=== PATIENT | male | born 1985 | race American Indian/Alaskan Native ===

== ENCOUNTER 2020-04-30 09:54 | Emergency (ER) | payer MEDICARE, OTHER ==
[~2020-04-30] VITALS: Ht 182.9 cm; Wt 142.9 kg
--- OUTSIDE RECORDS SUMMARY | ~2020-04-30 | XMS | Encounter Summary ---
Demographics + + + | Address | [address] | | | [place] [address] | + + + | Home Phone | | + + + | Preferred Language | Unknown | + + + | Marital Status | Single | + + + | Roman Catholic Affiliation | NON | + + + | Race | or | + + + | Ethnic Group | Not or | + + + Author + + + | Author | [facility] | + + + | Organization | [facility] | + + + | Address | Unknown | + + + | Phone | Unavailable | + + + Support + + + + + | Name | Relationship | Address | Phone | + + + + + | Delonte Yung | ECON | [place] | | + + + + + Care Team Providers + +------+ + | Care Pan Tank Worker Name | Role | Phone | + +------+ + | Rita Rodriguez MD | PCP | | + +------+ + Encounter Details +--------+ + + + + | Date | Type | Department | Care Team | Description | +--------+ + + + + | 03/26/ | Abstract | Otolaryngology | Otology, Ent [address] | | | 2012 | | Otology Services at | [facility] | | | | | [facility] [address] [place], [place] | | | | | [address] | [address] | | | | | Physician's | | | | | | [place], [address] floor | | | | | | [place], [place] | | | | | | [address] | | | | | | [phone] | | | +--------+ + + + + Social History + +-------+ +--------+------+ | Tobacco Use | Types | Packs/Day | Years | Date | | | | | Used | | + +-------+ +--------+------+ | Never Smoker | | | | | + +-------+ +--------+------+ + +---+---+---+ | Smokeless Tobacco: | | | | | Never Used | | | | + +---+---+---+ + + +---------+ + | Alcohol Use | Drinks/Week | oz/Week | Comments | + + +---------+ + | Not Asked | | | | + + +---------+ + + + + | Sex Assigned at | Date Recorded | | | | + + + | Not on file | | + + + + + + + | Job Start Date | Occupation | Industry | + + + + | Not on file | Not on file | Not on file | + + + + + + + + | Travel History | Travel Start | Travel End | + + + + + + | No recent travel history available. | + + documented as of this encounter Plan of Treatment Not on filedocumented as of this encounter Visit Diagnoses Not on filedocumented in this encounter"
--- OUTSIDE RECORDS SUMMARY | ~2020-04-30 | XMS | Encounter Summary ---
Demographics + + + | Address | [address] | | | [place] [address] | + + + | Home Phone | | + + + | Preferred Language | Unknown | + + + | Marital Status | Single | + + + | Episcopal Affiliation | NON | + + + | Race | or | + + + | Ethnic Group | Not or | + + + Author + + + | Author | [facility] | + + + | Organization | [facility] | + + + | Address | Unknown | + + + | Phone | Unavailable | + + + Support + + + + + | Name | Relationship | Address | Phone | + + + + + | Delonte Yung | ECON | [place], [place] | | + + + + + Care Team Providers + +------+ + | Care Outreach Professional Name | Role | Phone | + +------+ + | Diane Little MD | PCP | | + +------+ + Encounter Details +--------+------+ + + + | Date | Type | Department | Care Team | Description | +--------+------+ + + + | 08/27/ | Lab | Laboratory at [facility] | | Long-term use of | | 2015 | | [address] | | high-risk medication | | | | [place] for [facility] | | | | | | and Healing, | | | | | | [address] | | | | | | [place], [place] | | | | | | [address] | | | | | | [phone] | | | +--------+------+ + + + Social History + +-------+ [...] Comments | + + +---------+ + | No | | | | + + +---------+ [...] Not on filedocumented as of this encounter Procedures + +--------+ + + + | Procedure Name | Priori | Date/Time | Associated Diagnosis | Comments | | | ty | | | | + +--------+ + + + | CBC AND AUTO DIFF | Routin | 08/27/2016 | Long-term use of | Results for this | | | e | 12:21 PM | high-risk medication | procedure are in the | | | | PST | | results section. | + +--------+ + + + | CBC, WITH | Routin | 08/27/2016 | Long-term use of | Results for this | | DIFFERENTIAL | e | 12:21 PM | high-risk medication | procedure are in the | | | | PST | | results section. | + +--------+ + + + | COMPLETE METABOLIC | Routin | 08/27/2016 | Long-term use of | Results for this | | SET | e | 12:21 PM | high-risk medication | procedure are in the | | (NA,K,CL,CO2,BUN,CRE | | PST | | results section. | | AT,GLUC,CA,AST,ALT,B | | | | | | VERONA TOTAL,ALK | | | | | | PHOS,ALB,PROT TOTAL) | | | | | + +--------+ + + + documented in this encounter Results CBC AND AUTO DIFF (08/27/2016 12:21 PM PST) + + + + + + | Component | Value | Ref Range | Performed | Pathologist | | | | | At | Signature | + + + + + + | WHITE CELL | 9.09 | 3.50 - 10.80 | [facility] | | | COUNT | | K/cu mm | LABORATORY | | | | | | SERVICES, | | | | | | CORE | | + + + + + + | RED CELL | 5.61 | 4.50 - 6.00 | [facility] | | | COUNT | | M/cu mm | LABORATORY | | | | | | SERVICES, | | | | | | CORE | | + + + + + + | HEMOGLOBIN | 15.8 | 13.5 - 17.5 | [facility] | | | | | g/dL | LABORATORY | | | | | | SERVICES, | | | | | | CORE | | + + + + + + | HEMATOCRIT | 46.4 | 41.0 - 53.0 % | [facility] | | | | | | LABORATORY | | | | | | SERVICES, | | | | | | CORE | | + + + + + + | MCV | 82.7 | 80.0 - 96.0 fL | [facility] | | | | | | LABORATORY | | | | | | SERVICES, | | | | | | CORE | | + + + + + + | MCHC | 34.1 | 33.0 - 35.5 | [facility] | | | | | g/dL | LABORATORY | | | | | | SERVICES, | | | | | | CORE | | + + + + + + | RDW SD | 41.0 | 35.1 - 46.3 fL | [facility] | | | | | | LABORATORY | | | | | | SERVICES, | | | | | | CORE | | + + + + + + | PLATELET | 241 | 150 - 400 K/cu | [facility] | | | COUNT | | mm | LABORATORY | | | | | | SERVICES, | | | | | | CORE | | + + + + + + | MPV | 10.5 | 9.7 - 12.3 fL | [facility] | | | | | | LABORATORY | | | | | | SERVICES, | | | | | | CORE | | + + + + + + | NRBC% | 0.0 | 0.0 - 0.3 % | [facility] | | | | | | LABORATORY | | | | | | SERVICES, | | | | | | CORE | | + + + + + + | NRBC# | 0.00 | 0.00 - 0.02 | [facility] | | | | | K/cu mm | LABORATORY | | | | | | SERVICES, | | | | | | CORE | | + + + + + + | NEUTROPHIL | 50.5 | 50.0 - 70.0 % | [facility] | | | % | | | LABORATORY | | | | | | SERVICES, | | | | | | CORE | | + + + + + + | LYMPHOCYTE | 35.8 | 18.0 - 42.0 % | [facility] | | | % | | | LABORATORY | | | | | | SERVICES, | | | | | | CORE | | + + + + + + | MONOCYTE % | 9.1 (H) | 3.5 - 9.0 % | [facility] | | | | | | LABORATORY | | | | | | SERVICES, | | | | | | CORE | | + + + + + + | EOS % | 3.0 | 1.0 - 3.0 % | [facility] | | | | | | LABORATORY | | | | | | SERVICES, | | | | | | CORE | | + + + + + + | BASO % | 1.0 | 0.0 - 2.0 % | [facility] | | | | | | LABORATORY | | | | | | SERVICES, | | | | | | CORE | | + + + + + + | IG% | 0.6Comment: Immature | 0.0 - 0.6 % | [facility] | | | | Granulocytes (IG) | | LABORATORY | | | | include metamyelocytes, | | SERVICES, | | | | myelocytes and | | CORE | | | | promyelocytes. Bands | | | | | | are not included in the | | | | | | IG count. Bands are | | | | | | included in the | | | | | | neutrophil count. | | | | + + + + + + | NEUTROPHIL | 4.60 | 1.80 - 7.70 | [facility] | | | # | | K/cu mm | LABORATORY | | | | | | SERVICES, | | | | | | CORE | | + + + + + + | LYMPHOCYTE | 3.25 | 1.00 - 4.80 | [facility] | | | # | | K/cu mm | LABORATORY | | | | | | SERVICES, | | | | | | CORE | | + + + + + + | MONOCYTE # | 0.83 | 0.10 - 0.90 | [facility] | | | | | K/cu mm | LABORATORY | | | | | | SERVICES, | | | | | | CORE | | + + + + + + | EOS # | 0.27 | 0.00 - 0.50 | [facility] | | | | | K/cu mm | LABORATORY | | | | | | SERVICES, | | | | | | CORE | | + + + + + + | BASO # | 0.09 | 0.00 - 0.10 | [facility] | | | | | K/cu mm | LABORATORY | | | | | | SERVICES, | | | | | | CORE | | + + + + + + | IG# | 0.05 (H) | 0.00 - 0.03 | [facility] | | | | | K/cu mm | LABORATORY | | | | | | SERVICES, | | | | | | CORE | | + + + + + + + + | Specimen | + + | Blood - Blood | | (substance) | + + + + + | Narrative | Performed At | + + + | New adult WBC reference ranges effective August 01, 2016. | [facility] | | Immature Granulocytes (IG) include metamyelocytes, myelocytes and | LABORATORY | | promyelocytes. Bands are not included in the IG count. Bands are | SERVICES, CORE | | included in the neutrophil count. | | + + + + + + + + | Performing | Address | City/State/Zipcode | Phone Number | | Organization | | | | + + + + + | [facility] | [address] | [place] [address] | | | SERVICES, CORE | [address] | | | + + + + + COMPLETE METABOLIC SET (NA,K,CL,CO2,BUN,CREAT,GLUC,CA,AST,ALT,BILI TOTAL,ALK PHOS,ALB,PROT TOTAL) (08/27/2016 12:21 PM PST) + +---------+ + + + | Component | Value | Ref Range | Performed | Pathologist | | | | | At | Signature | + +---------+ + + + | GLUCOSE, | 77 | 60 - 99 mg/dL | [facility] | | | PLASMA | | | LABORATORY | | | (LAB) | | | SERVICES, | | | | | | CORE | | + +---------+ + + + | BUN, PLASMA | 10 | 6 - 20 mg/dL | [facility] | | | (LAB) | | | LABORATORY | | | | | | SERVICES, | | | | | | CORE | | + +---------+ + + + | CREATININE | 0.87 | 0.70 - 1.30 | [facility] | | | PLASMA | | mg/dL | LABORATORY | | | (LAB) | | | SERVICES, | | | | | | CORE | | + +---------+ + + + | EGFR | >60 | >60 mL/min | [facility] | | | - | | | LABORATORY | | | FAROESE | | | SERVICES, | | | | | | CORE | | + +---------+ + + + | EGFR NON | >60 | >60 mL/min | [facility] | | | -CRYSTAL | | | LABORATORY | | | RICAN | | | SERVICES, | | | | | | CORE | | + +---------+ + + + | SODIUM, | 142 | 136 - 145 | [facility] | | | PLASMA | | mmol/L | LABORATORY | | | (LAB) | | | SERVICES, | | | | | | CORE | | + +---------+ + + + | POTASSIUM, | 3.3 (L) | 3.4 - 5.0 | [facility] | | | PLASMA | | mmol/L | LABORATORY | | | (LAB) | | | SERVICES, | | | | | | CORE | | + +---------+ + + + | CHLORIDE, | 106 | 97 - 108 mmol/L | [facility] | | | PLASMA | | | LABORATORY | | | (LAB) | | | SERVICES, | | | | | | CORE | | + +---------+ + + + | TOTAL CO2, | 27 | 21 - 32 mmol/L | [facility] | | | PLASMA | | | LABORATORY | | | (LAB) | | | SERVICES, | | | | | | CORE | | + +---------+ + + + | CALCIUM, | 9.1 | 8.6 - 10.2 | [facility] | | | PLASMA | | mg/dL | LABORATORY | | | (LAB) | | | SERVICES, | | | | | | CORE | | + +---------+ + + + | CALCIUM(ALB | 9.1 | 8.6 - 10.2 | [facility] | | | CORRECTED) | | mg/dL | LABORATORY | | | | | | SERVICES, | | | | | | CORE | | + +---------+ + + + | BILIRUBIN | 1.2 | 0.3 - 1.2 mg/dL | [facility] | | | TOTAL | | | LABORATORY | | | | | | SERVICES, | | | | | | CORE | | + +---------+ + + + | TOTAL | 7.6 | 6.4 - 8.2 g/dL | [facility] | | | PROTEIN, | | | LABORATORY | | | PLASMA | | | SERVICES, | | | (LAB) | | | CORE | | + +---------+ + + + | ALBUMIN, | 4.0 | 3.5 - 4.7 g/dL | [facility] | | | PLASMA | | | LABORATORY | | | (LAB) | | | SERVICES, | | | | | | CORE | | + +---------+ + + + | ALK PHOS | 81 | 53 - 128 U/L | [facility] | | | | | | LABORATORY | | | | | | SERVICES, | | | | | | CORE | | + +---------+ + + + | AST(SGOT) | 27 | <=41 U/L | [facility] | | | | | | LABORATORY | | | | | | SERVICES, | | | | | | CORE | | + +---------+ + + + | ALT (SGPT) | 52 | <=60 U/L | [facility] | | | | | | LABORATORY | | | | | | SERVICES, | | | | | | CORE | | + +---------+ + + + | ANION GAP | 9 | mmol/L | [facility] | | | | | | LABORATORY | | | | | | SERVICES, | | | | | | CORE | | + +---------+ + + + | ANION | 9 | 4 - 11 mmol/L | [facility] | | | GAP(ALB | | | LABORATORY | | | CORRECTED) | | | SERVICES, | | | | | | CORE | | + +---------+ + + + | POTASSIUM | No Hemo | | [facility] | | | CMNT | | | LABORATORY | | | | | | SERVICES, | | | | | | CORE | | + +---------+ + + + | BILI T CMNT | No Hemo | | [facility] | | | | | | LABORATORY | | | | | | SERVICES, | | | | | | CORE | | + +---------+ + + + | AST CMNT | No Hemo | | [facility] | | | | | | LABORATORY | | | | | | SERVICES, | | | | | | CORE | | + +---------+ + + + + + | Specimen | + + | Blood - Blood | | (substance) | + + + + + | Narrative | Performed At | + + + | GFR is estimated using the MDRD equation recommended by the | [facility] | | National Kidney Disease Education Program. Estimated GFR | LABORATORY | | Interpretive Information: <60 mL/min/1.73 sq m | SERVICES, CORE | | Chronic Kidney Disease <15 mL/min/1.73 sq m | | | Kidney Failure Estimated GFR greater that 60 mL/min/1.73 sq m is of | | | limited clinical value. The MDRD equation is not valid in the | | | following situations: - Patients under 18 years of age - Severe | | | malnutrition or obesity - Vegetarian diet - Rapidly changing kidney | | | function | | + + + + + + + + | Performing | Address | City/State/Zipcode | Phone Number | | Organization | | | | + + + + + | [facility] | [address] | [place] [address] | | | SERVICES, CORE | [address] | | | + + + + + documented in this encounter Visit Diagnoses + + | Diagnosis | + + | Long-term use of high-risk medication | + + documented in this encounter"
--- OUTSIDE RECORDS SUMMARY | ~2020-04-30 | XMS | Encounter Summary ---
Demographics + + + | Address | [address] | | | [place] [address] | + + + | Home Phone | | + + + | Preferred Language | Unknown | + + + | Marital Status | Single | + + + | Christianity Affiliation | NON | + + + | Race | or | + + + | Ethnic Group | Not or | + + + Author + + + | Author | [facility] | + + + | Organization | [facility] [facility] | + + + | Address | Unknown | + + + | Phone | Unavailable | + + + Support + + + + + | Name | Relationship | Address | Phone | + + + + + | Delonte Yung | ECON | [place] | | + + + + + Care Team Providers + +------+ + | Care Water Purifier Name | Role | Phone | + +------+ + | Diane Little MD | PCP | | + +------+ + Reason for Visit + + + | Reason | Comments | + + + | Refill Request | Humira | + + + Encounter Details +--------+--------+ + + + | Date | Type | Department | Care Team | Description | +--------+--------+ + + + | 05/04/ | Refill | Dermatology | Shukri Anne, | Refill Request | | 2014 | | Medical at [facility] [address] | ,PhD Aylin | (Ti[place]) | | | | [address] [facility] | Allergy Asthma | | | | | for Health and | Dermatology [address] | | | | | [facility], [address], | [facility] | | | | | [address]th Floor | [place] [address] | | | | | [place], [place] | [phone] | | | | | [address] | | | | | | [phone] | | | +--------+--------+ + + + Social History + +-------+ [...] filedocumented as of this encounter Visit Diagnoses + + | Diagnosis | + + | Other psoriasis - Primary | + + documented in this encounter"
--- OUTSIDE RECORDS SUMMARY | ~2020-04-30 | XMS | Encounter Summary ---
Demographics + + + | Address | [address] [place] [address] ROAD | | | [place] [address] | + + + | Home Phone | | + + + | Preferred Language | Unknown | + + + | Marital Status | Single | + + + | Anabaptist Affiliation | Unknown | + + + | Race | Unknown | + + + | Ethnic Group | Unknown | + + + Author + + + | Author | [facility] | | | and Mendezana | + + + | Organization | [facility] | | | and [place]endez[place] | + + + | Address | Unknown | + + + | Phone | Unavailable | + + + Support + + +---------+ + | Name | Relationship | Address | Phone | + + +---------+ + | Benjamin Yung | ECON | Unknown | | + + +---------+ + | Marcy Santana | ECON | Unknown | | + + +---------+ + | Vinay Yung | ECON | Unknown | | + + +---------+ + Care Team Providers + +------+ + | Care Diamond Cleaner Name | Role | Phone | + +------+ + | Scarlet Bello PA-C | PCP | | + +------+ + Reason for Visit Evaluate & Treat (Routine) +--------+--------+ + + + + | Status | Reason | Specialty | Diagnoses / | Referred By | Referred To | | | | | Procedures | Contact | Contact | +--------+--------+ + + + + | Closed | | Dermatology | Diagnoses | [facility] | [facility] | | | | | Psoriasis | [facility] | Dermatology | | | | | | HEALTH | [address] | | | | | | [place] | [address] | | | | | | [address] | [place], [place] | | | | | | [place] | [address] | | | | | | WAY | Phone: | | | | | | [place], | [phone] | | | | | | [place] | Fax: | | | | | | [address] | [phone] | | | | | | Phone: | | | | | | | [phone] | | | | | | | Fax: | | | | | | | [phone] | | +--------+--------+ + + + + Encounter Details +--------+---------+ + + + | Date | Type | Department | Care Team | Description | +--------+---------+ + + + | 12/01/ | Office | [facility] | Julieth Jade | Psoriasis (Primary | | 2019 | Visit | PLASTIC SURGERY AND | [address] | Dx); High risk | | | | DERMATOLOGY [address] | [address] | medication use | | | | [address] | [place] [address] | | | | | [place], [place] | [phone] | | | | | [address] | | | | | | [phone] | | | +--------+---------+ + + + Social History + +-------+ [...] Comments | + + +---------+ + | Never | 0 Standard drinks | 0.0 | | | | or equivalent | | | + + +---------+ + + + + + | Alcohol Habits | Answer | Date Recorded | + + + + | How often do you have a drink containing | Never | 07/14/2019 | | alcohol? | | | + + + + | How many drinks containing alcohol do you | Not asked | | | have on a typical day when you are | | | | drinking? | | | + + + + | How often do you have six or more drinks on | Not asked | | | one occasion? | | | + + + + + + + | Sex Assigned at | Date Recorded | | | | + + + | Not on file | | + + + documented as of this encounter Last Filed Vital Signs + + + + + | Vital Sign | Reading | Time Taken | Comments | + + + + + | Blood Pressure | - | - | | + + + + + | Pulse | - | - | | + + + + + | Temperature | - | - | | + + + + + | Respiratory Rate | - | - | | + + + + + | Oxygen Saturation | - | - | | + + + + + | Inhaled Oxygen | - | - | | | Concentration | | | | + + + + + | Weight | 149.7 kg (330 lb) | 12/02/2019 1:12 PM | | | | | PDT | | + + + + + | Height | 182.9 cm (6') | 12/02/2019 1:12 PM | | | | | PDT | | + + + + + | Body Mass Index | 44.76 | 12/02/2019 1:12 PM | | | | | PDT | | + + + + + documented in this encounter Patient Instructions Patient Instructions Lonny Bates, Shovel Loader Operator - 12/02/2019 1:00 PM PDTFormadan nichols of this note might be different from the original. -Discussed continuing with Humira injections every 14 days and topically with Triamcinolone cream for his body, hydrocortisone cream for the more sensitive areas of face, armpits and groin. -Discussed getting labs done in February at [facility]. Adalimumab Injection Brand Names: CYLTEZO, Humira What is this medicine? ADALIMUMAB (a brien VILLAR mu mab) is used to treat rheumatoid and psoriatic arthritis. It is al so used to treat ankylosing spondylitis, Crohn's disease, ulcerative colitis, plaque psorias is, hidradenitis suppurativa, and uveitis. How should I use this medicine? This medicine is for injection under the skin. You will be taught how to prepare and give t his medicine. Use exactly as directed. Take your medicine at regular intervals. Do not take your medicine more often than directed. A special MedGuide will be given to you by the pharmacist with each prescription and refill . Be sure to read this information carefully each time. It is important that you put your used needles and syringes in a special sharps container. Do not put them in a trash can. If you do not have a sharps container, call your pharmacist or healthcare provider to get one. Talk to your cigarette making examiner regarding the use of this medicine in children. While this drug m ay be prescribed for children as young as 2 years for selected conditions, precautions do ap ply. The card filer of the medicine offers free information to patients and their health care partners. Call for more information. What side effects may I notice from receiving this medicine? Side effects that you should report to your doctor or health care center manager as soon as p ossible: allergic reactions like skin rash, itching or hives, swelling of the face, lips, or tong ue breathing problems changes in vision chest pain fever, chills, or any other sign of infection numbness or tingling red, scaly patches or raised bumps on the skin swelling of the ankles swollen lymph nodes in the neck, underarm, or groin areas unexplained weight loss unusual bleeding or bruising unusually weak or tired Side effects that usually do not require medical attention (report to your doctor or health care center manager if they continue or are bothersome): headache nausea redness, itching, swelling, or bruising at site where injected What may interact with this medicine? Do not take this medicine with any of the following medications: abatacept anakinra etanercept infliximab live virus vaccines rilonacept This medicine may also interact with the following medications: vaccines What if I miss a dose? If you miss a dose, take it as soon as you can. If it is almost time for your next dose, ta ke only that dose. Do not take double or extra doses. Give the next dose when your next sche duled dose is due. Call your doctor or health care center manager if you are not sure how to h andle a missed dose. Where should I keep my medicine? Keep out of the reach of children. Store in the original container and in the refrigerator between 2 and 8 degrees C (36 and 4 6 degrees F). Do not freeze. The product may be stored in a cool carrier with an ice pack, i f needed. Protect from light. Throw away any unused medicine after the expiration date. What should I tell my health care provider before I take this medicine? They need to know if you have any of these conditions: diabetes heart disease hepatitis B or history of hepatitis B infection immune system problems infection or history of infections multiple sclerosis recently received or scheduled to receive a vaccine scheduled to have surgery tuberculosis, a positive skin test for tuberculosis or have recently been in close conta ct with someone who has tuberculosis an unusual reaction to adalimumab, other medicines, mannitol, latex, rubber, foods, dyes , or preservatives or trying to get breast-feeding What should I watch for while using this medicine? Visit your doctor or health care center manager for regular checks on your progress. Tell you r doctor or healthcare professional if your symptoms do not start to get better or if they g et worse. You will be tested for tuberculosis (TB) before you start this medicine. If your doctor pre scribes any medicine for TB, you should start taking the TB medicine before starting this me dicine. Make sure to finish the full course of TB medicine. Call your doctor or health care center manager if you get a cold or other infection while rec eiving this medicine. Do not treat yourself. This medicine may decrease your body's ability to fight infection. Talk to your doctor about your risk of cancer. You may be more at risk for certain types of cancers if you take this medicine. NOTE:This sheet is a summary. It may not cover all possible information. If you have questi ons about this medicine, talk to your doctor, pharmacist, or health care provider. Copyright 2019 Elsevier Managing Psoriasis Take baths in warm water to help soften scales. The success of your medical treatment depends on you. When your healthcare provider gives y ou a treatment plan, ask when you should expect to see results. Then, follow your plan. If y our treatment does not work in the expected time, let your healthcare provider know. Psorias is carola common disease, and it canrespond to many differenttreatments. It depends on th e location, size, and symptomseach person experiences.Some treatments are simple (tar-ba sed therapies or topical steroids). Other treatments are complex (new biologic medicines or light therapy). Your healthcare provider will need to personalize your treatment. Psoriasis will often get better with treatment. But it can get worse later if you stop treatment or if a new illness occurs. In most cases, you can get control of your psoriasis again. You will likely need to see yourhealthcare provider regularly about treatment options. Psoriasis self-care Follow these steps to help manage your symptoms: Take baths to help soften scales. Use warm water, not hot water. To avoid drying out you r skin, limit each bath to about 15 minutes. Add bath oil or Sea salts. After you bathe, apply lotion right away, while your skin is damp. Dry skin can make sym ptoms worse. Use ascalp treatment as prescribed by your healthcare provider. There are different so lutions and dosages based on your symptoms. Seek treatment right away for any illnesses or skin injuries because they can cause flar e-ups. Manage your stress, and use relaxation techniques. Expose your psoriatic skin to sunlight for 5 minutes a day. But don t do this if you f eel that sun exposure makes your psoriasis worse.Use sunscreen on the normal, unaffected s kin, but avoid sunburns. Use wump-[id number]-[id number] hydrocortisone cream for itching to reduce scaling for active outbr eaks.Ask your healthcare provider about long-term use. Stick with treatment that your healthcare provider has recommended for you, especially i f it's controlling your psoriasis. Avoid abrasive cleansers, harsh detergents, and household chemicals. Getting good results Now that you know more about psoriasis, the next step is up to you. Follow your healthcare provider's treatment plan and self-care routine. Doing so can help you control your symptoms . If your symptoms don t improve or they get worse, call your healthcare provider. Psorias is can t be cured. But its symptoms can be managed. Date Last Reviewed: 10/17/201619995316-7433 [employer] [address] [place] [address], [place] [address]. All righ ts reserved. This information is not intended as a substitute for professional medical care. Always follow your healthcare professional's instructions. Adalimumab Injection Brand Names: CYLTEZO, Humira What is this medicine? ADALIMUMAB (a brien pardo mab) is used to treat rheumatoid and psoriatic arthritis. It is al so used to treat ankylosing spondylitis, Crohn's disease, ulcerative colitis, plaque psorias is, hidradenitis suppurativa, and uveitis. How should I use this medicine? This medicine is for injection under the skin. You will be taught how to prepare and give t his medicine. Use exactly as directed. Take your medicine at regular intervals. Do not take your medicine more often than directed. A special MedGuide will be given to you by the pharmacist with each prescription and refill . Be sure to read this information carefully each time. It is important that you put your used needles and syringes in a special sharps container. Do not put them in a trash can. If you do not have a sharps container, call your pharmacist or healthcare provider to get one. Talk to your cigarette making examiner regarding the use of this medicine in children. While this drug m ay be prescribed for children as young as 2 years for selected conditions, precautions do ap ply. The card filer of the medicine offers free information to patients and their health care partners. Call for more information. What side effects may I notice from receiving this medicine? Side effects that you should report to your doctor or health care center manager as soon as p ossible: allergic reactions like skin rash, itching or hives, swelling of the face, lips, or tong ue breathing problems changes in vision chest pain fever, chills, or any other sign of infection numbness or tingling red, scaly patches or raised bumps on the skin swelling of the ankles swollen lymph nodes in the neck, underarm, or groin areas unexplained weight loss unusual bleeding or bruising unusually weak or tired Side effects that usually do not require medical attention (report to your doctor or health care center manager if they continue or are bothersome): headache nausea redness, itching, swelling, or bruising at site where injected What may interact with this medicine? Do not take this medicine with any of the following medications: abatacept anakinra etanercept infliximab live virus vaccines rilonacept This medicine may also interact with the following medications: vaccines What if I miss a dose? If you miss a dose, take it as soon as you can. If it is almost time for your next dose, ta ke only that dose. Do not take double or extra doses. Give the next dose when your next sche duled dose is due. Call your doctor or health care center manager if you are not sure how to h andle a missed dose. Where should I keep my medicine? Keep out of the reach of children. Store in the original container and in the refrigerator between 2 and 8 degrees C (36 and 4 6 degrees F). Do not freeze. The product may be stored in a cool carrier with an ice pack, i f needed. Protect from light. Throw away any unused medicine after the expiration date. What should I tell my health care provider before I take this medicine? They need to know if you have any of these conditions: diabetes heart disease hepatitis B or history of hepatitis B infection immune system problems infection or history of infections multiple sclerosis recently received or scheduled to receive a vaccine scheduled to have surgery tuberculosis, a positive skin test for tuberculosis or have recently been in close conta ct with someone who has tuberculosis an unusual reaction to adalimumab, other medicines, mannitol, latex, rubber, foods, dyes , or preservatives or trying to get breast-feeding What should I watch for while using this medicine? Visit your doctor or health care center manager for regular checks on your progress. Tell you r doctor or healthcare professional if your symptoms do not start to get better or if they g et worse. You will be tested for tuberculosis (TB) before you start this medicine. If your doctor pre scribes any medicine for TB, you should start taking the TB medicine before starting this me dicine. Make sure to finish the full course of TB medicine. Call your doctor or health care center manager if you get a cold or other infection while rec eiving this medicine. Do not treat yourself. This medicine may decrease your body's ability to fight infection. Talk to your doctor about your risk of cancer. You may be more at risk for certain types of cancers if you take this medicine. NOTE:This sheet is a summary. It may not cover all possible information. If you have questi ons about this medicine, talk to your doctor, pharmacist, or health care provider. Copyright 2019 Elsevier documented in this encounter Progress Notes Julieth Jade ARNP - 12/02/2019 1:00 PM PDT Subjective Patient ID: Kimberley Yung is a 34 y.o. male. Established patient here today with uzbek sign language video bark peeler services for a follow up on his psoriasis that has been present about 7 years located primarily on his pos terior scalp, neck, cheek, abdomen and elbows and back and behind his ears. Patient has bee n treated with Humira for about 4-5 years along with topical hydrocortisone 2.5% for the fac e, groin and underarms and triamcinolone 0.1% cream for the body. Patient states he recentl y had an infection in his left ear and it continues to be sore- he is currently on treatment for this. Patient states he is currently using the injections he was previously prescribed by his old doctor but he forgets sometimes. Patient states he has been off by a few days wit h his Humira dosing, but is almost on schedule. The following elements of the patient's history were reviewed and updated as appropriate. Coby connelly are available elsewhere in the patient record. allergies, current medications, past fam sally history, past medical history, past social history, past surgical history and problem li st Review of Systems Constitutional: Negative. Skin: Positive for rash. Objective Ht 1.829 m (6') | Wt (!) 149.7 kg (330 lb) | BMI 44.76 kg/m Physical Exam Eyes: Pupils: Pupils are equal, round, and reactive to light. Skin: General: Skin is warm and dry. Comments: Sharply marginated dull red plaques with loosely adherent lamellar silvery whi te scales located on posterior scalp, neck, cheek, abdomen and elbows and back. Neurological: Mental Status: He is alert. Assessment /Plan ASSESSMENT: Psoriasis vulgaris. We discussed this chronic condition and the different treat ment options available including light therapy, topical corticosteroids, and injectable biol ogics. -Discussed continuing with Humira injections every 14 days and topically with Triamcinolone cream for his body, hydrocortisone cream for the more sensitive areas of face, armpits and groin. -Discussed getting labs done in February at [facility]. 1. Psoriasis (Primary) - adalimumab (HUMIRA PEN) 40 mg/0.8 mL injection (pen); Inject 0.8 mLs under the skin e very 14 days. Dispense: 2 each; Refill: 11 - triamcinolone (KENALOG) 0.1% cream; Apply 1-2 times daily to affected areas of rash o n body. Best applied to damp skin. Avoid the face and underarms. Dispense: 453.6 g; Refill: 5 - hydrocortisone 2.5% cream; Apply 1-2 times daily to affected areas of rash of face an d underarms. Best applied to damp skin. Dispense: 28 g; Refill: 11 2. High risk medication use - Quantiferon Gold; Future - CBC with Differential; Future - Hepatic Function Panel; Future - Hepatitis B Surface Ag; Future ILonny CMA, am scribing for, and in the presence of PALMIRA Landin. Julieth Browning DCNP, personally performed the services described in this documentatio n, as scribed by Lonny Bates CMA in my presence, and it is both accurate and complete. documented monica ricks this encounter Plan of Treatment +--------+---------+ + + + | Date | Type | Specialty | Care Team | Description | +--------+---------+ + + + | 05/02/ | Office | Neurology | Rom Marcos, | | 2019 | Visit | | MD [address] | | | | | | [place] | | | | | | [place] [address] | | | | | | [phone] | | | | | | | | +--------+---------+ + + + | 06/06/ | Office | Dermatology | Edwige Adams | | | 2019 | Visit | | [address] | | | | | | [facility] | | | | | | [place] [address] | | | | | | [phone] | | | | | | | | +--------+---------+ + + + + +------+--------+ + + | Name | Type | Priori | Associated Diagnoses | Order Schedule | | | | ty | | | + +------+--------+ + + | Quantiferon Gold | Lab | Routin | High risk | 1 Occurrences | | | | e | medication use | starting 12/02/2019 | | | | | | until 12/01/2020 | + +------+--------+ + + | Hepatic Function | Lab | Routin | High risk | 1 Occurrences | | Panel | | e | medication use | starting 12/02/2019 | | | | | | until 12/01/2020 | + +------+--------+ + + | Hepatitis B Surface | Lab | Routin | High risk | 1 Occurrences | | Ag | | e | medication use | starting 12/02/2019 | | | | | | until 12/01/2020 | + +------+--------+ + + documented as of this encounter Visit Diagnoses + + | Diagnosis | + + | Psoriasis - Primary Other psoriasis | + + | High risk medication use Encounter for long-term (current) use of other medications | + + documented in this encounter"
--- OUTSIDE RECORDS SUMMARY | ~2020-04-30 | XMS | Encounter Summary ---
Demographics + + + | Address | [address] [place] [address] ROAD | | | [place] [address] | + + + | Home Phone | | + + + | Preferred Language | Unknown | + + + | Marital Status | Single | + + + | Yazidism Affiliation | Unknown | + + + | Race | Unknown | + + + | Ethnic Group | Unknown | + + + Author + + + | Author | [facility] | | | and [place]endez[place] | + + + | Organization | [facility] | | | and [place] | [...] Team Providers + +------+ + | Care Teacher Of The Handicapped Name | Role | Phone | + +------+ + | Scarlet Bello PA-C | PCP | | + +------+ + Reason for Visit + +--------+ + | Reason | Onset | Comments | | | Date | | + +--------+ + | Medication Refill | 02/21/ | order status | | | 2019 | | + +--------+ + Encounter Details +--------+--------+ + + + | Date | Type | Department | Care Team | Description | +--------+--------+ + + + | 02/21/ | Refill | [facility] | Rom Marcos, | Medication Refill | | 2019 | | NEUROLOGY [address] | MD [address] | (order status) | | | | [address] | [address] | | | | | [place], [place] | [facility] [address] | | | | | [address] | [phone] | | | | | [phone] | | | +--------+--------+ + + + [...] + + documented as of this encounter Miscellaneous Notes Telephone Encounter - Rom Marcos MD - 02/23/2020 10:50 AM PDTPlease follow on labs fr om 01/25/2020. elephon e Encounter - Yesi Barker CMA - 02/23/2020 10:04 AM PDTLast filled on: 09/22/2019 Last office visit: 01/25/2020 Next office visit: 05/02/2020 elephone Encounter - Selam Munguia - 02/23/2020 9:17 AM PDTVivian, is calling again for Medication R efill (order status) and would like a call back. Additional Call Details: Caller stated patient is having seizures and is out of medication OXcarbazepine (TRILEPTAL) 600 MG tablet She stated the authorization needs sent to [facility] in [place] as soon as possible. elephone Sarika Aaliyah Duque Nam - 02/22/2020 1:37 PM PDTVivian-aunt, is calling regarding Medication Refill (order status) and would like a call back. Additional Call Details: States [facility] has requested Rx refill on both medication s. Has not heard back. Please call Marcy back with order status at: [phone] If this is a symptom based call, was patient offered triage? Not Applicable If this is a symptom based call and you were unable to immediately transfer the call to a p samantha life skills instructor was caller made aware that if at any time he feels it is an emergency they nga uld call 911 or go to the nearest emergency room? not applicable documented in this encounter Plan of Treatment +--------+---------+ + + + | Date | Type | Specialty | Care Team | Description | +--------+---------+ + + + | 05/02/ | Office | Neurology | Rom Marcos, | | 2019 | Visit | | MD Ingrid [address] | | | | | | [address] | | | | | | [place] [address] | | | | | | [phone] | | | | | | | | +--------+---------+ + + + | 06/06/ | Office | Dermatology | Edwige Adams | | 2019 | Visit | | [address] | | | | | | [address] | | | | | | [place] [address] | | | | | | [phone] | | | | | | | | +--------+---------+ + + + documented as of this encounter Visit Diagnoses Not on filedocumented in this encounter"
--- OUTSIDE RECORDS SUMMARY | ~2020-04-30 | XMS | Encounter Summary ---
Demographics + + + | Address | [address] [place] [address] ROAD | | | [place] [address] | + + + | Home Phone | | + + + | Preferred Language | Unknown | + + + | Marital Status | Single | + + + | Mormon Affiliation | Unknown | + + + | Race | Unknown | + + + | Ethnic Group | Unknown | + + + Author + + + | Author | [facility] | | | and [place] | + + + | Organization | [facility] | | | and [place] | [...] Team Providers + +------+ + | Care Mobility Architect Name | Role | Phone | + +------+ + | Nitin Field PA-C | PCP | | + +------+ + Reason for Visit + + + | Reason | Comments | + + + | Follow-up | | + + + Evaluate & Treat (Routine) +--------+--------+ + + + + | Status | Reason | Specialty | Diagnoses / | Referred By | Referred To | | | | | Procedures | Contact | Contact | +--------+--------+ + + + + | Closed | | Dermatology | Diagnoses | [facility] | Beka | | | | | F/U | NATIVE | Dermatology | | | | | PSORIASIS | HEALTH | [address] [place] [address] | | | | | | [place] | [facility] | | | | | | [address] | [place], [place] | | | | | | [place] | [address] | | | | | | WAY | Phone: | | | | | | [place], | [phone] | | | | | | [place] | Fax: | | | | | | [address] | [phone] | | | | | | Phone: | | | | | | | [phone] | | | | | | | Fax: | | | | | | | [phone] | | +--------+--------+ + + + + Encounter Details +--------+---------+ + + + | Date | Type | Department | Care Team | Description | +--------+---------+ + + + | 05/28/ | Office | [facility] | Julieth Jade | Psoriasis (Primary | | 2019 | Visit | PLASTIC SURGERY AND | [address] | Dx); Acanthosis | | | | DERMATOLOGY [address] | [address] | nigricans | | | | [address] | [place] [address] | | | | | [place], [place] | [phone] | | | | | [address] | | | | | | [phone] | | | +--------+---------+ + + + Social History + +-------+ +--------+------+ | Tobacco Use | Types | Packs/Day | Years | Date | | | | | Used | | + +-------+ +--------+------+ | Never Smoker | | | | | + +-------+ +--------+------+ + + +---------+ + | Alcohol Use | Drinks/Week | oz/Week | Comments | + + +---------+ + | Not Asked | 0 Standard drinks | 0.0 | [...] + + + + | Weight | 147.4 kg (325 lb) | 05/28/2019 1:49 PM | | | | | PDT | | + + + + + | Height | 182.9 cm (6') | 05/28/2019 1:49 PM | | | | | PDT | | + + + + + | Body Mass Index | 44.08 | 05/28/2019 1:49 PM | | | | | PDT | | + + + + + documented in this encounter Patient Instructions Patient Instructions Radha Mcmanus, Director Of Restaurant Operations - 05/28/2019 1:15 PM PDTForm atting of this note might be different from the original. Managing Psoriasis Take baths in warm water [...] unaffected s kin, but avoid sunburns. Use ehkh-vec-umhoxhv hydrocortisone cream for itching to reduce scaling [...] symptoms can be managed. Date Last Reviewed: 10/17/[id number] [employer]. [address] [place] [address], [place] [address]. All righ ts reserved. This information is not intended as a substitute for professional medical care. Always follow your healthcare professional's instructions. documented in this encounter Progress Notes Radha Mcmanus, Director Of Restaurant Operations - 05/28/2019 1:15 PM PDT Subjective Patient ID: Kimberley Yung is a 34 y.o. male. Established patient is here for follow up on psoriasis. Patient states since last visit he was to continue Humira, triamcinolone 0.1% cream and hydrocortisone 2.5% cream. Patient stat es since last visit has been using the cream as prescribed and Humira every two weeks. Patie nt states he has not seem much improvement in his psoriasis but points to his axilla and pos terior neck. Patient states he has missed some injections due to having no way to communicat ed how to get medication. Pertinent Lab work (03/11/2019): TB- (negative), Hepatitis Panel- (negative for HAV, HBC, HC V), CBC and CMP (appropriate for continued biologic therapy). Pertinent history: Patient has a seizure disorder and is deaf. He lives with his grandmothe r in [place]. Polymerization Kettle Operator used. Used a professional overnight caregiver in person in Sign Language during visit. The following elements of the patient's history were reviewed and updated as appropriate. T hey are available elsewhere in the patient record. allergies, current medications, past fam sally history, past medical history, past social history, past surgical history and problem li st Review of Systems Constitutional: Negative. Skin: Negative. SKIN All other systems reviewed and are negative. Objective Ht 1.829 m (6') | Wt (!) 147.4 kg (325 lb) | BMI 44.08 kg/m Physical Exam Constitutional: He is oriented to person, place, and time. He appears well-developed and we ll-nourished. Eyes: Pupils are equal, round, and reactive to light. Neurological: He is alert and oriented to person, place, and time. Skin: Skin is warm. Thin areas of well circumscribed dull red plaques with no scale located on the face, neck, elbow, ear and groin area. -BSA: 1%. Marked improvement from previous clinical examination. No signs of nail disease, enthesitis, and dactylitis. Darkened velvety hyperpigmentation on the bilateral axillae and posterior neck. Psychiatric: He has a normal mood and affect. His behavior is normal. Thought content julian eaton Assessment /Plan ASSESSMENT: Psoriasis vulgaris. We discussed this chronic condition and the different treat ment options available including light therapy, topical corticosteroids, and injectable biol ogics. The patient would like to proceed with topical steroids. The pt will treat with Triam cinolone (kenalog) cream0.1% and hydrocortisone 2.5% cream. The pt will apply the topical steroid twice daily to wet skin on the affected areas. We discussed using the steroid only w hile the skin is red and itchy, and discontinuing the product once the skin has healed. The pt was cautioned to avoid using on any one body area for longer than 2 weeks at a time. - Patient will continue Humira and topical medications. Assessment acanthosis nigricans. I explained in detail this nonspecific reaction that may a ccompany obesity, diabetes, and other endocrine disorders. Written handout given. I encourag ed patient to use Amlactin lotion daily on damp skin daily after shower and gently exfoliati on with a soft cloth or soft bristle brush in shower daily. Discussed weight loss, diet and exercise. Patient repeatedly complains that he would like to relocate back to [facility] explaining better lifestyle choices. We discussed implementing these healthy lifestyle habit s in his current living situation. Kimberley was seen today for follow-up. Diagnoses and all orders for this visit: Psoriasis Acanthosis nigricans Greater that 50% of a 45 minutes appointment was spent in face to face counseling and coord ination of care. Radha Browning CMA, am scribing for, and in the presence of DALILA Landin , PROPELLER ENGINEER-LI, Julieth ESCOBAR FNP, DCNP, personally performed the services described in this documen tation, as scribed by Radha Ocampo CMA, in my presence, and it is both accurate and complete. documented in this encounter Plan of Treatment +--------+---------+ + + + | Date | Type | Specialty | Care Team | Description | +--------+---------+ + + + | 05/02/ | Office | Neurology | Hemant Giomanuelamaya, | | | 2019 | Visit | | MD Ingrid WATT | | | | | | [address] | | | | | | [place] [address] | | | | | | [phone] | | | | | | | | +--------+---------+ + + + | 06/06/ | Office | Dermatology | Edwige Adams | | | 2019 | Visit | | [address] | | | | | | [address] | | | | | | [place] [address] | | | | | | [phone] | | | | | | | | +--------+---------+ + + + documented as of this encounter Visit Diagnoses + + | Diagnosis | + + | Psoriasis - Primary Other psoriasis | + + | Acanthosis nigricans Acquired acanthosis nigricans | + + documented in this encounter"
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
--- OUTSIDE RECORDS SUMMARY | ~2020-04-30 | XMS | Encounter Summary ---
Demographics + + + | Address | [address] | | | [place] [address] | + + + | Home Phone | | + + + | Preferred Language | Unknown | + + + | Marital Status | Single | + + + | Nondenominational Affiliation | NON | + + + | Race | or | + + + | Ethnic Group | Not or | + + + Author + + + | Author | [facility] [employer] [facility] | + + + | Organization | [facility] [employer] | + + [...] Team Providers + +------+ + | Care Electronics Installer Name | Role | Phone | + +------+ + | Diane Little MD | PCP | | + +------+ + Reason for Visit AUTH/CERT +--------+--------+ + + + + | Status | Reason | Specialty | Diagnoses / | Referred By | Referred To | | | | | Procedures | Contact | Contact | +--------+--------+ + + + + | Closed | | | | | | +--------+--------+ + + + + Encounter Details +--------+ + + + + | Date | Type | Department | Care Team | Description | +--------+ + + + + | 08/18/ | Hospital | [facility] [address] | Brea Muñozh | | | 2012 | Encounter | [address] | MD Coby [address] [facility] | | | | | [facility] | [address] | | | | | [address] | [place], [place] | | | | | ([facility]) | [address] | | | | | [place], [place] | [phone] | | | | | [address] | | | | | | [phone] | | | +--------+ + + + [...] + + + | Blood Pressure | 151/74 | 08/18/2013 1:06 PM | | | | | PST | | + + + + + | Pulse | 98 | 08/18/2013 2:02 PM | | | | | PST | | + + + + + | Temperature | 36.9 C (98.4 F) | 08/18/2013 12:20 PM | | | | | PST | | + + + + + | Respiratory Rate | 20 | 08/18/2013 1:06 PM | | | | | PST | | + + + + + | Oxygen Saturation | 94% | 08/18/2013 2:02 PM | | | | | PST | | + + + + + | Inhaled Oxygen | - | - | | | Concentration | | | | + + + + + | Weight | 152.9 kg (337 lb) | 08/18/2013 7:13 AM | | | | | PST | | + + + + + | Height | 182.9 cm (6') | 08/18/2013 7:05 AM | | | | | PST | | + + + + + | Body Mass Index | 45.71 | 08/18/2013 7:05 AM | | | | | PST | | + + + + + documented in this encounter Medications at Time of Discharge + + + +---------+ + + | Medication | Sig | Dispensed | Refills | Start | End Date | | | | | | Date | | + + + +---------+ + + | DIVALPROEX SODIUM | Take 250 mg by | | 0 | | | | (DEPAKOTE ORAL) | mouth. | | | | | + + + +---------+ + + | econazole 1 % | Apply to affected | 30 g | 2 | 11/27/19 | | | Topical Cream | area once daily. | | | 13 | | | | Groin | | | | | + + + +---------+ + + | | Take 1 to 2 tablets | 30 | 0 | 08/18/20 | | | HYDROcodone-acetamin | by mouth every six | tablet | | 13 | | | ophen 5-325 mg oral | hours as needed (for | | | | | | tablet | post-operative | | | | | | | pain). Not to exceed | | | | | | | 10 tablets per any | | | | | | | 24 hour period. (Not | | | | | | | to exceed 3250 mg | | | | | | | of acetaminophen | | | | | | | from all products | | | | | | | per 24 hour period.) | | | | | + + + +---------+ + + | levothyroxine 100 | Take 100 mcg by | | 0 | | | | mcg oral tablet | mouth before | | | | | | | breakfast. | | | | | + + + +---------+ + + | miconazole | Apply to affected | 85 g | 6 | 06/10/20 | | | (ZEASORB AF) 2 % | area two times | | | 13 | | | Topical Powder | daily. | | | | | + + + +---------+ + + | miconazole 2 % | Apply to affected | 45 g | 1 | 11/29/19 | | | Topical Cream | area two times | | | 13 | | | | daily. For rash in | | | | | | | skin folds, | | | | | | | including groin. | | | | | + + + +---------+ + + | | Instill 3 drops into | 10 mL | 0 | 08/18/20 | | | lpvslroz-hfdiyavew-q | the right ear three | | | 13 | | | ydrocortisone | times daily. | | | | | | (CORTISPORIN) | | | | | | | 3.5-10,000-1 | | | | | | | mg-unit/mL-% otic | | | | | | | drops,suspension | | | | | | + + + +---------+ + + | [place]-3 Fatty | Take 3 capsules by | | 0 | | | | Acids (FISH OIL) | mouth once daily. | | | | | | oral capsule | | | | | | + + + +---------+ + + | promethazine 12.5 | Take 1 tablet by | 15 | 0 | 08/18/20 | | | mg oral tablet | mouth four times | tablet | | 13 | | | | daily as needed for | | | | | | | nausea/vomiting. | | | | | + + + +---------+ + + | Talc (ZEASORB) | Apply to groin daily | 70.9 g | 3 | 11/27/19 | | | Topical Powder | | | | 13 | | + + + +---------+ + + documented as of this encounter Progress Notes Candice Gaston MD - 08/18/2013 11:29 AM PSTINPATIENT BRIEF OPERATIVE NOTE Procedure Date: 08/18/2013 Author: Candice Gaston MD Attending Physician: Elba Weems MD Assistants: Candice Gaston MD; Prior to the beginning of the procedure the team paused to verify the patient's identity, a s well as the procedure to be performed and the correct side/site. All equipment required w as ready and available. The patient was positioned appropriately. The following steam plant operator s were present during the team pause: Otolaryngology, Nursing, Anesthesia Preoperative Diagnosis: tympanic membrane perforation, hearing loss Postoperative Diagnosis: cholesteatoma, tympanic membrane perforation, hearing loss Procedure Performed: right cartilage tympanoplasty via retroauricular approach, tragal cart ilage graft Estimated Blood Loss: scant Fluids: crystalloid Specimens: right middle ear cholesteatoma Complications: None Drains: None Disposition: PACU Findings: Large inferior & anterior perforation, approximately 33% of tympanic membrane. C horda intact. Incus and stapes superstructure absent. Malleus head and partial manubrium int act but umbo and distal manubrium absent. documented in this encou nter Plan of Treatment Not on filedocumented as of this encounter Procedures + +--------+ + + + | Procedure Name | Priori | Date/Time | Associated Diagnosis | Comments | | | ty | | | | + +--------+ + + + | PROCEDURE NOTE | Routin | 10/20/2015 | | Results for this | | | e | 8:41 PM | | procedure are in the | | | | PST | | results section. | + +--------+ + + + | PROCEDURE NOTE | Routin | 10/20/2015 | | Results for this | | | e | 8:40 PM | | procedure are in the | | | | PST | | results section. | + +--------+ + + + | TYMPANOPLASTY WITH | Electi | 08/18/2013 | Acute suppurative | | | EAR CARTILAGE GRAFT | ve | 7:39 AM | otitis media without | | | | Surgic | PST | spontaneous rupture | | | | al | | of eardrum | | | | | | Unspecified chronic | | | | | | suppurative otitis | | | | | | media Marginal | | | | | | perforation of | | | | | | tympanic membrane | | | | | | Sensorineural | | | | | | hearing loss, | | | | | | bilateral Otorrhea, | | | | | | unspecified | | | | | | Otalgia, unspecified | | + +--------+ + + + +---+--------+ | | | | | Specia | | | l | | | Needs | | | SIGN | | | LANGUA | | | GE | | | INTERP | | | RETER | | | NEEDED | +---+--------+ + +--------+ +---+ + | SURGICAL PATHOLOGY | Routin | 08/18/2013 | | Results for this | | | e | | | procedure are in the | | | | | | results section. | + +--------+ +---+ + documented in this encounter Results PROCEDURE NOTE (10/20/2015 8:41 PM PST)PROCEDURE NOTE (10/20/2015 8:40 PM PST) + + | Transcriptions | + + | Other, Faculty - 08/19/2013 6:32 PM PST | + + SURGICAL PATHOLOGY (08/18/2013) + + + + + + | Component | Value | Ref Range | Performed | Pathologist | | | | | At | Signature | + + + + + + | SURGICAL | SOURCE OF SPECIMEN:A | | [facility] | | | PATHOLOGY | Right middle ear | | DEPARTMENT | | | | cholesteatoma | | OF | | | | Final Pathologic | | PATHOLOGY | | | | Diagnosis:Right middle | | | | | | ear, biopsy: - | | | | | | Keratinizing squamous | | | | | | epithelium and | | | | | | underlying fibrous | | | | | | tissue withfocal | | | | | | calcifications | | | | | | Case seen by:Francesca Phillips | | | | | | Warren Felton/Surgical | | | | | | Pathology FellowNalini Brink | | | | | | Germain | | | | | Luke Kelley/PathologistT: | | | | | | 013/rdl Clinical | | | | | | History:The patient is a | | | | | | 28-year-old male with | | | | | | otitis media. Per | | | | | | EPIC: history | | | | | | oftympanic membrane | | | | | | perforation. Gross | | | | | | Description:Received is | | | | | | 1 specimen fresh in a | | | | | | container labeled with | | | | | | the patient | | | | | | name(initials DS) and | | | | | | "right middle ear | | | | | | cholesteatoma." | | | | | | Received is a 0.5 x0.5 | | | | | | x 0.3-cm, soft, red | | | | | | piece of tissue. The | | | | | | entire specimen is | | | | | | submitted. | | | | | | Cassette Index:[id number] | | | | | | My electronic | | | | | | signature indicates that | | | | | | I have personally | | | | | | reviewed alldiagnostic | | | | | | slides, the gross and/or | | | | | | microscopic portion of | | | | | | thisreport and | | | | | | formulated the final | | | | | | diagnosis. | | | | | | Rendering Diagnostician: | | | | | | Nalini Groves | | | | | | WarrenPathologistEvelynei | | | | | | daja Signed 08/21/2013 | | | | | | 6:54PM | | | | + + + + + + + + | Specimen | + + | | + + + + + + + | Performing | Address | City/State/Zipcode | Phone Number | | Organization | | | | + + + + + | [facility] | [address] | [place] [address] | | | PATHOLOGY | [address] | | | + + + + + documented in this encounter Visit Diagnoses Not on filedocumented in this encounter Administered Medications + +---------+ +--------+------+------+ | Medication Order | MAR | Action | Dose | Rate | Site | | | Action | Date | | | | + +---------+ +--------+------+------+ | fentaNYL citrate (PF) | New Bag | 08/18/20 | 25 mcg | | | | (SUBLIMAZE) injection 25 mcg 25 | | 13 11:56 | | | | | mcg, intravenous, POSTPROCEDURE | | AM PST | | | | | PRN, Starting 08/18/13 at | | | | | | | 0818, Until 08/18/13 at 2023, | | | | | | | moderate pain | | | | | | + +---------+ +--------+------+------+ +---------+ +--------+---+---+ | New Bag | 08/18/20 | 25 mcg | | | | | 13 11:53 | | | | | | AM PST | | | | +---------+ +--------+---+---+ + +---+ | | | + +---+ | fentaNYL citrate (PF) | | | (SUBLIMAZE) injection 1 dose, | | | Starting 08/18/13 at 1151, | | | Until 08/18/13 at 1156 | | + +---+ | | | + +---+ + +---------+ +--------+---+---+ | HYDROmorphone (DILAUDID) | New Bag | 08/18/20 | 0.5 mg | | | | injection 0.2-0.5 mg 0.2-0.5 mg, | | 13 12:24 | | | | | intravenous, POSTPROCEDURE PRN, | | PM PST | | | | | Starting Sat08/18/13 at 0818, | | | | | | | Until Sat08/18/13 at 2023, | | | | | | | moderate pain | | | | | | + +---------+ +--------+---+---+ +---------+ +--------+---+---+ | New Bag | 08/18/20 | 0.5 mg | | | | | 13 12:03 | | | | | | PM PST | | | | +---------+ +--------+---+---+ + +---+ | | | + +---+ | HYDROmorphone (DILAUDID) | | | injection 1 dose, Starting Tue | | | 08/18/13 at 1202, Until Tue | | | 08/18/13 at 1224 | | + +---+ | | | + +---+ documented in this encounter
--- OUTSIDE RECORDS SUMMARY | ~2020-04-30 | XMS | Encounter Summary ---
Demographics + + + | Address | [address] [place] [address] ROAD | | | [place] [address] | + + + | Home Phone | | + + + | Preferred Language | Unknown | + + + | Marital Status | Single | + + + | Yarsani Affiliation | Unknown | + + + | Race | Unknown | + + + | Ethnic Group | Unknown | + + + Author + + + | Author | [facility] | | | and [facility] | + + + | Organization | [facility] | | | and [facility] | + + + | Address | Unknown | + + + | Phone | Unavailable | + + + Support + + +---------+ + | Name | Relationship | Address | Phone | + + +---------+ + | Benjamin Yung | ECON | Unknown | | + + +---------+ + | Marcymoses Santana | ECON | Unknown | | + + +---------+ + | Vinay Yung | ECON | Unknown | | + + +---------+ + Care Team Providers + +------+ + | Care Application Helper Name | Role | Phone | + +------+ + | Nitin Field PA-C | PCP | | + +------+ + Reason for Visit + +--------+ + | Reason | Onset | Comments | | | Date | | + +--------+ + | Care Coordination | 08/21/ | | | | 2019 | | + +--------+ + Encounter Details +--------+ + + + + | Date | Type | Department | Care Team | Description | +--------+ + + + + | 08/21/ | Telephone | [facility] | [address] | Care Coordination | | 2018 | | NEUROSCIENCE | MD Samantha [address] | | | | | [facility] | [place] [address] [facility] | | | | | [facility] | [place] [address] | | | | | [address] [facility] | [phone] | | | | | [place], [place] | | | | | | [address] | | | | | | [phone] | | | +--------+ + + + [...] this encounter Miscellaneous Notes Telephone Encounter - Jose Weller - 08/21/2019 10:12 AM PSTLVM for pt's pcc who want ed an update on patients referral and schedulingElectronically signed by Jose frazier 08/21/2019 10:13 AM PSTdocumented in this encounter Plan of Treatment +--------+---------+ + + + | Date | Type | Specialty | Care Team | Description | +--------+---------+ + + + | 05/02/ | Office | Neurology | Rom Marcos, | | | 2019 | Visit | | MD Ingrid WATT | | | | | | [address] | | | | | | [place] [address] | | | | | | [phone] | | | | | | | | +--------+---------+ + + + | 06/06/ | Office | Dermatology | Edwige Adams | | 2019 | Visit | | [address] | | | | | | [address] | | | | | | [place] [address] | | | | | | [phone] | | | | | | | | +--------+---------+ + + + documented as of this encounter Visit Diagnoses Not on filedocumented in this encounter"
--- OUTSIDE RECORDS SUMMARY | ~2020-04-30 | XMS | Encounter Summary ---
Demographics + + + | Address | [address] | | | [place] [address] | + + + | Home Phone | | + + + | Preferred Language | Unknown | + + + | Marital Status | Single | + + + | Latter Day Affiliation | NON | + + + | Race | or | + + + | Ethnic Group | Not or | + + + Author + + + | Author | [facility] | + + + | Organization | [facility] | + + + | Address [...] Team Providers + +------+ + | Care Freelance Writer Name | Role | Phone | + +------+ + | Rita Rodriguez MD | PCP | | + +------+ + Reason for Visit + + + | Reason | Comments | + + + | Pre-op evaluation | | + + + Encounter Details +--------+---------+ + + + | Date | Type | Department | Care Team | Description | +--------+---------+ + + + | 08/04/ | Office | Preoperative | Shadia Oro | Preop examination | | 2012 | Visit | Medicine Clinic at | A, [facility] [address] | (Primary Dx); | | | | [facility] [address] | [address] | Unspecified chronic | | | | Stay [address] | [place], [place] | suppurative otitis | | | | [address] | [address] | media | | | | Mailcode: [id number] | | | | | | [facility] | | | | | | [address] [place], [place] | | | | | | [address] | | | | | | [phone] | | | +--------+---------+ + + + Anesthesia Record + + + + + | Procedure Name | Responsible | Anesthesia Start | Anesthesia Stop Time | | | Anesthesiologist | Time | | + + + + + | RIGHT TYMPANOPLASTY | Bayron Atwood MD | 08/18/13 0735 | 08/18/13 1150 | | WITHOUT MASTOID; EAR | | | | | CARTILAGE GRAFT | | | | | (Right Ear) | | | | + + + + + +----+---+ + + | Da | T | Event | Comment | | te | i | | | | | m | | | | | e | | | +----+---+ + + | 12 | 0 | | | | /0 | 7 | | | | 3/ | 3 | | | | 20 | 5 | | | | 13 | | | | +----+---+ + + | | 0 | Pt. Check | Prior to anesthesia start, pt. Identified, examined, chart | | | 7 | | reviewed, PARQ held, anesthetic plan made or approved by | | | 3 | | attending anesthesiologist. NPO status confirmed as appropriate | | | 5 | | for procedure Preoperative evaluation: unchanged | +----+---+ + + | | 0 | Eq Check | Anesthesia machine checked Equipment verified | | | 7 | | | | | 3 | | | | | 5 | | | +----+---+ + + | | 0 | An Start | | | | 7 | | | | | 3 | | | | | 5 | | | +----+---+ + + | | 0 | An Start | | | | 7 | Data | | | | 4 | | | | | 0 | | | +----+---+ + + | | 0 | Vitals | Monitors applied Vital signs checked Patient ready for anesthesia | | | 7 | Checked | | | | 4 | | | | | 6 | | | +----+---+ + + | | 0 | Std. Airway | | | | 7 | Mgt. | | | | 4 | | | | | 9 | | | +----+---+ + + | | 0 | Ready | | | | 7 | | | | | 5 | | | | | 7 | | | +----+---+ + + | | 0 | Abx | | | | 8 | Administere | | | | 1 | d | | | | 4 | | | +----+---+ + + | | 0 | Incision | | | | 8 | | | | | 2 | | | | | 5 | | | +----+---+ + + | | 1 | Surgery end | | | | 1 | | | | | 2 | | | | | 9 | | | +----+---+ + + | | 1 | An Extubate | Neuromuscular function Intact. Pharynx suctioned. Patient obeys | | | 1 | | commands. Adequate pulmonary mechanics. | | | 3 | | | | | 4 | | | +----+---+ + + | | 1 | an stop | | | | 1 | data | | | | 3 | | | | | 9 | | | +----+---+ + + | | 1 | Anesthesia | | | | 1 | End | | | | 5 | | | | | 0 | | | +----+---+ + + +------+ | Meds | +------+ + + + No medications | on file. | + + + + + | No agents on file. | + + + + | No blood administrations on file. | + + +--------+ + + + | Type | Details | Placement | Removal | +--------+ + + + | RETIRE | 08/18/13; 0715; 08/18/13; 1400; | 08/18/13 0715 by | 08/18/13 1400 by | | D - | No; 20; Left; Forearm; None; No; | Nathan Franco | Nona Landaverde | | Periph | Positive | | | | eral | | | | | Line | | | | +--------+ + + + | RETIRE | 08/18/13; 0856; right ear | 08/18/13 0856 by | 08/18/13 1402 by | | D - | surgical site; No; Right:; ear; | Linda Braga RN | Nona Landaverde | | Incisi | 08/18/13; 1402 | | | | on | | | | +--------+ + + + documented in this encounter Social History + +-------+ +--------+------+ | Tobacco [...] + + + | Blood Pressure | 136/76 | 08/04/2013 1:06 PM | | | | | PST | | + + + + + | Pulse | 95 | 08/04/2013 1:06 PM | | | | | PST | | + + + + + | Temperature | 36.3 C (97.4 F) | 08/04/2013 1:06 PM | | | | | PST | | + + + + + | Respiratory Rate | 18 | 08/04/2013 1:06 PM | | | | | PST | | + + + + + | Oxygen Saturation | 95% | 08/04/2013 1:06 PM | | | | | PST | | + + + + + | Inhaled Oxygen | - | - | | | Concentration | | | | + + + + + | Weight | 152.9 kg (337 lb) | 08/04/2013 1:06 PM | | | | | PST | | + + + + + | Height | 182.9 cm (6') | 08/04/2013 1:06 PM | [id number] | | | | PST | | + + + + + | Body Mass Index | 45.71 | 08/04/2013 1:06 PM | | | | | PST | | + + + + + documented in this encounter Patient Instructions Patient Instructions Shadia Oro NP - 08/04/2013 1:18 PM PST PREOPERATIVE INSTRUCTIONS Empty stomach before surgery On the day BEFORE your surgery, drink plenty of fluids and stay well hydrated NOTHING to eat or drink after midnight the night before surgery, or 8 hours prior to owusu rgery. This includes water, coffee, candy, mints, gum. Stop Eve for 2 weeks before surgery as instructed. Medications Instructions TAKE the following medications with a sip of water on the morning of surgery: Depakote, levothyroxine Unless otherwise directed by your surgeon, do not take any Aspirin, vitamin E or non-asad roidal anti-inflammatory (NSAIDs i.e. Advil, Aleve, Ibuprofen, (meloxicam)) or herbal supple ments 7-14 days prior to your surgery. These drugs may interfere with normal blood clotting and may cause excessive bleeding and bruising during or after the surgery. If you are taking Coumadin (warfarin), Plavix or any other blood thinners please let you r surgical team know as medication changes may be necessary. If you need a pain medication for general purposes, use Tylenol as directed. OK to take it even on the morning of surgery, if needed. If you are in doubt about any medications that you are taking, please contact our office . Other Important Guidelines Do not shave the surgical area Do not smoke, drink alcohol or use recreational drugs for 24 hours before your surgery Watch for any change in your health condition. Let your surgeon know right away if you do not feel well. Do not wear makeup, perfume, lotions, deodorant, powder or hairspray. Do not wear any jewelry to the hospital. Wear loose, comfortable clothing. Leave all your valuables at home. Allow enough travel time so you re not late for your check in for surgery. Take a bath or shower and remember to shampoo your hair using your usual hair product bef ore your arrival at the hospital. Please remember to brush your teeth the night before and the morning of your procedure. Surgery Check in Locations Admitting [facility], ninth floor [facility] Day Stay Unit - [facility], 4th floor Room [address] [facility] Day [facility], fourth floor Surgery Check in Time: The Preoperative Medicine Clinic is not in the position to give you accurate information regarding surgical check in time. We refer you back to your surgical office regarding this important information. Going Home Your surgical team will decide when you are medically ready to go home. If you are released to go home on the same day as your procedure/surgery please note the following: You will not be able to drive. You will be required to have a competent person drive you or accompany you by taxi or pu blic transportation on the day of discharge. It is also required that you have a competent person assist you and look after you on th e first night after you have undergone regional blocks (72 hours for patients going home wit h regional block pump), deep sedation, and/or general anesthesia. If you stayed in the hospital after surgery, please arrange for your ride to come for yo u around 9AM on the day your doctor says you can go home. Check out time is 11AM. If you have questions or concerns after you go home, call your doctor s office. If it is after office hours, call the [facility] hasher operator at [phone] and ask them to page him or h er. Preparing For Your Surgery Video -- 7 minutes of instructions! Access the [facility] website [email or web address] --> POPULAR RESOURCES --> Patient Guide --> Preparing for your Visit or Surgery --> "Preparing for Your Surgery" video link documented in this encounter Progress Notes Shadia Oro NP - 08/04/2013 1:07 PM PST PREOPERATIVE CONSULT NOTE Consulting Provider: SHADIA ORO NP Referring Physician: Libby Primary Care Provider: Rita Rodriguez MD Reason for Consult: Preoperative evaluation and risk assessment Proposed Procedure/Date: TYMPANOPLASTY WITH EAR CARTILAGE GRAFT on 08/18/2013 at 1:00 PM by Elba Weems MD at [facility] HISTORY OF PRESENT ILLNESS: Kimberley Yung is a 28 y.o. male here, with his grandmothe r and a sign language interpretor, for preoperative evaluation for above procedure. Pt has dx of chronic supporative otitis media characterized by persitent infection in the r ight ear with failed previous surgery that was not effective. 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 He uses sign language and reads lips. History seizures controlled with depakote, some developmental delay, hypothyroid, morbid obe sity and acanthosis nigricrans treated with Eve. He is able to walk several blocks. He has no hx nor symptoms of CAD, CHF, CVA, CKD or DM (treated with insulin). Functional c apacity is Intermediate. Current Medication List Name Sig ADALIMUMAB 40 MG/0.8 ML SUB-Q KIT Inject 0.8 mL under the skin (SUBC) every seven days. BENZOYL PEROXIDE 5 % TOPICAL CLEANSER Apply to affected area once daily. Apply a thin film ; gently massage into skin. BETAMETHASONE DIPROPIONATE 0.05 % LOTION Apply to affected area two times daily. Apply a f ew drops. BETAMETHASONE DIPROPIONATE 0.05 % TOPICAL OINTMENT Apply to affected area two times daily. Ears, legs, and stomach with shots DEPAKOTE ORAL Take 250 mg by mouth. ECONAZOLE 1 % TOPICAL CREAM Apply to affected area once daily. Groin VITAMIN D ORAL Take by mouth. HYDROCORTISONE 2.5 % TOPICAL OINTMENT Apply to affected area two times daily. Apply a thin film to clean, dry skin and rub in gently. LEVOTHYROXINE 100 MCG TABLET Take 100 mcg by mouth before breakfast. MICONAZOLE NITRATE 2 % TOPICAL POWDER Apply to affected area two times daily. MICONAZOLE NITRATE 2 % TOPICAL CREAM Apply to affected area two times daily. For rash in s kin folds, including groin. VWIQTPMU-UAWMNAZWA-NH 3.5 MG-10,000 UNIT/ML-1 % EAR DROPS, SUSP Instill 4 Drops into the ri ght ear four times daily. OMEGA-3 FATTY ACIDS CAPSULE Take 3 capsules by mouth once daily. TALC POWDER Apply to groin daily Allergies Allergen Reactions Amoxicillin Pts mother states "It's not proven but it made him feel funny and he complained of dizzin ess." Past Medical History Diagnosis Date Otitis media Past Surgical History Procedure Date Tympanoplasty as a child History Substance Use Topics Smoking status: Never Smoker Smokeless tobacco: Never Used Alcohol Use: Not on file PHYSICAL EXAM: Last Vitals: BP 136/76 | Pulse 95 | Temp (Src) 36.3 C (97.4 F) (Oral) | RR 18 | Ht 1.82 9 m (6') | Wt 152.862 kg (337 lb) | SpO2 95% | BMI 45.7 kg/(m^2) Body mass index is 45.7 kg/ (m^2). PMC ROS Last edited 08/04/13 1344 by Shadia Oro NP ROS Pertinent HPI: Pulmonary: Within Defined Limits except as noted below no cough no shortness of breath no wheezing Pt. Has no asthma No dx of sleep apnea Risks factors for sleep apnea: Pt SNORE's loudly (louder than talking) Male gender and Neck circumference> 40 cm pt. at high risk of RIKKI Cardiovascular: Able to walk several blocks Within Defined Limits except as noted below Functional Capacity: Moderate - dyspnea on exertion, palpitations, chest pressure and syncope no CAD no CHF no hypertension no pacemaker GI/Hepatic: Within Defined Limits except as noted below no GI Bleed no GERD No liver disease no hepatitis : Within Defined Limits except as noted below Endo: Within Defined Limits except as noted below Other endo: MEN:Parathyroid: Pituitary: Thyroid:+ hypothyroid Neurological: r knee and ankle pain , injured due to playing basketball. Within Defined limits except as noted below seizures Type: tonic-clonic seizures Last episode: < 6 months ago Frequency: no HX CORTICOSTEROID no psychiatric problem no dementia Current Pain Level: Current pain level: 5 MS: Left knee injury Within Defined Limits except as noted below no arthritis Heme/Onc: Within Defined Limits except as noted below Pt. has: no active bleeding no Bleeding diathesis / thrombotic bleeding Previous Transfusions: no transfusion hx Hx: Malignancy: no cancer, Location: Metastasis: Skin: Within Defined Limits except as noted below No open wounds or sores No hx MRSA/VRE/Active skin infection Physical Exam General: Patients general appearance: Healthy, Alert, No distress, Cooperative and Age appropriate Head & Neck/Airway: NC/AT; nl appearing ears and nose. Neck ROM: full Neck Circumference: 55 cm. TM Distance:Normal Dentition: chipped teeth Schneider: Yes Mallampati: III Mouth Opening: > = 3 cm C-Spine: normal Neck Anatomy: Thick, obese Jaw Protrusion: Normal, lower incisors can protrude past upper incisors Lung Exam: No respiratory distress. Normal breathing pattern. breath sounds normal Cardiac: No murmurs, gallops or rubs. Rhythm: regular Rate: normal Abdominal: General Findings: Deferred Musculoskeletal: Findings: tone normal Neuro/Psych: Alert and appropriate; nl affect. alert Findings: No tremor, Alert, oriented to person, place, time and Normal affect Integument: No open rashes or lesions noted. - lesion, rash and open wounds Color: pink Turgor: turgor normal Implants: None, LAB DATA REVIEWED/ORDERED Lab Results Component Value Date WBC 9.08 06/10/2013 HB 15.1 06/10/2013 HCT 44.9 06/10/2013 PLT 251 06/10/2013 MCV 84.1 06/10/2013 Lab Results Component Value Date NA 139 06/10/2013 K 3.1 06/10/2013 CL 105 06/10/2013 BICARB 25 06/10/2013 BUN 7 06/10/2013 CR 0.85 06/10/2013 GLU 67 06/10/2013 CA 8.3 06/10/2013 AST 68 06/10/2013 ALT 85 06/10/2013 AP 107 06/10/2013 TBILI 0.7 06/10/2013 TP 7.9 06/10/2013 ALB 3.7 06/10/2013 MEDICAL DECISION MAKIN ACC/ AHA Perioperative Guidelines Patient does not meet guidelines for further cardiac testing Risk Factor Recommendations: 0 risk factors- proceed with planned surgery Surgery Risk: Low Patient-related risk: Estimated ASA class -- 3 ASSESSMENT and RECOMMENDATIONS: Surgical/anesthesia risk assessment: Kimberley Yung is a 28 y.o. male with diagnosi s of above, scheduled for above. According to ACC/AHA, this patient has 0 clinical risk fac tors and the recommendation is to proceed with planned surgery without additional cardiac te sting. Medication management recommendations: The patient was advised to continue all usual med ications except as noted in Patient Instructions (After Visit Summary given to pt) Perioperative antibiotic prophylaxis: Standard (Consider IV Vanco one hr before procedu re in pts with Cephalosporin/PCN allergy and/or with hx of MRSA) Seizures-controlled. Hypothyroid-on levothyroxine, her reports he does not always take it but reports he will resume it and continue until surgery. High risk for sleep apnea-recommend post-op oximetry. This patient is medically stable for surgery. Further testing/optimization is not needed. Thank you for the opportunity to contribute to this patient's care. ADDISON Camara NP [facility] [address] [facility] [id number] The patient was also advised regarding NPO requirement, hydration before surgery, showeri ng, general body hygiene. All pre-procedure instructions given to the patient. All of no ent's questions answered and clarified. Patient verbalized understanding of the instruction s given. documented in this encounter Plan of Treatment Not on filedocumented as of this encounter Visit Diagnoses + + | Diagnosis | + + | Preop examination - Primary Preoperative examination, unspecified | + + | Unspecified chronic suppurative otitis media | + + documented in this encounter
--- OUTSIDE RECORDS SUMMARY | ~2020-04-30 | XMS | Encounter Summary ---
Demographics + + + | Address | [address] | | | [place] [address] | + + + | Home Phone | | + + + | Preferred Language | Unknown | + + + | Marital Status | Single | + + + | Adventist Affiliation | NON | + + + | Race | or | + + + | Ethnic Group | Not or | + + + Author + + + | Author | [facility] | + + + | Organization | [facility] | + + + | Address | Unknown | + + + | Phone | Unavailable | + + + Support + + + + + | Name | Relationship | Address | Phone | + + + + + | Delonte Yung | ECON | [place] | | + + + + + Care Team Providers + +------+ + | Care Blowing Engineer Name | Role | Phone | + +------+ + | Diane Little MD | PCP | | + +------+ + Reason for Visit + + + | Reason | Comments | + + + | Psoriasis | same | + + + Office Visit - E/M Services (Routine) +--------+ + + + + + | Status | Reason | Specialty | Diagnoses / | Referred By | Referred To | | | | | Procedures | Contact | Contact | +--------+ + + + + + | Closed | Specialty | Dermatology | Diagnoses | Drm Med | Drm Med | | | Services | | Other | [address] | [address] | | | Required | | psoriasis | [address] | [address] | | | | | Procedures | Center for | Center for | | | | | f/u appt | Health and | Health and | | | | | | Healing, | Healing, | | | | | | Building 1, | Building 1, | | | | | | 16th Floor | 16th Floor | | | | | | [place], [place] | [place], [place] | | | | | | [address] | [address] | | | | | | Phone: | Phone: | | | | | | [phone] | [phone] | | | | | | Fax: | Fax: | | | | | | [phone] | [phone] | +--------+ + + + + + Encounter Details +--------+---------+ + + + | Date | Type | Department | Care Team | Description | +--------+---------+ + + + | 10/13/ | Office | Dermatology | Shukri Anne, | Other psoriasis | | 2015 | Visit | Medical at [facility] [address] | ,PhD Aylin | (Primary Dx); | | | | [facility] | Allergy Asthma | Encounter for | | | | for Health and | Dermatology [address] | long-term (current) | | | | Healing, [address], | [address] | use of other | | | | 16th Floor | [place] [address] | medications; | | | | [facility] [place] | [phone] | Acquired acanthosis | | | | [address] | | nigricans; | | | | [phone] | | Intertrigo; Tinea | | | | | | cruris | +--------+---------+ + + + Social History [...] + + + | Blood Pressure | 110/60 | 10/13/2014 1:28 PM | | | | | PST | | + + + + + | Pulse | - | - | | + + + + + | Temperature | - | - | | + + + + + | Respiratory Rate | 14 | 10/13/2014 1:28 PM | | | | | PST | | + + + + + | Oxygen Saturation | - | - | | + + + + + | Inhaled Oxygen | - | - | | | Concentration | | | | + + + + + | Weight | 147.5 kg (325 lb 1.6 | 10/13/2014 1:28 PM | | | | oz) | PST | | + + + + + | Height | - | - | | + + + + + | Body Mass Index | 44.09 | 08/18/2013 7:05 AM | | | | | PST | | + + + + + documented in this encounter Patient Instructions Patient Instructions Lynda Xie MA - 10/13/2014 1:30 PM PST1) Use hydrocortisone 2.5 % on all body areas as needed for psoriasis 2) Use Lamisil cream twice a day in the groin 3) OK to use an antifungal powder in groin after bathing to help keep you dryer 4) Continue Humira shots weekly 5) Stop using any other prescription topical creams/lotions/ointments for now documented in this encounter Progress Notes Shukri Anne MD,PhD - 10/13/2014 1:47 PM PSTFormatting of this note might be differen t from the original. DERMATOLOGY FOLLOW-UP VISIT Dx: Inverse PsO Rx: Humira 40mg qow since 01/2012 inc to qw 02/2013 Betamethasone body Spectazole groin BPO wash SUBJECTIVE: Kimberley J Dilshad is a 29 y.o. 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 He is currently on Humira 40 qw and is essentially clear although c/o some PsO beh ind the ears, on the upper neck, and on the scrotum and buttocks. OK with weekly dosing. He has been suing beta dip it sounds to these areas and not sure about antifungal to groin. Icthing scrotum but not always. Tolerating self-injections well. AN around neck and in axillae is stable and he dosen't pay attention to it. Denies infections, SOB, chest pain, swelling, neuro changes, ISRs. Patient Active Problem List Diagnosis Other psoriasis Other specified disease of hair and hair follicles Intertrigo Acquired acanthosis nigricans Unspecified chronic suppurative otitis media Tympanic membrane perforation, marginal OBJECTIVE: Filed Vitals 10/13/2014 1:29 PM Weight: 147.464 kg (325 lb 1.6 oz) BP: 110/60 Resp: 14 PainSc: 0 - Zero BMI: 44.08 kg/(m^2) WDWN, NAD; awake, alert and oriented; pleasant with appropriate mood and affect; obese A skin examination was performed including the scalp/hair, head/face, eyelids/conjunctivae, lips, neck, chest, back, abdomen, buttocks, genitals, bilateral arms and legs, bilateral mars nds and feet, and nails. Findings were within normal limits except for the following: -- scalp and face clear except mild erythema of b/l postauricular creases with some sl lich enification (coincides with areas of AN as well) -- bilateral axillae and neck with brown plaques -- follicular papules and PIH, comedones on chest and upper back, fewer than in past -- scrotum is lichenified and midly pink; both buttocks have mainly PIH in large plaqeus bu t there is some active scale ot the edge of the r buttock plaque -- no obvious swollen or tender finger joints, ankles, knees or elbows No results found for this basename: WBC, RBC, HCT, HB, MCV, MCH, MCHC, PLT, NEUTROPERC, LYM PHPERC, MONOPERC, EOSPERC, BASOPERC, NEUTROPHILCO, in the last 4320 hours No results found for this basename: GLU, BUN, CR, TP, ALB, CA, TBILI, AP, AST, ALT, NA, K, CL, BICARB, MG, in the last 4320 hours No results found for this basename: CHOL, LDL, HDL, TRI, in the last 4320 hours ASSESSMENT/PLAN: 1. H/o severe scalp and inverse psoriasis doing very well on weekly Humira; in setting of obesity; most of his activity is really AN and tinea today although his scrotum may have zeny e coincident PsO -- continue Humira 40 mg q week; RBA discussed -- CBC and CMP today -- d/c betamethasone and all other topicals except: -- use 2.5% hydrocortisone to post-auricular, face, groin PRN -- wt loss would help 2. Acanthosis nigricans w/ retention hypkeratosis -- recommend weight loss and consider seeing sterilisation technician (again discussed relationship with i nsulin resistance and AN) -- trial of amlactin/venu acid 3. Acne, truncal -- continue BPO 5% wash; use daily PRN 4. Tinea on buttocks; unusual to have on scrotum as well but there may be component of yeas t -- d/c all topicals except some PRN cortisone as above, but really use Lamisil OTC BID for 2-4 weeks to buttocks and groin then miconazole powder RETURN VISIT: 6 months Shukri Anne MD, PhD Bar And Filler Assembler, Department of Dermatology [facility] 10/13/2014 docume nted in this encounter Plan of Treatment Not on filedocumented as of this encounter Results COMPLETE METABOLIC SET (NA,K,CL,CO2,BUN,CREAT,GLUC,CA,AST,ALT,BILI TOTAL,ALK PHOS,ALB,PROT TOTAL) (10/13/2014 2:09 PM PST) + +---------+ + + + | Component | Value | Ref Range | Performed | Pathologist | | | | | At | Signature | + +---------+ + + + | GLUCOSE, | 72 | 60 - 99 mg/dL | [facility] | | | PLASMA | | | LABORATORY | | | (LAB) | | | SERVICES, | | | | | | CORE | | + +---------+ + + + | BUN, PLASMA | 4 (L) | 6 - 20 mg/dL | [facility] | | | (LAB) | | | LABORATORY | | | | | | SERVICES, | | | | | | CORE | | + +---------+ + + + | CREATININE | 0.78 | 0.70 - 1.30 | [facility] | | | PLASMA | | mg/dL | LABORATORY | | | (LAB) | | | SERVICES, | | | | | | CORE | | + +---------+ + + + | EGFR | >60 | >60 mL/min | [facility] | | | - | | | LABORATORY | | | MALAWIAN | | | SERVICES, | | | | | | CORE | | + +---------+ + + + | EGFR NON | >60 | >60 mL/min | [facility] | | | -CRYSTAL | | | LABORATORY | | | RICAN | | | SERVICES, | | | | | | CORE | | + +---------+ + + + | SODIUM, | 139 | 136 - 145 | [facility] | [...] + + + | TOTAL CO2, | 26 | 21 - 32 mmol/L | [facility] | | | PLASMA | | | LABORATORY | | | (LAB) | | | SERVICES, | | | | | | CORE | | + +---------+ + + + | CALCIUM, | 8.9 | 8.6 - 10.2 | [facility] | | | PLASMA | | mg/dL | LABORATORY | | | (LAB) | | | SERVICES, | | | | | | CORE | | + +---------+ + + + | BILIRUBIN | 0.7 | 0.3 - 1.2 mg/dL | [facility] | | | TOTAL | | | LABORATORY | | | | | | SERVICES, | | | | | | CORE | | + +---------+ + + + | TOTAL | 7.9 | 6.4 - 8.2 g/dL | [facility] | | | PROTEIN, | | | LABORATORY | | | PLASMA | | | SERVICES, | | | (LAB) | | | CORE | | + +---------+ + + + | ALBUMIN, | 3.9 | 3.5 - 4.7 g/dL | [facility] | | | PLASMA | | | LABORATORY | | | (LAB) | | | SERVICES, | | | | | | CORE | | + +---------+ + + + | ALK PHOS | 90 | 53 - 128 U/L | [facility] | | | | | | LABORATORY | | | | | | SERVICES, | | | | | | CORE | | + +---------+ + + + | AST(SGOT) | 40 | 15 - 41 U/L | [facility] | | | | | | LABORATORY | | | | | | SERVICES, | | | | | | CORE | | + +---------+ + + + | ALT (SGPT) | 103 (H) | 12 - 60 U/L | [facility] | | | | | | LABORATORY | | | | | | SERVICES, | | | | | | CORE | | + +---------+ + + + | ANION | 7 | 4 - 11 mmol/L | [facility] [...] + + + | ANION GAP | 7 | mmol/L | [facility] | | | | | | LABORATORY | | | | | | SERVICES, | | | | | | CORE | | + +---------+ + + + + + | Specimen | + + | Blood - Blood | + + + + + | [...] | + + + + + | [facility] | [address] | [place] [address] | | | SERVICES, CORE | [address] | | | + + + + + documented in this encounter Visit Diagnoses + + | Diagnosis | + + | Other psoriasis - Primary | + + | Encounter for long-term (current) use of other medications | + + | Acquired acanthosis nigricans | + + | Intertrigo Other specified erythematous condition | + + | Tinea cruris Dermatophytosis of groin and perianal area | + + documented in this encounter"
--- OUTSIDE RECORDS SUMMARY | ~2020-04-30 | XMS | Encounter Summary ---
Demographics + + + | Address | [address] [place] [address] ROAD | | | [place] [address] | + + + | Home Phone | | + + + | Preferred Language | Unknown | + + + | Marital Status | Single | + + + | Druze Affiliation | Unknown | + + + | Race | Unknown | + + + | Ethnic Group | Unknown | + + + Author + + + | Author | [facility] | | | and [place] | + + + | Organization | [facility] | | | and [place] [...] Team Providers + +------+ + | Care Betting Agency Counter Clerk Name | Role | Phone | + +------+ + | Scarlet Bello PA-C | PCP | | + +------+ + Reason for Visit + +--------+ + | Reason | Onset | Comments | | | Date | | + +--------+ + | Medication Refill | 01/19/ | | | | 2020 | | + +--------+ + Encounter Details +--------+--------+ + + + | Date | Type | Department | Care Team | Description | +--------+--------+ + + + | 01/19/ | Refill | [facility] | Hemant Ajithamaya, | Medication Refill | | 2019 | | NEUROLOGY [address] | | | | [address] | [facility] [address] | | | | | [place], [place] | [place] [address] | | | | | [address] | [phone] | | | | | [phone] | | | +--------+--------+ + + + [...] this encounter Miscellaneous Notes Telephone Encounter - Julio Carl, Truck Driver Supervisor - 01/20/2020 9:41 AM PDTLast OV: Next OV: 01/25/2020 Last Rx: 09/22/2019 Rx Amount was: 186 capsules, 3 refills Last Chart Note: Continue Trileptal 1200 mg bid and continue zonisamide 300 mg bid. Check Trileptal level and zonismaide before am dose to r/o toxicity and to ensure therapeutic leve l and good adherence. docume nted in this encounter Plan of Treatment +--------+---------+ + + + | Date | Type | Specialty | Care Team | Description | +--------+---------+ + + + | 05/02/ | Office | Neurology | Rom Marcos, | | 2019 | Visit | | MD Ingrid [address] | | | | | | [address] | | | | | | [place] [address] | | | | | | [phone] | | | | | | | | +--------+---------+ + + + | 06/06/ | Office | Dermatology | Edwige Adams | | | 2020 | Visit | | [address] | | | | | | [address] | | | | | | [place] [address] | | | | | | [phone] | | | | | | | | +--------+---------+ + + + documented as of this encounter Visit Diagnoses Not on filedocumented in this encounter"
--- OUTSIDE RECORDS SUMMARY | ~2020-04-30 | XMS | Encounter Summary ---
Demographics + + + | Address | [address] | | | [place] [address] | + + + | Home Phone | | + + + | Preferred Language | Unknown | + + + | Marital Status | Single | + + + | Catholic Affiliation | NON | + + + | Race | or | + + + | Ethnic Group | Not or | + + + Author + + + | Author | [facility] | + + + | Organization | [facility] | + + + | Address [...] Team Providers + +------+ + | Care Echocardiography Radiology Technologist Name | Role | Phone | + +------+ + | Nitin Field | PCP | | + +------+ + Reason for Visit + + + | Reason | Comments | + + + | Prior Authorization | | | Request | | + + + Encounter Details +--------+ + + + + | Date | Type | Department | Care Team | Description | +--------+ + + + + | 02/19/ | Documentati | Dermatology | Matt Powell MD | Prior Authorization | | 2017 | on | Medical at [facility] [address] | [address] | Request | | | | [address] [place] | [place], [place] | | | | | [facility] and | [address] | | | | | [place] [address], | [phone] | | | | | [address] Floor | | | | | | [place], [place] | | | | | | [address] | | | | | | [phone] | | | +--------+ + + + [...]
--- OUTSIDE RECORDS SUMMARY | ~2020-04-30 | XMS | Encounter Summary ---
Demographics + + + | Address | [address] | | | [place] [address] | + + + | Home Phone | | + + + | Preferred Language | Unknown | + + + | Marital Status | Single | + + + | Sikhism Affiliation | NON | + + + | Race | or | + + + | Ethnic Group | Not or | + + + Author + + + | Author | [facility] [employer] [facility] | + + + | Organization | [facility] | + + + | Address [...] Team Providers + +------+ + | Care Experimental Machinist Name | Role | Phone | + +------+ + | Diane Little MD | PCP | | + +------+ + Reason for Visit + + + | Reason | Comments | + + + | Refill Request | Humira | + + + Encounter Details +--------+ + + + + | Date | Type | Department | Care Team | Description | +--------+ + + + + | 06/25/ | Telephone | Dermatology | Matt Powell MD | Refill Request | | 2015 | | Medical at [facility] [address] | [address] | ([facility]) | | | | [address] [place] | [place], [place] | | | | | for Health and | [address] | | | | | [facility] [address], | [phone] | | | | | [address]th Floor | | | | | | [place], [place] | | | | | | [address] | | | | | | [phone] | | | +--------+ + + + [...]
--- OUTSIDE RECORDS SUMMARY | ~2020-04-30 | XMS | Encounter Summary ---
Demographics + + + | Address | [address] [place] [address] ROAD | | | [place] [address] | + + + | Home Phone | | + + + | Preferred Language | Unknown | + + + | Marital Status | Single | + + + | Pentecostalism Affiliation | Unknown | + + + | Race | Unknown | + + + | Ethnic Group | Unknown | + + + Author + + + | Author | [facility] | | | and [place] | + + + | Organization | [facility] | | | and [...] Team Providers + +------+ + | Care Housekeeping Worker Name | Role | Phone | + +------+ + | Nitin Field PA-C | PCP | | + +------+ + Reason for Visit +--------+--------+ + | Reason | Onset | Comments | | | Date | | +--------+--------+ + | Other | 07/15/ | request MRI [facility] | | | 2018 | | +--------+--------+ + Encounter Details +--------+ + + + + | Date | Type | Department | Care Team | Description | +--------+ + + + + | 07/15/ | Telephone | [facility] | HemantRom, | Other (request MRI | | 2018 | | NEUROLOGY [address] ) | | | | [address] | [facility] | | | | | [place], [place] | [place] [address] | | | | | [address] | [phone] | | | | | [phone] | | | +--------+ + + + [...] this encounter Miscellaneous Notes Telephone Encounter - Chandler Rees Truckman - 07/15/2019 9:12 AM PDTRecords requested from [facility] specifically Brain MRI 2010 Ph: Fx: [phone] Also [facility] stated labs are scheduled for Aug 24 docu mented in this encounter Plan of Treatment +--------+---------+ + + + | Date | Type | Specialty | Care Team | Description | +--------+---------+ + + + | 05/02/ | Office | Neurology | Rom Marcos, | | | 2019 | Visit | | MD Ingrid WATT | | | | | | [address] | | | | | | [place] [address] | | | | | | [phone] | | | | | | | | +--------+---------+ + + + | 06/06/ | Office | Dermatology | Edwige Adams | | 2019 | Visit | | [address] | | | | | | [address] | | | | | | [place] [address] | | | | | | [phone] | | | | | | | | +--------+---------+ + + + documented as of this encounter Visit Diagnoses Not on filedocumented in this encounter"
--- OUTSIDE RECORDS SUMMARY | ~2020-04-30 | XMS | Encounter Summary ---
Demographics + + + | Address | [address] | | | [place] [address] | + + + | Home Phone | | + + + | Preferred Language | Unknown | + + + | Marital Status | Single | + + + | Samaritan Affiliation | NON | + + + | Race | or | + + + | Ethnic Group | Not or | + + + Author + + + | Author | [facility] [employer] [facility] | + + + | Organization | [facility] [employer] [facility] | + + + | Address [...] Team Providers + +------+ + | Care Turret Lathe Operator Name | Role | Phone | + +------+ + | Diane Little MD | PCP | | + +------+ + Reason for Visit + + + | Reason | Comments | + + + | Refill Request | | + + + Encounter Details +--------+--------+ + + + | Date | Type | Department | Care Team | Description | +--------+--------+ + + + | 10/12/ | Refill | Dermatology | Shukri Anne, | Refill Request | | 2014 | | Medical at [facility] [address] | ,PhD [address]ylin | | | | | [facility] | Allergy Asthma | | | | | for Health and | Dermatology [address] | | | | | Healing, [address], | [facility] [address] | | | | | 16th Floor | [place] [address] | | | | | [place], [place] | [phone] | | | | | [address] | | | | | | [phone] | | | +--------+--------+ + + + [...]
--- OUTSIDE RECORDS SUMMARY | ~2020-04-30 | XMS | Encounter Summary ---
Demographics + + + | Address | [address] | | | [place] [address] | + + + | Home Phone | | + + + | Preferred Language | Unknown | + + + | Marital Status | Single | + + + | Moravian Affiliation | NON | + + + | Race | or | + + + | Ethnic Group | Not or | + + + Author + + + | Author | [facility] | + + + | Organization | [facility] | + + + | Address [...] Team Providers + +------+ + | Care Ep Tech Name | Role | Phone | + +------+ + | Rita Rodriguez MD | PCP | | + +------+ + Reason for Visit +--------+ + | Reason | Comments | +--------+ + | Rash | Pt is here for c/o rash on back of head spreading into posterior | | | neck. | +--------+ + Encounter Details +--------+---------+ + + + | Date | Type | Department | Care Team | Description | +--------+---------+ + + + | 08/08/ | Office | Dermatology | Shukri Anne, | Other psoriasis | | 2010 | Visit | Medical at [facility] [address] | ,PhD Aylin | (Primary Dx) | | | | [facility] | Allergy Asthma | | | | | for Health and | Dermatology [address] | | | | | [facility], [address], | [facility] | | | | | 16th Floor | [place] [address] | | | | | [place], [place] | [phone] | | | | | [address] | | | | | | [phone] | | | +--------+---------+ + + + [...] this encounter Last Filed Vital Signs + +---------+ + + | Vital Sign | Reading | Time Taken | Comments | + +---------+ + + | Blood Pressure | 124/78 | 08/08/2011 2:16 PM | | | | | PST | | + +---------+ + + | Pulse | - | - | | + +---------+ + + | Temperature | - | - | | + +---------+ + + | Respiratory Rate | - | - | | + +---------+ + + | Oxygen Saturation | - | - | | + +---------+ + + | Inhaled Oxygen | - | - | | | Concentration | | | | + +---------+ + + | Weight | - | - | | + +---------+ + + | Height | - | - | | + +---------+ + + | Body Mass Index | - | - | | + +---------+ + + documented in this encounter Progress Notes Shukri Anne MD,PhD - 08/08/2011 2:25 PM PSTAttending Physician Attestation I personally interviewed, examined the patient, and discussed management with the resident. I reviewed and edited the resident's note and agree with the documented findings and plan of care. Shukri Anne MD, PhD Telephone Directory Deliverer, Department of Dermatology [facility] 08/08/2011 artm Irena sue MD - 08/08/2011 2:23 PM PSTFormatting of this note might be different from t joe crowe. DERMATOLOGY NEW PATIENT CONSULTATION, HISTORY AND PHYSICAL CHIEF COMPLAINT: new rash PRIMARY CARE PROVIDER: Rita Rodriguez MD REFERRING PROVIDER: Rita Rodriguez HISTORY OF PRESENT ILLNESS: Kimberley Yung is a 26 y.o. male sent by Dr. Rodriguez for consultation regarding a rash that started about 1 month ago. Started on the scalp and now is spreading to neck; also aff ecting the groin; rash is very itchy, has never had this before. With questionable recent sc abies infection that he contracted from younger cousins, otherwise has been healthy recently without infections. Has treated the new rash with acne medication, nizoral (which seemed to slow it down), HCT with no effect. Grandmother has psoriasis. No other family h/o skin dise ase. Has had knee problems for more than 1 year, though workup by home MD was negative for a rthritis; pt denies morning joint pain, no heel or foot pain. 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 The patient has no personal history of skin cancer. Devi skin type IV. The patient's dermatology intake form was reviewed, signed, and dated. His relevant PMH, F H, and SH includes: PAST MEDICAL HISTORY: H/o spinal meningitis in infancy Seizure d/o Hearing loss Mild MR FAMILY HISTORY: No history of melanoma, no other family history of other dermatologic conditions. SOCIAL HISTORY: No tobacco. Minimal alcohol. Not working 2/2 mild retardation, not currently in school MEDICATIONS: depakote Vitamin D ALLERGIES: Allergies Allergen Reactions Amoxicillin Pts mother states "It's not proven but it made him feel funny and he complained of dizzin ess." REVIEW OF SYSTEMS: Please see HPI and PMH. No f/c/ns/weight loss; no other skin complaints PHYSICAL EXAMINATION: BP 124/78. The patient is a well appearing male who is alert with normal mood and affect. Awake, alphonse rt and oriented. Pleasant and cooperative mood. A skin examination was performed including the scalp, face, eyelids, ears, lips, neck, ches t, back, abdomen, buttocks, R+L arms and hands, R+L legs and feet, and nails. Findings were within normal limits except for the following: --superior forehead, anterior frontal scalp, mahamed-auricular scalp, superior post-auricular surfaces, circumferential neck with sharply demarcated violaceous plaques, some with adheren t scale, some with adherent greasy scale --b/l cheeks and nasolabial folds with several scattered violaceous papules --anterior genital region with sharply demarcated erythematous to violaceous plaques with s ilvery scale; with several crusted ulcers in gluteal cleft ASSESSMENT AND PLAN: 1. Scalp and inverse psoriasis, no e/o arthritis at this time, BSA 4%; does not meet criter ia for systemic treatment at this time given limited BSA and minimal apparent interference w ith daily living; will start with topicals only and would consider light as next line --betamethasone solution to scalp daily x2 weeks --betamethasone ointment to body BID x2 weeks then BIW for maintenance --betamethasone ointment to groin/face for 5 days, then change to HCT 2.5% ointment --consider protopic to face/groin in future --consider narrow-band UVB if not clearing on topicals --will forward note to home MD in [place] RTC: PRN if lesions or symptoms worsen or fail to resolve IRENA NUNEZ MD Resident, Department of Dermatology [facility] documented in th is encounter Plan of Treatment Not on filedocumented as of this encounter Visit Diagnoses + + | Diagnosis | + + | Other psoriasis - Primary | + + documented in this encounter
--- OUTSIDE RECORDS SUMMARY | ~2020-04-30 | XMS | Encounter Summary ---
Demographics + + + | Address | [address] | | | [place] [address] | + + + | Home Phone | | + + + | Preferred Language | Unknown | + + + | Marital Status | Single | + + + | Yazidi Affiliation | NON | + + + | Race | or | + + + | Ethnic Group | Not or | + + + Author + + + | Author | [facility] | + + + | Organization | [facility] [employer] [facility] | + + + | [...] Team Providers + +------+ + | Care Sales Representative Girls' Apparel Name | Role | Phone | + +------+ + | Diane Little MD | PCP | | + +------+ + Reason for Visit +---------+ + | Reason | Comments | +---------+ + | Post Op | | +---------+ + Encounter Details +--------+---------+ + + + | Date | Type | Department | Care Team | Description | +--------+---------+ + + + | 09/10/ | Office | Otolaryngology | Elba Muñoz | Tympanic membrane | | 2012 | Visit | Otology Services at | MD [facility] [address] | perforation, | | | | [facility] [address] | marginal (Primary | | | | [address] | [place], [place] | Dx); Unspecified | | | | Physician's | [phone] | chronic suppurative | | | | Pavilion, 2nd floor | [phone] | otitis media | | | | [place], [place] | | | | | | [address] | | | | | | [phone] | | | +--------+---------+ + + + [...] documented as of this encounter Progress Notes Elba Muñoz MD - 09/13/2013 2:59 PM PSTI personally interviewed the patient, dupl icated the pertinent parts of the physical examination and personally formulated the plan wi th the resident. I have reviewed, entered my findings, and agree with the above documentati on. Elba Garcia MD PhD Textile Technical Officer Otology, Neurotology & Skull Base Surgery Candice Cervantes MD - 09/10/2013 12:55 PM PSTOTOLARYNGOLOGY OTOLOGY CLIN IC NOTE 09/10/2013 CC: 2 wk postop ID: Kimberley Yung is a 28 y.o. 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 Intraop findings significant for marginal anteroinferior perforation with second posteroinf erior quadrant. Manubrium eroded, incus absent. Stapes superstructure if any is encased in d ense scar over the oval window niche. The chorda tympani was absent. S: No pain. Did use Qtip a little because the ear was draining a bit. O: General: Alert, NAD HB1 bilaterally EARS: The high power operating microscope was used to examine both ears. Right ear: - Pinna: Normal shape. No erythema, swelling, or lesions. - EAC: No erythema, swelling, or lesions. No otorrhea. - TM: crusting - gently removed. Healing well. There is not perforation. There is not pars tensa retraction. There is not effusion. Left ear: - Pinna: Normal shape. No erythema, swelling, or lesions. - EAC: No erythema, swelling, or lesions. No otorrhea. - TM: There is not perforation. There is not pars tensa retraction. There is not effusion. Normal umbo and handle of malleus. Normal landmarks. A/P: Kimberley Yung is a 28 y.o. male with history of recurrent right TM perforation s /p revision cartilage tympanoplasty, doing well. Debrided today. Patient is encouraged to us e hearing aids. He would benefit from bilateral hearing aids for binaural hearing. He is duke ared from water precautions. RTC PRN This patient was seen and examined with Elba Garcia MD who agrees with the assessment and plan. Candice Gaston MD/MPH Otolaryngology R5 pager [phone] documented in this enco unter Plan of Treatment Not on filedocumented as of this encounter Visit Diagnoses + + | Diagnosis | + + | Tympanic membrane perforation, marginal - Primary Other marginal perforation of | | tympanic membrane | + + | Unspecified chronic suppurative otitis media | + + documented in this encounter"
--- OUTSIDE RECORDS SUMMARY | ~2020-04-30 | XMS | Encounter Summary ---
Demographics + + + | Address | [address] | | | [place] [address] | + + + | Home Phone | | + + + | Preferred Language | Unknown | + + + | Marital Status | Single | + + + | Voodoo Affiliation | NON | + + + | Race | or | + + + | Ethnic Group | Not or | + + + Author + + + | Author | [facility] [employer] [facility] | + + + | Organization | [facility] | + + + | Address [...] Team Providers + +------+ + | Care Msw Name | Role | Phone | + +------+ + | Diane Little MD | PCP | | + +------+ + Encounter Details +--------+------+ + + + | Date | Type | Department | Care Team | Description | +--------+------+ + + + | 08/27/ | Lab | Laboratory at [facility] | | Long-term use of | | 2015 | | [address] | | high-risk medication | | | | [place] [facility] | | | | | | and Healing, | | | | | | [address] | | | | | | [place], [place] | | | | | | [address] | | | | | | [phone] | | | +--------+------+ + + + [...] | + + + + + | [facility] | [address] [facility] [facility] | [place] [address] | | | SERVICES, CORE | [address] [...] | | | LABORATORY | | | [place] | | | SERVICES, | | | [...] | + + + + + | [facility] | [address] | [place] [address] | | | SERVICES, CORE | [address] | | | + + + + + documented in this encounter Visit Diagnoses + + | Diagnosis | + + | Long-term use of high-risk medication | + + documented in this encounter"
--- OUTSIDE RECORDS SUMMARY | ~2020-04-30 | XMS | Encounter Summary ---
Demographics + + + | Address | [address] | | | [place] [address] | + + + | Home Phone | | + + + | Preferred Language | Unknown | + + + | Marital Status | Single | + + + | Yarsanism Affiliation | NON | + + + | Race | or | + + + | Ethnic Group | Not or | + + + Author + + + | Author | [facility] | + + + | Organization | [facility] [employer] [facility] | + + + | Address [...] Team Providers + +------+ + | Care Corporate Development Associate Name | Role | Phone | + +------+ + | Diane Little MD | PCP | | + +------+ + Reason for Visit + + + | Reason | Comments | + + + | Prescription | betamethasone dipropionate 0.05 % Topical Lotion | + + + Encounter Details +--------+ + + + + | Date | Type | Department | Care Team | Description | +--------+ + + + + | 09/23/ | Telephone | Dermatology | Matt Powell MD | Prescription | | 2015 | | Medical at [facility] [address] | [address] [facility] | (betamethasone | | | | [address] | [place], [place] | dipropionate 0.05 % | | | | for Health and | [phone] | Topical Lotion) | | | | [facility], [facility] [address], | [phone] | | | | | 16 Floor | | | | | | [place], [place] | | | | | | [address] | | | | | | [phone] | | | +--------+ + + + [...] - Primary Other psoriasis | + + documented in this encounter"
--- OUTSIDE RECORDS SUMMARY | ~2020-04-30 | XMS | Encounter Summary ---
Demographics + + + | Address | [address] [place] [address] ROAD | | | [place] [address] | + + + | Home Phone | | + + + | Preferred Language | Unknown | + + + | Marital Status | Single | + + + | Muslim Affiliation | Unknown | + + + | Race | Unknown | + + + | Ethnic Group | Unknown | + + + Author + + + | Author | [facility] | | | and [place] | + + + | Organization | [facility] | | | and [...] Team Providers + +------+ + | Care Loan Funder Name | Role | Phone | + +------+ + | Nitin Field PA-C | PCP | | + +------+ + Reason for Referral Evaluate & Treat (Routine) +--------+ + + + + + | Status | Reason | Specialty | Diagnoses / | Referred By | Referred To | | | | | Procedures | Contact | Contact | +--------+ + + + + + | Closed | Specialty | Otolaryngolog | Diagnoses | Arellano, | Arellano, Manuelito | | | Services | y | Neoplasm of | Manuelito E, MD | E, MD [address] | | | Required | | uncertain | [address] | | | | | behavior of | [address] | | | | | skin | [place], | | | | | Procedures | [place], [place] | [place] [address] | | | | | MA EXC SKIN | [address] | Phone: | | | | | BENIG | Phone: | [phone] | | | | | 2.1-3CM | [phone] | Fax: | | | | | FACE,FACIAL | Fax: | [phone] | | | | | 09/19>PEND | [phone] | | | | | | YH | | | +--------+ + + + + + Encounter Details +--------+ + + + + | Date | Type | Department | Care Team | Description | +--------+ + + + + | 09/13/ | Orders Only | [facility] [place] | Manuelito Arellano MD | Neoplasm of | | 2015 | | OTOLARYNGOLOGY [address] | [address] | uncertain behavior | | | | [address] | [address] [place] | of skin (Primary Dx) | | | | [place] | [place] [address] | | | | | [address] | [phone] | | | | | [phone] | | | +--------+ + + + [...] as of this encounter Plan of Treatment +--------+---------+ + + + | Date | Type | Specialty | Care Team | Description | +--------+---------+ + + + | 05/02/ | Office | Neurology | Rom Marcos, | | | 2019 | Visit | | MD Ingrid WATT | | | | | | [address] | | | | | | [place] [address] | | | | | | [phone] | | | | | | | | +--------+---------+ + + + | 06/06/ | Office | Dermatology | Edwige Adams | | | 2019 | Visit | | [address] | | | | | | [address] | | | | | | [place] [address] | | | | | | [phone] | | | | | | | | +--------+---------+ + + + + + +--------+ + + | Name | Type | Priori | Associated Diagnoses | Order Schedule | | | | ty | | | + + +--------+ + + | Ambulatory referral | Outpatient | Routin | Neoplasm of | Expected: | | to ENT | Referral | e | uncertain behavior | 10/03/2015, Expires: | | | | | of skin | 09/12/2016 | + + +--------+ + + documented as of this encounter Visit Diagnoses + + | Diagnosis | + + | 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
--- OUTSIDE RECORDS SUMMARY | ~2020-04-30 | XMS | Encounter Summary ---
Demographics + + + | Address | [address] | | | [place] [address] | + + + | Home Phone | | + + + | Preferred Language | Unknown | + + + | Marital Status | Single | + + + | Rastafarian Affiliation | NON | + + + | Race | or | + + + | Ethnic Group | Not or | + + + Author + + + | Organization | Unknown | + + + | Address | Unknown | + + + | Phone | Unavailable | + + + Support + + + + + | Name | Relationship | Address | Phone | + + + + + | Delonte Yung | ECON | [place] | | + + + + + Care Team Providers + +------+ + | Care Ham Smoker Name | Role | Phone | + +------+ + PCP | Unavailable | + +------+ + Encounter Details +--------+ + + + + | Date | Type | Department | Care Team | Description | +--------+ + + + + | 05/31/ | Transcribed | | Dictation, Other | Transcribed | | 1997 | | | | | +--------+ + + [...] as of this encounter Progress Notes Interface, Mill Turner In - 09/27/2006 1:11 AM [facility] [place] [address] [place], [place] [address] or Division of Pediatric Neurology [address] [place] [address], [address] [address] , May 31, 1998 SHRUTHI STACY PHD PSYCHOLOGY RESIDENT RE: Kimberley Yung MR#: [id number] Stacy: Kimberley Yung was seen for a neurologic consultation on 05/26/98. As you know, Kimberley is a nearly 13-year-old boy referred for evaluation of his seizure disorder. 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 In addition, he has a seizure disorder which began at approximately [age] years of age, and also has had problems with ADHD, learning disabilities and more recently aggressive behavior. He has, until recently, resided at an [facility] near [place], [place]. For his seizures and behavior, he is treated with a variety of medications including Depakote 250 mg po bid, Dilantin 200 mg po bid, Ritalin 80 mg per day and clonidine 0.3 mg per day. According to his grandmother, he has not had a recent evaluation in terms of his seizures. His last EEG was said to be approximately three to four years ago. While he has not had a generalized motor convulsion in a number of years, his grandmother states that on a weekly basis over the past year, he will have episodes of blank staring where he appears unresponsive. More problematic, however, has been a tendency for him to have periods of aggression over the last one to two years and he tends to yell and carry on in order to gain attention. Grandmother is concerned that some of his medications may actually be exacerbating his condition and as such requested that he be re-evaluated. He has recently become a resident of the [facility] in [place], [place] where in the past the staff had noticed some periods of staring. He presents today for assessment of these issues. 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 As sequelae to this, he has had his attentional problems, developmental disability, seizure disorder and deafness. In the past, Kimberley attended the [employer] from the Fall of 1993 to the spring. His communication skills are characterized by some sign language ability, although he is not fluent. His teachers reportedly currently combine sign language with pictures to teach and communicate with him. In an attempt to improve his signing skills, he is now enrolled again in the [employer]. Other than his disabilities as noted above, he has been a relatively healthy young man. On physical examination, Kimberley is a large 13-year-old boy who has obvious deafness and communication difficulties. He was marginally attentive and cooperative for today's examination. We did have an casting operator helper from the [employer] [facility]. His growth parameters disclose a height of 156.9 centimeters and a weight of 77.5 kilograms. His head circumference measures 59 centimeters. His vital signs are normal with an appropriate pulse, blood pressure and respirations for age. A systemic examination is notable for his deafness and his large size, but is otherwise benign. His skin is clear, and his extremities have a full range of motion without bony deformities or contractures. On neurologic testing, there is the obvious communication difficulty. Cooperation was limited. Cranial nerve testing reveals full visual cochran and pupils that are equal, round and reactive to light. Extraocular movements are intact. Facial sensation and strength are normal. Neck and tongue musculature was normal. Motor examination revealed normal bulk, tone and strength throughout. No abnormal movements were noted. Sensory and cerebellar testing were normal. Reflexes were bilaterally symmetric. Gait was within normal limits for age. IMPRESSION: Kimberley Yung is an 13-year-old boy with a significant disability which includes deafness, a seizure disorder, developmental delay and attentional and behavioral difficulties. The latter is particularly problematic with a slowly escalating aggressive behaviors and easy frustration. In terms of his seizures, it is difficult to characterize the frequency an the nature, although at this time, he appears to be having approximately one brief staring spell per week. Whether these episodes truly represent seizures or whether they are behavioral arrests or related to his attentional deficit disorder, is unclear. It is noteworthy that his Depakote is at a rather low dose given this young man's large size, and he also happens to be on a rather large dose of Dilantin. In an attempt to better address his medication needs in terms of his seizure disorder or potential, today I would like to obtain both Dilantin as well as valproic acid blood levels and include a liver function study. In addition, he needs to undergo an EEG so that we can better assess his epileptic risk. My hope would be to discontinue one of his antiepileptic medications, and I would like to discontinue the Dilantin and maintain him on valproic acid. As you know, this medication not only can treat a broad variety of seizures, but it also may help with some behavioral problems. Once the seizures have been managed in an effective manner, then it would be worthwhile to re-evaluate his behavioral and attentional problems and make further recommendations and referral pending his situation at that time. These studies will be obtained and adjustments will be made in conjunction with the school nurse at the [employer] in [place]. Further referrals will be made pending his response. Thank you for allowing me to participate in the care of his young man, and if I may be of any further assistance, please do not hesitate to contact me. Sincerely, Silviano Henson M.D. Field Radio Operator, Pediatrics Chief, Division of Pediatric Neurology MANAN/brian CC: [facility] [address] [place] [id number] signed by Interface, Mill Turner In at 09/27/2006 1:11 AM PSTdocumented in this encounter Plan of Treatment Not on filedocumented as of this encounter Visit Diagnoses Not on filedocumented in this encounter"
--- OUTSIDE RECORDS SUMMARY | ~2020-04-30 | XMS | Encounter Summary ---
Demographics + + + | Address | [address] | | | [place] [address] | + + + | Home Phone | | + + + | Preferred Language | Unknown | + + + | Marital Status | Single | + + + | Hindu Affiliation | NON | + + + | Race | or | + + + | Ethnic Group | Not or | + + + Author + + + | Author | [facility] | + + + | Organization | [facility] | + + + [...] Team Providers + +------+ + | Care Energy Control Officer Name | Role | Phone | + +------+ + | Nitin Field | PCP | | + +------+ + Encounter Details +--------+ + + + + | Date | Type | Department | Care Team | Description | +--------+ + + + + | 09/30/ | Document-Sc | [facility] | Diane Little MD | | | 2014 | della | Department | [address] | | | | | | [place] | | | | | | [address] | | | | | | | | +--------+ + [...]
--- OUTSIDE RECORDS SUMMARY | ~2020-04-30 | XMS | Encounter Summary ---
Demographics + + + | Address | [address] | | | [place] [address] | + + + | Home Phone [...] Author + + + | Author | [facility] | + + + | Organization | [facility] | + + + | [...] Team Providers + +------+ + | Care Solid Tire Finisher Name | Role | Phone | + +------+ + | Rita Rodriguez MD | PCP | | + +------+ + Reason for Visit + + + | Reason | Comments | + + + | Refill Request | Humira 40mg/0.8 ml | + + + Encounter Details +--------+ + + + + | Date | Type | Department | Care Team | Description | +--------+ + + + + | 06/03/ | Telephone | Dermatology | Shukri Anne, | Refill Request | | 2012 | | Medical at [facility] [address] | ,PhD [place] | (Humira 40mg/0.8 ml) | | | | [facility] | Allergy Asthma | | | | | for [facility] and | Dermatology [address] | | | | | [facility], [address], | [facility] | | | | | 16th Floor | [place] [address] | | | | | [place], [place] | [phone] | | | | | [address] | | | | | | [phone] | | | +--------+ + + + [...]
--- OUTSIDE RECORDS SUMMARY | ~2020-04-30 | XMS | Encounter Summary ---
Demographics + + + | Address | [address] | | | [place] [address] | + + + | Home Phone | | + + + | Preferred Language | Unknown | + + + | Marital Status | Single | + + + | Hinduism Affiliation | NON | + + + | Race | or | + + + | Ethnic Group | Not or | + + + Author + + + | Author | [facility] | + + + | Organization | [facility] [employer] [facility] | + + + | Address [...] Team Providers + +------+ + | Care Child Support Agent Name | Role | Phone | + [...] | +--------+ + + + + | 02/14/ | Documentati | Dermatology | Matt Powell MD | Prior Authorization | | 2016 | on | Medical at [facility] [address] | [address] | Request | | | | [address] | [place], [place] | | | | | [facility] and | [address] | | | | | [place] [address], | [phone] | | | | | [address] Floor | | | | | | [place], [place] | | | | | | [address] | | | | | | [phone] | | | +--------+ + + + [...]
--- OUTSIDE RECORDS SUMMARY | ~2020-04-30 | XMS | Encounter Summary ---
Demographics + + + | Address | [address] | | | [place] [address] | + + + | Home Phone | | + + + | Preferred Language | Unknown | + + + | Marital Status | Single | + + + | Caodaism Affiliation | NON | + + + | Race | or | + + + | Ethnic Group | Not or | + + + Author + + + | Author | [facility] | + + + | Organization | [facility] [employer] [facility] | + + + | [...] Team Providers + +------+ + | Care Medical Biller/Coder Name | Role | Phone | + +------+ + PCP | Unavailable | + +------+ + Encounter Details +--------+ + + + + | Date | Type | Department | Care Team | Description | +--------+ + + + + | 01/23/ | Office | [facility] | Report, Outpatient | Progress Note | | 2000 | Visit-Trans | | Consultation | | [...] documented as of this encounter Progress Notes [place], Family Mediator In - 07/12/2006 3:06 AM PDTCLINIC DATE: 01/23/2001 CLINIC: CHILD DEVELOPMENT CLINIC DISCIPLINE: PSYCHIATRY ADDENDUM: Please add the following diagnosis: "Attention deficit hyperactivity disorder and intermittent explosive disorder." Brendan Caro M.D. Child Psychiatrist [id number] signed by [place], Family Mediator In at 07/12/2006 3:06 AM PDTInterf azra Family Mediator In - 07/12/2006 3:06 AM PDTCLINIC DATE: 01/23/2001 CLINIC NAME: CHILD DEVELOPMENT CLINIC DISCIPLINE: PSYCHIATRY I noted that Kimberley is still growing. He said the food at school is not very good. He likes it much better at home. He is doing fine as far as grandmother knows, but he has been having problems "respecting people at school;" he called this one kid "stupid." He got in trouble, always harassing this other boy. He is a new student who just started, and has less skills than López, and so Dom has a hard time with him. When he does not like what is going on, he will hit him. They are trying to make him responsible for his actions. He is always hitting things and people, because he was always so big. He calls girls "stupid." Some of the girls like him and want to go with him, and he is not interested in them at this point. He also swears. He has had an EEG apparently, that was negative. I wondered if he was a candidate for surgery for his ears. Grandmother said that they apparently felt that it was too much destruction. He does not like to get teased; he gets teased by his uncle. He does better with male counselors. He only has female counselors now. He is enjoying trying to learn how to speak. They put him with the highschool boys, and then they moved him back to elementary. He has a friend who he enjoys. I refilled his medication. Return to clinic in two months. [place] Caro M.D. ES:[id number] C: 01/28/2001 [facility] [id number] signed by Interface, Family Mediator In at 07/12/2006 3:06 AM PDTdocume nted in this encounter Plan of Treatment Not on filedocumented as of this encounter Visit Diagnoses Not on filedocumented in this encounter
--- OUTSIDE RECORDS SUMMARY | ~2020-04-30 | XMS | Encounter Summary ---
Demographics + + + | Address | [address] | | | [place] [address] | + + + | Home Phone | | + + + | Preferred Language | Unknown | + + + | Marital Status | Single | + + + | Confucianist Affiliation | NON | + + + | Race | or | + + + | Ethnic Group | Not or | + + + Author + + + | Author | [facility] | + + + | Organization | [facility] | + + + | [...] Team Providers + +------+ + | Care Gauge Operator Name | Role | Phone | + +------+ + | Rita Rodriguez MD | PCP | | + +------+ + Encounter Details +--------+ + + + + | Date | Type | Department | Care Team | Description | +--------+ + + + + | 09/11/ | Documentati | Dermatology | Shukri Anne, | | | 2010 | on | Medical at [facility] [address] | PhD Aylin RICE | | | | | [place] | Allergy Asthma | | | | | for Health and | Dermatology [address] | | | | | [facility], [address], | [facility] | | | | | 16th Floor | [place] [address] | | | | | [place], [place] | [phone] | | | | | [address] | | | | | | [phone] | | | +--------+ + + + [...]
--- OUTSIDE RECORDS SUMMARY | ~2020-04-30 | XMS | Encounter Summary ---
Demographics + + + | Address | [address] | | | [place] [address] | + + + | Home Phone | | + + + | Preferred Language | Unknown | + + + | Marital Status | Single | + + + | Holiness Affiliation | NON | + + + | Race | or | + + + | Ethnic Group | Not or | + + + Author + + + | Author | [facility] | + + + | Organization | Count Includes [facility] | + + + | [...] Team Providers + +------+ + | Care Well Servicing Rig Operator Name | Role | Phone | + +------+ + | Rita Rodriguez MD | PCP | | + +------+ + Reason for Visit + + + | Reason | Comments | + + + | Psoriasis | pt here for f/u on psoriasis, ashish hudson also | + + + | Acne | | + + + Office Visit - E/M Services (Routine) +--------+ + + + + + | Status | Reason | Specialty | Diagnoses / | Referred By | Referred To | | | | | Procedures | Contact | Contact | +--------+ + + + + + | Closed | Specialty | Dermatology | Diagnoses | Non-[facility] | Ehst, | | | Services | | Other | Epic Dept | Shukri Baez, | | | Required | | psoriasis | | ,PhD [place] | | | | | Encounter | | Allergy | | | | | for | | Asthma | | | | | long-term | | Dermatology | | | | | (current) | | [address] | | | | | use of other | | [address] | | | | | medications | | [address] | | | | | Other | | [place], [place] | | | | | specified | | [address] Phone: | | | | | disease of | | [phone] | | | | | hair and | | Fax: | | | | | hair | | [phone] | | | | | follicles | | | | | | | rash/psorias | | | | | | | is (per las | | | | | | | note, 3%bsa) | | | | | | | | | | | | | | Procedures | | | | | | | 1 f/up | | | +--------+ + + + + + Encounter Details +--------+---------+ + + + | Date | Type | Department | Care Team | Description | +--------+---------+ + + + | 08/25/ | Office | Dermatology | Shukri Anne, | Other psoriasis | | 2011 | Visit | Medical at [facility] [address] | ,PhD Aylin | (Primary Dx); | | | | [facility] | Allergy Asthma | Encounter for | | | | for Health and | Dermatology [address] | long-term (current) | | | | Healing, [address], | [address] | use of other | | | | 16th Floor | [place] [address] | medications | | | | [place], [place] | [phone] | | | | | [address] | | | | | | [phone] | | | +--------+---------+ + + + [...] + + + | Blood Pressure | 142/80 | 08/25/2012 11:12 AM | | | | | PST [...] + + + + | Weight | 153.8 kg (339 lb) | 08/25/2012 11:12 AM | | | | | PST | | + + + + + | Height | - | - | | + + + + + | Body Mass Index | - | - | | + + + + + documented in this encounter Patient Instructions Patient Instructions Yen Muse - 08/25/2012 11:11 AM PSTPrevent Winter Itch The winter time usually means forced dry heat in the home and hot showers- two major causes of dry skin. Here are some tips that can prevent you from developing dry and itchy skin ov er the winter time. Do not use hot water. Hot water removes your natural skin oils more quickly. Warm water is best for bathing. Use a gentle cleanser. Soaps can strip oils from the skin. Stop using deodorant bars, antib acterial soaps, perfumed soaps, and skin care products containing alcohol, like hand sanitiz ers. Look for either a mild, fragrance-free soap or a soap substitute that moisturizes. Limit time in the bathtub or shower. A 5- to 10-minute bath or shower adds moisture to the skin. Spending more time in the water often leaves your skin less hydrated than before you s tarted unless you use a thick moisturizer on your skin after bathing. Do not bathe more ofte n than once a day. Moisturize right after baths and showers. To lock in moisture from a bath or shower, apply a moisturizer while the skin is still damp. The thicker the moisturizer, the better. Before you shave, soften skin. It is best to shave right after bathing, when hairs are soft . To lessen the irritating effects of shaving your face or legs, use a shaving cream or gel. Leave the product on your skin about 3 minutes before starting to shave. Shave in the direc tion that the hair grows. Change razor blades after 5 to 7 shaves. A dull blade bothers dry skin. Use a humidifier. Keep the air in your home moist with a humidifier. Soothe chapped lips. At bedtime, apply a lip balm that contains petrolatum. Other names for this ingredient are petroleum jelly and mineral oil. Cover up outdoors in the winter. In the cold, wear a scarf to help prevent chapped lips and gloves to protect hands and help prevent chapped hands. Be good to your face. If you have very dry skin, cleanse your face just once a day, at nigh t. In the morning, rinse your face with cool water. THE "ABCDE" RULE AND MELANOMA DETECTION Asymmetry - compare one half of the growth to the other half to determine if the halves are equal in size. Border - If the mole's border is irregular, notched, scalloped, or indistinct, it should be checked by a doctor. Color - Variation of color (e.g., more than one color or shade) within a mole is a suspicio us finding. Diameter - Any mole that has a diameter larger than a pencil's eraser should be checked by a doctor. Evolving - If a mole is changing in size, shape, color, elevation, surface texture or becom es itchy or painful, it should be checked by a doctor. Additional sunscreen and melanoma information is available at the following websites: http://www.[facility]/xd/health/services/dermatology/for-patients/health_info.cfm - [facility] Derm atology http://www.aad.org/public/sun/smart.html - [facility] Website documented in this encounter Progress Notes Shukri Anne MD,PhD - 08/25/2012 11:23 AM PSTAttending Physician Attestation I personally interviewed, examined the patient, and discussed management with the resident. I reviewed and edited the resident's note and agree with the documented findings and plan of care. Shukri Anne MD, PhD Flap Lining Binder, Department of Dermatology Count Includes [facility] 08/25/2012 avi Carbajal MD - 08/25/2012 11:10 AM PSTDERMATOLOGY CEPPA F/U VISIT (Last Office Visit in [facility] was on 05/26/12 at 3:00 pm with Shukri Anne MD,PhD. ) Dx: In[facility] PsO Rx: Humira 40mg qow Betamethasone S: Kimberley Yung is a 27 y.o. male here for f/u scalp and inverse psoriasis. Last se en 05/28. Feels that things are slowly improving now that he has started Humira, but still h aving severe involvement in his groin, genitals, and buttock area. Is using Humira qow as w ell as betamethasone. Is most bothered by groin and buttock involvement. Feels that his ot her psoriatic lesions are improved or resolved. He would like to try or modify medications. Is still noticing bumps on his chest; has not started the benzoyl peroxide wash. He has a h/o b/l knee and ankle pain. Reports that his PCP feels it due to his weight. He has been encouraged to decrease weight, which the patient is trying to. He still weighs about 340 lb . Otherwise doing well without complaints. Previous notes: With questionable recent scabies infection that he contracted from younger cousins, otherwi se has been healthy recently without infections. Has treated the new rash with acne medicati on, nizoral (which seemed to slow it down), HCT with no effect. Grandmother has psoriasis. N o other family h/o skin disease. Has had knee problems for more than 1 year, though workup b y home MD was negative for arthritis; pt denies morning joint pain, no heel or foot pain. 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 ROS: No f/c/v/weight loss, infections, weakness; no other skin complaints PHYSICAL EXAMINATION: There were no vitals taken for this visit. The patient is a well appearing obese male who is alert with normal mood and affect. Pleas ant and cooperative mood. A skin examination was performed including the scalp, face, eyelids, ears, lips, neck, ches t, back, abdomen, buttocks, R+L arms and hands, R+L legs and feet, and nails. Findings were within normal limits except for the following: --superior forehead, anterior frontal scalp violaceous plaques with minimal scale, with int erval improvement --b/l cheeks and nasolabial folds with minimal greasy scaly erythem plaques, with interval improvement --bilateral inguinal folds and entire scrotum; sharply demarcated erythematous to violaceou s plaques with minimal silvery scale; similar plaques in gluteal cleft ASSESSMENT AND PLAN: 1. Severe scalp and inverse psoriasis, with some improvement of scalp, but persistent disea se of genitals, groin, and buttocks. Possible arthritis at this time although sounds more me chanical in nature, BSA 3% (last visit 8%); failing topicals and interfering with quality of life, stable on qow Humira - increase Humira 40mg sq qweekly, from qow as improved but still has persistent disease in genital, groin, buttock areas - consider Remicade if qweekly Humira does not help, would prefer not to add MTX as h/o DM and morbid obesity --continue with following: --betamethasone solution to scalp daily x2 weeks, then BIW --betamethasone ointment to body BID x2 weeks then BIW for maintenance --HCT 2.5% ointment 2. Folliculitis - continue BP wash RTC: 3 months; Sign Recordist needed Staff: Omid Pascal M.D. [facility] Dermatology Resident documented in this en counter Plan of Treatment Not on filedocumented as of this encounter Visit Diagnoses + + | Diagnosis | + + | Other psoriasis - Primary | + + | Encounter for long-term (current) use of other medications | + + documented in this encounter
--- OUTSIDE RECORDS SUMMARY | ~2020-04-30 | XMS | Encounter Summary ---
Demographics + + + | Address | [address] | | | [place] [address] | + + + | Home Phone | | + + + | Preferred Language | Unknown | + + + | Marital Status | Single | + + + | Orthodox Affiliation | NON | + + + | Race | or | + + + | Ethnic Group | Not or | + + + Author + + + | Author | [facility] | + + + | Organization | [facility] | + + [...] Team Providers + +------+ + | Care Lithopone Charger Name | Role | Phone | + +------+ + | Rita Rodriguez MD | PCP | | + +------+ + Reason for Referral Consultation (Routine) +--------+--------+ + + + + | Status | Reason | Specialty | Diagnoses / | Referred By | Referred To | | | | | Procedures | Contact | Contact | +--------+--------+ + + + + | Closed | | Ophthalmology | Diagnoses | Ray, | Skylari Comp | | | | | Blurry | Elliot E, | Oph Res Chh1 | | | | | vision Type | MD The | [address] | | | | | II or | [place] | e [place] | | | | | unspecified | Clinic | for Health | | | | | type | [place] | and Healing, | | | | | diabetes | Derm [address] | [address], | | | | | mellitus | [address] | [address] Floor | | | | | without | [place], | [place], [place] | | | | | mention of | [place] [address] | [address] | | | | | complication | Phone: | Phone: | | | | | , not stated | [phone] | [phone] | | | | | as | Fax: | Fax: | | | | | uncontrolled | [phone] | [phone] | | | | | Procedures | | | | | | | CONSULT TO | | | | | | | | | | | | | | OPHTHALMOLOG | | | | | | | Y | | | +--------+--------+ + + + + Reason for Visit + + + | Reason | Comments | + + + | Psoriasis | pt here for f/u on TX | + + + Office Visit - E/M Services (Routine) +--------+ + + + + + | Status | Reason | Specialty | Diagnoses / | Referred By | Referred To | | | | | Procedures | Contact | Contact | +--------+ + + + + + | Closed | Specialty | Dermatology | Diagnoses | Ehst, | Ehst, | | | Services | | Other | Shukri Baez, | Shukri Baez, | | | Required | | psoriasis | ,PhD | ,PhD Aylin | | | | | inverse | [place] | Allergy | | | | | scalp | Allergy | Asthma | | | | | psoriasis | Asthma | Dermatology | | | | | (3% bsa) | Dermatology | [address] | | | | | Procedures | [address] | [address] | | | | | [place] | [address] | [address] | | | | | OFFICE/OUTPT | [address] | [place], [place] | | | | | | [place], [place] | [address] Phone: | | | | | VISIT,EST,LE | [address] | [phone] | | | | | MAKENNA III 3mo | Phone: | Fax: | | | | | f/u | [phone] | [phone] | | | | | | Fax: | | | | | | | [phone] | | +--------+ + + + + + Encounter Details +--------+---------+ + + + | Date | Type | Department | Care Team | Description | +--------+---------+ + + + | 06/10/ | Office | Dermatology | Shukri Anne, | Other psoriasis | | 2012 | Visit | Medical at [facility] [address] | MD,PhD Aylin | (Primary Dx); | | | | [facility] | Allergy Asthma | Encounter for | | | | for Health and | Dermatology [address] | long-term (current) | | | | Healing, [address], | [facility] [address] | use of other | | | | 16th Floor | [place] [address] | medications; Blurry | | | | [place], [place] | [phone] | vision; Acquired | | | | [address] | | acanthosis | | | | [phone] | | nigricans; | | | | | | Intertrigo; Viral | | | | | | warts, unspecified; | | | | | | Other acne | +--------+---------+ + + + Social History [...] + + + | Blood Pressure | 138/76 | 06/10/2013 1:40 PM | | | | | PDT | | + + + + + | Pulse | 74 | 06/10/2013 1:40 PM | | | | | PDT | | + + + + + | Temperature | - | - | | + + + + + | Respiratory Rate | 16 | 06/10/2013 1:40 PM | | | | | PDT | | + + + + + | Oxygen Saturation | - | - | | + + + + + | Inhaled Oxygen | - | - | | | Concentration | | | | + + + + + | Weight | 150.1 kg (331 lb) | 06/10/2013 1:40 PM | | | | | PDT | | + + + + + | Height | - | - | | + + + + + | Body Mass Index | 42.5 | 04/23/2013 4:05 PM | | | | | PDT | | + + + + + documented in this encounter Progress Notes Elliot Bell MD - 06/10/2013 2:02 PM PDT DERMATOLOGY FOLLOW-UP VISIT Dx: Inverse PsO Rx: Humira 40mg qw (started weekly 3 months ago) Betamethasone SUBJECTIVE: Kimberley Yung is a 28 y.o. male here for follow-up of scalp and inverse psoriasis. La seen 3 months ago, at that time increased Humira from rvxpn-ounth-gies to weekly. Missed one dose in the last 3 months. Feels scalp is much improved and groin and other areas are mo derately improved as well. Happy with how he is doing. No fevers/chills/infections/swollen g lands. Tolerating self-injections well. Also complains of blurry vision, says he has had for 2.5 years, notices more during the smith when he is watching more movies/playing more [employer] games; slowly progressing. Does not recall having an eye exam even though he is a diabeti c. Has some small bumps on the r arm and hand, spreading. Also some acne on trunk. Not using his BPO wash any more. Patient Active Problem List Diagnosis Other psoriasis Other specified disease of hair and hair follicles Intertrigo Acquired acanthosis nigricans Unspecified chronic suppurative otitis media Tympanic membrane perforation, marginal ROS: Other than those stated above, the patient denies any ISRs, infections, fevers, chill s, night sweats, weight loss, loss of appetite or other skin complaints. OBJECTIVE: WDWN, NAD; awake, alert and oriented; pleasant with appropriate mood and affect A skin examination was performed including the scalp/hair, head/face, eyelids/conjunctivae, lips, neck, chest, back, abdomen, buttocks, genitals, bilateral arms and legs, bilateral mars nds and feet, and nails. Findings were within normal limits except for the following: --scalp and face clear --bilateral inguinal folds and entire scrotum, bilateral axilla, neck - velvety brown plaqu es --groin: no residual erythema or irritation seen on last visit --follicular papules and PIH, comedones, chest, somewhat back --scattered pale papules, 1-2 mm, R hand and arm ASSESSMENT/PLAN: 1. Severe scalp and inverse psoriasis, doing very well on weekly Humira -- continue Humira 40 mg Q weekly; RBA discussed -- if begins to struggle with worsening disease, would go to Remicade or Stelara over MTX g iven DM and morbid obesity comorbidities -- continue Zeasorb powder -- CBC, CMP today 2. Acanthosis nigricans -- recommend weight loss and blood sugar control 3. Blurry vision -- refer to Optho for eye exam; needs one for DM anyway and can assess need for corrective lenses 4. Verruca -- OTC venu acid discussed 5. Acne, truncal -- BPO 5% wash RETURN VISIT: October 2013 Department of Dermatology [facility] 06/10/2013 hstShukri MD,PhD - 06/10/2013 1:51 PM PDTAttending Physician Attestation I personally interviewed, examined the patient, and discussed management with the resident. I reviewed and edited the resident's note and agree with the documented findings and plan of care. Shukri Anne MD, PhD Chemical Dependency Counselor, Department of Dermatology [facility] 06/10/2013 docume nted in this encounter Plan of Treatment Not on filedocumented as of this encounter Results COMPLETE METABOLIC SET (NA,K,CL,CO2,BUN,CREAT,GLUC,CA,AST,ALT,BILI TOTAL,ALK PHOS,ALB,PROT TOTAL) (06/10/2013 2:22 PM PDT) + +---------+ + + + | Component | Value | Ref Range | Performed | Pathologist | | | | | At | Signature | + +---------+ + + + | GLUCOSE, | 67 | 60 - 99 mg/dL | [facility] | | | PLASMA | | | LABORATORY | | | (LAB) | | | SERVICES, | | | | | | CORE | | + +---------+ + + + | BUN, PLASMA | 7 | 6 - 20 mg/dL | [facility] | | | (LAB) | | | LABORATORY | | | | | | SERVICES, | | | | | | CORE | | + +---------+ + + + | CREATININE | 0.85 | 0.70 - 1.30 | [facility] | | | PLASMA | | mg/dL | LABORATORY | | | (LAB) | | | SERVICES, | | | | | | CORE | | + +---------+ + + + | EGFR | >60 | >60 mL/min | [facility] | | | - | | | LABORATORY | | | HAITIAN | | | SERVICES, | | | [...] +---------+ + + + | POTASSIUM, | 3.1 (L) | 3.4 - 5.0 | [facility] | | | PLASMA | | mmol/L | LABORATORY | | | (LAB) | | | SERVICES, | | | | | | CORE | | + +---------+ + + + | CHLORIDE, | 105 | 97 - 108 mmol/L | [facility] | | | PLASMA | | | LABORATORY | | | (LAB) | | | SERVICES, | | | | | | CORE | | + +---------+ + + + | TOTAL CO2, | 25 | 21 - 32 mmol/L | [facility] | | | PLASMA | | | LABORATORY | | | (LAB) | | | SERVICES, | | | | | | CORE | | + +---------+ + + + | CALCIUM, | 8.3 (L) | 8.6 - 10.2 | [facility] | [...] +---------+ + + + | ALBUMIN, | 3.7 | 3.5 - 4.7 g/dL | [facility] | | | PLASMA | | | LABORATORY | | | (LAB) | | | SERVICES, | | | | | | CORE | | + +---------+ + + + | ALK PHOS | 107 | 53 - 128 U/L | [facility] | | | | | | LABORATORY | | | | | | SERVICES, | | | | | | CORE | | + +---------+ + + + | AST(SGOT) | 68 (H) | 15 - 41 U/L | [facility] | | | | | | LABORATORY | | | | | | SERVICES, | | | | | | CORE | | + +---------+ + + + | ALT (SGPT) | 85 (H) | 12 - 60 U/L | [...] the MDRD equation recommended by the | VASU | | National Kidney Disease Education Program. [...] Rapidly changing kidney | | | function New reference range effective 2012 for Total proteins | | | performed in Core Lab only. | | + + + + + + + + | Performing | Address | City/State/Zipcode | Phone Number | | Organization | | | | + + + + + | [facility] | [address] | [place] [address] | | | SERVICES, [place] | [address] | | | + + + + + documented in this encounter Visit Diagnoses + + | Diagnosis | + + | Other psoriasis - Primary | + + | Encounter for long-term (current) use of other medications | + + | Blurry vision Other specified visual disturbances | + + | Acquired acanthosis nigricans | + + | Intertrigo Other specified erythematous condition | + + | Viral warts, unspecified | + + | Other acne | + + documented in this encounter"
--- OUTSIDE RECORDS SUMMARY | ~2020-04-30 | XMS | Encounter Summary ---
Demographics + + + | Address | [address] | | | [place] [address] | + + + | Home Phone [...] + + | Author | [facility] | + + + | Organization | [facility] | + + + | Address [...] Team Providers + +------+ + | Care Import Coordination And Production Head Name | Role | Phone | + [...] | | | | [address] | [place], [place] | Dx); Unspecified | | | | Physician's | [id number] | chronic suppurative | | | | Pavilion, 2nd floor | [phone] | otitis media | | | | [place], [place] | | | | | | [address] | | | | | | [phone] | | | +--------+---------+ + + + [...] above documentati on. Elba Garcia MD PhD Direct Entry Midwife Otology, Neurotology & Skull Base Surgery Candice Cervantes MD - 09/10/2013 12:55 PM PSTOTOLARYNGOLOGY OTOLOGY CLIN IC NOTE 09/10/2013 CC: 2 wk postop ID: Kimberley Yung is a 28 y.o. 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 Candice Gaston MD/MPH Otolaryngology R5 pager [phone] documented in this enco unter Plan of Treatment Not on filedocumented as of this encounter Visit Diagnoses + + | Diagnosis | + + | Tympanic membrane perforation, marginal - Primary Other marginal perforation of | | tympanic membrane | + + | Unspecified chronic suppurative otitis media | + + documented in this encounter"
--- OUTSIDE RECORDS SUMMARY | ~2020-04-30 | XMS | Encounter Summary ---
Demographics + + + | Address | [address] | | | [place] [address] | + + + | Home Phone [...] Author + + + | Author | [facility] | + + + | Organization | [facility] [facility] | + + + [...] Team Providers + +------+ + | Care Cellophane Worker Name | Role | Phone | [...] + + + + | 08/18/ | Anesthesia | 4N INTRA OP 3161 | Bayron Atwood MD | | | 2012 | Event | [address] | [address] | | | | | [facility] | [place], | | | | | Ambulatory Surgery | [place] [address] | | | | | Admitting Desk | [phone] | | | | | Located on the [facility] | | | | | | floor, Room 4519 | Evert Potter CRNA | | | | | [place], [place] | [address] | | | | | [address] | [place], | | | | | | [place] [address] | | | | | | [phone] | | | | | | | | +--------+ + + + + Anesthesia Record + + [...] | Meds | +------+ + + + | Name | Total | + + + | midazolam | 2 mg | + + + | fentaNYL | 250 mcg | + + + | lidocaine 2% | 100 mg | + + + | propofol | 460 mg | + + + | succinylcholine | 160 mg | + + + | dexamethasone | 10 mg | + + + | clindamycin 900mg | 900 mg | + + + | ketorolac | 30 mg | + + + | ondansetron | 4 mg | + + + | metoprolol | 3 mg | + + + | LR | 1,200 mL | + + + + + | Name | + + | Insp Sanjeev | + + | Et Sanjeev | + + | O2 Flow Rate (Total Liters) | + + | Air Flow rate (L/min) | + + + + | No [...] filedocumented in this encounter Administered Medications + +--------+ +--------+------+------+ | Medication Order | MAR | Action | Dose | Rate | Site | | | Action | Date | | | | + +--------+ +--------+------+------+ | clindamycin (CLEOCIN) IV | Given | 08/18/20 | 900 mg | | | | intravenous, INTRAPROCEDURE PRN, | | 13 8:14 | | | | | Starting Sat08/18/13 at 0814, | | AM PST | | | | | Until Sat08/18/13 at 1139 | | | | | | + +--------+ +--------+------+------+ +---+---+ | | | +---+---+ + +-------+ +-------+---+---+ | dexamethasone (DECADRON) | Given | 08/18/20 | 10 mg | | | | injection intravenous, | | 13 8:15 | | | | | INTRAPROCEDURE PRN, Starting Tue | | AM PST | | | | | 08/18/13 at 0815, Until Tue | | | | | | | 13 at 1139 | | | | | | + +-------+ +-------+---+---+ +---+---+ | | | +---+---+ + +-------+ +--------+---+---+ | fentaNYL citrate (PF) | Given | 08/18/20 | 50 mcg | | | | (SUBLIMAZE) injection | | 13 11:31 | | | | | INTRAPROCEDURE PRN, Starting Tue | | AM PST | | | | | 08/18/13 at 0747, Until Tue | | | | | | | 08/18/13 at 1139, sedation | | | | | | + +-------+ +--------+---+---+ +-------+ +---------+---+---+ | Given | 08/18/20 | 100 mcg | | | | | 13 8:19 | | | | | | AM PST | | | | +-------+ +---------+---+---+ | Given | 08/18/20 | 100 mcg | | | | | 13 7:47 | | | | | | AM PST | | | | +-------+ +---------+---+---+ +---+---+ | | | +---+---+ + +-------+ +-------+---+---+ | ketorolac (TORADOL) injection | Given | 08/18/20 | 30 mg | | | | INTRAPROCEDURE PRN, Starting Tue | | 13 11:19 | | | | | 08/18/13 at 1119, Until Tue | | AM PST | | | | | 08/18/13 at 1139, moderate pain | | | | | | + +-------+ +-------+---+---+ +---+---+ | | | +---+---+ + + + +---+---+---+ | lactated ringers IV | given by | 08/18/20 | | | | | INTRAPROCEDURE CONTINUOUS PRN, | | 13 11:47 | | | | | Starting 08/18/13 at 0736, | anesthes | AM PST | | | | | Until 08/18/13 at 1139 | iology | | | | | + + + +---+---+---+ +---------+ +---+---+---+ | New Bag | 08/18/20 | | | | | | 13 11:20 | | | | | | AM PST | | | | +---------+ +---+---+---+ | New Bag | 08/18/20 | | | | | | 13 7:36 | | | | | | AM PST | | | | +---------+ +---+---+---+ +---+---+ | | | +---+---+ + +-------+ +--------+---+---+ | lidocaine PF (XYLOCAINE MPF) 20 | Given | 08/18/20 | 100 mg | | | | mg/mL (2 %) injection | | 13 7:48 | | | | | INTRAPROCEDURE PRN, Starting Tue | | AM PST | | | | | 08/18/13 at 0748, Until Tue | | | | | | | 08/18/13 at 1139 | | | | | | + +-------+ +--------+---+---+ +---+---+ | | | +---+---+ + +-------+ +------+---+---+ | metoprolol (LOPRESSOR) | Given | 08/18/20 | 3 mg | | | | injection intravenous, | | 13 10:00 | | | | | INTRAPROCEDURE PRN, Starting Tue | | AM PST | | | | | 08/18/13 at 1000, Until Tue | | | | | | | 08/18/13 at 1139 | | | | | | + +-------+ +------+---+---+ +---+---+ | | | +---+---+ + +-------+ +------+---+---+ | midazolam (VERSED) injection | Given | 08/18/20 | 2 mg | | | | INTRAPROCEDURE PRN, Starting Tue | | 13 7:36 | | | | | 08/18/13 at 0736, Until Tue | | AM PST | | | | | 08/18/13 at 1139, sedation | | | | | | + +-------+ +------+---+---+ +---+---+ | | | +---+---+ + +-------+ +------+---+---+ | ondansetron (ZOFRAN) injection | Given | 08/18/20 | 4 mg | | | | INTRAPROCEDURE PRN, Starting Tue | | 13 11:19 | | | | | 08/18/13 at 1119, Until Tue | | AM PST | | | | | 08/18/13 at 1139 | | | | | | + +-------+ +------+---+---+ +---+---+ | | | +---+---+ + +-------+ +-------+---+---+ | propofol INTRAPROCEDURE PRN, | Given | 08/18/20 | 30 mg | | | | Starting 08/18/13 at 0748, | | 13 11:42 | | | | | Until 08/18/13 at 1139 | | AM PST | | | | + +-------+ +-------+---+---+ +-------+ +--------+---+---+ | Given | 08/18/20 | 30 mg | | | | | 13 11:37 | | | | | | AM PST | | | | +-------+ +--------+---+---+ | Given | 08/18/20 | 400 mg | | | | | 13 7:48 | | | | | | AM PST | | | | +-------+ +--------+---+---+ +---+---+ | | | +---+---+ + +-------+ +--------+---+---+ | SUCCINYLCHOLINE CHLORIDE 20 | Given | 08/18/20 | 160 mg | | | | MG/ML INJ (PROSED/RSI) | | 13 7:48 | | | | | INTRAPROCEDURE PRN, Starting Tue | | AM PST | | | | | 08/18/13 at 0748, Until Tue | | | | | | | 08/18/13 at 1139, Neuromuscular | | | | | | | block | | | | | | + +-------+ +--------+---+---+ +---+---+ | | | +---+---+ documented in this encounter"
--- OUTSIDE RECORDS SUMMARY | ~2020-04-30 | XMS | Encounter Summary ---
Demographics + + + | Address | [address] | | | [place] [address] | + + + | Home Phone | | + + + | Preferred Language | Unknown | + + + | Marital Status | Single | + + + | Yarsani Affiliation | NON | + + + | Race | or | + + + | Ethnic Group | Not or | + + + Author + + + | Author | [facility] | + + + | Organization | [facility] | + + + | Address | Unknown | + + + | Phone | Unavailable | + + + Support + + + + + | Name | Relationship | Address | Phone | + + + + + | Delonte Yung | ECON | [place] | | + + + + + Care Team Providers + +------+ + | Care Blow Torch Burner Name | Role | Phone | + +------+ + | Diane Little MD | PCP | | + +------+ + Reason for Visit + + + | Reason | Comments | + + + | Psoriasis | pt here for f/u on Tx current Toshaira | + + + Office Visit - E/M Services (Routine) +--------+ + + + + + | Status | Reason | Specialty | Diagnoses / | Referred By | Referred To | | | | | Procedures | Contact | Contact | +--------+ + + + + + | Closed | Specialty | Dermatology | Diagnoses | [facility] Drm Med | | | Services | | Other | Epic Dept | [facility] [address] | | | Required | | psoriasis | | [address] | | | | | Procedures | | [facility] | | | | | f/u appt | | Health and | | | | | | | Healing, | | | | | | | [address], | | | | | | | [address]th Floor | | | | | | | [place], [place] | | | | | | | [address] | | | | | | | Phone: | | | | | | | [phone] | | | | | | | Fax: | | | | | | | [phone] | +--------+ + + + + + Encounter Details +--------+---------+ + + + | Date | Type | Department | Care Team | Description | +--------+---------+ + + + | 11/12/ | Office | Dermatology | Shukri Anne, | Acquired acanthosis | | 2013 | Visit | Medical at [facility] [address] | MD,PhD [place] | nigricans (Primary | | | | [facility] | Allergy Asthma | Dx); Other | | | | for Health and | Dermatology [address] | psoriasis; Other | | | | Healing, [address], | [facility] | specified disease of | | | | [address]th Floor | [place] [address] | hair and hair | | | | [facility] [place] | [phone] | follicles | | | | [address] | | | | | | [phone] | | | +--------+---------+ + + + [...] + + + | Blood Pressure | 118/76 | 11/12/2013 11:46 AM | | | | | PST [...] + + + + | Weight | 155.1 kg (342 lb) | 11/12/2013 11:46 AM | | | | | PST | | + + + + + | Height | - | - | | + + + + + | Body Mass Index | 46.38 | 08/18/2013 7:05 AM | | | | | PST | | + + + + + documented in this encounter Patient Instructions Patient Instructions Yen Muse - 11/12/2013 11:45 AM PSTPrevent Winter Itch The winter time [...] information is available at the following websites: http://[email or web address]/xd/health/services/dermatology/for-patients/health_info.cfm - [facility] Derm atology http://www.aad.org/public/sun/smart.html - [facility] Website documented in this encounter Progress Notes Shukri Anne MD,PhD - 11/13/2013 3:22 PM PSTAttending Physician Attestation I personally interviewed, examined the patient, and discussed management with the resident. I reviewed and edited the resident's note and agree with the documented findings and plan of care. Shukri Anne MD, PhD Sole Stapler Welt, Department of Dermatology [facility] 11/12/2013 elcam Ena ceron MD - 11/13/2013 10:12 AM PSTFormatting of this note might be different from th louis original. DERMATOLOGY FOLLOW-UP VISIT Dx: Inverse PsO Rx: Humira 40mg qow since 01/2012 inc to qw 02/2013 Betamethasone SUBJECTIVE: Kimberley Yung is a 28 y.o. 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 He is currently on Humira 40 qw and is essentially clear. He reports missing one e ose in the last 3 months. Happy with how he is doing. He is not using topicals much anymore. Denies any infections or ISR.Tolerating self-injections well. He does still complain of bum ps on the chest and back. He is out of the BPO wash but had used it previously. He also comp lains of knee and low back pain worse in the morning and after playing basketball. Has tried to lose weight but has difficulty reading recipes and making healthy food choices. Patient Active Problem List Diagnosis Other psoriasis [...] for the following: --scalp and face clear except mild erythema of L postauricular crease --bilateral axillae and neck with brown plaques --follicular papules and PIH, comedones on chest and upper back --4mm verrucous papules on R hand and forearm ASSESSMENT/PLAN: 1. Severe scalp and inverse psoriasis doing very well on weekly Humira -- continue Humira 40 mg q week; RBA discussed 2. Acanthosis nigricans -- recommend weight loss and consider seeing operations planner 3. Acne, truncal -- refilled BPO 5% wash RETURN VISIT: 3 months Ena Cho MD PGY-2, Department of Dermatology [facility] documented in this encounter Plan of Treatment Not on filedocumented as of this encounter Visit Diagnoses + + | Diagnosis | + + | Acquired acanthosis nigricans - Primary | + + | Other psoriasis | + + | Other specified disease of hair and hair follicles | + + documented in this encounter
--- OUTSIDE RECORDS SUMMARY | ~2020-04-30 | XMS | Encounter Summary ---
Demographics + + + | Address | [address] | | | [place] [address] | + + + | Home Phone [...] + | Author | [facility] | + + + | Organization | [facility] | + + + | Address [...] Team Providers + +------+ + | Care Financial Services Sales Representative Name | Role | Phone | + [...] | 2016 | on | Medical at [facility] [address] | [address] | Request | | | | [address] [employer] | [place], [place] | | | | | [facility] and | [address] | | | | | [place] [address], | [phone] | | | | | [address] | | | | | | [place], [place] | | | | | | [address] | | | | | | [phone] | | | +--------+ + + + [...]
--- OUTSIDE RECORDS SUMMARY | ~2020-04-30 | XMS | Encounter Summary ---
Demographics + + + | Address | [address] | | | [place] [address] | + + + | Home Phone | | + + + | Preferred Language | Unknown | + + + | Marital Status | Single | + + + | Religion Affiliation | NON | + + + | Race | or | + + + | Ethnic Group | Not or | + + + Author + + + | Author | [facility] | + + + | Organization | [facility] | + + + | Address [...] Team Providers + +------+ + | Care Cashier Ticket Selling Name | Role | Phone | + +------+ + PCP | Unavailable | + +------+ + Encounter Details +--------+ + + + + | Date | Type | Department | Care Team | Description | +--------+ + + + + | 10/13/ | Office | [facility] | Report, Outpatient | Progress Note | | 1998 | Visit-Trans | | Consultation | | [...] as of this encounter Progress Notes Interface, Applications Packager In - 09/16/2006 2:29 AM PSTCLINIC DATE: 10/13/1998 CLINIC NAME:CHILD DEVELOPMENT PROGRAM DISCIPLINE: PSYCHIATRY He has profound bilateral hearing loss, a seizure disorder, in the custody of his grandparents, att[employer], takes Ritalin 20 mg qid, Clonidine .1 mg tid, and Risperdal one-half mg at hs (or one-half mg twice a day). He has been taken off of Dilantin, probability that he will go off Depakote soon. When asked how he was doing, he said he didn't know how he was doing. Says he likes school. Asked about the Dorm. He says he goes to work, he actually gets to golf as a carrot for being good behavior and it is very effective. In terms of his home, he goes there two weekends a month and the school nurse hasn't heard of a lot of nature conflicts. As far as school nurse, she is pretty pleased with his behavior and apparently a number of notes from the teachers indicates that he is making tremendous progress. He is described as more cooperative, has the desire to learn, very few conflicts. He has a point behavior card that he is proud of and initiates. He does well in physical education, and is doing well in his academics and he doesn't seem to be sedated from the medication. I would like to see Kimberley in two months. Currently his medications are sufficient. Cuba Caro M.D. EGS:kenya documented in this encounter Plan of Treatment Not on filedocumented as of this encounter Visit Diagnoses Not on filedocumented in this encounter"
--- OUTSIDE RECORDS SUMMARY | ~2020-04-30 | XMS | Encounter Summary ---
Demographics + + + | Address | [address] | | | [place] [address] | + + + | Home Phone | | + + + | Preferred Language | Unknown | + + + | Marital Status | Single | + + + | Evangelical Affiliation | NON | + + + | Race | or | + + + | Ethnic Group | Not or | + + + Author + + + | Author | [facility] | + + + | Organization | [facility] | + + + | Address [...] Team Providers + +------+ + | Care Textiles Sales Representative Name | Role | Phone [...] | +--------+ + + + + | 09/08/ | Telephone | Dermatology | Shukri Anne, | Refill Request | | 2012 | | Medical at [facility] [address] | ,PhD Aylin | | | | | Ailyn [address] | Allergy Asthma | | | | | for Health and | Dermatology [address] | | | | | Healing, [address], | [facility] | | | | | 16th Floor | [place] [address] | | | | | [place], [place] | [phone] | | | | | [address] | | | | | | [phone] | | | +--------+ + + + [...]
--- OUTSIDE RECORDS SUMMARY | ~2020-04-30 | XMS | Encounter Summary ---
Demographics + + + | Address | [address] | | | [place] [address] | + + + | Home Phone [...] + + | Author | [facility] | + + + | Organization | [facility] | + + + [...] Team Providers + +------+ + | Care Sewing Line Baler Name | Role | Phone | + +------+ + PCP | Unavailable | + +------+ + Encounter Details +--------+ + + + + | Date | Type | Department | Care Team | Description | +--------+ + + + + | 05/21/ | Office | [facility] | Report, [...] as of this encounter Progress Notes Interface, Production Supervisor Trainee In - 07/28/2006 5:25 AM PSTCLINIC DATE: 05/21/2000 CLINIC: CHILD DEVELOPMENT CLINIC DISCIPLINE: PSYCHIATRY I have been following Kimberley, who has the diagnosis of attention deficit hyperactivity disorder and intermittent explosive disorder. He currently takes Ritalin 20 mg one four times a day, clonidine 0.1 mg one three times a day, and Risperdal 0.5 mg one two times a day. I saw Kimberley along with his grandmother and also the personal investment adviser. He indicated by sign that his arm was sore from throwing a softball at some picnic or constitution party. His grandmother says that he has been doing well. When he was first home he took his medications pretty well. More lately, he has not been quite as careful about taking his medications and his grandmother can see the difference. He yells, slams things around. Some may be that he is bored. Apparently his mother called and so the grandmother let him visit his mother for one week. It was before he had a tournament in golf. The mother apparently has moved from [place] to [place]. The grandmother does not know whether they are living in a house or if the house that they have has broken windows and they are actually living in a small trailer. She wonders if there is space for Kimberley there. He apparently did enjoy his visit with his mother. The mother apparently joined the [employer] that apparently made the news and apparently her heritage is from [place]. However, she did not involve Kimberley in that process. This past year the grandmother said that she believes that the biological mother has been trying to get to know Kimberley but she has realized that he really is the grandparents' child and so she has not pushed as hard to see him. His sister has started school. Kimberley indicated that Brian, who is a friend of the mother's, said the car was not working, it would not start. The school apparently wants the visitation papers. His grandmother said she has not received them either. So the last time the mother was supposed to be able to see Kimberley during the summer and during the school year she was supposed to see him during the weekends that he would be at the dorm which is every two weeks because the other rest of the time he flies to spend time with his grandmother. However, the field operations supervisor told her that she was supposed to make the arrangements so it is up to her. The grandmother knows that it is expensive to do and they are hard-pressed for money. The biological mother took Kimberley somewhere and had to explain to him that they do not have the money. When they are with the grandmother he gets money for pop and so on, so he does not always understand that his mother does not have the money. When we were sitting in the room, he took a number of the gloves out of the package. Eventually the sign person told him to stop. His grandmother said that he will take them all if you allow him. He made four or five of them into a ball. The grandmother said that she needs to talk to the school people, that he is on the brink of reading. He wants to read so badly. She thinks that finger spelling has helped him but he has problems with memory apparently secondary to seizures. The grandmother wonders if it will remain that way forever so he has problems with memory and cannot remember a word like that. He did some spelling of his name and so on. He had trouble with the last three letters of his first name. I refilled his medications and would like to see him back in two months. Cuba Caro M.D. Child Psychiatrist [id number]/[id number] signed by Interface, Production Supervisor Trainee In at 07/28/2006 5:25 AM PSTdocume nted in this encounter Plan of Treatment Not on filedocumented as of this encounter Visit Diagnoses Not on filedocumented in this encounter"
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
--- OUTSIDE RECORDS SUMMARY | ~2020-04-30 | XMS | Encounter Summary ---
Demographics + + + | Address | [address] | | | [place] [address] | + + + | Home Phone | | + + + | Preferred Language | Unknown | + + + | Marital Status | Single | + + + | Adventism Affiliation | NON | + + + | Race | or | + + + | Ethnic Group | Not or | + + + Author + + + | Author | [facility] | + + + | Organization | [facility] | + [...] Team Providers + +------+ + | Care Drawing In Machine Tender Helper Name | Role | Phone | + +------+ + | Nitin Field | PCP | | + +------+ + Encounter Details +--------+ + + + + | Date | Type | Department | Care Team | Description | +--------+ + + + + | 08/18/ | Pharmacy | Outpatient Retail | | | | 2012 | Visit | [facility] | | | | | | [address] | | | | | | [place], [place] | | | | | | [address] | | | | | | [phone] | | | +--------+ + + + [...]
--- OUTSIDE RECORDS SUMMARY | ~2020-04-30 | XMS | Encounter Summary ---
Demographics + + + | Address | [address] [place] [address] ROAD | | | [place] [address] | + + + | Home Phone | | + + + | Preferred Language | Unknown | + + + | Marital Status | Single | + + + | Latter-Day Affiliation | Unknown | + + + | Race | Unknown | + + + | Ethnic Group | Unknown | + + + Author + + + | Author | [facility] | | | and [facility] | + + + | Organization | [facility] | | | and [facility] [...] Team Providers + +------+ + | Care Mitigation Supervisor Name | Role | Phone | + +------+ + | Scarlet Bello PA-C | PCP | | + +------+ + Reason for Visit +---------+--------+ + | Reason | Onset | Comments | | | Date | | +---------+--------+ + | Imaging | 09/29/ | | | | 2020 | | +---------+--------+ + Encounter Details +--------+ + + + + | Date | Type | Department | Care Team | Description | +--------+ + + + + | 09/29/ | Telephone | [facility] | Rom Marcos, | Imaging | | 2019 | | NEUROLOGY [address] | MD [address] | | | | | [address] | [employer] [employer] [address] | | | | | [place], [place] | [place] [address] | | | | | [address] | [phone] | | | | | [phone] | | | +--------+ + + + [...] this encounter Miscellaneous Notes Telephone Encounter - Tracy [place], Events And Promotions Assistant - 09/30/2019 11:11 AM PSTSpoke to Marcy and she stated MRI getting done today, Wanted to know why only one person at appt. E xplained we (doctor) just needs a person that can answer questions like medication and seizu res. Maybe starting a log/dairy or calendar so who ever brings him will know whats going on. We spend most of the appt going over meds and most of the time they are incorrect on dosage ect. She stated she will speak with brothers and dad and try to figure out a better system- AH ele phone Encounter - aAliyah Bashir I - 09/30/2019 8:14 AM PSTVician- aunt, is calling again f or Imaging and would like a call back. Additional Call Details: Questions regarding MRI and upcoming appointment in [place]. Call back at: [phone] elephone Encounter - Tracy Parn[place], Events And Promotions Assistant - 09/29/2019 8:24 AM PSTCalled Fernando and faxed over MRI order to [phone] signed by Tracy [place] Events And Promotions Assistant at 09/29/19 8:25 AM PSTTelephone Encounter - Lisa Ragland - 09/29/2019 8:14 AM PSTMickey - [place], is calling regarding Imaging and would like a call back. Additional Call Details: Requesting MRI copy to be faxed so they can authorize transportat ion. Please fax to [phone]. Call Fernando back at [phone] once it has been sent If this is a symptom based call, was patient offered triage? Not Applicable If this is a symptom based call and you were unable to immediately transfer the call to a lisandra singh premium note interest calculator clerk was caller made aware that if at [...] D | | | | | | [place] [address] | | | | | | [phone] | | | | | | | | +--------+---------+ + + + | 06/06/ | Office | Dermatology | Edwige Adams | | 2019 | Visit | | [address] | | | | | | [address] | | | | | | [place] [address] | | | | | | [phone] | | | | | | | | +--------+---------+ + + + documented as of this encounter Visit Diagnoses Not on filedocumented in this encounter"
--- OUTSIDE RECORDS SUMMARY | ~2020-04-30 | XMS | Encounter Summary ---
Demographics + + + | Address | [address] | | | [place] [address] | + + + | Home Phone [...] + | Author | [facility] | + + + | Organization | [facility] | + + + | Address [...] Team Providers + +------+ + | Care Hydraulic Technician Name | Role | Phone | + [...] | 2010 | Visit | Medical at [facility] [address] | ,PhD Aylin | (Primary Dx) | | | | [facility] | Allergy Asthma | | | | | for Health and | Dermatology [address] | | | | | [facility], [address], | [facility] | | | | | 16th Floor | [place] [address] | | | | | [place], [place] | [phone] | | | | | [address] | | | | | | [phone] | | | +--------+---------+ + + + [...] of care. Shukri Anne MD, PhD Chemical Sprayer, Department of Dermatology [facility] 08/08/2011 artm Irena sue MD - 08/08/2011 2:23 PM PSTFormatting of this note might be different from t joe crowe. DERMATOLOGY NEW PATIENT CONSULTATION, HISTORY AND PHYSICAL CHIEF COMPLAINT: new rash PRIMARY CARE PROVIDER: Rita Rodriguez MD REFERRING PROVIDER: Riat Rodriguez HISTORY OF PRESENT ILLNESS: Kimberley Yung [...] --will forward note to home MD in [place] RTC: PRN if lesions or symptoms worsen or fail to resolve IRENA NUNEZ MD Resident, Department of Dermatology [facility] documented in th is encounter Plan of Treatment Not on filedocumented as of this encounter Visit Diagnoses + + | Diagnosis | + + | Other psoriasis - Primary | + + documented in this encounter
--- OUTSIDE RECORDS SUMMARY | ~2020-04-30 | XMS | Encounter Summary ---
Demographics + + + | Address | [address] | | | [place] [address] | + + + | Home Phone | | + + + | Preferred Language | Unknown | + + + | Marital Status | Single | + + + | Advent Affiliation | NON | + + + | Race | or | + + + | Ethnic Group | Not or | + + + Author + + + | Author | [facility] | + + + | Organization | [facility] | + + + | Address [...] Team Providers + +------+ + | Care Yard Worker Name | Role | Phone | + +------+ + | Diane Little MD | PCP | | + +------+ + Reason for Visit + + + | Reason | Comments | + + + | Prior Authorization | Benzoyl Peroxide Wash | | Request | | + + + Encounter Details +--------+ + + + + | Date | Type | Department | Care Team | Description | +--------+ + + + + | 11/13/ | Documentati | Dermatology | Shukri Anne, | Prior Authorization | | 2013 | on | Medical at [facility] [address] | ,PhD Viera | Request (Benzoyl | | | | [facility] | Allergy Asthma | Peroxide Wash) | | | | for Health and | Dermatology [address] | | | | | [facility], [address], | [facility] | | | | | 16th Floor | [place] [address] | | | | | [place], [place] | [phone] | | | | | [address] | | | | | | [phone] | | | +--------+ + + + [...]
--- OUTSIDE RECORDS SUMMARY | ~2020-04-30 | XMS | Encounter Summary ---
Demographics + + + | Address | [address] | | | [place] [address] | + + + | Home Phone [...] + + | Author | [facility] | + + + | Organization | [facility] | + + + | [...] Team Providers + +------+ + | Care Heat Treatment Technician Name | Role | Phone | [...] as of this encounter Progress Notes Interface, Talent Analyst In - 09/16/2006 2:29 AM PSTCLINIC DATE: [...]
--- OUTSIDE RECORDS SUMMARY | ~2020-04-30 | XMS | Encounter Summary ---
Demographics + + + | Address | [address] [place] [address] ROAD | | | [place] [address] | + + + | Home Phone | | + + + | Preferred Language | Unknown | + + + | Marital Status | Single | + + + | Zoroastrian Affiliation | Unknown | + + + | Race | Unknown | + + + | Ethnic Group | Unknown | + + + Author + + + | Author | [facility] | | | and [place]endez[place] | + + + | Organization | [facility] | | | and Mendezana [...] Team Providers + +------+ + | Care Load Planner Name | Role | Phone | + +------+ + | Scarlet Bello PA-C | PCP | | + +------+ + Reason for Referral Diagnostic/Screening (Routine) +--------+--------+ + + + + | Status | Reason | Specialty | Diagnoses / | Referred By | Referred To | | | | | Procedures | Contact | Contact | +--------+--------+ + + + + | Closed | | Radiology | Diagnoses | Mavisa, | [facility] | | | | | Abnormal | MD Rom | [address] | | | | | brain MRI | [address] | | | | | Procedures | [address] | | | | | MRI Brain w | [address] | [place], [place] | | | | | wo Contrast | D | [address] | | | | | | [place], | Phone: | | | | | | [place] [address] | [phone] | | | | | | Phone: | Fax: | | | | | | [phone] | [phone] | | | | | | Fax: | | | | | | | [phone] | | +--------+--------+ + + + + Reason for Visit Diagnostic/Screening (Routine) +--------+--------+ + + + + | Status | Reason | Specialty | Diagnoses / | Referred By | Referred To | | | | | Procedures | Contact | Contact | +--------+--------+ + + + + | Closed | | Radiology | Diagnoses | Tammaa, | [facility] | | | | | Abnormal | MD Rom | [address] | | | | | brain MRI | [address] | | | | | Procedures | [address] | | | | | MRI Brain w | [address] | [place], [place] | | | | | wo Contrast | D | [address] | | | | | | [place], | Phone: | | | | | | [place] [address] | [phone] | | | | | | Phone: | Fax: | | | | | | [phone] | [phone] | | | | | | Fax: | | | | | | | [phone] | | +--------+--------+ + + + + Encounter Details +--------+ + + + + | Date | Type | Department | Care Team | Description | +--------+ + + + + | 03/15/ | Hospital | [facility] | Rom Marcos, | Abnormal brain MRI | | 2020 | Encounter | [facility] MRI [address] | MD Ingrid WATT | | | | | [address] | [address] | | | | | [place], [place] | [place] [address] | | | | | [address] | [phone] | | | | | [phone] | | | +--------+ + + + [...] + + documented as of this encounter Medications at Time of Discharge + + + +---------+ + + | Medication | Sig | Dispensed | Refills | Start | End Date | | | | | | Date | | + + + +---------+ + + | adalimumab (HUMIRA | Inject 0.8 mLs under | 2 each | 11 | 12/02/19 | | | PEN) 40 mg/0.8 mL | the skin every 14 | | | 20 | | | injection | days. | | | | | | (pen)Indications: | | | | | | | Psoriasis | | | | | | + + + +---------+ + + | hydrocortisone | Apply 1-2 times | 28 g | 11 | 12/02/19 | | | 2.5% | daily to affected | | | 20 | 1 | | creamIndications: | areas of rash of | | | | | | Psoriasis | face and underarms. | | | | | | | Best applied to damp | | | | | | | skin. | | | | | + + + +---------+ + + | hydrocortisone | Apply topically 2 | | 0 | | | | 2.5% lotion | times daily. | | | | | + + + +---------+ + + | LORazepam (ATIVAN) | Take 1 tablet by | 10 | 1 | 09/03/20 | | | 1 mg tablet | mouth as needed for | tablet | | 19 | | | | Seizures (take 1-2 | | | | | | | mg as needed for | | | | | | | repeated seizures | | | | | | | with max dose 4 mg | | | | | | | in 24 hours, use | | | | | | | sparingly, will make | | | | | | | tired). | | | | | + + + +---------+ + + | mupirocin | Apply topically 3 | | 0 | | | | (BACTROBAN) 2% | times daily. | | | | | | ointment | | | | | | + + + +---------+ + + | [place] 3 1000 MG | Take by mouth. | | 0 | | | | CAPS | | | | | | + + + +---------+ + + | OXcarbazepine | Take 2 tablets by | 124 | 3 | 02/23/20 | | | (TRILEPTAL) 600 MG | mouth 2 times daily. | tablet | | 20 | | | tablet | Take 2 tablets by | | | | | | | mouth 2 (two) times | | | | | | | daily | | | | | + + + +---------+ + + | terbinafine | Apply topically 2 | | 0 | | | | (LAMISIL) 1% cream | times daily. | | | | | + + + +---------+ + + | triamcinolone | Apply 1-2 times | 453.6 g | 5 | 12/02/19 | | | (KENALOG) 0.1% | daily to affected | | | 20 | 1 | | creamIndications: | areas of rash on | | | | | | Psoriasis | body. Best applied | | | | | | | to damp skin. Avoid | | | | | | | the face and | | | | | | | underarms. | | | | | + + + +---------+ + + | zonisamide | Take 3 capsules by | 186 | 3 | 01/20/20 | | | (ZONEGRAN) 100 mg | mouth 2 times daily. | capsule | | 20 | 0 | | capsule | | | | | | [...] [address] | | | | | | [place] [address] | | | | | | [phone] | | | | | | | | +--------+---------+ + + + | 06/06/ | Office | Dermatology | Edwige Adams | | | 2019 | Visit | | [address] | | | | | | [address] | | | | | | [place] [address] | | | | | | [phone] | | | | | | | | +--------+---------+ + + + documented as of this encounter Procedures + +--------+ + + + | Procedure Name | Priori | Date/Time | Associated Diagnosis | Comments | | | ty | | | | + +--------+ + + + | MRI BRAIN W WO | Routin | 03/15/2020 | Abnormal brain MRI | Results for this | | CONTRAST | e | 12:00 PM | | procedure are in the | | | | PDT | | results section. | + +--------+ + + + documented in this encounter Results MRI Brain w wo Contrast (03/15/2020 12:00 PM PDT) + + | Specimen | + + | | + + + + + | Impressions | Performed At | + + + | 1. Stable burden of multiple sclerosis plaques in the bihemispheric | [facility] | | white matter compared with 09/30/2019. No new or enhancing lesions | | | are seen to suggest active areas of demyelination. 2. No definite | | | evidence of optic neuritis. Signed by: Maria De Jesus Garay, | | | Jose Ramon Sign Date/Time: 03/16/2020 11:25 AM | | + + + + + + | Narrative | Performed At | + + + | MRI BRAIN WITHOUT AND WITH CONTRAST CLINICAL INFORMATION: | [facility] | | Multiple sclerosis, baseline. COMPARISON: Insert PROCEDURE: | | | Axial DWI and ADC map, axial T2*GRE, axial T2 FLAIR, axial T2, axial | | | T1, sagittal T2 FLAIR, sagittal T1, axial T1 post, axial T1 3D SPGR | | | post with coronal and sagittal reconstructions Contrast: 14ml | | | Gadavist IV. FINDINGS: Brain: Multiple foci of FLAIR and T2 | | | hyperintensity are seen throughout the bihemispheric periventricular, | | | deep and juxtacortical white matter of both cerebral hemispheres. | | | These are oriented perpendicular to the ventricles typical of | | | multiple sclerosis plaques. The number and position of lesions | | | meets the 2010 revised Garrison criteria for diagnosis of multiple | | | sclerosis, dissemination in space. The total lesion burden appears | | | stable in comparison to the previous exam. No new or enhancing | | | lesions are identified to suggest active areas of demyelination. | | | The DWI sequence shows no evidence of acute ischemia or infarct. | | | The susceptibility weighted sequence does not show low signal | | | material to suggest calcification or microhemorrhage within the brain | | | parenchyma. The midline structures including the corpus callosum, | | | louie, cerebellar vermis, pituitary and pineal gland are normal. | | | Following contrast administration, no abnormal enhancement is seen | | | within the brain parenchyma, leptomeninges or dura. CSF spaces: | | | The ventricles, cisterns and sulci are normal in size and | | | configuration. No extra-axial fluid collections are noted. | | | Orbits: The optic globe, optic lens, vitreous humor and sclera are | | | normal bilaterally. The optic nerves are normal in size and signal | | | intensity. There is no evidence of optic neuritis. The extraocular | | | muscles and orbital vessels are normal bilaterally. The intraconal | | | and extraconal fat is normal in signal intensity bilaterally. The | | | preseptal soft tissues are normal bilaterally. No compression of the | | | cisternal segments of the optic nerves, optic chiasm or optic tracts | | | noted. CP Angles and IACs: No masses are seen in the region of | | | the cerebellopontine angles or internal auditory canals. The | | | visualized structures of the temporal bones are normal. Vessels: | | | The intracranial arteries and dural venous sinuses demonstrate normal | | | flow voids on the T2 sequences. No large aneurysm or dural venous | | | sinus thrombosis is noted. Calvarium and extracranial soft | | | tissues: Normal. Paranasal sinuses and mastoid air cells: The | | | paranasal sinuses show no mucosal thickening or air-fluid levels. | | | Fluid is seen in the right mastoid air cells. This is a nonspecific | | | finding and can indicate a serous mastoid effusion due to eustachian | | | tube dysfunction from a recent upper respiratory infection or | | | seasonal allergies. There is no evidence of an obstructing mass in | | | the fossa of Rosenmuller. Mastoiditis is considered very unlikely. | | | | | + + + + + | Procedure Note | + + | Jovan, [id number] - 03/16/2020 11:28 AM PDT | | MRI BRAIN WITHOUT AND WITH CONTRAST | | | | CLINICAL INFORMATION: | | Multiple sclerosis, baseline. | | | | COMPARISON: | | Insert | | | | PROCEDURE: | | Axial DWI and ADC map, axial T2*GRE, axial T2 FLAIR, axial T2, axial | | T1, sagittal T2 FLAIR, sagittal T1, axial T1 post, axial T1 3D SPGR | | post with coronal and sagittal reconstructions | | | | Contrast: 14ml Gadavist IV. | | | | FINDINGS: | | Brain: Multiple foci of FLAIR and T2 hyperintensity are seen throughout | | the bihemispheric periventricular, deep and juxtacortical white matter | | of both cerebral hemispheres. These are oriented perpendicular to the | | ventricles typical of multiple sclerosis plaques. The number and | | position of lesions meets the 2010 revised Garrison criteria for | | diagnosis of multiple sclerosis, dissemination in space. The total | | lesion burden appears stable in comparison to the previous exam. No | | new or enhancing lesions are identified to suggest active areas of | | demyelination. The DWI sequence shows no evidence of acute ischemia or | | infarct. The susceptibility weighted sequence does not show low signal | | material to suggest calcification or microhemorrhage within the brain | | parenchyma. The midline structures including the corpus callosum, louie, | | cerebellar vermis, pituitary and pineal gland are normal. Following | | contrast administration, no abnormal enhancement is seen within the | | brain parenchyma, leptomeninges or dura. | | | | CSF spaces: The ventricles, cisterns and sulci are normal in size and | | configuration. No extra-axial fluid collections are noted. | | | | Orbits: The optic globe, optic lens, vitreous humor and sclera are | | normal bilaterally. The optic nerves are normal in size and signal | | intensity. There is no evidence of optic neuritis. The extraocular | | muscles and orbital vessels are normal bilaterally. The intraconal and | | extraconal fat is normal in signal intensity bilaterally. The | | preseptal soft tissues are normal bilaterally. No compression of the | | cisternal segments of the optic nerves, optic chiasm or optic tracts | | noted. | | | | CP Angles and IACs: No masses are seen in the region of the | | cerebellopontine angles or internal auditory canals. The visualized | | structures of the temporal bones are normal. | | | | Vessels: The intracranial arteries and dural venous sinuses demonstrate | | normal flow voids on the T2 sequences. No large aneurysm or dural | | venous sinus thrombosis is noted. | | | | Calvarium and extracranial soft tissues: Normal. | | | | Paranasal sinuses and mastoid air cells: The paranasal sinuses show no | | mucosal thickening or air-fluid levels. Fluid is seen in the right | | mastoid air cells. This is a nonspecific finding and can indicate a | | serous mastoid effusion due to eustachian tube dysfunction from a | | recent upper respiratory infection or seasonal allergies. There is no | | evidence of an obstructing mass in the fossa of Rosenmuller. | | Mastoiditis is considered very unlikely. | | | | | | IMPRESSION: | | 1. Stable burden of multiple sclerosis plaques in the bihemispheric | | white matter compared with 09/30/2019. No new or enhancing lesions are | | seen to suggest active areas of demyelination. | | 2. No definite evidence of optic neuritis. | | | | | | | | | | Signed by: Maria De Jesus Garay Edward | | Sign Date/Time: 03/16/2020 11:25 AM | + + + +---------+ + + | Performing | Address | City/State/Zipcode | Phone Number | | Organization | | | | + +---------+ + + | [facility] | | | | + +---------+ + + documented in this encounter Visit Diagnoses + + | Diagnosis | + + | Abnormal brain MRI Nonspecific (abnormal) findings on radiological and other | | examination of skull and head | + + documented in this encounter Administered Medications + +--------+ +--------+------+------+ | Medication Order | MAR | Action | Dose | Rate | Site | | | Action | Date | | | | + +--------+ +--------+------+------+ | gadobutrol (GADAVIST) injection | Given | 03/15/20 | 14 mLs | | | | 14 mL 14 mL, Intravenous, ONCE | | 20 12:00 | | | | | PRN, Other, Starting Sat03/15/20 | | PM PDT | | | | | at 1007, For 1 dose, MRI | | | | | | + +--------+ +--------+------+------+ +---+---+ | | | +---+---+ + +-------+ +--------+---+---+ | sodium chloride (PF) 0.9% | Given | 03/15/20 | 20 mLs | | | | injection flush 20 mL 20 mL, | | 20 12:00 | | | | | Intracatheter, ONCE PRN, Line | | PM PDT | | | | | Care, Starting Sat03/15/20 at | | | | | | | 1007, For 1 dose, MRI | | | | | | + +-------+ +--------+---+---+ +---+---+ | | | +---+---+ documented in this encounter"
--- OUTSIDE RECORDS SUMMARY | ~2020-04-30 | XMS | Encounter Summary ---
Demographics + + + | Address | [address] [place] [address] ROAD | | | [place] [address] | + + + | Home Phone | | + + + | Preferred Language | Unknown | + + + | Marital Status | Single | + + + | Denominational Affiliation | Unknown | + + + | Race | Unknown | + + + | Ethnic Group | Unknown | + + + Author + + + | Author | [facility] | | | and [place] | + + + | Organization | [facility] | | | and [place] | [...] Team Providers + +------+ + | Care Loom Checker Name | Role | Phone | + +------+ + PCP | Unavailable | + +------+ + Encounter Details +--------+ + + + + | Date | Type | Department | Care Team | Description | +--------+ + + + + | 07/19/ | Hospital | [facility] | | | | 1991 | Encounter | [facility] | | | | | | CONV DEPT [address] | | | | | | [place], | | | | | | [place] [address] | | | | | | [phone] | | | +--------+ + + + [...] | | | | | | [place] [address] | | | | | | [phone] | | | | | | | | +--------+---------+ + + + | 06/06/ | Office | Dermatology | Edwige Adams | | | 2019 | Visit | | [address] [address] | | | | | | [address] | | | | | | [place] [address] | | | | | | [phone] | | | | | | | | +--------+---------+ + + + documented as of this encounter Visit Diagnoses Not on filedocumented in this encounter"
--- OUTSIDE RECORDS SUMMARY | ~2020-04-30 | XMS | Encounter Summary ---
Demographics + + + | Address | [address] | | | [place] [address] | + + + | Home Phone | | + + + | Preferred Language | Unknown | + + + | Marital Status | Single | + + + | Bahai Affiliation | NON | + + + | Race | or | + + + | Ethnic Group | Not or | + + + Author + + + | Author | [facility] [employer] [facility] | + + + | Organization | [facility] [employer] [facility] | + + + | Address | Unknown | + + + | Phone | Unavailable | + + + Support + + + + + | Name | Relationship | Address | Phone | + + + + + | Delonte Yung | ECON | [place] | | + + + + + Care Team Providers + +------+ + | Care Contract Manager Name | Role | Phone | + +------+ + | Diane Little MD | PCP | | + +------+ + Reason for Visit + + + | Reason | Comments | + + + | Psoriasis | | + + + Office Visit - E/M Services (Routine) +--------+ + + + + + | Status | Reason | Specialty | Diagnoses / | Referred By | Referred To | | | | | Procedures | Contact | Contact | +--------+ + + + + + | Closed | Specialty | Dermatology | Diagnoses | Drm Med | Ehst, | | | Services | | Other | [facility] [address] | Shukri Baez, | | | Required | | psoriasis | [address] | ,PhD Aylin | | | | | Procedures | [place] for | Allergy | | | | | f/u ov | Health and | Asthma | | | | | | Healing, | Dermatology | | | | | | Building [address], | [address] | | | | | | [address] Floor | [address] | | | | | | [place], [place] | [address] | | | | | | [address] | [place], [place] | | | | | | Phone: | [phone] Phone: | | | | | | [phone] | [phone] | | | | | | Fax: | Fax: | | | | | | [phone] | [phone] | +--------+ + + + + + Encounter Details +--------+---------+ + + + | Date | Type | Department | Care Team | Description | +--------+---------+ + + + | 10/18/ | Office | Dermatology | Matt Powell MD | Psoriasis (Primary | | 2016 | Visit | Medical at [facility] [address] | [address] | Dx); Encounter for | | | | [facility] | [facility] [place] | long-term (current) | | | | for Health and | [address] | use of other | | | | [facility], [facility] 1, | [phone] | high-risk | | | | 16th Floor | | medications | | | | [place], [place] | | | | | | [address] | | | | | | [phone] | | | +--------+---------+ + + + [...] + | Respiratory Rate | 14 | 10/18/2015 11:09 AM | | | | | PST | | + + + + + | Oxygen Saturation | - | - | | + + + + + | Inhaled Oxygen | - | - | | | Concentration | | | | + + + + + | Weight | 149.5 kg (329 lb 9.4 | 10/18/2015 11:09 AM | | | | oz) | PST | | + + + + + | Height | - | - | | + + + + + | Body Mass Index | 44.7 | 08/18/2013 7:05 AM | | | | | PST | | + + + + + documented in this encounter Patient Instructions Patient Instructions Lynda Xie MA - 10/18/2015 11:10 AM PSTPrevent Winter Itch The winter time [...] information is available at the following websites: http://www.[facility].edu/xd/health/services/dermatology/for-patients/health_info.cfm - [facility] Derm atology http://www.aad.org/public/sun/smart.html - AAD Website For your psoriasis: -- continue Humira 40 mg every week -- for the scalp: use betamethasone lotion daily for 2 weeks, then decrease to weekends onl y -- for the body: use betamethasone ointment daily to active lesions until resolved -- for the groin and buttocks: use 2.5% hydrocortisone ointment daily to active lesions unt il resolved -- use the 2.5% hydrocortisone ointment to face and behind the ears -- get regular sun exposure documented in this encounter Progress Notes Matt Powell MD - 10/31/2015 3:39 PM PSTI have seen and examined the pt w/ the resident. We have discussed the assessment and plan and I agree with the resident's note and have sanchez wei it when appropriate. Jose Delgado MD - 0 10/18/2015 11:27 AM PST DERMATOLOGY FOLLOW-UP VISIT Last Appointment in [facility] was on 04/13/15 at 1:30 pm with Shukri Anne MD,PhD. Dx: Inverse PsO Rx: Humira 40mg qow since 01/2012 inc to qw 08/2012 Betamethasone body Spectazole groin BPO wash SUBJECTIVE: Kimberley Yung is a 30 y.o. 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 He is accompanied by his grandmother and a sign-language inter pretor. He is currently on Humira 40 qw and is essentially clear although c/o some PsO reami ns behind the ears, in the groin and buttocks, and on the right arm. Both he and grandmother report improvement of PsO but he reports significant scalp itching and irritation. He also reports facial itching for which he has been using hydrocortisone ointment. He uses only Hea d&Shoulder shampoo. Doing well with weekly dosing, although he reports missing one or two do ses in the interim. Tolerating self-injections well. No new joint pain or swelling, no dacty litis/enthesitis. AN around neck and in axillae is improved per pt. Denies infections, SOB, chest pain, swelling, neuro changes, ISRs. Patient Active Problem List Diagnosis Other psoriasis Other specified disease of hair and hair follicles Intertrigo Acquired acanthosis nigricans Unspecified chronic suppurative otitis media Tympanic membrane perforation, marginal OBJECTIVE: Filed Vitals 10/18/2015 11:10 AM Weight: 149.5 kg (329 lb 9.4 oz) Resp: 14 PainSc: 0 - Zero BMI: 44.69 kg/(m^2) WDWN, NAD; awake, alert and oriented; pleasant with appropriate mood and affect; obese A skin examination was performed including the scalp/hair, head/face, eyelids/conjunctivae, lips, neck, chest, back, abdomen, buttocks, bilateral arms and legs, bilateral hands and fe et, and nails. Findings were within normal limits except for the following: -- scalp and face clear except mild erythematous scaly papules on bilateral postauricular c reases -- bilateral axillae and neck with brownish plaques -- no obvious swollen or tender finger joints, ankles, knees or elbows -- on the right dorsal hand/forearm: numerous scaly erythematous papules -- left calf with one well-demarcated oval scaly red papule --scrotum, inguinal area, and gluteal cleft with lichenified erythematous plaques No results for input(s): WBC, RBC, HCT, HB, MCV, MCH, MCHC, PLT, NEUTROPERC, LYMPHPERC, MON OPERC, EOSPERC, BASOPERC, NEUTROPHILCO in the last 4320 hours. No results for input(s): GLU, BUN, CR, TP, ALB, CA, TBILI, AP, AST, ALT, NA, K, CL, BICARB, MG in the last 4320 hours. No results for input(s): CHOL, LDL, HDL, TRI in the last 4320 hours. ASSESSMENT/PLAN: 1. H/o severe scalp and inverse psoriasis doing very well on weekly Humira; in setting of obesity; he has very few lesions present today but has significant scalp pruritus -- continue Humira 40 mg q week; RBA discussed -- for the scalp: start betamethasone lotion daily for 2 weeks, then decrease to weekends o nly -- for the body: use betamethasone ointment daily to active lesions until resolved -- for the groin and buttocks: use 2.5% hydrocortisone ointment daily to active lesions unt il resolved -- use 2.5% hydrocortisone ointment to post-auricular scalp face BIW prn and advised him t o get regular sun exposure -- check CBC, CMP, and Quant Gold today -- wt loss would help 2. Acanthosis nigricans w/ retention hyperkeratosis -- continue to encourage weight loss and consider seeing produce laborer 3. 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 dorsal forearm -- advised pt that tx would likely make more psoriasis lesions appear so advised him to isaias ve them alone RETURN VISIT: 6 months Jose Bean MD Resident, Department of Dermatology [facility] documented in this en counter Plan of Treatment Not on filedocumented as of this encounter Results QUANTIFERON TB GOLD, BLOOD (10/18/2015 12:20 PM PST) + + + + + + | Component | Value | Ref Range | Performed | Pathologist | | | | | At | Signature | + + + + + + | QUANTIFERON | Negative | Negative | [facility] | | | TB GOLD | | | [facility] | | | | | | [place] | | + + + + + + | NIL | 0.027 | IU/mL | [facility] | | | | | | [facility] | | | | | | [place] | | + + + + + + | TB AG | 0.033 | IU/mL | [facility] | | | | | | [facility] | | | | | | [place] | | + + + + + + | MITOGEN | >=10 | IU/mL | [facility] | | | | | | [facility] | | | | | | [place] | | + + + + + + | TB AG-NIL | 0.006 | IU/mL | [facility] | | | | | | [facility] | | | | | | [place] | | + + + + + + | MITOGEN-NIL | 39.047 | IU/mL | [facility] | | | | | | [facility] | | | | | | [place] | | + + + + + + + + | Specimen | + + | Blood - Blood | + + + + + + + | Performing | Address | City/State/Zipcode | Phone Number | | Organization | | | | + + + + + | [facility] | [address] | [place] [address] | | | [facility] | | | | + + + + + COMPLETE METABOLIC SET (NA,K,CL,CO2,BUN,CREAT,GLUC,CA,AST,ALT,BILI TOTAL,ALK PHOS,ALB,PROT TOTAL) (10/18/2015 12:20 PM PST) + +---------+ + + + | Component | Value | Ref Range | Performed | Pathologist | | | | | At | Signature | + +---------+ + + + | GLUCOSE, | 74 | 60 - 99 mg/dL | [facility] | | | PLASMA | | | LABORATORY | | | (LAB) | | | SERVICES, | | | | | | CORE | | + +---------+ + + + | BUN, PLASMA | 12 | 6 - 20 mg/dL | [facility] | | | (LAB) | | | LABORATORY | | | | | | SERVICES, | | | | | | CORE | | + +---------+ + + + | CREATININE | 0.79 | 0.70 - 1.30 | [facility] | | | PLASMA | | mg/dL | LABORATORY | | | (LAB) | | | SERVICES, | | | | | | CORE | | + +---------+ + + + | EGFR | >60 | >60 mL/min | [facility] | | | - | | | LABORATORY | | | [facility] | | | SERVICES, | | | [...] +---------+ + + + | POTASSIUM, | 3.7 | 3.4 - 5.0 | [facility] | [...] +---------+ + + + | CALCIUM, | 8.6 | 8.6 - 10.2 | [facility] | [...] + + + | ALK PHOS | 80 | 53 - 128 U/L | [facility] | | | | | | LABORATORY | | | | | | SERVICES, | | | | | | CORE | | + +---------+ + + + | AST(SGOT) | 34 | <=41 U/L | [facility] | | | | | | LABORATORY | | | | | | SERVICES, | | | | | | CORE | | + +---------+ + + + | ALT (SGPT) | 80 (H) | <=60 U/L | [facility] | | | | | | LABORATORY | | | | | | SERVICES, | | | | | | CORE | | + +---------+ + + + | ANION | 6 | 4 - 11 mmol/L | [facility] [...] + + + | ANION GAP | 6 | mmol/L | [facility] | | | [...] TAIWO LORA | [address] | [place] [address] | | | SERVICES, CORE | [address] | | | + + + + + documented in this encounter Visit Diagnoses + + | Diagnosis | + + | Psoriasis - Primary Other psoriasis | + + | Encounter for long-term (current) use of other high-risk medications Encounter for | | long-term (current) use of other medications | + + documented in this encounter
--- OUTSIDE RECORDS SUMMARY | ~2020-04-30 | XMS | Encounter Summary ---
Demographics + + + | Address | [address] | | | [place] [address] | + + + | Home Phone [...] Author + + + | Author | [facility] [employer] [facility] | + + + | Organization | [facility] [employer] [facility] | + + + | [...] Team Providers + +------+ + | Care Pe Electrical Engineer Name | Role | Phone | [...] as of this encounter Progress Notes Interface, Shot Lighter In - 08/11/2006 2:32 AM [facility] DATE: 11/23/1999 CLINIC NAME: CHILD DEVELOPMENT DISCIPLINE: [...] custody of Sebastien. According to the sign fabric coating supervisor who was with us, Sebastien signs something to the effect that his mom presumably meaning Christin, is lousy and that she is always [...] staff named Emigdio. He reports, through his fabric coating supervisor, that Christin and Giovanny or Brian are always broke and apparently ask for money. I would like to see Sebastien in two months. Cuba Caro M.D. MALCOLM/X42 Tdocumented in this encounter Plan of Treatment Not on filedocumented as of this encounter Visit Diagnoses Not on filedocumented in this encounter"
--- OUTSIDE RECORDS SUMMARY | ~2020-04-30 | XMS | Encounter Summary ---
Demographics + + + | Address | [address] [place] [address] ROAD | | | [place] [address] | + + + | Home Phone | | + + + | Preferred Language | Unknown | + + + | Marital Status | Single | + + + | Anglican Affiliation | Unknown | + + + | Race | Unknown | + + + | Ethnic Group | Unknown | + + + Author + + + | Author | [facility] | | | and [place] | + + + | Organization | [facility] | | | and [place] [...] Team Providers + +------+ + | Care Candy Packer Name | Role | Phone | + +------+ + | Nitin Field PA-C | PCP | | + +------+ + Encounter Details +--------+ + + + + | Date | Type | Department | Care Team | Description | +--------+ + + + + | 03/17/ | Hospital | [facility] | Conversion | Seizure disorder | | 2019 | Encounter | CENTER | Transaction, | ([facility]) | | | | NEURODIAGNOSTICS | Provider Unknown | | | | | [address] [facility] | [phone] | | | | | [place], [place] | | | | | | [address] | | | | | | [phone] | | | +--------+ + + + [...] + + + +---------+ + + | [place] 3 1000 MG | Take by mouth. | | 0 | | | | CAPS | | | | | | + + + +---------+ + + | terbinafine | Apply topically 2 | | 0 | | | | (LAMISIL) 1% cream | times daily. | | | | | + + + +---------+ + + | adalimumab (HUMIRA | Inject 40 mg under | | 0 | 04/18/20 | | | PEN) 40 mg/0.8 mL | the skin every 14 | | | 17 | 0 | | injection (pen) | days. | | | | | + + + +---------+ + + | betamethasone | Apply topically. | | 0 | 08/27/20 | | | dipropionate 0.05% | | | | 16 | 0 | | lotion | | | | | | + + + +---------+ + + | hydrocortisone | Apply 1-2 times | | 0 | 03/10/20 | | | 2.5% cream | daily to affected | | | 19 | 0 | | | areas of rash of | | | | | | | face and underarms. | | | | | | | Best applied to damp | | | | | | | skin. | | | | | + + + +---------+ + + | levETIRAcetam | Take 250 mg by mouth | | 0 | | | | (KEPPRA) 250 MG | 2 times daily. | | | | 9 | | tablet | | | | | | + + + +---------+ + + | triamcinolone | Apply 1-2 times | | 0 | 03/10/20 | | | (KENALOG) 0.1% cream | daily to affected | | | 19 | 0 | | | areas of rash on | | | | | | | body. Best applied | | | | | | | to damp skin. Avoid | | | | | | | the face and | | | | | | | underarms. | | | | | + + + +---------+ + + documented as of this encounter Procedure Notes Conversion Transaction, Provider Unknown - 03/17/2019 11:59 PM PDTFormatting of this note m ight be different from the original. Procedures by Christy Junior RRT at 03/17/192358 Author: Christy Junior RRT Service: Neurology Author Type: director check Filed: 03/25/19 4875 Date of Service: 03/17/192358 Status: Signed Cashier Assistant: Christy Junior RRT (director check) Procedure Orders: 1. EEG awake or drowsy routine [[id number]] ordered by Rom Marcos MD at 02/05/19 6992 [facility] Neurodiagnostic Dept [address] [place] [id number] Patient: Kimberley Yung ID: [id number] : 1985 Age: 33 Gender: male Room #: 4-H Physician: Rom Marcos Nurse Healthcare Manager: Richard Saldana Ref. Physician: Rom Marcos MD Recording Date: 03/17/2019 Duration: 00:25:23 Report Date: 03/25/2019 5:32 PM Medications: trileptal, zonegran History: possible seizures, h/o normal EEG, developmental delay, hearing loss EEG Description: Background: Occipital rhythm: Present Frequency: 10 Hz Voltage: Medium Organization: Good Reactivity to eye opening/closure: Good Other background activity: Intermittent theta and delta activity was seen in the right temp oral region (T4, F8). Drowsiness: Present. Sleep: Light sleep. Activation: Hyperventilation: Not done. Photic Stimulation: Done, subtle physiologic driving. EEG Diagnosis: Borderline EEG suggestive of focal nonspecific cerebral dysfunction in the r ight temporal region. No ictal or intericatal discharges were seen. Clinical correlation is recommended. Kali hutchins in this encounter Plan of Treatment +--------+---------+ + + + | Date | Type | Specialty | Care Team | Description | +--------+---------+ + + + | 05/02/ | Office | Neurology | Rom Marcos, | | | 2019 | Visit | | [address] | | | | | | [place] [address] | | | | | | [phone] | | | | | | | | +--------+---------+ + + + | 06/06/ | Office | Dermatology | Edwige Adams | | | 2019 | Visit | | [address] | | | | | | [place] [address] | | | | | | [place] [address] | | | | | | [phone] | | | | | | | | +--------+---------+ + + + documented as of this encounter Visit Diagnoses + + | Diagnosis | + + | Seizure disorder (HCC) Unspecified epilepsy without mention of intractable epilepsy | + + documented in this encounter"
--- OUTSIDE RECORDS SUMMARY | ~2020-04-30 | XMS | Encounter Summary ---
Demographics + + + | Address | [address] | | | [place] [address] | + + + | Home Phone | | + + + | Preferred Language | Unknown | + + + | Marital Status | Single | + + + | Amish Affiliation | NON | + + + | Race | or | + + + | Ethnic Group | Not or | + + + Author + + + | Author | [facility] | + + + | Organization | [facility] | + + + | [...] Team Providers + +------+ + | Care Sprayer Operator Name | Role | Phone | + +------+ + PCP | Unavailable | + +------+ + Encounter Details +--------+ + + + + | Date | Type | Department | Care Team | Description | +--------+ + + + + | 07/20/ | Office | [facility] | Report, [...] as of this encounter Progress Notes Interface, Private Wealth Advisor In - 08/21/2006 5:12 AM PSTCLINIC DATE: 07/20/1999 CLINIC: CHILD DEVELOPMENT PROGRAM DISCIPLINE: PSYCHIATRY Clari has bilateral hearing loss, seizures, Attention Deficit Hyperactivity Disorder, intermittent explosive disorder, and he takes Ritalin 20 mg four times a day, clonidine 0.1 mg one three times a day, Risperdal 0.5 mg one at HS. The patient was to return to clinic in two months. I saw Clari who apparently has had no medicine for two days because he ran out. The school he has been at for two weeks and prior to that he was home because of toenail surgery. For three weeks he had been at home. When he first went back, they had a lot of difficulty managing behavior and he threatened his freelance court stenographer. He was on Keflex and possibly erythromycin. Otherwise, before that he had been fine according to the grandmother. The patient did not like not being able to go to football because of his toe. His teacher, Ms. Duggan, said he was fine in class but outside when he had free time he was pushing, shoving, and not complying. They tried moving him around so that he is with high school students and he tends to be better than when he is with the smaller children. He has had some contact this weekend with his biological mother. She lives in [place], [place]. The school wondered whether he should be on different medications or have an increase in medications. The patient weighs approximately 200 pounds or 100 kilograms and is on 80 mg of Ritalin. The school nurse says that he has had somewhat hypersexualized behavior, talking about dial and "do you want to see my jona?" and blatant kinds of references. He has also had increased aggressiveness, physical aggression as well as bullying and he does it to adults as well as children. She mentioned that they ran out two days ago. The patient has been pretty difficult to contain since then and even when he is on medication he is in constant motion and yelling. I observed the patient to be pretty active playing with different objects and toys in the room and sometimes reading a book and pointing it out to his grandmother. When he is on Ritalin his attention span is better, as along as 15 minutes compared to four or five minutes before. The patient is in a self-contained functional classroom at second and third grade level and is really chronologically sixth grade. He was too disruptive to be in a regular class. His grandmother wants a letter helping her deal with the issue of permanent custody. RECOMMENDATIONS: We are going to increase his Risperdal to 0.5 mg two times a day. I would like to see the patient in about six weeks to two months. Cuba Caro M.D. Child Psychiatrist MALCOLM/X64 Tdocumented in this encounter Plan of Treatment Not on filedocumented as of this encounter Visit Diagnoses Not on filedocumented in this encounter
--- OUTSIDE RECORDS SUMMARY | ~2020-04-30 | XMS | Encounter Summary ---
Demographics + + + | Address | [address] [place] [address] ROAD | | | [place] [address] | + + + | Home Phone | | + + + | Preferred Language | Unknown | + + + | Marital Status | Single | + + + | Tenriism Affiliation | Unknown | + + + | Race | Unknown | + + + | Ethnic Group | Unknown | + + + Author + + + | Author | [facility] | | | and [place] | + + + | Organization | [facility] | | | and [place] [...] Team Providers + +------+ + | Care Manager House Name | Role | Phone | + +------+ + | Scarlet Bello PA-C | PCP | | + +------+ + Reason for Visit + +--------+ + | Reason | Onset | Comments | | | Date | | + +--------+ + | Medication Refill | 06/22/ | | | | 2019 | | + +--------+ + | Medication Refill | 06/23/ | | | | 2018 | | + +--------+ + Encounter Details +--------+ + + + + | Date | Type | Department | Care Team | Description | +--------+ + + + + | 06/22/ | Telephone | [facility] | PhillipRom amaya, | Medication Refill; | | 2018 | | NEUROLOGY [address] | Medication Refill | | | | [address] | [address] | | | | | [place], [place] | [facility] [address] | | | | | [address] | [phone] | | | | | [phone] | | | +--------+ + + + [...] Miscellaneous Notes Telephone Encounter - Tracy Nichols, Washing Tub Operator - 06/23/2019 2:42 PM PDTCalled a unt Marcy to let her know rx has been sent-AHElectronically signed by Tracy Nichols [facility] [address] Painter Helper at 06/23/2019 2:42 PM PDTTelephone Encounter - Shelley Machuca - 06/23/2019 1 2:20 PM PDTVivian, is calling again because he has not received a call for Medication Refill and Medication Refill and would like a call back. Additional Call Details: Checking on refill request that needs to go to [facility]. Per lupe nts aunt patient is out of medication. elephone Encounter - Jacobo Moore - 06/22/2019 4:33 PM PDTVivian, is calling again for Medication Refill and would like a call back. Additional Call Details: Calling to get prescription sent to [facility]. Contact at number in Contacts in Encounter. elephone Encounter - Rebecca Griffith - 06/22/2019 3:20 PM PDTVivian, is calling regarding Medication Refill and would like a call back. Additional Call Details: Marcy, patients Aunt, called in regards to patients medication r efills and that Dr Marcos/Clinical Staff need to contact [facility] in [facility]. Marcy stated that [employer] has tried to contact Dr Marcos for refills but has received no response. If you need to contact Marcy she can be reached at [phone] Marcy also wan wei to let know that patient is totally out of medications. If this is a symptom based call, was patient offered triage? Not Applicable If this is a symptom based call and you were unable to immediately transfer the call to a lisandra singh conveyor technician was caller made aware that if at [...] [address] | | | | | | [place] [address] | | | | | | [phone] | | | | | | | | +--------+---------+ + + + | 06/06/ | Office | Dermatology | Edwige Adams | | 2019 | Visit | | [address] | | | | | | [address] | | | | | | [place] [address] | | | | | | [phone] | | | | | | | | +--------+---------+ + + + documented as of this encounter Visit Diagnoses Not on filedocumented in this encounter"
--- OUTSIDE RECORDS SUMMARY | ~2020-04-30 | XMS | Encounter Summary ---
Demographics + + + | Address | [address] | | | [place] [address] | + + + | Home Phone | | + + + | Preferred Language | Unknown | + + + | Marital Status | Single | + + + | Baptism Affiliation | NON | + + + | Race | or | + + + | Ethnic Group | Not or | + + + Author + + + | Author | [facility] | + + + | Organization | [facility] | + + + | [...] Team Providers + +------+ + | Care Dispatcher Chief Oil Name | Role | Phone | + +------+ + | Diane Little MD | PCP | | + +------+ + Reason for Visit + + + | Reason | Comments | + + + | Refill Request | Betamethasone | + + + Encounter Details +--------+--------+ + + + | Date | Type | Department | Care Team | Description | +--------+--------+ + + + | 08/31/ | Refill | Dermatology | Shukri Anne, | Refill Request | | 2012 | | Medical at [facility] [address] | ,PhD Aylin | (Betamethasone) | | | | [facility] | Allergy Asthma | | | | | for Health and | Dermatology 9495 | | | | | [facility], [address], | [facility] | | | | | 16th Floor | [place] [address] | | | | | [place], [place] | [phone] | | | | | [address] | | | | | | [phone] | | | +--------+--------+ + + + [...]
--- OUTSIDE RECORDS SUMMARY | ~2020-04-30 | XMS | Encounter Summary ---
Demographics + + + | Address | [address] [place] [address] ROAD | | | [place] [address] | + + + | Home Phone | | + + + | Preferred Language | Unknown | + + + | Marital Status | Single | + + + | Congregational Affiliation | Unknown | + + + | Race | Unknown | + + + | Ethnic Group | Unknown | + + + Author + + + | Author | [facility] | | | and [place] | + + + | Organization | [facility] | | | and [place] | [...] Team Providers + +------+ + | Care As400 Developer Name | Role | Phone | + +------+ + | Scarlet Bello PA-C | PCP | | + +------+ + Reason for Visit + +--------+ + | Reason | Onset | Comments | | | Date | | + +--------+ + | Referral | 08/05/ | Outgoing | | | 2019 | | + +--------+ + Encounter Details +--------+ + + + + | Date | Type | Department | Care Team | Description | +--------+ + + + + | 08/05/ | Telephone | [facility] | Rom Marcos, | Referral (Outgoing ) | | 2018 | | NEUROLOGY [address] | | | | [address] | [facility] | | | | | [place], [place] | [place] [address] | | | | | [address] | [phone] | | | | | [phone] | | | +--------+ + + + [...] this encounter Miscellaneous Notes Telephone Encounter - Suyapa Munoz - 08/18/2019 11:46 AM PSTSpoke with Fernando and faxed over referral. elephone Alejandra Barrientos - 08/11/2019 1:35 PM PSTMicterell- Adrienne lozano [facility], is c alling again for Referral (Outgoing ) and would like a call back. Additional Call Details: Caller is still needing a copy of the referral to Naima Ochoa fax ed to her at [phone]. Also has a few other questions she is needing answered. Please ca fredy King back at [phone]. elephone Encounter - Lisa Sims - 08/05/2019 4:10 PM PSTMickey, is calling again for Referral (Outgoin g ) and would like a call back. Additional Call Details: Calling again, needing more information regarding authorization a nd a copy of the referral. elephone Encounlicha balderas - Lisa Ragland - 08/05/2019 11:54 AM PSTFernando- Adrienne loznao, is calling regardin g Referral (Outgoing ) and would like a call back. Additional Call Details: Calling in regards to outgoing referral to Naima Ochoa in order t o get authorization. Please call her back at [phone] If this is a symptom based call, was patient offered triage? Not Applicable If this is a symptom based call and you were unable to immediately transfer the call to a lisandra singh creative engagement director was caller made aware that if at [...] [address] | | | | | | [place] [address] | | | | | | [phone] | | | | | | | | +--------+---------+ + + + | 06/06/ | Office | Dermatology | Edwige Adams | | | 2019 | Visit | | [address] | | | | | | [address] | | | | | | [place] [address] | | | | | | [phone] | | | | | | | | +--------+---------+ + + + documented as of this encounter Visit Diagnoses Not on filedocumented in this encounter"
--- OUTSIDE RECORDS SUMMARY | ~2020-04-30 | XMS | Encounter Summary ---
Demographics + + + | Address | [address] | | | [place] [address] | + + + | Home Phone [...] + + | Author | [facility] | + + + | Organization | [facility] | + + + | Address | Unknown | + + + | Phone | Unavailable | + + + Support + + + + + | Name | Relationship | Address | Phone | + + + + + | Delonte Yung | ECON | [place] | | + + + + + Care Team Providers + +------+ + | Care Supervisor Line Department Name | Role | Phone | + [...] [place] | | | | | | [address] | | | | | | | [...]
--- OUTSIDE RECORDS SUMMARY | ~2020-04-30 | XMS | Encounter Summary ---
Demographics + + + | Address | [address] | | | [place] [address] | + + + | Home Phone | | + + + | Preferred Language | Unknown | + + + | Marital Status | Single | + + + | Congregation Affiliation | NON | + + + | Race | or | + + + | Ethnic Group | Not or | + + + Author + + + | Author | [facility] | + + + | Organization | [facility] | + [...] Team Providers + +------+ + | Care Senior Gis Analyst Name | Role | Phone | + +------+ + | Rita Rodriguez MD | PCP | | + +------+ + Reason for Visit + + + | Reason | Comments | + + + | Examination Of Skin | pt here for psoriasis and skin exam. | + + + Office Visit - E/M Services (Routine) +--------+ + + + + + | Status | Reason | Specialty | Diagnoses / | Referred By | Referred To | | | | | Procedures | Contact | Contact | +--------+ + + + + + | Closed | Specialty | Dermatology | Diagnoses | Emir | [facility] | | | Services | | Other | Nitin Landaverde | [facility] [address] | | | Required | | psoriasis | [place] | [address] | | | | | inverse & | [place] | Center for | | | | | scalp | HEALTH | Health and | | | | | psoriais - | CENTER | Healing, | | | | | initially 4% | [address] | Building [address], | | | | | BSA, but up | [facility] | 16th Floor | | | | | to 8% per | [address] | [place], [place] | | | | | last note | [address] | [address] | | | | | Procedures | [place], | Phone: | | | | | [address] | [place] [address] | [phone] | | | | | | Phone: | Fax: | | | | | | [phone] | [phone] | | | | | | Fax: | | | | | | | [phone] | | +--------+ + + + + + Encounter Details +--------+---------+ + + + | Date | Type | Department | Care Team | Description | +--------+---------+ + + + | 05/26/ | Office | Dermatology | Shukri Anne, | Other psoriasis; | | 2011 | Visit | Medical at [facility] [address] | MD,PhD Viera | Encounter for | | | | [facility] | Allergy Asthma | long-term (current) | | | | for Health and | Dermatology [address]95 | use of other | | | | Healing, Building 1, | [facility] | medications; Other | | | | 16th Floor | [place] [address] | specified disease of | | | | [place], [place] | [phone] | hair and hair | | | | [address] | | follicles | | | | [phone] | | | +--------+---------+ + + + [...] + + + | Blood Pressure | 126/80 | 05/26/2012 3:22 PM | | | | | PDT | | + + + + + | Pulse | 72 | 05/26/2012 3:22 PM | | | | | PDT | | + + + + + | Temperature | - | - | | + + + + + | Respiratory Rate | 24 | 05/26/2012 3:22 PM | | | | | PDT | | + + + + + | Oxygen Saturation | - | - | | + + + + + | Inhaled Oxygen | - | - | | | Concentration | | | | + + + + + | Weight | 153.6 kg (338 lb 10 | 05/26/2012 3:22 PM | | | | oz) | PDT | | + + + + + | Height | - | - | | + + + + + | Body Mass Index | - | - | | + + + + + documented in this encounter Patient Instructions Patient Instructions Anais Dixon - 05/26/2012 3:24 PM PDTSUNSCREEN APPLICATION AND UV PRO TECTION Exposure to ultraviolet radiation is the leading cause of premature aging, and skin cance rs including melanoma. The [place] [employer] (AAD) recommends you wear a wide-brimmed hat, sun gla sses and sun protective clothing. If you must be in the sun, it is recommended to use a Bro ad spectrum sunscreen (blocking both UVA and UVB) with a sun protection factor (SPF) of 30+ (even on cloudy days) and reapply every two hours, or after swimming or heavy perspiration. Sunscreens should be applied generously and evenly. One fluid ounce (or the equivalent o f a full shot glass) is the approximate amount of sunscreen required for each person each ti me sunscreen is applied. Sunscreens have an expiration date and once that date is reached, they may lose effective ness and should be discarded. Sunscreen is also important for blocking reflected UVR (Ultraviolet Radiation). Sand, con crete, snow, water, and other surfaces reflect UVR which has the same effect to your skin as direct sunlight. THE "ABCDE" RULE AND MELANOMA DETECTION Asymmetry [...] information is available at the following websites: http://www.[facility]/xd/health/services/dermatology/for-patients/health_info.cfm - [facility] Derm atology http://www.aad.org/public/sun/smart.html - AAD Website documented in this encounter Progress Loyda Santana - 05/27/2012 4:46 PM PDTPt scheduled 08/25/12 with medical investigator. Electronical ly signed by Loyda Cary at 05/27/2012 4:46 PM PDTEhShukri dior MD,PhD - 05/27/2012 8 :11 AM PDTAttending Physician Attestation I personally interviewed, examined the patient, and discussed management with the resident. I reviewed and edited the resident's note and agree with the documented findings and plan of care. Shukri Anne MD, PhD Opener Verifier [employer], Department of Dermatology [facility] 05/26/2012 Yoseph Núñez MD - 05/26/2012 3:30 PM PDTDERMATOLOGY CEPPA F/U VISIT Dx: Inverse PsO Rx: Humira 40mg qow Betamethasone S: Kimberley Yung is a 27 y.o. male here for f/u scalp and inverse psoriasis. Last seen . Feels that things are slowly improving not that he has started Humira, but still havin g some itchy spots on buttocks; thinks axilla are much improved. Is using Humira qow as wel l as betamethasone. Is still noticing bumps on his chest; has not started the benzoyl perox hui wash. Otherwise doing well without complaints. Previous notes: [...] weakness; no other skin complaints PHYSICAL EXAMINATION: Wt 153.6 kg (338 lbs 10.0 oz)( < 3 %ile), BP 126/80, Pulse 72, RR 24. The patient is a well appearing obese [...] scale --b/l cheeks and nasolabial folds with minimal greasy scaly erythem plaques --bilateral inguinal folds and entire scrotum: improved; sharply demarcated erythematous to violaceous plaques with minimal silvery scale; similar smaller plaque in gluteal cleft --follicularly based papules and pustules on back, chest, arms, background of hyperpigmente d papules / macules ASSESSMENT AND PLAN: 1. Scalp and inverse psoriasis, with some improvement of scalp, but persistent disease of g enitals. Possible arthritis at this time although sounds more mechanical in nature, BSA 3% ( last visit 8%); failing topicals and interfering with quality of life, early in response to Humira - Con't Humira 40mg sq QOW --continue with following: --betamethasone solution to scalp daily x2 weeks --betamethasone ointment to body BID x2 weeks then BIW for maintenance --HCT 2.5% ointment 2. Folliculitis - recommend BP wash RTC: 3 months; Sign Gravel Weigher needed Staff: Omid SHOEMAKER MD Resident, Department of Dermatology [facility] documented in th is encounter Plan of Treatment Not on filedocumented as of this encounter Visit Diagnoses + + | Diagnosis | + + | Other psoriasis | + + | Encounter for long-term (current) use of other medications | + + | Other specified disease of hair and hair follicles | + + documented in this encounter
--- OUTSIDE RECORDS SUMMARY | ~2020-04-30 | XMS | Encounter Summary ---
Demographics + + + | Address | [address] | | | [place] [address] | + + + | Home Phone | | + + + | Preferred Language | Unknown | + + + | Marital Status | Single | + + + | Quaker Affiliation | NON | + + + | Race | or | + + + | Ethnic Group | Not or | + + + Author + + + | Author | [facility] | + + + | Organization | [facility] | + [...] Providers + +------+ + | Care Teacher Aide Clerical Name | Role | Phone | + +------+ + | Rita Rodriguez MD | PCP | | + +------+ + Encounter Details +--------+ + + + + | Date | Type | Department | Care Team | Description | +--------+ + + + + | 03/18/ | Abstract | Otolaryngology | Marilyn Darling, | | | 2012 | | Otology Services at | [facility] [address] | | | | | [facility] [address] | | | | | [address] | [place], [place] | | | | | Physician's | [address] | | | | | [facility], 2nd floor | [phone] | | | | | [facility] [place] | | | | | | [address] | | | | | | [phone] | | | +--------+ + + + [...]
--- OUTSIDE RECORDS SUMMARY | ~2020-04-30 | XMS | Encounter Summary ---
Demographics + + + | Address | [address] [place] [address] ROAD | | | [place] [address] | + + + | Home Phone | | + + + | Preferred Language | Unknown | + + + | Marital Status | Single | + + + | Nondenominational Affiliation | Unknown | + + + | Race | Unknown | + + + | Ethnic Group | Unknown | + + + Author + + + | Author | [facility] | | | and [place] | + + + | Organization | [facility] | | | and [place] [...] Team Providers + +------+ + | Care Patient Sitter Name | Role | Phone | + +------+ + | Nitin Field PA-C | PCP | | + +------+ + Reason for Visit + +--------+ + | Reason | Onset | Comments | | | Date | | + +--------+ + | Care Coordination | 08/24/ | | | | 2019 | | + +--------+ + Encounter Details +--------+ + + + + | Date | Type | Department | Care Team | Description | +--------+ + + + + | 08/24/ | Telephone | [facility] | [address] | Care Coordination | | 2018 | | NEUROSCIENCE | MD Samantha [address] | | | | | [facility] | [address] [facility] | | | | | [facility] | [place] [address] | | | | | [address] [place] [facility] | [phone] | | | | | [place], [place] | | | | | | [address] | | | | | | [phone] | | | +--------+ + + + [...] Notes Telephone Encounter - Jose Weller - 08/24/2019 9:41 AM PSTSpoke with Fernando from [facility] vEEG documented in this encounter Plan of Treatment +--------+---------+ + + + | Date | Type | Specialty | Care Team | Description | +--------+---------+ + + + | 05/02/ | Office | Neurology | Rom Marcos, | | | 2019 | Visit | | MD Ingrid WATT | | | | | | [address] | | | | | | [place] [address] | | | | | | [phone] | | | | | | | | +--------+---------+ + + + | 06/06/ | Office | Dermatology | Edwige Adams | | 2019 | Visit | | [address] | | | | | | [address] | | | | | | [place] [address] | | | | | | [phone] | | | | | | | | +--------+---------+ + + + documented as of this encounter Visit Diagnoses Not on filedocumented in this encounter"
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
--- OUTSIDE RECORDS SUMMARY | ~2020-04-30 | XMS | Encounter Summary ---
Demographics + + + | Address | [address] | | | [place] [address] | + + + | Home Phone | | + + + | Preferred Language | Unknown | + + + | Marital Status | Single | + + + | Tenriism Affiliation | NON | + + + | Race | or | + + + | Ethnic Group | Not or | + + + Author + + + | Author | [facility] | + + + | Organization | [facility] | [...] Team Providers + +------+ + | Care Editor In Chief Newspaper Name | Role | Phone | + +------+ + | Rita Rodriguez MD | PCP | | + +------+ + Encounter Details +--------+------+ + + + | Date | Type | Department | Care Team | Description | +--------+------+ + + + | 06/10/ | Lab | Laboratory at [facility] | | Encounter for | | 2012 | | [address] | | long-term (current) | | | [facility] | | use of other | | | | and Healing, | | medications | | | | [address] | | | | | | [place], [place] | | | | | | [address] | | | | | | [phone] | | | +--------+------+ + + + [...] + +--------+ + + + | CBC (HEMOGRAM) ONLY | Routin | 06/10/2013 | Encounter for | Results for this | | | e | 2:22 PM | long-term (current) | procedure are in the | | | | PDT | use of other | results section. | | | | | medications | | + +--------+ + + + | COMPLETE METABOLIC | Routin | 06/10/2013 | Encounter for | Results for this | | SET | e | 2:22 PM | long-term (current) | procedure are in the | | (NA,K,CL,CO2,BUN,CRE | | PDT | use of other | results section. | | AT,GLUC,CA,AST,ALT,B | | | medications | | | VERONA TOTAL,ALK | | | | | | PHOS,ALB,PROT TOTAL) | | | | | + +--------+ + + + | CBC ONLY | Routin | 06/10/2013 | Encounter for | Results for this | | | e | 2:22 PM | long-term (current) | procedure are in the | | | | PDT | use of other | results section. | | | | | medications | | + +--------+ + + + documented in this encounter Results CBC (HEMOGRAM) ONLY (06/10/2013 2:22 PM PDT) + +-------+ + + + | Component | Value | Ref Range | Performed | Pathologist | | | | | At | Signature | + +-------+ + + + | WHITE CELL | 9.08 | 4.40 - 11.00 | [facility] | | | COUNT | | K/cu mm | LABORATORY | | | | | | SERVICES, | | | | | | CORE | | + +-------+ + + + | RED CELL | 5.34 | 4.50 - 6.00 | [facility] | | | COUNT | | M/cu mm | LABORATORY | | | | | | SERVICES, | | | | | | CORE | | + +-------+ + + + | HEMOGLOBIN | 15.1 | 13.5 - 17.5 | [facility] | | | | | g/dL | LABORATORY | | | | | | SERVICES, | | | | | | CORE | | + +-------+ + + + | HEMATOCRIT | 44.9 | 41.0 - 53.0 % | [facility] | | | | | | LABORATORY | | | | | | SERVICES, | | | | | | CORE | | + +-------+ + + + | MCV | 84.1 | 80.0 - 96.0 fL | [facility] | | | | | | LABORATORY | | | | | | SERVICES, | | | | | | CORE | | + +-------+ + + + | MCHC | 33.6 | 33.0 - 35.5 | [facility] | | | | | g/dL | LABORATORY | | | | | | SERVICES, | | | | | | CORE | | + +-------+ + + + | RDW SD | 41.7 | 35.1 - 46.3 fL | [facility] | | | | | | LABORATORY | | | | | | SERVICES, | | | | | | CORE | | + +-------+ + + + | PLATELET | 251 | 150 - 400 K/cu | [facility] | | | COUNT | | mm | LABORATORY | | | | | | SERVICES, | | | | | | CORE | | + +-------+ + + + | MPV | 11.2 | 9.7 - 12.3 fL | [facility] | | | | | | LABORATORY | | | | | | SERVICES, | | | | | | CORE | | + +-------+ + + + | NRBC% | 0.0 | 0.0 - 0.3 % | [facility] | | | | | | LABORATORY | | | | | | SERVICES, | | | | | | CORE | | + +-------+ + + + | NRBC# | 0.00 | 0.00 - 0.02 | [facility] | | | | | K/cu mm | LABORATORY | | | | | | SERVICES, | | | | | | CORE | | + +-------+ + + + + + | Specimen | + + | Blood - Blood | + + + + + | Narrative | Performed At | + + + | New methodology and reference ranges for some CBC/Differential | [facility] | | analytes in effect on 04/03/13. | LABORATORY | | | SERVICES, CORE | + + + + + + + + | Performing | Address | City/State/Zipcode | Phone Number | | Organization | | | | + + + + + | [facility] | [address] | [place] [address] | | | SERVICES, [place] | [address] | | | + + + + [...] | | | LABORATORY | | | [facility] | | | SERVICES, | | | [...] [facility] | [address] | [place] [address] | | | SERVICES, CORE | [address] | | | + + + + + documented in this encounter Visit Diagnoses + + | Diagnosis | + + | Encounter for long-term (current) use of other medications | + + documented in this encounter"
--- OUTSIDE RECORDS SUMMARY | ~2020-04-30 | XMS | Encounter Summary ---
Demographics + + + | Address | [address] | | | [place] [address] | + + + | Home Phone [...] + + + | Author | [facility] | + + + | Organization | [facility] [employer] [facility] | + + + | [...] Team Providers + +------+ + | Care Auditor Name | Role | Phone | + [...] | II or | [facility] | e [place] | | | | | unspecified | Clinic | for Health | | | | | type | [place] | and Healing, | | | | | diabetes | Derm [address] | [address], | | | | | mellitus | [address] | [address] Floor | | | | | without | [place], | [place], [place] | | | | | mention of | [place] [address] | [address] | | | | | complication | Phone: | Phone: | | | | | , not stated | [phone] | [phone] | | | | | as | Fax: | Fax: | | | | | uncontrolled | [phone] | [phone] | | | | | Procedures | [...] | | Procedures | [address] | | | | | DC | [address] | [address] | | | | | OFFICE/OUTPT | [address] | [place], [place] | | | | | | [place], [place] | [address] Phone: | | | | | VISIT,EST,LE | [address] | [phone] | | | | | MAKENNA III 3mo | Phone: | Fax: | | | | | f/u | [phone] | [phone] | | | | | | Fax: | | | | | | | [phone] | | +--------+ + + + + + Encounter Details +--------+---------+ + + + | Date | Type | Department | Care Team | Description | +--------+---------+ + + + | 06/10/ | Office | Dermatology | Shukri Anne, | Other psoriasis | | 2012 | Visit | Medical at [facility] [address] | MD,PhD Aylin | (Primary Dx); | | | | [facility] | Allergy Asthma | Encounter for | | | | for Health and | Dermatology [address] | long-term (current) | | | | Healing, [address], | [facility] [address] | use of other | | | | [address] Floor | [place] [address] | medications; Blurry | | | | [place], [place] | [phone] | vision; 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 Missed one dose in the last 3 months. Feels scalp is much improved and groin and other areas are mo derately improved as well. Happy with how he is doing. No fevers/chills/infections/swollen g lands. Tolerating self-injections well. Also complains of blurry vision, says he has had for 2.5 years, notices more during the smith when he is watching more movies/playing more [employer] games; slowly progressing. Does not recall having [...] RETURN VISIT: October 2013 Department of Dermatology [facility] 06/10/2013 [email or web address] MD,PhD - 06/10/2013 1:51 PM PDTAttending Physician Attestation I personally interviewed, examined the patient, and discussed management with the resident. I reviewed and edited the resident's note and agree with the documented findings and plan of care. Shukri Anne MD, PhD Asset Management Analyst, Department of Dermatology [facility] 06/10/2013 docume nted in this encounter [...] | | | LABORATORY | | | [facility] | | | SERVICES, | | | [...] the MDRD equation recommended by the | CASU | | National Kidney Disease Education Program. [...] [facility] | [address] | [place] [address] | | | SERVICES, MORALES | NINA [...]
--- OUTSIDE RECORDS SUMMARY | ~2020-04-30 | XMS | Encounter Summary ---
Demographics + + + | Address | [address] | | | [place] [address] | + + + | Home Phone | | + + + | Preferred Language | Unknown | + + + | Marital Status | Single | + + + | Mosque Affiliation | NON | + + + | Race | or | + + + | Ethnic Group | Not or | + + + Author + + + | Author | [facility] | + + + | Organization | [facility] | + + + | Address | [...] Providers + +------+ + | Care Energy Sales Broker Name | Role | Phone | + +------+ + PCP | Unavailable | + +------+ + Encounter Details +--------+ + + + + | Date | Type | Department | Care Team | Description | +--------+ + + + + | 02/22/ | Office | [facility] | Report, Outpatient | Progress Note | | 1997 | Visit-Trans | & Rehabilitation | Consultation | | | | cribed | [address] | | | | | | Loop Mailcode: | | | | | | [id number] Physician's | | | | | | [place], | | | | | | [place] [address] | | | | | | [phone] | | | +--------+ + + + [...] as of this encounter Progress Notes Interface, House Carpenter Helper In - 10/05/2006 7:58 AM PST CLINIC DATE: 02/22/98 CLINIC NAME: CHILD DEVELOPMENT PROGRAM DISCIPLINE: PSYCHOLOGY IDENTIFYING DATA AND REASON FOR REFERRAL: Kimberley Yung, a 12-year, 98-vlqsh-wod [place]alese-Lao male, was seen today through the Child Development Program for a psychological evaluation. Kimberley's history is significant for profound bilateral hearing loss, seizure disorder, Attention Deficit Hyperactivity Disorder, and long-standing behavioral problems. He has been followed through the [facility] in [place], though his grandmother, Mrs. Yung, reported his medications, both anticonvulsants and psychotropic, have not been evaluated for several years. She stated she wanted to determine Kimberley's needs at this time, including the need for a psychiatric and/or medical evaluation. Kimberley was accompanied to the clinic by his grandparents, and Mrs. Yung, and his teacher. An automotive technician instructor was present to facilitate the evaluation. RELEVANT HISTORY: Kimberley currently resides with his grandparents and their 16-year-old son in [place], [place]. Kimberley currently attends [employer] and is in the fourth grade. He is in the resource room for the deaf and hard of hearing, with mainstreaming for PE and social activities. His teacher reported behavior consistent with seizure activity approximately once per month, including a blank stare, disorientation, and sleepiness. She also noted Kimberley reports frequent waves of nausea. Kimberley reportedly forgets information he has previously learned requiring constant repetition of information. His teacher feels this is due to ongoing seizure activity. There is currently a behavior plan in place at school to address Kimberley's noncompliance and bouts of anger/aggression. This is a token economy with points earned for positive behavior and lost for negative behavior. Kimberley's teacher reported Kimberley has friends at school; there are those peers who love him, and those who are afraid of him. Kimberley has lived with his grandparents on and off from a young age. His grandparents became his guardians permanently prior to his third birthday. Kimberley's biological mother is currently seeking full custody of Kimberley and has mandated visits every two weeks, though Kimberley does not see his mother this often. Mrs. Yung reported Kimberley has more behavioral problems when visiting his mother, and stated that he often does not want to go visit her. Mrs. Yung reported the last time he visited his mother was in January of 1998. 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 It was noted that he stopped breathing for about two minutes prior to being hospitalized and he was resuscitated by his grandmother en route to the Emergency Room. 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 His family became aware of problems when he was approximately [age] years old when he entered [employer]. Kimberley was also diagnosed with Attention Deficit Hyperactivity Disorder at an early age, though Mrs. Yung was unsure when. He has been on a variety of medications including Dilantin, Depakote, Ritalin, Clonidine and Mellaril to manage his seizures and behavior. He currently takes Dilantin, Depakote, Ritalin and Clonidine; however, Mrs. Yung reported there has been no change in his medication in years. The last blood levels were taken at the [facility] approximately one year ago. Kimberley attended the [facility] from fall to spring. The plan is for him to attend this program next year. Kimberley underwent a psychological evaluation in November of 1993 when attending the [facility]. At that time he was 8 years, 7 months and knew minimal sign language. He was administered the WISC-R and achieved a Performance I.Q. score of 95 and a Perceptual Organization Index score of 82. On the JOE-II he achieved a standard score of 80, and on the VMI he achieved an age equivalent of 7 years, 4 months. Kimberley's communication system is characterized by some sign language, though he is not fluent. His teachers currently combine sign language with pictures to teach and communicate with him. Kimberley reported he wanted to be able to talk and read. Previous Mental Health Treatment: When first diagnosed with ADHD and placed on medication, Kimberley worked with a Mental Health Specialist. He has not received services since this time, though experienced a very structured environment at the [facility], and in his current school program, which is reportedly very effective in managing his behavior. Kimberley was described as having poor social relationships, frequently tantruming and displaying outbursts characterized by aggressive, combative and threatening behavior, negative mood, fearlessness, oppositional and defiant behavior, hyperactivity, difficulty sitting still, concentrating and sustaining his attention to tasks, poor impulse control, distractibility, disorganized and forgetful. Mrs. Yung reported using verbal reprimands, withdrawal of privileges, rewards, and time outs to manage Kimberley's behavior. This is reportedly moderately effective. BEHAVIORAL OBSERVATIONS: Kimberley presented as a 12-year-old male who was dressed appropriately and appeared his stated age. He came fairly willingly to the exam room with his grandmother, teacher, the net developer consultant and this examiner. At one point he stopped to observe a counter attendant and did not respond to attempts to direct him down the hallway. Kimberley was not redirected until his teacher approached him and answered questions he had about the counter attendant. During the parent interview, Kimberley immediately began exploring the toys in the room and entertained himself most of the time. During the latter part of the interview he became somewhat fidgety and chose to leave the room to watch t.v. in the waiting room. During the time he spent in the exam room he primarily interacted with his teacher and net developer consultant with whom he could communicate through sign. During formal testing, Kimberley caught onto tasks quickly and commented frequently that they were easy. However, as soon as tasks increased in their difficulty and challenged Kimberley, he began to throw the cards and was manipulative in his response style. Generally, a very direct approach and encouragement was effective with Kimberley. Based on Kimberley's ability to attend to the test materials, the results herein are believed to reflect an accurate estimate of his current abilities. TEST RESULTS AND INTERPRETATION: Cognitive Functioning: Kimberley was administered the Sowmya International Performance Scale-Revised. This is a test developed for the hearing impaired and requires no verbal instruction or response to administer. On the Visualization/Reasoning Battery, Kimberley achieved a Brief I.Q. score of 98 (88-108, 95% confidence interval), which falls in the average range of functioning. For the Brief I.Q. battery, only four subtests are administered. These subtests and their scaled scores are as follows (mean = 10, standard deviation = 3): Figure Ground = 9, Form Completion = 9, Sequential Order = 9, and Repeated Patterns = 12. Based on Kimberley's subtest scaled scores, his performance was solidly in the average range for non-verbal problem-solving. Adaptive Behavior: Mrs. Yung served as the informant for the [place] Adaptive Behavior Scales (VABS), from which the following scores were derived (mean = 100, standard deviation = 15): SUBDOMAIN SS ADAPTIVE LEVEL AGE- EQUIVALENT Communication 38 Low 3-4 Daily Living Skills 43 Low 5-3 Socialization 51 Low 3-6 Adaptive Behavior 41 Low 4-0 Composite Based on the above profile, Magdalenas adaptive skills are globally and markedly delayed with an Adaptive Behavior Composite of 41 +9, and an age-equivalent of 6 years. Magdalenas communication skills are characterized by his ability to state his own first and last name when asked, to speak at least 100 recognizable words, and to ask questions beginning with "what," "where," "who," "why," and "when." He reportedly reads at least three common signs and can print his own first and last name. With regard to his daily living skills, Kimberley dresses and bathes himself independently. Although Kimberley will help with extra chores when asked, he does not always put his possessions away when asked, nor does he make his own bed. Mrs. Yung reported she does not expect this of Kimberley, so it has not occurred to him to take on these responsibilities. Essentially, Kimberley does not have any regular chores at home. With regard to his socialization skills, Kimberley shows a preference for some friends over others, shares his possessions without being told, and follows rules and simple games without being reminded. Kimberley is working on routinely following school rules and community rules. Emotional/Behavioral Functioning: Mrs. Yung completed the Achenbach Child Behavior Checklist (CBCL). The resulting profile revealed elevations on the Social Problems (T=80), Delinquent Behavior (T=72), Attention Problems (T=70), Aggressive Behavior (T=68), Thought Problems (T=67), and Somatic Complaints (T=67) scales. This indicates that Mrs. Yung perceives Kimberley to prefer interacting with younger children and to occasionally not get along with his peers. In addition, she feels he does not display guilt after displaying poor behavior and occasionally lies and swears. In addition, Kimberley reportedly frequently argues and is disobedient at home and at school. Further problems Mrs. Yung identified were Kimberley's difficulty concentrating, sitting still and frequently appearing confused. She also reports occasional dizziness, nausea and vomiting. Kimberley's teacher completed the Achenbach Teacher's Report Form (TRF). The resulting profile revealed significant elevations on the Aggressive Behavior (T=79), Delinquent Behavior (T=73), Somatic Complaints (T=74), and Social Problems (T=68) scales. This indicates that Kimberley's teacher perceives him to frequently argue, demand attention, to show off and to be explosive. She perceives him to be frequently demanding, threatening, and loud as well. Consistent with Mrs. Yung's report, Kimberley's teacher reported that he occasionally feels dizzy, tired, nauseous and complains of headaches. SUMMARY AND RECOMMENDATIONS: Kimberley Yung, a 12-year, 18-mvjtr-xti male, was seen today through the Child Development Program for a psychological evaluation. Kimberley's history is significant for profound bilateral hearing loss, seizure disorder, Attention Deficit Hyperactivity Disorder, and long-standing behavioral problems. He has been followed through the [facility] in [place], though Mrs. Yung reported his medications have not been evaluated for several years. She stated she wanted to determine Kimberley's needs at this time, including the need for psychiatric or medical evaluations. Standardized cognitive testing consisted of a screening battery today from the Sowmya-R. This test does not require language usage or understanding; therefore, the results provide an estimate of Kimberley's abilities without being confounded by his communicative impairments. He obtained a Brief I.Q. score of 98, which falls in the average range of functioning. Specifically, his reasoning and visualization skills were comparable and in the average range. Kimberley's adaptive skills were globally and markedly delayed, however, in relation to his cognitive abilities. This is attributed to behavioral, communicative, and possibly neurological factors, which have also affected other areas of his life. Specifically, it was reported that Kimberley appears to be having seizures which interfere with his learning and memory. Given that Kimberley may not have had his medications reviewed for a significant period, it is important that his medication regimen be evaluated. This may alleviate some difficulties in his ability to function and learn. Kimberley's medication regimen is not the only factor contributing to his behavior however. He is also not currently fluent in any one communicative system, and his ability to communicate is significantly impaired in relation to his cognitive ability. Therefore, he continues to experience difficulty expressing himself adequately and understanding what occurs in his environment. This creates increased frustration and need for control, which Kimberley expresses through demanding, oppositional, or aggressive behavior. Coupled with difficulties associated with ADHD, Kimberley has difficulty coping and interacting with others appropriately. Kimberley will benefit from an environment in which he is exposed to sign language on a consistent basis, such as at the [facility]. As Kimberley increases his communication skills, he can begin to address more abstract and complex issues, such as his feelings, so these are not expressed in maladaptive ways. Based on the above assessment, it is recommended that Kimberley undergo a pediatric psychiatry evaluation to review his medications. If a pediatric psychiatrist is not available in his area, it is recommended that Kimberley return to [facility] for this evaluation. It is also recommended that Kimberley undergo a pediatric neurology evaluation for review of his seizure disorder and medication regimen. In addition, Mrs. Yung said she requested an MRI for this visit which was not scheduled. She was encouraged to speak with her primary care physician, Dr. Orozco, to further discuss her concerns so that he can make a determination whether this procedure is needed. Finally, it is recommended that Mrs. Yung, her and Kimberley undergo counseling to assist with behavior management and to receive support. Next year Kimberley will attend [facility] timekeeping supervisor, visiting every other weekend. This will provide Kimberley with increased structure, discipline, and an environment which will foster his communication skills. Nonetheless, if behavioral difficulties continue despite improvement in communication skills and medication management, a functional assessment of Kimberley's behavior may be indicated. I will be happy to follow up with Kimberley following further evaluation in the above areas. Thank you for referring Kimberley for evaluation. If you need further information, or have any questions regarding the content of this report, please do not hesitate to contact me at . Heather Stacy, Ph.D. Resident, Psychology Jair Lugo, Ph.D. Clinical Psychologist MICKIE:jovani C: 03/10/98/kimber documented in this encounter Plan of Treatment Not on filedocumented as of this encounter Visit Diagnoses Not on filedocumented in this encounter
--- OUTSIDE RECORDS SUMMARY | ~2020-04-30 | XMS | Encounter Summary ---
Demographics + + + | Address | [address] | | | [place] [address] | + + + | Home Phone | | + + + | Preferred Language | Unknown | + + + | Marital Status | Single | + + + | Mormonism Affiliation | NON | + + + | Race | or | + + + | Ethnic Group | Not or | + + + Author + + + | Author | [facility] | + + + | Organization | [facility] | + + + [...] Team Providers + +------+ + | Care Brake Operator Heavy Duty Name | Role | Phone | + [...] Description | +--------+--------+ + + + | 01/12/ | Refill | Dermatology | Shukri Anne, | Refill Request | | 2012 | | Medical at [facility] [address] | ,PhD Aylin | | | | | Ailyn Burton [facility] | Allergy Asthma | | | | | for Health and | Dermatology [address] | | | | | Healing, Building 1, | [facility] | | | | | 16th Floor | [place] [address] | | | | | [place], [place] | [phone] | | | | | [address] | | | | | | [phone] | | | +--------+--------+ + + + [...]
--- OUTSIDE RECORDS SUMMARY | ~2020-04-30 | XMS | Encounter Summary ---
Demographics + + + | Address | [address] | | | [place] [address] | + + + | Home Phone | | + + + | Preferred Language | Unknown | + + + | Marital Status | Single | + + + | Orthodoxy Affiliation | NON | + + + | Race | or | + + + | Ethnic Group | Not or | + + + Author + + + | Author | [facility] | + + + | Organization | [facility] | + + + | [...] Team Providers + +------+ + | Care Classroom Instructional Aide Name | Role | Phone | + [...] | Event | [address] | [address] | | | | | [facility] | Marilin Mora [place], | | | | | Ambulatory Surgery | [place] [address] | | | | | Admitting Desk | [phone] | | | | | Located on the [facility] | | | | | | floor, Room 4519 | Evert Potter CRNA | | | | | [place], [place] | [address] | | | | | [address] | Marilin Mora [place], | | | | | | [place] [address] | | | | | | [phone] | | | | | | | [...]
--- OUTSIDE RECORDS SUMMARY | ~2020-04-30 | XMS | Encounter Summary ---
Demographics + + + | Address | [address] | | | [place] [address] | + + + | Home Phone | | + + + | Preferred Language | Unknown | + + + | Marital Status | Single | + + + | Mormon Affiliation | NON | + + + | Race | or | + + + | Ethnic Group | Not or | + + + Author + + + | Author | [facility] | + + + | Organization | [facility] | + + + | [...] Team Providers + +------+ + | Care Cement Mason Apprentice Name | Role | Phone | + [...] + + + | Closed | | Otolaryngolog | Diagnoses | Micha | Ent Otology | | | | y | | Rogelio Houston MD | [address] | | | | | Sensorineura | Radha | Pavilion | | | | | l hearing | Health ENT | Loop | | | | | loss, | [address] | Physician's | | | | | bilateral | [address] | Pavilion, 2nd | | | | | Procedures | [address], | floor | | | | | CONSULT TO | [place] [address] | [place], [place] | | | | | ENT OTOLOGY | Phone: | [phone] | | | | | | [phone] | Phone: | | | | | | Fax: | [phone] | | | | | | [phone] | Fax: | | | | | | | [phone] | +--------+--------+ + + + + Reason for Visit + + + | Reason | Comments | + + + | Hearing loss | | + + + Encounter Details +--------+---------+ + + + | Date | Type | Department | Care Team | Description | +--------+---------+ + + + | 03/13/ | Office | Otolaryngology | Kelley Méndez, | Sensorineural | | 2012 | Visit | Audiology Services | [facility] | hearing loss, | | | | at [address] | | bilateral (Primary | | | | [address] | | Dx) | | | | Physician's | | | | | | Pavilion, 2nd floor | | | | | | [place], [place] | | | | | | [address] | | | | | | [phone] | | | +--------+---------+ + + + [...] documented as of this encounter Progress Notes Kelley Méndez CCC-Olinda - 03/16/2013 3:04 PM [facility] ENT Audiology Clinic NAME: Kimberley Yung MR#: [id number] Date of : 1985 Date of Evaluation: 03/13/2013 Clinician: AuD. Chastity, JOSTIN-A Medical History/Reason for Evaluation: Kimberley Yung, 27 y.o., was seen for an audiologic evaluation through the [facility] Audiol ogy Clinic. His primary care provider is Rita Rodriguez MD. 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 Kimberley communicates using sign language. Kimberley was accompanied to today's appointment by his grandmother; a solidworks designer was present throughout t he duration of today's visit. Both Kimberley and his grandmother provided the following hi story; it should be noted that Kimberley seemed to be a poor historian. Kimberley currentl y utilizes a hearing aid in his left ear (Oticon Sumo BTE) which he was fit with approximate ly 1 year ago. He shared that he previously used a right hearing aid but misplaced it appro ximately 5 years ago. Kimberley is currently being seen through another ENT clinic for a ri ght TM perforation where he is reportedly scheduled for surgery in the near future. Marcos ramírez's grandmother reported that her grandson is scheduled to have surgery on his right ear, mino zuniga, due to his current insurance, the surgery may not happen through his current clinic. She indicated that it was recommended that they be seen at [facility] as [facility] will accept her tami keith's insurance. Today's appointment is needed in order to evaluate and determine Sarah velazco's current hearing sensitivity. Audiologic Results: OTOSCOPY (used to evaluate the outer ear): Right ear: Clear external auditory canal; canal stained with gentian german. Left ear: Clear external auditory canal with visible tympanic membrane TYMPANOMETRY (used to evaluate middle ear function): Right ear: Large ear canal volume consistent with probable TM perforation Left ear: Ear canal volume, middle ear pressure and compliance all within normal limits AUDIOMETRY (used to assess condition of hearing): Hearing sensitivity was evaluated using standard audiometric procedures with insert earphon es. Kimberley responded consistently throughout testing and his responses were considered r eliable. Pure-tone air and bone conduction results revealed: Right Ear: Profound sensorineural hearing loss from 250-8000 Hz. A speech detection thres hold was attempted, however, no response was observed. Left Ear: A moderate sloping to severe sensorineural hearing loss from 250-500 Hz continu ing to a profound sensorineural hearing loss from 750-8000 Hz. A speech detection threshold was obtained at 70 dB HL and is in good agreement with responses to pure-tone stimuli. Please see [facility] audiogram for details. Impressions/Recommendations: Today's results suggest a profound sensorineural hearing loss for the right ear and a moder ate to severe sensorineural hearing loss from 250-500 Hz sloping to a profound sensorineural hearing loss from 750-8000 Hz for the left ear. Given Kimberley's history of a right tympanic membrane perforation and his interest in havi ng it surgically corrected, it was recommended that he establish care with an cigar packer at [facility]. Kimberley and his grandmother were both in agreement with this plan. A referral to ot ology will be placed following today's visit. It was a pleasure working with Kimberley today. If any questions or concerns should arise regarding today's evaluation, please do not hesitate to contact me at . Rolan Haywood, JOSTIN-Olinda Clinical Doctor of Audiology [facility] Department of Otolaryngology Audiology Services [facility] [address] [place] [address] [email or web address] documented in thi s encounter Plan of Treatment Not on filedocumented as of this encounter Procedures + +--------+ + + + | Procedure Name | Priori | Date/Time | Associated Diagnosis | Comments | | | ty | | | | + +--------+ + + + | SD TYMPANOMETRY | Routin | 03/16/2013 | Sensorineural | | | | e | 4:32 PM | hearing loss, | | | | | PDT | bilateral | | + +--------+ + + + | SD SPEECH THRESHOLD | Routin | 03/16/2013 | Sensorineural | | | AUDIOMETRY | e | 4:32 PM | hearing loss, | | | | | PDT | bilateral | | + +--------+ + + + | SD AUDIOMETRY, AIR & | Routin | 03/16/2013 | Sensorineural | | | BONE | e | 4:32 PM | hearing loss, | | | | | PDT | bilateral | | + +--------+ + + + documented in this encounter Visit Diagnoses + + | Diagnosis | + + | Sensorineural hearing loss, bilateral - Primary | + + documented in this encounter"
--- OUTSIDE RECORDS SUMMARY | ~2020-04-30 | XMS | Encounter Summary ---
Demographics + + + | Address | [address] | | | [place] [address] | + + + | Home Phone | | + + + | Preferred Language | Unknown | + + + | Marital Status | Single | + + + | Church Affiliation | NON | + + + | Race | or | + + + | Ethnic Group | Not or | + + + Author + + + | Author | [facility] | + + + | Organization | [facility] | + + + | [...] Team Providers + +------+ + | Care Textile Machine Maintenance Mechanic Name | Role | Phone | + [...] | | | | Procedures | [address], | floor | | | | | CONSULT TO | [place] [address] | [place], [place] | | | | | ENT OTOLOGY | Phone: | [phone] | | | | | | [phone] | Phone: | | | | | | Fax: | [phone] | | | | | | [phone] | Fax: | | | | | | | [phone] | +--------+--------+ + + + + Reason [...] 2012 | Visit | Audiology Services | [facility] | hearing loss, | | | | at [address] | | bilateral (Primary | | | | [address] | | Dx) | | | | Physician's | | | | | | Pavilion, 2nd floor | | | | | | [place], [place] | | | | | | [address] | | | | | | [phone] | | | +--------+---------+ + + + [...] Kelley Méndez CCC-Olinda - 03/16/2013 3:04 PM [facility] ENT Audiology Clinic NAME: Kimberley Yung MR#: [id number] Date of : 1985 Date of Evaluation: 03/13/2013 Clinician: AuD. Chastity, JOSTIN-A Medical History/Reason for Evaluation: Kimberley Yung, 27 y.o., was seen for an audiologic evaluation through the [facility] Audiol ogy Clinic. His primary care provider is Rita Rodriguez MD. 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 Kimberley communicates using sign language. Kimberley was accompanied to today's appointment by his grandmother; a designer writer was present throughout t he duration of [...] was recommended that they be seen at [facility] as [facility] will accept her tami keith's insurance. [...] with responses to pure-tone stimuli. Please see [facility] audiogram for details. Impressions/Recommendations: Today's results [...] recommended that he establish care with an account executive at [facility]. Kimberley and his grandmother were both in agreement with this plan. A referral to ot ology will be placed following today's visit. It was a pleasure working with Kimberley today. If any questions or concerns should arise regarding today's evaluation, please do not hesitate to contact me at . Rolan Haywood, JOSTIN-Olinda Clinical Doctor of Audiology [facility] Department of Otolaryngology Audiology Services [facility] [address] [place] [address] [email or web address] documented in thi s encounter Plan of Treatment Not on filedocumented as of this encounter Procedures + +--------+ + + + | Procedure Name | Priori | Date/Time | Associated Diagnosis | Comments | | | ty | | | | + +--------+ + + + | MI TYMPANOMETRY | Routin | 03/16/2013 | Sensorineural | | | | e | 4:32 PM | hearing loss, | | | | | PDT | bilateral | | + +--------+ + + + | MI SPEECH THRESHOLD | Routin | 03/16/2013 | Sensorineural | | | AUDIOMETRY | e | 4:32 PM | hearing loss, | | | | | PDT | bilateral | | + +--------+ + + + | MI AUDIOMETRY, AIR & | Routin | 03/16/2013 [...]
--- OUTSIDE RECORDS SUMMARY | ~2020-04-30 | XMS | Encounter Summary ---
Demographics + + + | Address | [address] | | | [place] [address] | + + + | Home Phone | | + + + | Preferred Language | Unknown | + + + | Marital Status | Single | + + + | Jainism Affiliation | NON | + + + [...] Providers + +------+ + | Care Medical Record Librarians Teacher Name | Role | Phone | + [...] as of this encounter Progress Notes Interface, Residential Real Estate Sales Manager In - 09/27/2006 1:11 AM [facility] [place] [address] [place] [address] or Division of Pediatric Neurology [address] [place] [address], [address] [address] , May 31, 1998 SHRUTHI [...] He has, until recently, resided at an [facility] near [place], [place]. For his seizures and behavior, he [...] [facility] [place], [place] where in the past the staff [...] for today's examination. We did have an interpreter for the deaf from the [facility]. His growth parameters [...] at [facility] [place]. Further referrals will be made pending his response. Thank you for allowing me to participate in the care of his young man, and if I may be of any further assistance, please do not hesitate to contact me. Sincerely, Silviano Henson M.D. Telecommunications Manager, Pediatrics Chief, Division of Pediatric Neurology MANAN/brian CC: [facility] [address] [place] [id number] signed by Interface, Residential Real Estate Sales Manager In at 09/27/2006 1:11 AM PSTdocumented in this encounter Plan of Treatment Not on filedocumented as of this encounter Visit Diagnoses Not on filedocumented in this encounter"
--- OUTSIDE RECORDS SUMMARY | ~2020-04-30 | XMS | Encounter Summary ---
Demographics + + + | Address | [address] | | | [place] [address] | + + + | Home Phone | | + + + | Preferred Language | Unknown | + + + | Marital Status | Single | + + + | Pentecostal Affiliation | NON | + + + | Race | or | + + + | Ethnic Group | Not or | + + + Author + + + | Author | [facility] | + + + | Organization | [facility] | + + + [...] Team Providers + +------+ + | Care Fabric Coating Supervisor Name | Role | Phone | + +------+ + | Rita Rodriguez MD | PCP | | + +------+ + Encounter Details +--------+ + + + + | Date | Type | Department | Care Team | Description | +--------+ + + + + | 11/28/ | Documentati | Dermatology | Shukri Anne, | | | 2012 | on | Medical at [facility] [address] | PhD Aylin RICE | | | | | Ailyn Burton [place] | Allergy Asthma | | | | | for Health and | Dermatology [address] | | | | | [facility], Building 1, | [facility] | | | | | 16th Floor | [place] [address] | | | | | [place], [place] | [phone] | | | | | [address] | | | | | | [phone] | | | +--------+ + + + [...]
--- OUTSIDE RECORDS SUMMARY | ~2020-04-30 | XMS | Encounter Summary ---
Demographics + + + | Address | [address] | | | [place] [address] | + + + | Home Phone | | + + + | Preferred Language | Unknown | + + + | Marital Status | Single | + + + | Muslim Affiliation | NON | + + + | Race | or | + + + | Ethnic Group | Not or | + + + Author + + + | Author | [facility] | + + + | Organization | [facility] [place] [facility] | + + + | Address | Unknown | + + + | Phone | Unavailable | + + + Support + + + + + | Name | Relationship | Address | Phone | + + + + + | Delonte Ynug | ECON | [place] | | + + + + + Care Team Providers + +------+ + | Care Regulatory Consultant Name | Role | Phone | + [...] | 2013 | on | Medical at [facility] [address] | ,PhD [place] | Request (Benzoyl | | | | [facility] | Allergy Asthma | Peroxide Wash) | | | | for Health and | Dermatology [address] | | | | | [facility], [address], | [facility] | | | | | 16th Floor | [place] [address] | | | | | [place], [place] | [phone] | | | | | [address] | | | | | | [phone] | | | +--------+ + + + [...]
--- OUTSIDE RECORDS SUMMARY | ~2020-04-30 | XMS | Encounter Summary ---
Demographics + + + | Address | [address] | | | [place] [address] | + + + | Home Phone | | + + + | Preferred Language | Unknown | + + + | Marital Status | Single | + + + | Latter-Day Affiliation | NON | + + + | Race | or | + + + | Ethnic Group | Not or | + + + Author + + + | Author | [facility] | + + + | Organization | [facility] [place] [facility] | + + [...] Team Providers + +------+ + | Care Service Trainer Name | Role | Phone | + +------+ + PCP | Unavailable | + +------+ + Encounter Details +--------+ + + + + | Date | Type | Department | Care Team | Description | +--------+ + + + + | 10/24/ | Office | [facility] | Report, [...] as of this encounter Progress Notes Interface, Radio Communication Coordinator In - 07/18/2006 5:03 AM PSTCLINIC DATE: 10/24/2000 CLINIC: CHILD DEVELOPMENT CLINIC DISCIPLINE: PSYCHIATRY I have been following Kimberley with the diagnosis of attention deficit hyperactivity disorder. He has intermittent explosive disorder and we are treating him with Ritalin 20 mg one four times a day, clonidine 0.1 mg one three times a day, and Risperdal 0.5 mg one two times a day. Kimberley communicated with me by signing with his hand. I was unable to read what he was signing. He was unwilling to sign for the structural design engineer when we got in the room. He said someone wants to date, someone tattles on him and gets him in trouble. Apparently the dorm is no problem. The teachers say he is cooperative and fine. Problem areas are social times. He likes to push and make physical contact but he is much better than before. He is sleepy in school and has an ear infection. He had surgery on a mole on his face which was negative for malignant melanoma. He says he wants to have braces on his teeth but his grandmother says he does not brush his teeth well enough. I asked if he was in sports. He said he was in five - basketball, football, baseball, soccer, running, and golf. He is just finishing basketball now and does not know what will follow that. 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 His grandmother mentioned that he is having some trouble wetting at night and in the past it was associated with seizures. I wonder if it may be a side effect from the Risperdal. He is no longer on anti-seizure medications. We discussed the possibility that the grandmother might have him seen again by a neurologist and do another electroencephalogram. I would like to see him back in two months. Brendan Caro M.D. Child Psychiatrist [id number]/[id number] signed by Interface, Radio Communication Coordinator In at 07/18/2006 5:03 AM PSTdocu nted in this encounter Plan of Treatment Not on filedocumented as of this encounter Visit Diagnoses Not on filedocumented in this encounter"
--- OUTSIDE RECORDS SUMMARY | ~2020-04-30 | XMS | Encounter Summary ---
Demographics + + + | Address | [address] | | | [place] [address] | + + + | Home Phone [...] + + | Author | [facility] | + + + | Organization | [facility] | + + + [...] Team Providers + +------+ + | Care Light Bulb Replacer Name | Role | Phone | + [...] as of this encounter Progress Notes [place], Demand Inspector In - 07/12/2006 3:06 AM PDTCLINIC DATE: 01/23/2001 CLINIC: CHILD DEVELOPMENT CLINIC DISCIPLINE: PSYCHIATRY ADDENDUM: Please add the following diagnosis: "Attention deficit hyperactivity disorder and intermittent explosive disorder." Brendan Caro M.D. Child Psychiatrist [id number]/[id number] signed by [place], Demand Inspector In at 07/12/2006 3:06 AM PDTInterf azra Demand Inspector In - 07/12/2006 3:06 AM PDTCLINIC DATE: [...] months. [place] Caro M.D. ES:[id number] C: 01/28/2001 [facility] [id number] signed by Interface, Demand Inspector In at 07/12/2006 3:06 AM PDTdocume nted in this encounter Plan of Treatment Not on filedocumented as of this encounter Visit Diagnoses Not on filedocumented in this encounter
--- OUTSIDE RECORDS SUMMARY | ~2020-04-30 | XMS | Encounter Summary ---
Demographics + + + | Address | [address] | | | [place] [address] | + + + | Home Phone | | + + + | Preferred Language | Unknown | + + + | Marital Status | Single | + + + | Yazidism Affiliation | NON | + + + | Race | or | + + + | Ethnic Group | Not or | + + + Author + + + | Author | [facility] | + + + | Organization | [facility] | + + + [...] Team Providers + +------+ + | Care Mixing Technician Name | Role | Phone | + +------+ + PCP | Unavailable | + +------+ + Encounter Details +--------+ + + + + | Date | Type | Department | Care Team | Description | +--------+ + + + + | 01/15/ | Procedure - | UNKNOWN DEPARTMENT | Other, Faculty | EEG | | 2000 | | [address] [facility] | [phone] | | | | Transcribed | [address] | | | | | | [place], [place] | | | | | | [address] | | | +--------+ + + + [...] documented as of this encounter Progress Notes Other, Faculty - 01/15/2001 12:00 AM PDTAssociated Order(s): EEG ROUTINE CLINIC DATE: 01/15 Care Unit: Peds Neurology Req by: Dr. Henson Test Type: Routine EEG [facility] EEG Number: [id number] Pertinent Medications: Respirdol, Clonidine INTERPRETATION: Detail:. The patient is in stage 2 sleep for most of the record. There were symmetric sleep spindles K-complexes and vertex waves. Also, there was 18-20 Hz symmetric frontocentral beta. Photic stimulation produced no significant change in the EEG. There was no focal abnormality or abnormal paroxysmal activity. The patient briefly arouses at the very end of the record but there is insufficient recording to assess the waking background. Impression: Normal EEG with the patient asleep. Dante Hodgson M.D. documented [facility] Plan of Treatment Not on filedocumented as of this encounter Procedures + +--------+ + + + | Procedure Name | Priori | Date/Time | Associated Diagnosis | Comments | | | ty | | | | + +--------+ + + + | EEG ROUTINE | | 01/15/2001 | | Results for this | | | | 12:00 AM | | procedure are in the | | | | PDT | | results section. | + +--------+ + + + documented in this encounter Results EEG ROUTINE (01/15/2001 12:00 AM PDT) + + | Procedure Note | + + | Eli, Faculty - 01/15/2001 12:00 AM PDT CLINIC DATE: 01/15/2001 | | | | | | Care Unit: [facility] Neurology Req by: Dr. Henson | | Test Type: Routine EEG [facility] EEG Number: [id number] | | Pertinent Medications: Respirdol, Clonidine | | | | | | INTERPRETATION: | | | | Detail:. The patient is in stage 2 sleep for most of the record. There were | | symmetric sleep spindles K-complexes and vertex waves. Also, there was | | 18-20 Hz symmetric frontocentral beta. Photic stimulation produced no | | significant change in the EEG. There was no focal abnormality or abnormal | | paroxysmal activity. The patient briefly arouses at the very end of the | | record but there is insufficient recording to assess the waking background. | | | | Impression: Normal EEG with the patient asleep. | | | | | | | | | | | | Dante Hodgson M.D. | | | | | | | | | + + documented in this encounter Visit Diagnoses Not on filedocumented in this encounter"
--- OUTSIDE RECORDS SUMMARY | ~2020-04-30 | XMS | Encounter Summary ---
Demographics + + + | Address | [address] | | | [place] [address] | + + + | Home Phone | | + + + | Preferred Language | Unknown | + + + | Marital Status | Single | + + + | Mandaeism Affiliation | NON | + + + | Race | or | + + + | Ethnic Group | Not or | + + + Author + + + | Author | [facility] [employer] [facility] | + + + | Organization | [facility] [employer] [facility] | + + + | [...] Team Providers + +------+ + | Care Personal Investment Adviser Name | Role | Phone | + +------+ + | Rita Rodriguez MD | PCP | | + +------+ + Encounter Details +--------+ + + + + | Date | Type | Department | Care Team | Description | +--------+ + + + + | 02/11/ | Documentati | Dermatology | Shukri Anne, | | | 2011 | on | Medical at [facility] [address] | PhD Aylin RICE | | | | | [address] [place] | Allergy Asthma | | | | | for Health and | Dermatology [address] | | | | | [facility], [address], | [facility] | | | | | 16th Floor | [place] [address] | | | | | [place], [place] | [phone] | | | | | [address] | | | | | | [phone] | | | +--------+ + + + [...]
--- OUTSIDE RECORDS SUMMARY | ~2020-04-30 | XMS | Encounter Summary ---
Demographics + + + | Address | [address] | | | [place] [address] | + + + | Home Phone [...] | Author | [facility] | + + + | Organization | [facility] | + + + | [...] Team Providers + +------+ + | Care Bacteriology Professor Name | Role | Phone | + +------+ + | Rita Rodriguez MD | PCP | | + +------+ + Encounter Details +--------+ + + + + | Date | Type | Department | Care Team | Description | +--------+ + + + + | 02/11/ | Documentati | Dermatology | Shukri Anne, | | | 2011 | on | Medical at [facility] [address] | PhD Aylin RICE | | | | | [address] [place] | Allergy Asthma | | | | | for Health and | Dermatology [address] | | | | | [facility], [address], | [facility] | | | | | 16th Floor | [place] [address] | | | | | [place], [place] | [phone] | | | | | [address] | | | | | | [phone] | | | +--------+ + + + [...]
--- OUTSIDE RECORDS SUMMARY | ~2020-04-30 | XMS | Encounter Summary ---
Demographics + + + | Address | [address] | | | [place] [address] | + + + | Home Phone [...] Author + + + | Author | [facility] | + + + | Organization | [facility] | + + + | Address [...] Team Providers + +------+ + | Care General Labor Forklift Operator Name | Role | Phone | + +------+ + | Rita Rodriguez MD | PCP | | + +------+ + Encounter Details +--------+ + + + + | Date | Type | Department | Care Team | Description | +--------+ + + + + | 08/30/ | Abstract | Neurology at | Yoseph Hein MD | | | 2010 | | [facility] & | [address] | | | | | Healing [address] | [place], [place] | | | | | [facility] | [address] | | | | | Health and Healing, | [phone] | | | | | [facility] | | | | | | Floor [facility] [place] | | | | | | [address] | | | | | | [phone] | | | +--------+ + + + [...]
--- OUTSIDE RECORDS SUMMARY | ~2020-04-30 | XMS | Encounter Summary ---
Demographics + + + | Address | [address] [place] [address] ROAD | | | [place] [address] | + + + | Home Phone | | + + + | Preferred Language | Unknown | + + + | Marital Status | Single | + + + | Mosque Affiliation | Unknown | + + + | Race | Unknown | + + + | Ethnic Group | Unknown | + + + Author + + + | Author | [facility] | | | and [place] | + + + | Organization | [facility] | | | and [facility] [...] Team Providers + +------+ + | Care Ethylene Oxide Panelboard Operator Name | Role | Phone | + +------+ + PCP | Unavailable | + +------+ + Encounter Details +--------+ + + + + | Date | Type | Department | Care Team | Description | +--------+ + + + + | 08/22/ | Hospital | [facility] | Unknown, | | | 1992 | Encounter | MED CTR GENERIC OP | MD Harvey Tao | | | | | CONV DEPT [address] | | | | | | [place], | | | | | | [place] [address] | | | | | | [phone] | | | +--------+ + + + [...] Baez | | | | | | [place] [address] | | | | | | [phone] | | | | | | | | +--------+---------+ + + + | 06/06/ | Office | Dermatology | Edwige Adams | | | 2019 | Visit | | [address] | | | | | | [address] | | | | | | [place] [address] | | | | | | [phone] | | | | | | | | +--------+---------+ + + + documented as of this encounter Visit Diagnoses Not on filedocumented in this encounter"
--- OUTSIDE RECORDS SUMMARY | ~2020-04-30 | XMS | Encounter Summary ---
Demographics + + + | Address | [address] | | | [place] [address] | + + + | Home Phone [...] Author | [facility] [employer] [facility] | + + + | Organization | [facility] [email or web address] [facility] | + + + | Address | Unknown | + + + | Phone | Unavailable | + + + Support + + + + + | Name | Relationship | Address | Phone | + + + + + | Delonte Yung | ECON | [place] | | + + + + + Care Team Providers + +------+ + | Care Residential Building Inspector Name | Role | Phone | + [...] | | | | | Procedures | [place] for | Allergy | | | | | f/u ov | Health and | Asthma | | | | | | Healing, | Dermatology | | | | | | Building [address], | [address] | | | | | | [address]th Floor | [address] | | | | | | [place], [place] | [address] | | | | | | [address] | [place], [place] | | | | | | Phone: | [address] Phone: | | | | | | [phone] | [phone] | | | | | | Fax: | Fax: | | | | | | [phone] | [phone] | +--------+ + + + + + Encounter Details +--------+---------+ + + + | Date | Type | Department | Care Team | Description | +--------+---------+ + + + | 10/18/ | Office | Dermatology | Matt Powell MD | Psoriasis (Primary | | 2016 | Visit | Medical at [facility] [address] | [address] | Dx); Encounter for | | | | [facility] | [facility] [place] | long-term (current) | | | | for Health and | [address] | use of other | | | | [facility] 1, | [phone] | high-risk | | | | 16th Floor | | medications | | | | [place], [place] | | | | | | [address] | | | | | | [phone] | | | +--------+---------+ + + + [...] information is available at the following websites: http://[email or web address]/xd/health/services/dermatology/for-patients/health_info.cfm - [facility] Derm atology http://www.aad.org/public/sun/smart.html - [facility] [...] PST DERMATOLOGY FOLLOW-UP VISIT Last Appointment in [facility] was on 04/13/15 at 1:30 pm with [...] to encourage weight loss and consider seeing medical sales associate 3. 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 dorsal forearm -- advised pt that tx would likely make more psoriasis lesions appear so advised him to isaias ve them alone RETURN VISIT: 6 months Jose Bean MD Resident, Department of Dermatology [facility] documented in this en counter Plan of [...] + | [facility] AIR[facility] - | [address] | [place] [address] | | | [facility] | | | | + [...] | | | LABORATORY | | | EQUATORIAL [facility] | | | SERVICES, | | | [...] TAIWO LORA | [address] | [place] [address] | | | SERVICES, CORE | PARK [...]
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
--- OUTSIDE RECORDS SUMMARY | ~2020-04-30 | XMS | Encounter Summary ---
Demographics + + + | Address | [address] | | | [place] [address] | + + + | Home Phone [...] + + + | Author | [facility] [employer] [facility] | + + + | Organization | [facility] [employer] [facility] | + + + | Address [...] Team Providers + +------+ + | Care Dealer Analyst Name | Role | Phone | + +------+ + | Diane Little MD | PCP | | + +------+ + Encounter Details +--------+------+ + + + | Date | Type | Department | Care Team | Description | +--------+------+ + + + | 10/18/ | Lab | Laboratory at [facility] | | Psoriasis; Encounter | | 2015 | | [address] | | for long-term | | | | Center for Health | | (current) use of | | | | and Healing, | | other high-risk | | | | Building [address] | | medications | | | | [place], [place] | | | | | | [address] | | | | | | [phone] | | | +--------+------+ + + + [...] documented as of this encounter Progress Notes Yen Suazo MA - 11/07/2015 9:33 AM PST Quick Note: Patient informed documented in this encounter Plan of Treatment Not on filedocumented as of this encounter Procedures + +--------+ + + + | Procedure Name | Priori | Date/Time | Associated Diagnosis | Comments | | | ty | | | | + +--------+ + + + | CBC AND AUTO DIFF | Routin | 10/18/2015 | Psoriasis | Results for this | | | e | 12:20 PM | Encounter for | procedure are in the | | | | PST | long-term (current) | results section. | | | | | use of other | | | | | | high-risk | | | | | | medications | | + +--------+ + + + | QUANTIFERON TB GOLD, | Routin | 10/18/2015 | Psoriasis | Results for this | | BLOOD | e | 12:20 PM | Encounter for | procedure are in the | | | | PST | long-term (current) | results section. | | | | | use of other | | | | | | high-risk | | | | | | medications | | + +--------+ + + + | CBC, WITH | Routin | 10/18/2015 | Psoriasis | Results for this | | DIFFERENTIAL | e | 12:20 PM | Encounter for | procedure are in the | | | | PST | long-term (current) | results section. | | | | | use of other | | | | | | high-risk | | | | | | medications | | + +--------+ + + + | COMPLETE METABOLIC | Routin | 10/18/2015 | Psoriasis | Results for this | | SET | e | 12:20 PM | Encounter for | procedure are in the | | (NA,K,CL,CO2,BUN,CRE | | PST | long-term (current) | results section. | | AT,GLUC,CA,AST,ALT,B | | | use of other | | | VERONA TOTAL,ALK | | | high-risk | | | PHOS,ALB,PROT TOTAL) | | | medications | | + +--------+ + + + documented in this encounter Results CBC AND AUTO DIFF (10/18/2015 12:20 PM PST) + + + + + + | Component | Value | Ref Range | Performed | Pathologist | | | | | At | Signature | + + + + + + | WHITE CELL | 10.95 | 4.40 - 11.00 | [facility] | | | COUNT | | K/cu mm | LABORATORY | | | | | | SERVICES, | | | | | | [facility] | [facility] + | | | | | | HEALING | | + + + + + + | RED CELL | 5.75 | 4.50 - 6.00 | [facility] | | | COUNT | | M/cu mm | LABORATORY | | | | | | SERVICES, | | | | | | [facility] | | | | [facility] + | | | | | | HEALING | | + + + + + + | HEMOGLOBIN | 16.1 | 13.5 - 17.5 | [facility] | | | | | g/dL | LABORATORY | | | | | | SERVICES, | | | | | | [facility] | | | | | | [facility] + | | | | | | HEALING | | + + + + + + | HEMATOCRIT | 45.9 | 41.0 - 53.0 % | [facility] | | | | | | LABORATORY | | | | | | SERVICES, | | | | | | [facility] | [facility] | | | | [facility] + | | | | | | HEALING | | + + + + + + | MCV | 79.8 (L) | 80.0 - 96.0 fL | [facility] | | | | | | LABORATORY | | | | | | SERVICES, | | | | | | [facility] | | | | | | [facility] + | | | | | | HEALING | | + + + + + + | MCHC | 35.1 | 33.0 - 35.5 | [facility] | | | | | g/dL | LABORATORY | | | | | | SERVICES, | | | | | | [facility] | | | | [facility] + | | | | | | HEALING | | + + + + + + | RDW SD | 41.8 | 35.1 - 46.3 fL | [facility] | | | | | | LABORATORY | | | | | | SERVICES, | | | | | | [facility] | | | | | | [facility] + | | | | | | HEALING | | + + + + + + | PLATELET | 240 | 150 - 400 K/cu | [facility] | | | COUNT | | mm | LABORATORY | | | | | | SERVICES, | | | | | | [facility] | [facility] | | | | [facility] + | | | | | | HEALING | | + + + + + + | MPV | 10.5 | 9.7 - 12.3 fL | [facility] | | | | | | LABORATORY | | | | | | SERVICES, | | | | | | [facility] | | | | | | [facility] + | | | | | | HEALING | | + + + + + + | NEUTROPHIL | 58.3 | 50.0 - 70.0 % | [facility] | | | % | | | LABORATORY | | | | | | SERVICES, | | | | | | [facility] | | | | | | [facility] + | | | | | | HEALING | | + + + + + + | LYMPHOCYTE | 31.6 | 18.0 - 42.0 % | [facility] | | | % | | | LABORATORY | | | | | | SERVICES, | | | | | | [facility] | | | | | | [facility] + | | | | | | HEALING | | + + + + + + | MONOCYTE % | 6.9 | 3.5 - 9.0 % | [facility] | | | | | | LABORATORY | | | | | | SERVICES, | | | | | | [facility] | | | | | | [facility] + | | | | | | HEALING | | + + + + + + | EOS % | 2.6 | 1.0 - 3.0 % | [facility] | | | | | | LABORATORY | | | | | | SERVICES, | | | | | | [facility] | | | | | | [facility] + | | | | | | HEALING | | + + + + + + | BASO % | 0.6 | 0.0 - 2.0 % | [facility] | | | | | | LABORATORY | | | | | | SERVICES, | | | | | | [facility] | | | | | | [facility] + | | | | | | HEALING | | + + + + + + | NEUTROPHIL | 6.38 | 1.80 - 7.70 | [facility] | | | # | | K/cu mm | LABORATORY | | | | | | SERVICES, | | | | | | C[facility] FOR | | | | | | HEALTH + | | | | | | HEALING | | + + + + + + | LYMPHOCYTE | 3.46 | 1.00 - 4.80 | [facility] | | | # | | K/cu mm | LABORATORY | | | | | | SERVICES, | | | | | | [facility] | | | | | | [facility] + | | | | | | HEALING | | + + + + + + | MONOCYTE # | 0.76 | 0.10 - 0.90 | [facility] | | | | | K/cu mm | LABORATORY | | | | | | SERVICES, | | | | | | [facility] | | | | | | [facility] + | | | | | | HEALING | | + + + + + + | EOS # | 0.28 | 0.00 - 0.50 | [facility] | | | | | K/cu mm | LABORATORY | | | | | | SERVICES, | | | | | | [facility] | | | | | | [facility] + | | | | | | HEALING | | + + + + + + | BASO # | 0.07 | 0.00 - 0.10 | [facility] | | | | | K/cu mm | LABORATORY | | | | | | SERVICES, | | | | | | [facility] | | | | | | [facility] + | | | | | | HEALING | | + + + + + + + + | Specimen | + + | Blood - Blood | | (substance) | + + + + + + + | Performing | Address | City/State/Zipcode | Phone Number | | Organization | | | | + + + + + | [facility] | [address] | [place] [address] | | | [facility] | | | | | HEALTH + HEALING | | | | + + + + + QUANTIFERON TB GOLD, BLOOD (10/18/2015 12:20 PM [...] | + + + + + | [employer] [facility] - AIRPORT - | [address] | [place] [address] | | | [facility] | | | | + + + [...] | | | LABORATORY | | | [place] | | | SERVICES, | | | [...] | + + + + + | [facility] | [address] | [place] [address] | | | SERVICES, [place] | [place] [address]ONE | | | + + + + + documented in this encounter Visit Diagnoses + + | Diagnosis | + + | Psoriasis Other psoriasis | + + | Encounter for long-term (current) use of other high-risk medications Encounter for | | long-term (current) use of other medications | + + documented in this encounter"
--- OUTSIDE RECORDS SUMMARY | ~2020-04-30 | XMS | Encounter Summary ---
Demographics + + + | Address | [address] | | | [place] [address] | + + + | Home Phone [...] Author + + + | Author | [facility] | + + + | Organization | [facility] [employer] [facility] | + + [...] Team Providers + +------+ + | Care Enrollment Manager Name | Role | Phone | [...] Description | +--------+--------+ + + + | 02/06/ | Refill | Dermatology | Matt Powell MD | Refill Request | | 2016 | | Medical at [facility] [address] | [address] [facility] | | | | [address] [place] | [place], [place] | | | | | for Health and | [address] | | | | | Healing, Building [address], | [phone] | | | | | 16th Floor | | | | | | [place], [place] | | | | | | [address] | | | | | | [phone] | | | +--------+--------+ + + + [...]
--- OUTSIDE RECORDS SUMMARY | ~2020-04-30 | XMS | Encounter Summary ---
Demographics + + + | Address | [address] | | | [place] [address] | + + + | Home Phone | | + + + | Preferred Language | Unknown | + + + | Marital Status | Single | + + + | Taoism Affiliation | NON | + + + | Race | or | + + + | Ethnic Group | Not or | + + + Author + + + | Author | [facility] [employer] [facility] | + + + | Organization | [facility] [employer] [facility] | + + [...] Team Providers + +------+ + | Care Shrimper Name | Role | Phone | + +------+ + PCP | Unavailable | + +------+ + Encounter Details +--------+ + + + + | Date | Type | Department | Care Team | Description | +--------+ + + + + | 11/27/ | Office | [facility] | Report, Outpatient | Progress Note | | 2001 | Visit-Trans | | Consultation | | [...] as of this encounter Progress Notes Interface, Mushroom Spawn Maker In - 05/27/2006 3:11 AM PDTCLINIC DATE: 11/27/2001 CLINIC: CHILD DEVELOPMENT CLINIC DISCIPLINE: PSYCHIATRY I have been following Kimberley with the diagnosis of attention deficit hyperactivity disorder and intermittent explosive disorder. He takes Ritalin 20 mg four times a day, clonidine 0.1 mg one three times a day, and Risperdal 0.5 mg one two times a day. I saw Kimberley along with the nurse from the school and also his conference interpreter. His grandmother did not attend. The nurse reports that there are fewer reports of aggression. The biggest issue is that he goes to class and falls asleep within five minutes. He tells the person in the dorm that he is bored with class and he tells the teacher that he is not sleeping well. Currently the only medication that he is on is clonidine. Sometimes the school does not receive the medications other than clonidine so he has not been on Ritalin or Risperdal recently. I asked about the evidence for his not sleeping well. In the dorm people say that they check on him and they do not see him up a lot but he reports that he is up two or three times in the middle of the night. They are going to do some more systemic checking. I asked if there was something that would be more interesting to him in school and he said, It seems real easy. I asked also when he takes his last clonidine and it is at 8:00 p.m. He reported also spontaneously that it is boring in the dorms. I asked about who he is going to be seeing after I stop seeing him for my detention. The nurse said that she is not sure of that but that he has seen Dr. Brody at [facility] [address] in the past before coming here. I can see Kimberley one more time. We will wait until the next time for further documentation whether to do anything for his sleep. He apparently is functioning at the second grade level. He is in an eighth grade class. He gets community-based instruction. He apparently struggles with reading. I would like to see him back in two months. Brendan Caro M.D. Child Psychiatrist [id number]/[id number] signed by Interface, Mushroom Spawn Maker In at 05/27/2006 3:11 AM Carlosc umented in this encounter Plan of Treatment Not on filedocumented as of this encounter Visit Diagnoses Not on filedocumented in this encounter"
--- OUTSIDE RECORDS SUMMARY | ~2020-04-30 | XMS | Encounter Summary ---
Demographics + + + | Address | [address] | | | [place] [address] | + + + | Home Phone [...] Author + + + | Author | [facility] | + + + | Organization | [facility] | + + + | [...] Team Providers + +------+ + | Care Formation Fracturing Operator Name | Role | Phone | [...] Description | +--------+--------+ + + + | 04/17/ | Refill | Dermatology | Irene Holloway, | Refill Request | | 2017 | | Medical at [facility] [address] | MD [address] | ([facility] ) | | | | [address] [place] | [address] [place], | | | | | [facility] and | [place] [address] | | | | | [facility], [place] [address], | [phone] | | | | | 16th Floor | | | | | | [place], [place] | | | | | | [address] | | | | | | [phone] | | | +--------+--------+ + + + [...]
--- OUTSIDE RECORDS SUMMARY | ~2020-04-30 | XMS | Encounter Summary ---
Demographics + + + | Address | [address] | | | [place] [address] | + + + | Home Phone | | + + + | Preferred Language | Unknown | + + + | Marital Status | Single | + + + | Scientologist Affiliation | NON | + + + | Race | or | + + + | Ethnic Group | Not or | + + + Author + + + | Author | [facility] [employer] [facility] | + + + | Organization | [facility] | + + + [...] Team Providers + +------+ + | Care Home Restoration Service Supervisor Name | Role | Phone | + +------+ + | Nitin Field | PCP | | + +------+ + Reason for Visit + + + | Reason | Comments | + + + | Nursing Facility | Physician Orders for Medication | | Orders | | + + + Encounter Details +--------+ + + + + | Date | Type | Department | Care Team | Description | +--------+ + + + + | 12/26/ | Telephone | Dermatology | Matt Powell MD | Nursing Facility | | 2016 | | Medical at [facility] [address] | [address] [facility] | Orders (Physician | | | | [address] [facility] | [place], [place] | Orders for | | | | for Health and | [address] | Medication) | | | | [place] [address], | [phone] | | | | | [address] [place] [address] | | | | | | [place], [place] | | | | | | [address] | | | | | | [phone] | | | +--------+ + + + [...]
--- OUTSIDE RECORDS SUMMARY | ~2020-04-30 | XMS | Encounter Summary ---
Demographics + + + | Address | [address] | | | [place] [address] | + + + | Home Phone [...] Author | [facility] [employer] [facility] | + + + | Organization | [facility] | + + + [...] Team Providers + +------+ + | Care Bottle Gauger Name | Role | Phone | + [...] | Closed | Specialty | Dermatology | | Ehst, | Drm Med | | | Services | | | Shukri Baez, | [address] | | | Required | | | ,PhD | Micheal [address] | | | | | | Aylin | [facility] | | | | | | Allergy | Health and | | | | | | Asthma | Healing, | | | | | | Dermatology | [address], | | | | | | [address] 16[address] | | | | | | [address] | [place], [place] | | | | | | [address] | [address] | | | | | | [place], [place] | Phone: | | | | | | [address] | [phone] | | | | | | Phone: | Fax: | | | | | | [phone] | [phone] | | | | | | Fax: | | | | | | | [phone] | | +--------+ + + + + + Encounter Details +--------+---------+ + + + | Date | Type | Department | Care Team | Description | +--------+---------+ + + + | 04/13/ | Office | Dermatology | EhShukri dior, | Other psoriasis | | 2015 | Visit | Medical at [facility] [address] | MD,PhD Aylin | (Primary Dx); | | | | [facility] | Allergy Asthma | Verruca vulgaris; | | | | for Health and | Dermatology [address] | Encounter for | | | | Healing, [address], | [facility] [address] | long-term (current) | | | | 16th Floor | [place] [address] | use of other | | | | [place], [place] | [phone] | medications; Other | | | | [address] | | acne; Acquired | | | | [phone] | | acanthosis nigricans | +--------+---------+ + + + Social History [...] + + + | Blood Pressure | 132/82 | 04/13/2015 1:30 PM | | | | | PDT | | + + + + + | Pulse | 76 | 04/13/2015 1:30 PM | | | | | PDT | | + + + + + | Temperature | - | - | | + + + + + | Respiratory Rate | 16 | 04/13/2015 1:30 PM | | | | | PDT | | + + + + + | Oxygen Saturation | - | - | | + + + + + | Inhaled Oxygen | - | - | | | Concentration | | | | + + + + + | Weight | 143.8 kg (317 lb) | 04/13/2015 1:30 PM | | | | | PDT | | + + + + + | Height | - | - | | + + + + + | Body Mass Index | 42.99 | 08/18/2013 7:05 AM | | | | | PST | | + + + + + documented in this encounter Patient Instructions Patient Instructions Gabriele YenRAINA - 04/13/2015 1:30 PM PDTSUNSCREEN APPLICATION AN D UV PROTECTION ? Exposure to ultraviolet radiation is the leading cause of premature aging, and skin cance rs including melanoma. ? The [place] [employer] (AAD) recommends you wear a wide-brimmed hat, sun gla sses and sun protective clothing. If you must be in the sun, it is recommended to use a Bro ad spectrum sunscreen (blocking both UVA and UVB) with a sun protection factor (SPF) of 30+ (even on cloudy days) and reapply every two hours, or after swimming or heavy perspiration. ? Sunscreens should be applied generously and evenly. One fluid ounce (or the equivalent o f a full shot glass) is the approximate amount of sunscreen required for each person each ti me sunscreen is applied. ? Sunscreens have an expiration date and once that date is reached, they may lose effective ness and should be discarded. ? Sunscreen is also important for blocking reflected [...] information is available at the following websites: http://www.[facility]/xd/health/services/dermatology/for-patients/health_info.cfm - [facility] Derm atology http://www.aad.org/public/sun/smart.html - AAD Website documented in this encounter Progress Notes Shukri Anne MD,PhD - 04/14/2015 9:36 AM PDTAttending Physician Attestation I personally interviewed, examined the patient, and discussed management with the resident. I was present for the entirety of the minor procedure(s). I reviewed and edited the resid ent's note and agree with the documented findings and plan of care. Shukri Anne MD, PhD [employer], Department of Dermatology [facility] 04/13/2015 Jose Johnston MD - 04/13/2015 1:33 PM PDTFormatting of this note might be different from the o riginal. DERMATOLOGY FOLLOW-UP VISIT Dx: Inverse PsO Rx: Humira 40mg qow since 01/2012 inc to qw 02/2013 Betamethasone body Spectazole groin BPO wash SUBJECTIVE: Kimberley Yung is a 29 y.o. 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 He is currently on Humira 40 qw and is essentially clear although c/o some PsO beh ind the right ear. Both he and grandmother report improvement of PsO. OK with weekly dosing, although he did miss one dose in the interim. Tolerating self-injections well. Says his fun gal rash on his buttocks has greatly improved with OTC lamisil, and he thinks it is gone. Hi s is using BP wash for body acne and says it helps. He hasn't lost any weight since last vis it. Reports right knee pain which he attributes to prior trauma. AN around neck and in axillae is stable and he dosen't pay attention to it. Denies infections, SOB, chest pain, swelling, neuro changes, ISRs. Patient Active Problem List Diagnosis Other psoriasis Other specified disease of hair and hair follicles Intertrigo Acquired acanthosis nigricans Unspecified chronic suppurative otitis media Tympanic membrane perforation, marginal OBJECTIVE: Filed Vitals 04/13/2015 1:32 PM Weight: 143.79 kg (317 lb) BP: 132/82 Pulse: 76 Resp: 16 PainSc: 0 - Zero BMI: 42.98 kg/(m^2) WDWN, NAD; awake, alert and oriented; pleasant with appropriate mood and affect; obese A skin examination was performed including the scalp/hair, head/face, eyelids/conjunctivae, lips, neck, chest, back, abdomen, buttocks, bilateral arms and legs, bilateral hands and fe et, and nails. Findings were within normal limits except for the following: -- scalp and face clear except mild erythema of right postauricular crease with some sl lic henification -- bilateral axillae and neck with brownish plaques -- chest is clear -- both buttocks have PIH in large plaques -- no obvious swollen or tender finger joints, ankles, knees or elbows -right medial canthus: 1mm white papule -on the right dorsal hand/forearm: numerous linear flat-topped whitish verrucous papules No results for input(s): WBC, RBC, HCT, [...] week; RBA discussed -- CBC and CMP at next visit -- use 2.5% hydrocortisone to post-auricular, face, groin PRN -- wt loss would help 2. Acanthosis nigricans w/ retention hypkeratosis -- recommend weight loss and consider seeing truck service manager 3. Acne, truncal -- continue BPO 5% wash; use daily PRN 4. Tinea on buttocks -resolved 5. Flat warts, right dorsal hand/forearm -Procedure: Liquid Nitrogen application Prior to beginning the procedure, PARQ were discussed. Liquid nitrogen was applied x 10 se conds x 2 rounds to a total of 10 lesions. The expected blistering or scabbing reaction, as well as the possibility of hyperpigmented or hypopigmented scars was explained to the patie nt. The patient was counseled to return for further evaluation in the case of failure to fu lly resolve. 6. Milium, right medial canthus -removed using comedone extractor RETURN VISIT: 6 months MD JOSE Patel MD DERMATOLOGY MEDICAL AT [facility] 16TH FLOOR [address] Mail Code: [facility] [place] [address] documented in this en counter Plan of Treatment Not on filedocumented as of this encounter Procedures + +--------+ + + + | Procedure Name | Priori | Date/Time | Associated Diagnosis | Comments | | | ty | | | | + +--------+ + + + | GA DESTRUC BENIGN | Routin | 04/13/2015 | Verruca vulgaris | | | LESION, UP TO 14 | e | 2:12 PM | | | | LESIONS | | PDT | | | + +--------+ + + + documented in this encounter Visit Diagnoses + + | Diagnosis | + + | Other psoriasis - Primary | + + | Verruca vulgaris Viral warts, unspecified | + + | Encounter for long-term (current) use of other medications | + + | Other acne | + + | Acquired acanthosis nigricans | + + documented in this encounter
--- OUTSIDE RECORDS SUMMARY | ~2020-04-30 | XMS | Encounter Summary ---
Demographics + + + | Address | [address] [place] [address] ROAD | | | [place] [address] | + + + | Home Phone | | + + + | Preferred Language | Unknown | + + + | Marital Status | Single | + + + | Pentecostalism Affiliation | Unknown | + + + | Race | Unknown | + + + | Ethnic Group | Unknown | + + + Author + + + | Author | [facility] | | | and [facility] | + + + | Organization | [facility] | | | and [facility] | [...] Team Providers + +------+ + | Care Web Marketing Coordinator Name | Role | Phone | + +------+ + | Nitin Field PA-C | PCP | | + +------+ + Reason for Visit + +--------+ + | Reason | Onset | Comments | | | Date | | + +--------+ + | Care Coordination | 09/04/ | | | | 2019 | | + +--------+ + Encounter Details +--------+ + + + + | Date | Type | Department | Care Team | Description | +--------+ + + + + | 09/04/ | Telephone | [facility] | [address] | Care Coordination | | 2018 | | NEUROSCIENCE | MD Samantha [address] | | | | | [facility] | [address] [address] [facility] | | | | | [facility] | [place] [address] | | | | | [address] [place] [facility] | [phone] | | | | | [place], [place] | | | | | | [address] | | | | | | [phone] | | | +--------+ + + + [...] this encounter Miscellaneous Notes Telephone Encounter - Luis Enrique Vannessa Baez - 09/04/2019 2:[address] request, I had sent patient's medication that he left via [employer] overnight service. Tracking number f or package is [id number]. It is sent to arrive tomorrow, 09/05/19. I called patient to alert him of this, but he did not answer. VM left.Vannessa Dudley documented in this encou nter Plan of Treatment +--------+---------+ + + + | Date | Type | Specialty | Care Team | Description | +--------+---------+ + + + | 05/02/ | Office | Neurology | Rom Marcos, | | 2019 | Visit | | MD Ingrid [address] | | | | | | [place] | | | | | | [place] [address] | | | | | | [phone] | | | | | | | | +--------+---------+ + + + | 06/06/ | Office | Dermatology | Edwige Adams | | 2019 | Visit | | [address] | | | | | | [address] | | | | | | [place] [address] | | | | | | [phone] | | | | | | | | +--------+---------+ + + + documented as of this encounter Visit Diagnoses Not on filedocumented in this encounter"
--- OUTSIDE RECORDS SUMMARY | ~2020-04-30 | XMS | Encounter Summary ---
Demographics + + + | Address | [address] | | | [place] [address] | + + + | Home Phone | | + + + | Preferred Language | Unknown | + + + | Marital Status | Single | + + + | Methodist Affiliation | NON | + + + [...] Team Providers + +------+ + | Care Filterer Name | Role | Phone | + +------+ + PCP | Unavailable | + +------+ + Encounter Details +--------+ + + + + | Date | Type | Department | Care Team | Description | +--------+ + + + + | 09/20/ | Results | | Other, Faculty | | | 2000 | Only | | [phone] | | +--------+ + + + + [...] | + +--------+ + + + | DERMATOPATHOLOGY([facility] Routin | 09/20/2000 | | Results for this | | [facility]) | e | | | procedure are in the | | | | | | results section. | + +--------+ + + + documented in this encounter Results DERMATOPATHOLOGY([facility]) (09/20/2000) + + + + + + | Component | Value | Ref Range | Performed | Pathologist | | | | | At | Signature | + + + + + + | DERMATOPATH | SOURCE OF SPECIMEN: | | | | | OLOGY(WET | FIRST TISSUE LEVEL IV | | | | | MNT) | [address] CLINICAL | | | | | | DESCRIPTION:Excision, | | | | | | rt. cheek; irreg. shaped | | | | | | black papule; IDN vs | | | | | | melanoma. GROSS | | | | | | DESCRIPTION:Right cheek, | | | | | | ellipse, 1.4 x 0.7 x | | | | | | 0.5 cm, inked, five | | | | | | segments. MICROSCOPIC | | | | | | DESCRIPTION:There are | | | | | | nests of melanocytes | | | | | | along the dermal | | | | | | epidermal junction | | | | | | andorderly nests of | | | | | | uniform nevus cells | | | | | | within the dermis. 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 There | | | | | | is no evidence of | | | | | | melanoma. | | | | | | TUYET/jyi09/26/00Rendering | | | | | | Diagnostician: Kevin | | | | | | Tiffanie Holcomb Jr., | | | | | | WarrenPathologistEvelynei | | | | | | daja Signed | | | | | | 09/26/2000Comment: | | | | | | SOURCE OF SPECIMEN: | | | | | | FIRST TISSUE LEVEL IV | | | | | | [address]97 | | | | + + + + + + + + | Specimen | + + | | + + + + + | Narrative | Performed At | + + + | Ordered by Caridad Clayton | | + + + + + + + + | Performing | Address | City/State/Zipcode | Phone Number | | Organization | | | | + + + + + | [facility] | [address] | [place] [address] | | | DERMATOPATHOLOGY | [address] | | | + + + + + documented in this encounter Visit Diagnoses Not on filedocumented in this encounter"
--- OUTSIDE RECORDS SUMMARY | ~2020-04-30 | XMS | Encounter Summary ---
Demographics + + + | Address | [address] [place] [address] ROAD | | | [place] [address] | + + + | Home Phone | | + + + | Preferred Language | Unknown | + + + | Marital Status | Single | + + + | Roman Catholic Affiliation | Unknown | + + + | Race | Unknown | + + + | Ethnic Group | Unknown | + + + Author + + + | Author | [facility] | | | and [facility] | + + + | Organization | [facility] | | | and [facility] [...] Providers + +------+ + | Care Supervisor Extrusion Name | Role | Phone | + +------+ + | Nitin Field PA-C | PCP | | + +------+ + Reason for Visit + +--------+ + | Reason | Onset | Comments | | | Date | | + +--------+ + | Care Coordination | 08/07/ | veeg questions | | | 2019 | | + +--------+ + Encounter Details +--------+ + + + + | Date | Type | Department | Care Team | Description | +--------+ + + + + | 08/07/ | Telephone | [facility] | [address] | Care Coordination | | 2019 | | NEUROSCIENCE | MD Samantha [address] | (veeg questions) | | | | [facility] | [address] | | | | | [facility] | [place] [address] | | | | | [address] [place] [address] | [phone] | | | | | [place], [place] | | | | | | [address] | | | | | | [phone] | | | +--------+ + + + [...] this encounter Miscellaneous Notes Telephone Encounter - Kiana Fernando Semaj - 08/07/2019 10:29 AM PSTLVM for Marcy to CB regard ing pt's upcoming VEEG. I shayne stated on the VM that the nurses will be calling to give VEEG education and can answer any questions at that time as well. elephone Encounter - Abdullahi Kiana Cha - 08/07/2019 10:2 8 AM PST----- Message from Jerrica Drake sent at 08/05/2019 12:01 PM PST ----- Regarding: RE: Question about VEEG ----- Message ----- From: Vannessa Ashraf Sent: 08/05/2019 10:54 AM PST To: [facility] Subject: Question about VEEG Please call Marcy at [phone] patients mom has question about VEEG appt that is coming up documented in this encou nter Plan of Treatment +--------+---------+ + + + | Date | Type | Specialty | Care Team | Description | +--------+---------+ + + + | 05/02/ | Office | Neurology | Rom Marcos, | | | 2019 | Visit | | MD Ingrid [address] | | | | | | [address] | | | | | | [place] [address] | | | | | | [phone] | | | | | | | | +--------+---------+ + + + | 06/06/ | Office | Dermatology | Edwige Adams | | | 2020 | Visit | | [address] | | | | | | [address] | | | | | | [facility] [place] [address] | | | | | | [phone] | | | | | | | | +--------+---------+ + + + documented as of this encounter Visit Diagnoses Not on filedocumented in this encounter"
--- OUTSIDE RECORDS SUMMARY | ~2020-04-30 | XMS | Encounter Summary ---
Demographics + + + | Address | [address] | | | [place] [address] | + + + | Home Phone | | + + + | Preferred Language | Unknown | + + + | Marital Status | Single | + + + | Presybeterian Affiliation | NON | + + + | Race | or | + + + | Ethnic Group | Not or | + + + Author + + + | Author | [facility] | + + + | Organization | [facility] | [...] Team Providers + +------+ + | Care Fuel Cell Battery Technician Name | Role | Phone | [...] Description | +--------+---------+ + + + | 08/18/ | Surgery | 4N INTRA OP 3[address] | Elba Muñoz | RIGHT TYMPANOPLASTY | | 2012 | | [address] | MD Coby [address] | WITHOUT MASTOID; EAR | | | | [place]tsatish Galindo | [address] | CARTILAGE GRAFT | | | | Ambulatory Surgery | [place], [place] | | | | | Admitting Desk | [address] | | | | | Located on the [facility] | [phone] | | | | | floor, Room [facility] | | | | | | [place], [place] | | | | | | [address] | | | +--------+---------+ + + + [...] | 0 | 08/18/20 | | | naxxdxgu-akmsqymbr-g | the right ear three | | | 13 | | | ydrocortisone | times daily. | | | | | | (CORTISPORIN) | | | | | | | 3.5-10,000-1 | | | | | | | mg-unit/mL-% otic | | | | | | | drops,suspension | | | | | | + + + +---------+ + + | Burton-3 Fatty | Take 3 capsules by | [...] The patient was positioned appropriately. The following preanalytics team lead s were present during the team pause: [...] Brink | | | | | | Germain, | | | | | | Warren/PathologistT: | | | | | | 013/rdl [...] | + + + + + | [facility] | [address] | [place] [address] | | | PATHOLOGY | [address] | | | + + + + + documented in this encounter Visit Diagnoses + + | Diagnosis | + + | Acute suppurative otitis media without spontaneous rupture of eardrum | + + | Unspecified chronic suppurative otitis media | + + | Marginal perforation of tympanic membrane Other marginal perforation of tympanic | | membrane | + + | Sensorineural hearing loss, bilateral | + + | Otorrhea, unspecified | + + | Otalgia, unspecified | + + documented in this encounter Administered Medications + +--------+ +------+------+--------+ | Medication Order | MAR | Action | Dose | Rate | Site | | | Action | Date | | | | + +--------+ +------+------+--------+ | EPINEPHrine (ADRENALIN) | Given | 08/18/20 | 3 mL | | Right | | injection INTRAPROCEDURE PRN, | | 13 8:52 | | | Ear | | Starting 08/18/13 at 0852, | | AM PST | | | | | Until Sat08/18/13 at 1135 | | | | | | + +--------+ +------+------+--------+ +---+---+ | | | +---+---+ + +---------+ +--------+---+---+ | fentaNYL citrate (PF) | New Bag | 08/18/20 | 25 mcg | | | | (SUBLIMAZE) injection 25 mcg 25 | | 13 11:56 | | | | | mcg, intravenous, POSTPROCEDURE | | AM PST | | | | | PRN, Starting Sat08/18/13 at | | | | | | | 0818, Until Sat08/18/13 at 2023, | | | [...] injection 1 dose, | | | Starting Sat08/18/13 at 1151, | | | Until 08/18/13 at 1156 | | + +---+ | | | + +---+ + +---------+ +--------+---+---+ | HYDROmorphone (DILAUDID) | New Bag | 08/18/20 | 0.5 mg | | | | injection 0.2-0.5 mg 0.2-0.5 mg, | | 13 12:24 | | | | | intravenous, POSTPROCEDURE PRN, | | PM PST | | | | | Starting 08/18/13 at 0818, | | | | | | | Until 08/18/13 at 2024, | | | | | | | [...] at 1202, Until Tue | | | 12 at 1224 | | + +---+ | | | + +---+ + +-------+ +------+---+---+ | lidocaine-EPINEPHrine | Given | 08/18/20 | 8 mL | | | | (XYLOCAINE WITH EPINEPHRINE) 1 | | 13 8:00 | | | | | %-1:100,000 injection | | AM PST | | | | | INTRAPROCEDURE PRN, Starting Tue | | | | | | | 08/18/13 at 0800, Until Tue | | | | | | | 13 at 1135 | | | | | | + +-------+ +------+---+---+ +---+---+ | | | +---+---+ + +-------+ +------+---+---+ | mupirocin (BACTROBAN) 2 % nasal | Given | 08/18/20 | 22 g | | | | ointment INTRAPROCEDURE PRN, | | 13 11:17 | | | | | Starting 08/18/13 at 1117, | | AM PST | | | | | Until 08/18/13 at 1135 | | | | | | + +-------+ +------+---+---+ +---+---+ | | | +---+---+ documented in this encounter
--- OUTSIDE RECORDS SUMMARY | ~2020-04-30 | XMS | Encounter Summary ---
Demographics + + + | Address | [address] [place] [address] ROAD | | | [place] [address] | + + + | Home Phone | | + + + | Preferred Language | Unknown | + + + | Marital Status | Single | + + + | Yazidi Affiliation | Unknown | + + + | Race | Unknown | + + + | Ethnic Group | Unknown | + + + Author + + + | Author | [facility] | | | and [place] | + + + | Organization | [facility] | | | and [facility] [...] Team Providers + +------+ + | Care Horticulture Instructor Name | Role | Phone | + +------+ + | Nitin Field PA-C | PCP | | + +------+ + Reason for Visit +--------+--------+ + | Reason | Onset | Comments | | | Date | | +--------+--------+ + | Other | 07/01/ | LVM to schedule appt | | | 2018 | | +--------+--------+ + Encounter Details +--------+ + + + + | Date | Type | Department | Care Team | Description | +--------+ + + + + | 07/01/ | Telephone | [facility] | Yesi Barker, | Other (LVM to | | 2018 | | NEUROLOGY [address] | SENIOR GENETIC COUNSELOR | schedule appt) | | | | [address] | | | | | | [place], [place] | | | | | | [address] | | | | | | [phone] | | | +--------+ + + + [...] this encounter Miscellaneous Notes Telephone Encounter - Yesi Barker CMA - 07/01/2019 10:24 AM PDTCalled Marcy rico per the request of [employer]. VU and requested a return call. documented in this encounter Plan of Treatment +--------+---------+ + + + | Date | Type | Specialty | Care Team | Description | +--------+---------+ + + + | 05/02/ | Office | Neurology | Rom Marcos, | | | 2019 | Visit | | MD Ingrid [address] | | | | | | [address] | | | | | | [place] [address] | | | | | | [phone] | | | | | | | | +--------+---------+ + + + | 06/06/ | Office | Dermatology | Edwige Adams | | 2019 | Visit | | [address] | | | | | | [address] | | | | | | [place] [address] | | | | | | [phone] | | | | | | | | +--------+---------+ + + + documented as of this encounter Visit Diagnoses Not on filedocumented in this encounter"
--- OUTSIDE RECORDS SUMMARY | ~2020-04-30 | XMS | Encounter Summary ---
Demographics + + + | Address | [address] [place] [address] ROAD | | | [place] [address] | + + + | Home Phone | | + + + | Preferred Language | Unknown | + + + | Marital Status | Single | + + + | Buddhism Affiliation | Unknown | + + + | Race | Unknown | + + + | Ethnic Group | Unknown | + + + Author + + + | Author | [facility] | | | and [place] | + + + | Organization | [facility] | | | and [place] [...] Team Providers + +------+ + | Care Vp Clinical Name | Role | Phone | + +------+ + | Scarlet Bello PA-C | PCP | | + +------+ + Reason for Visit + +--------+ + | Reason | Onset | Comments | | | Date | | + +--------+ + | Paperwork | 08/07/ | medical recommendation | | | 2018 | | + +--------+ + Encounter Details +--------+ + + + + | Date | Type | Department | Care Team | Description | +--------+ + + + + | 08/07/ | Telephone | [facility] | Rom Marcos, | Paperwork (medical | | 2018 | | NEUROLOGY [address] | recommendation ) | | | | [address] | [facility] [address] | | | | | [place], [place] | [place] [address] | | | | | [address] | [phone] | | | | | [phone] | | | +--------+ + + + [...] Miscellaneous Notes Telephone Encounter - Tracy Nichols, Chicken Handler - 08/19/2019 11:37 AM PSTSent and completed yesterday by Rosibel RITCHIE elephone Encounter - Alejandra Underwood - 08/07/2019 2:01 PM PST Marcy- Mother, is calling again for Paperwork (medical recommendation ) and would like a call back. Additional Call Details: Caller is providing the fax for the paperwork to be sent to: attention: Kimberley Yung. States the paperwork is needs so patient can have his cousin accompany him to his appointment in [place]. Please call Marcy back to confirm at . elephone Encounter - Selam White - 08/07/2019 10:17 AM PSTJulice, is calling again for Paperwork (medi ross recommendation ) and would like a call back. Additional Call Details: caller is requesting call back as to why they patient is needing to be seen in [place] and who referred him there. She is requesting call back elephone Frantz Harper - 08/07/2019 9:18 AM PSTVivian, is calling regarding Paperwork (medic al recommendation ) and would like a call back. Additional Call Details: Calling to request a document be made reflecting Dr. Marcos's rec ommendation that somebody accompany patient to [place]. That person will be Marco Jacobson , and the document will help with Marco's lodging. Requesting it to be made and she will c all back later with how she can receive it or if she will pick it up. Can be reached at . If this is a symptom based call, was patient offered triage? Not Applicable If this is a symptom based call and you were unable to immediately transfer the call to a lisandra singh equal opportunity representative was caller made aware that if at [...] | | | | | [place] [address] | | | | | | [phone] | | | | | | | | +--------+---------+ + + + | 06/06/ | Office | Dermatology | Edwige Adams | | | 2019 | Visit | | [address] | | | | | | [address] | | | | | | [place] [address] | | | | | | [phone] | | | | | | | | +--------+---------+ + + + documented as of this encounter Visit Diagnoses Not on filedocumented in this encounter"
--- OUTSIDE RECORDS SUMMARY | ~2020-04-30 | XMS | Encounter Summary ---
Demographics + + + | Address | [address] | | | [place] [address] | + + + | Home Phone [...] Author + + + | Author | [facility] | + + + | Organization | [facility] | + + + [...] Team Providers + +------+ + | Care Accounts Receivable Coordinator Name | Role | Phone | [...] Visit | Medicine Clinic at | A, REHABILITATION PROGRAM COORDINATOR [address] | (Primary Dx); | | | | MPV 4th Floor Day | [address] | Unspecified chronic | | | | Stay [address] | [place], [place] | suppurative otitis | | | | [address] | [id number] | media | | | | Mailcode: [id number] | | | | | | [facility] | | | | | | [address] [place], [place] | | | | | | [address] | | | | | | [phone] | | | +--------+---------+ + + + [...] cm (6') | 08/04/2013 1:06 PM | [email or web address] | | | | PST | | + + + + + | Body Mass Index | 45.71 | 08/04/2013 1:06 PM | | | | | PST | | + + + + + documented in this encounter Patient Instructions Patient Instructions Shadia Oor NP - 08/04/2013 1:18 PM PST PREOPERATIVE [...] your procedure. Surgery Check in Locations Admitting [facility], ninth floor [facility] Day Stay Unit - [facility], 4th floor Room [address]136 [facility] Day Stay [facility], [...] it is after office hours, call the [facility] real time operator at [phone] and ask them to page him or h er. Preparing For Your Surgery Video -- 7 minutes of instructions! 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 He uses sign language [...] rash in s kin folds, including groin. SYWZHINY-GYSARYJVC-XJ 3.5 MG-10,000 UNIT/ML-1 % EAR DROPS, SUSP [...] to this patient's care. ADDISON Camara NP [facility] [address] [facility] [address] The patient was also advised regarding [...]
--- OUTSIDE RECORDS SUMMARY | ~2020-04-30 | XMS | Encounter Summary ---
Demographics + + + | Address | [address] [place] [address] ROAD | | | [place] [address] | + + + | Home Phone | | + + + | Preferred Language | Unknown | + + + | Marital Status | Single | + + + | Yazdanism Affiliation | Unknown | + + + | Race | Unknown | + + + | Ethnic Group | Unknown | + + + Author + + + | Author | [facility] | | | and [place] | + + + | Organization | [facility] | | | and [place] | [...] + +------+ + | Care Accounts Receivable Collector Name | Role | Phone | + [...] Description | +--------+--------+ + + + | 06/23/ | Refill | [facility] | Rom Marcos, | Medication Refill | | 2018 | | NEUROLOGY [address] | [address] | | | | | [address] | [facility] | | | | | [place], [place] | [place] [address] | | | | | [address] | [phone] | | | | | [phone] | | | +--------+--------+ + + + [...] encounter Miscellaneous Notes Telephone Encounter - Chandler Rees, Semiconductor Wafers Marker - 06/23/2019 12:40 PM PDTLast vi sit:03/25/19 Next visit:none patient canceled Last filled:old epic Number of refills:0 Per last note:4- Increase Trileptal 1200 mg bid and continue zonisamide 500 mg daily. Check Trileptal level and zonismaide before am dose to r/o toxicity and to ensure therapeutic lev el and good adherence. NAdocu mented in this encounter Plan of Treatment +--------+---------+ + + + | Date | Type | Specialty | Care Team | Description | +--------+---------+ + + + | 05/02/ | Office | Neurology | Rom Marcos, | | 2019 | Visit | | MD Ingrid [address]ATT | | | | | | [address] | | | | | | [place] [address] | | | | | | [phone] | | | | | | | | +--------+---------+ + + + | 06/06/ | Office | Dermatology | Edwige Adams | | 2019 | Visit | | [address] | | | | | | [address] | | | | | | [place] [address] | | | | | | [phone] | | | | | | | | +--------+---------+ + + + documented as of this encounter Visit Diagnoses Not on filedocumented in this encounter"
--- OUTSIDE RECORDS SUMMARY | ~2020-04-30 | XMS | Encounter Summary ---
Demographics + + + | Address | [address] | | | [place] [address] | + + + | Home Phone | | + + + | Preferred Language | Unknown | + + + | Marital Status | Single | + + + | Zoroastrian Affiliation | NON | + + + | Race | or | + + + | Ethnic Group | Not or | + + + Author + + + | Author | [facility] | + + + | Organization | [facility] | + + + | [...] Team Providers + +------+ + | Care Assembler Finger Buffs Name | Role | Phone | + +------+ + | Diane Little MD | PCP | | + +------+ + Reason for Visit + + + | Reason | Comments | + + + | Prior Authorization | Humira 40MG/0.8 ML Syring | | Request | | + + + Encounter Details +--------+ + + + + | Date | Type | Department | Care Team | Description | +--------+ + + + + | 01/21/ | Telephone | Dermatology | Shukri Anne, | Prior Authorization | | 2014 | | Medical at [facility] [address] | ,PhD [address]iera | Request ([facility] | | | | [facility] | Allergy Asthma | 40MG/0.8 ML Syring) | | | | for Health and | Dermatology [address] | | | | | [facility], [address], | [facility] | | | | | 16th Floor | [place] [address] | | | | | [place], [place] | [phone] | | | | | [address] | | | | | | [phone] | | | +--------+ + + + [...]
--- OUTSIDE RECORDS SUMMARY | ~2020-04-30 | XMS | Encounter Summary ---
Demographics + + + | Address | [address] | | | [place] [address] | + + + | Home Phone [...] Author + + + | Author | [facility] | + + + | Organization | [facility] | + + + [...] Team Providers + +------+ + | Care Sheet Cutting Operator Name | Role | Phone | + +------+ + | Nitin Field | PCP | | + +------+ + Encounter Details +--------+ + + + + | Date | Type | Department | Care Team | Description | +--------+ + + + + | 10/28/ | Abstract | Neurology at | Unknown . | | | 2019 | | [facility] | | | | | | Healing [address] | | | | | | [place] [facility] | | | | | | Health and Healing, | | | | | | Building | | | | | | Floor [place], [place] | | | | | | [address] | | | | | | [phone] | | | +--------+ + + + [...]
--- OUTSIDE RECORDS SUMMARY | ~2020-04-30 | XMS | Encounter Summary ---
Demographics + + + | Address | [address] [place] [address] ROAD | | | [place] [address] | + + + | Home Phone | | + + + | Preferred Language | Unknown | + + + | Marital Status | Single | + + + | Sabianism Affiliation | Unknown | + + + | Race | Unknown | + + + | Ethnic Group | Unknown | + + + Author + + + | Author | [facility] | | | and Mendez[place] | + + + | Organization | [facility] | | | and Mendezana [...] Team Providers + +------+ + | Care Messenger Floorperson Name | Role | Phone | + [...] Closed | | Radiology | Diagnoses | [place], | [facility] | | | | | Abnormal | MD Rom | Mri [address]45 | | | | | brain MRI | [address] | | | | | Procedures | [address] | [address] | | | | | MRI Cervical | DRIVE [address] | [place], [place] | | | | | Spine w wo | D | [address] | | | | | Contrast | [place], | Phone: | | | | | | [place] [address] | [phone] | | | | | | Phone: | Fax: | | | | | | [phone] | [phone] | | | | | | Fax: | | | | | | | [phone] | | +--------+--------+ + + + + [...] 100 | | | | | MRI Cervical | DRIVE SUITE | [place], [place] | | | | | Spine w wo | D | [address] | | | | | Contrast | [place], | Phone: | | | | | | [place] [address] | [phone] | | | | | | Phone: | Fax: | | | | | | [phone] | [phone] | | | | | | Fax: | | | | | | | [phone] | | +--------+--------+ + + + + Encounter Details +--------+ + + + + | Date | Type | Department | Care Team | Description | +--------+ + + + + | 06/30/ | Hospital | [facility] | Rom Marcos, | Abnormal brain MRI | | 2020 | Encounter | [facility] MRI 945 | [address] | | | | | [address] | [address] | | | | | [place], [place] | [place] [address] | | | | | [address] | [phone] | | | | | [phone] | | | +--------+ + + + [...] + + + +---------+ + + | Corydon 3 1000 MG | Take by mouth. [...] Baez | | | | | | [place] [address] | | | | | | [phone] | | | | | | | | +--------+---------+ + + + | 06/06/ | Office | Dermatology | Edwige Adams | | | 2019 | Visit | | [address] [address] | | | | | | [address] | | | | | | [place] [address] | | | | | | [phone] | | | | | | | | +--------+---------+ + + + documented as of this encounter Procedures + +--------+ + + + | Procedure Name | Priori | Date/Time | Associated Diagnosis | Comments | | | ty | | | | + +--------+ + + + | MRI CERVICAL SPINE W | Routin | 03/15/2020 | Abnormal brain MRI | Results for this | | WO CONTRAST | e | 12:00 PM | | procedure are in the | | | | PDT | | results section. | + +--------+ + + + documented in this encounter Results MRI Cervical Spine w wo Contrast (03/15/2020 12:00 PM PDT) + + | Specimen | + + | | + + + + + | Impressions | Performed At | + + + | 1. Congenitally narrow cervical spinal canal due to short pedicles | [facility] | | from C3 through C6. 2. Small disc bulge at C4-5 and right central | | | disc protrusion at C5-6 abut and indent the anterior cord at both | | | levels without causing cord signal change, syrinx or hydromyelia. 3. | | | The disc at C5-6 also narrows the entrance to the right neural | | | foramen causing mild compression of the exiting right C6 nerve root. | | | 4. No evidence of lesions in the cord to suggest multiple sclerosis | | | plaques. No enhancing lesions are seen to indicate active areas of | | | demyelination. Signed by: Maria De Jesus Garay Edward Sign | | | Date/Time: 03/15/2020 5:15 PM | | + + + + + + | Narrative | Performed At | + + + | MRI CERVICAL SPINE WITHOUT AND WITH CONTRAST CLINICAL | [facility] | | INFORMATION: Multiple sclerosis, monitor COMPARISON: None | | | PROCEDURE: Sagittal T2, axial T2, sagittal T1, axial T1, sagittal | | | STIR, axial T1 enhanced, and sagittal T1 enhanced sequences. | | | Contrast: 14ml gadavist IV. FINDINGS: Alignment: Normal. | | | Vertebrae and vertebral marrow signal: Normal. Spinal canal: The | | | patient has a congenitally narrow cervical spinal canal due to short | | | pedicles from C3 through C6. As an example, at the mid C4 level | | | maximum AP diameter of the canal is only 9.3 mm while the cord | | | measures 7.5 mm. This predisposes the patient to significant canal | | | and neuroforaminal stenosis with only mild degenerative change. | | | Cervicomedullary junction and cervical cord: Normal. No cord | | | compression, cord signal abnormality, pathologic enhancement, or | | | syrinx. Cervical disc levels: C2-C3: Normal disc. Canal and | | | neural foramina are patent. Facet joints are normal. C3-C4: | | | Normal disc. Canal and neural foramina are patent. Facet joints | | | are normal. C4-C5: The disc is normal in height. Small central | | | disc bulge minimally indents the anterior cord due to the | | | congenitally narrow canal. The neural foramina are patent. The | | | facet joints are normal. C5-C6: Mild disc space narrowing. Small | | | right central disc protrusion is seen which abuts and indents the | | | anterior cord without causing cord signal change. The disc is | | | narrowing the entrance to the right neural foramen causing possible | | | compression of the right C6 nerve root. The left neural foramen is | | | patent. The facet joints are normal. C6-C7 and below: Normal | | | discs. Canal and neural foramina are patent. Facet joints are | | | normal. Paraspinal musculature and paravertebral soft tissues: | | | Normal. The thyroid gland appears normal. No obvious adenopathy is | | | seen in the neck. The parotid and submandibular glands appear | | | grossly normal. | | + + + + + | Procedure Note | + + | Jovan, [id number] - 03/15/2020 5:19 PM PDT | | MRI CERVICAL SPINE WITHOUT AND WITH CONTRAST | | | | CLINICAL INFORMATION: | | Multiple sclerosis, monitor | | | | COMPARISON: | | None | | | | PROCEDURE: | | Sagittal T2, axial T2, sagittal T1, axial T1, sagittal STIR, axial T1 | | enhanced, and sagittal T1 enhanced sequences. | | | | Contrast: 14ml gadavist IV. | | | | FINDINGS: | | Alignment: Normal. | | | | Vertebrae and vertebral marrow signal: Normal. | | | | Spinal canal: The patient has a congenitally narrow cervical spinal | | canal due to short pedicles from C3 through C6. As an example, at the | | mid C4 level maximum AP diameter of the canal is only 9.3 mm while the | | cord measures 7.5 mm. This predisposes the patient to significant | | canal and neuroforaminal stenosis with only mild degenerative change. | | | | Cervicomedullary junction and cervical cord: Normal. No cord | | compression, cord signal abnormality, pathologic enhancement, or syrinx. | | | | Cervical disc levels: | | | | C2-C3: Normal disc. Canal and neural foramina are patent. Facet | | joints are normal. | | | | C3-C4: Normal disc. Canal and neural foramina are patent. Facet | | joints are normal. | | | | C4-C5: The disc is normal in height. Small central disc bulge | | minimally indents the anterior cord due to the congenitally narrow | | canal. The neural foramina are patent. The facet joints are normal. | | | | C5-C6: Mild disc space narrowing. Small right central disc protrusion | | is seen which abuts and indents the anterior cord without causing cord | | signal change. The disc is narrowing the entrance to the right neural | | foramen causing possible compression of the right C6 nerve root. The | | left neural foramen is patent. The facet joints are normal. | | | | C6-C7 and below: Normal discs. Canal and neural foramina are patent. | | Facet joints are normal. | | | | Paraspinal musculature and paravertebral soft tissues: Normal. | | The thyroid gland appears normal. No obvious adenopathy is seen in the | | neck. The parotid and submandibular glands appear grossly normal. | | | | IMPRESSION: | | 1. Congenitally narrow cervical spinal canal due to short pedicles from | | C3 through C6. | | 2. Small disc bulge at C4-5 and right central disc protrusion at C5-6 | | abut and indent the anterior cord at both levels without causing cord | | signal change, syrinx or hydromyelia. | | 3. The disc at C5-6 also narrows the entrance to the right neural | | foramen causing mild compression of the exiting right C6 nerve root. | | 4. No evidence of lesions in the cord to suggest multiple sclerosis | | plaques. No enhancing lesions are seen to indicate active areas of | | demyelination. | | | | | | | | | | Signed by: Maria De Jesus Garay Edward | | Sign Date/Time: 03/15/2020 5:15 PM | + + + +---------+ + + [...] head | + + documented in this encounter"
--- OUTSIDE RECORDS SUMMARY | ~2020-04-30 | XMS | Encounter Summary ---
Demographics + + + | Address | [address] | | | [place] [address] | + + + | Home Phone [...] + + | Author | [facility] | + + + | Organization | [facility] | + + + | [...] Team Providers + +------+ + | Care Crop Duster Name | Role | Phone | + +------+ + | Rita Rodriguez MD | PCP | | + +------+ + Encounter Details +--------+ + + + + | Date | Type | Department | Care Team | Description | +--------+ + + + + | 08/30/ | Abstract | Neurology at | Yoseph Hein MD | | | 2010 | | [facility] & | [address] | | | | | Healing [address] | [place], [place] | | | | | [facility] | [address] | | | | | Health and Healing, | [phone] | | | | | [facility] | | | | | | Floor [facility] [place] | | | | | | [address] | | | | | | [phone] | | | +--------+ + + + [...]
--- OUTSIDE RECORDS SUMMARY | ~2020-04-30 | XMS | Encounter Summary ---
Demographics + + + | Address | [address] | | | [place] [address] | + + + | Home Phone | | + + + | Preferred Language | Unknown | + + + | Marital Status | Single | + + + | Anglican Affiliation | NON | + + + | Race | or | + + + | Ethnic Group | Not or | + + + Author + + + | Author | [facility] | + + + | Organization | [facility] | + + + | [...] Team Providers + +------+ + | Care Barrow Worker Helper Name | Role | Phone | [...] | | 2012 | | Medical at [facility] [address] | ,PhD Aylin | | | | | [address] [facility] | Allergy Asthma | | | | | for Health and | Dermatology [address] | | | | | Healing, Building [address], | [facility] | | | | | 16th Floor | [place] [address] | | | | | [place], [place] | [phone] | | | | | [address] | | | | | | [phone] | | | +--------+--------+ + + + [...]
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
--- OUTSIDE RECORDS SUMMARY | ~2020-04-30 | XMS | Encounter Summary ---
Demographics + + + | Address | [address] | | | [place] [address] | + + + | Home Phone | | + + + | Preferred Language | Unknown | + + + | Marital Status | Single | + + + | Rastafari Affiliation | NON | + + + | Race | or | + + + | Ethnic Group | Not or | + + + Author + + + | Author | [facility] | + + + | Organization | [facility] [employer] [facility] | + + [...] Team Providers + +------+ + | Care Order Entry Clerk Name | Role | Phone | [...] + + | 08/18/ | Hospital | [facility] [address] | Brea Mñuozh | | | 2012 | Encounter | [address] | MD Coby [address] [facility] | | | | | [place] | [address] | | | | | [address] | [place], [place] | | | | | ([facility]) | [address] | | | | | [place], [place] | [phone] | | | | | [address] | | | | | | [phone] | | | +--------+ + + + [...] | 0 | 08/18/20 | | | cojpvlcx-qfeqlmkol-i | the right ear three | | | 13 | | | ydrocortisone | times daily. | | | | | | (CORTISPORIN) | | | | | | | 3.5-10,000-1 | | | | | | | mg-unit/mL-% otic | | | | | | | drops,suspension | | | | | | + + + +---------+ + + | Smithmill-3 Fatty | Take 3 capsules by | [...] The patient was positioned appropriately. The following senior stereo compiler team lead s were present during the [...] | + + + + + | [facility] | [address] | [place] [address] | | | PATHOLOGY | [address] [...]
--- OUTSIDE RECORDS SUMMARY | ~2020-04-30 | XMS | Encounter Summary ---
Demographics + + + | Address | [address] | | | [place] [address] | + + + | Home Phone | | + + + | Preferred Language | Unknown | + + + | Marital Status | Single | + + + | Sikh Affiliation | NON | + + + | Race | or | + + + | Ethnic Group | Not or | + + + Author + + + | Author | [facility] [employer] [facility] | + + + | Organization | [facility] [employer] [facility] | + + + | [...] Providers + +------+ + | Care Gauge Controller Name | Role | Phone | + +------+ + | Nitin Field | PCP | | + +------+ + Encounter Details +--------+ + + + + | Date | Type | Department | Care Team | Description | +--------+ + + + + | 11/12/ | Document-Sc | [facility] | Shukri Anne, | | | 2013 | della | Department | ,PhD Aylin | | | | | | Allergy Asthma | | | | | | Dermatology [address] | | | | | | [facility] | | | | | | [place] [address] | | | | | | [phone] | | | | | | | [...]
--- OUTSIDE RECORDS SUMMARY | ~2020-04-30 | XMS | Encounter Summary ---
Demographics + + + | Address | [address] | | | [place] [address] | + + + | Home Phone | | + + + | Preferred Language | Unknown | + + + | Marital Status | Single | + + + | Mu-Ism Affiliation | NON | + + + | Race | or | + + + | Ethnic Group | Not or | + + + Author + + + | Author | [facility] | + + + | Organization | [facility] [employer] [facility] | + + + | Address [...] Team Providers + +------+ + | Care Sander Operator Name | Role | Phone | + +------+ + | Nitin Field | PCP | | + +------+ + Encounter Details +--------+ + + + + | Date | Type | Department | Care Team | Description | +--------+ + + + + | 10/28/ | Abstract | Neurology at | Unknown . | | | 2019 | | [facility] & | | | | | | Healing [address] | | | | | | [place] [facility] | | | | | | Health and Healing, | | | | | | Building | | | | | | Floor [place], [place] | | | | | | [address] | | | | | | [phone] | | | +--------+ + + + [...]
--- OUTSIDE RECORDS SUMMARY | ~2020-04-30 | XMS | Encounter Summary ---
Demographics + + + | Address | [address] | | | [place] [address] | + + + | Home Phone | | + + + | Preferred Language | Unknown | + + + | Marital Status | Single | + + + | Lutheran Affiliation | NON | + + + | Race | or | + + + | Ethnic Group | Not or | + + + Author + + + | Author | [facility] [employer] | + + + | Organization | [facility] [employer] [facility] | + + + | Address | Unknown | + + + | Phone | Unavailable | + + + Support + + + + + | Name | Relationship | Address | Phone | + + + + + | Delonte Yung | ECON | [place] | | + + + + + Care Team Providers + +------+ + | Care Sanding Supervisor Name | Role | Phone | + +------+ + | Rita Rodriguez MD | PCP | | + +------+ + Reason for Visit + + + | Reason | Comments | + + + | Psoriasis | pt here for f/u on Humira on weekly injections | + + + Office Visit - [...] Ehst, | | | Services | | (inverse & | Epic Dept | Shukri Baez, | | | Required | | scalp) | | ,PhD Viera | | | | | psoriasis, | | Allergy | | | | | 696.1, 3% | | Asthma | | | | | bsa (btl) | | Dermatology | | | | | Procedures | | [address] | | | | | [place] | | [address] | | | | | OFFICE/OUTPT | | [address] | | | | | | | [place], [place] | | | | | VISIT,EST,LE | | [address] Phone: | | | | | MAKENNA III | | [phone] | | | | | | | Fax: | | | | | | | [phone] | +--------+ + + + + + Encounter Details +--------+---------+ + + + | Date | Type | Department | Care Team | Description | +--------+---------+ + + + | 11/26/ | Office | Dermatology | Shukri Anne, | Other psoriasis | | 2012 | Visit | Medical at [facility] [address] | ,PhD Aylin | (Primary Dx); Other | | | | [facility] | Allergy Asthma | specified disease of | | | | for Health and | Dermatology [address] | hair and hair | | | | Healing, [address], | [address] | follicles; | | | | 16th Floor | [place] [address] | Intertrigo; | | | | [place], [place] | [phone] | Encounter for | | | | [address] | | long-term (current) | | | | [phone] | | use of other | | | | | | medications | +--------+---------+ + + + Social History [...] +---------+ + + | Blood Pressure | 132/72 | 11/26/2012 1:39 PM | | | | | PDT | | + +---------+ + + | Pulse | 78 | 11/26/2012 1:39 PM | | | | | PDT | | + +---------+ + + | Temperature | - | - | | + +---------+ + + | Respiratory Rate | 20 | 11/26/2012 1:39 PM | | | | | PDT | | + +---------+ + + | [...] +---------+ + + documented in this encounter Patient Instructions Patient Instructions Yen Muse - 11/26/2012 1:39 PM PDTPrevent Winter Itch The winter time usually means [...] information is available at the following websites: http://www.[facility].edu/xd/health/services/dermatology/for-patients/health_info.cfm - [facility] Derm atology http://www.aad.org/public/sun/smart.html - [facility] Website documented in this encounter Progress Notes Ehst, Shukri Baez MD,PhD - 11/27/2012 2:09 PM PDTAttending Physician Attestation I personally interviewed, examined the patient, and discussed management with the resident. I reviewed and edited the resident's note and agree with the documented findings and plan of care. Shukri Anne MD, PhD Sleeping Car Conductor, Department of Dermatology [facility] [place] 11/26/2012 Yoseph Núñez MD - 11/26/2012 1:45 PM PDTDERMATOLOGY FOLLOW-UP VISIT (Last Office Visit in [facility] was on 08/25/12 at 11:00 am with Shukri Anne MD,PhD. ) Dx: Inverse PsO Rx: Humira 40mg qow Betamethasone S: Kimberley Yung is a 27 y.o. male here for f/u scalp and inverse psoriasis. Last se en 08/27. Last plan was to increase Humira 40mg sq qweekly, from qow as improved but still has persistent disease in genital, groin, buttock areas. Overall doing a little better, but still with a lot of itch in the groin area and reports this area being very moist recently; [facility] unknown name to him, to the groin area. Is mars ving 3-5 days of itchiness around the injection site; localized. No infx, no difficulty osmany athing, no fevers, minimal cough, but improving. Previous notes: With questionable recent scabies infection [...] 1 year, though workup b y home was negative for arthritis; pt denies morning joint pain, no heel or foot pain. 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 ROS: No f/c/v/weight loss, infections, weakness; no other skin complaints PHYSICAL EXAMINATION: BP 132/72, Pulse 78, RR 20. The patient is a well appearing obese male who is alert with normal mood and affect. Pleas ant and cooperative mood. A skin examination was performed including the scalp, face, eyelids, ears, lips, neck, ches t, back, abdomen, buttocks, R+L arms and hands, R+L legs and feet, and nails. Findings were within normal limits except for the following: --superior forehead, anterior frontal scalp thinner violaceous plaques with minimal scale, with interval improvement --b/l cheeks and nasolabial folds with minimal greasy scaly erythem plaques, with interval improvement --bilateral inguinal folds and entire scrotum; sharply demarcated erythematous to violaceou s plaques with minimal silvery scale; similar plaques in gluteal cleft -deep red thin plaque surrounding PsO plaques ASSESSMENT AND PLAN: 1. Severe scalp and inverse psoriasis,overall improved, but persistent disease of genitals, groin, and buttocks. -Possible arthritis although sounds more mechanical in nature, BSA 3% (last visit 8%); - con't Humira 40mg sq qweekly, from qow as improved but still has persistent disease in ge nital, groin, buttock areas - consider Remicade if qweekly Humira does not help, would prefer not to add MTX as h/o DM and morbid obesity --continue with following: For flares: --betamethasone solution to scalp daily x2 weeks, then BIW --betamethasone ointment to body BID x2 weeks then BIW for maintenance For injx site: Betamethasone BID for 3 days 2. Folliculitis; improved - continue BP wash 3. Intertrigo -start zeasorb powder daily -start econazole bid RTC: 3 months; Sign Linoleum Tile Floor Layer needed Staff: Omid HALL MD Resident, Department of Dermatology [facility] [place] documented in this encount er Plan of Treatment Not on filedocumented as of this encounter Visit Diagnoses + + | Diagnosis | + + | Other psoriasis - Primary | + + | Other specified disease of hair and hair follicles | + + | Intertrigo Other specified erythematous condition | + + | Encounter for long-term (current) use of other medications | + + documented in this encounter
--- OUTSIDE RECORDS SUMMARY | ~2020-04-30 | XMS | Encounter Summary ---
Demographics + + + | Address | [address] | | | [place] [address] | + + + | Home Phone [...] Count Includes [facility] [employer] [facility] | + + + | Organization | Count Includes [facility] [facility] | + + + | Address [...] Team Providers + +------+ + | Care Curam Developer Name | Role | Phone | [...] as of this encounter Progress Notes Interface, Dental Professional In - 07/24/2006 5:20 AM PSTCLINIC DATE: [...] school and he was sitting with the executive team leader for one day. He had apparently just [...] medications. Cuba Caro M.D. Child Psychiatrist MALCOLM/[id number] signed by Interface, Dental Professional In at 07/24/2006 5:20 AM PSTdocume nted in this encounter Plan of Treatment Not on filedocumented as of this encounter Visit Diagnoses Not on filedocumented in this encounter"
--- OUTSIDE RECORDS SUMMARY | ~2020-04-30 | XMS | Encounter Summary ---
Demographics + + + | Address | [address] | | | [place] [address] | + + + | Home Phone | | + + + | Preferred Language | Unknown | + + + | Marital Status | Single | + + + | Zoroastrianism Affiliation | NON | + + + | Race | or | + + + | Ethnic Group | Not or | + + + Author + + + | Author | [facility] | + + + | Organization | [facility] | + + [...] Team Providers + +------+ + | Care Plate Embosser Name | Role | Phone | + [...] Description | +--------+--------+ + + + | 04/14/ | Refill | Dermatology | Shukri Anne, | Refill Request | | 2013 | | Medical at [facility] [address] | ,PhD Aylin | | | | | [facility] | Allergy Asthma | | | | | for Health and | Dermatology [address] | | | | | Healing, [address], | [facility] [address] | | | | | 16th Floor | [place] [address] | | | | | [place], [place] | [phone] | | | | | [address] | | | | | | [phone] | | | +--------+--------+ + + + [...]
--- OUTSIDE RECORDS SUMMARY | ~2020-04-30 | XMS | Encounter Summary ---
Demographics + + + | Address | [address] | | | [place] [address] | + + + | Home Phone | | + + + | Preferred Language | Unknown | + + + | Marital Status | Single | + + + | Jewish Affiliation | NON | + + + | Race | or | + + + | Ethnic Group | Not or | + + + Author + + + | Author | [facility] [employer] [facility] | + + + | Organization | [facility] | + + + | Address | Unknown | + + + | Phone | Unavailable | + + + Support + + + + + | Name | Relationship | Address | Phone | + + + + + | Delonte Yung | ECON | [place] | | + + + + + Care Team Providers + +------+ + | Care Lastex Thread Winder Name | Role | Phone | + [...] | | 2016 | | Medical at [facility] [address] | [address] [facility] | Orders (Physician | | | | [facility] | [place], [place] | Orders for | | | | for Health and | [id number] | Medication) | | | | [place] [address], | [phone] | | | | | [address] [place] [address] | | | | | | [place], [place] | | | | | | [address] | | | | | | [phone] | | | +--------+ + + + [...]
--- OUTSIDE RECORDS SUMMARY | ~2020-04-30 | XMS | Encounter Summary ---
Demographics + + + | Address | [address] | | | [place] [address] | + + + | Home Phone [...] + + + | Author | [facility] [employer] [facility] | + + + | Organization | [facility] | + + + | Address | Unknown | + + + | Phone | Unavailable | + + + Support + + + + + | Name | Relationship | Address | Phone | + + + + + | Delonte Yung | ECON | [place], [place] | | + + + + + Care Team Providers + +------+ + | Care Patrol Officer Name | Role | Phone | + +------+ + | Diane Little MD | PCP | | + +------+ + Encounter Details +--------+ + + + + | Date | Type | Department | Care Team | Description | +--------+ + + + + | 10/11/ | Telephone | Dermatology | Shukri Anne, | | | 2014 | | Pediatrics at [facility] | PhD Aylin RICE | | | | | [address] | Allergy Asthma | | | | | [facility] | Dermatology [address] | | | | | and Healing, | [address] | | | | | Building | [place] [address] | | | | | Floor [place], [place] | [phone] | | | | | [address] | | | | | | [phone] | | | +--------+ + + + [...]
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
--- OUTSIDE RECORDS SUMMARY | ~2020-04-30 | XMS | Encounter Summary ---
Demographics + + + | Address | [address] | | | [place] [address] | + + + | Home Phone [...] + + | Author | [facility] | + + + | Organization | [facility] | + + + | [...] Team Providers + +------+ + | Care Shot Blast Equipment Operator Name | Role | Phone | [...] as of this encounter Progress Notes Interface, Senior Cobol Developer In - 07/18/2006 5:03 AM PSTCLINIC DATE: [...] He was unwilling to sign for the dispatcher service chief when we got in the room. He [...] follow that. 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 His grandmother mentioned that he is having [...] months. Brendan Caro M.D. Child Psychiatrist MALCOLM/[id number] signed by Interface, Senior Cobol Developer In at 07/18/2006 5:03 AM PSTdocu nted in this encounter Plan of Treatment Not on filedocumented as of this encounter Visit Diagnoses Not on filedocumented in this encounter"
--- OUTSIDE RECORDS SUMMARY | ~2020-04-30 | XMS | Encounter Summary ---
Demographics + + + | Address | [address] | | | [place] [address] | + + + | Home Phone | | + + + | Preferred Language | Unknown | + + + | Marital Status | Single | + + + | Confucianism Affiliation | NON | + + + | Race | or | + + + | Ethnic Group | Not or | + + + Author + + + | Author | [facility] [facility] | + + + | Organization | [facility] [employer] [facility] | + + [...] Team Providers + +------+ + | Care Family Services Manager Name | Role | Phone | [...] | | 2016 | | Medical at [facility] [address] | [address] [facility] | | | | | [address] [place] | [place], [place] | | | | | for Health and | [address] | | | | | Healing, [address], | [phone] | | | | | 16th Floor | | | | | | [place], [place] | | | | | | [address] | | | | | | [phone] | | | +--------+--------+ + + + [...]
--- OUTSIDE RECORDS SUMMARY | ~2020-04-30 | XMS | Encounter Summary ---
Demographics + + + | Address | [address] | | | [place] [address] | + + + | Home Phone [...] | Author | [facility] | + + + | Organization | [facility] | + + + | Address | Unknown | + + + | Phone | Unavailable | + + + Support + + + + + | Name | Relationship | Address | Phone | + + + + + | Delonte Yung | ECON | [place], [place] | | + + + + + Care Team Providers + +------+ + | Care Glass Grinder Name | Role | Phone | + +------+ + PCP | Unavailable | + +------+ + Encounter Details +--------+ + + + + | Date | Type | Department | Care Team | Description | +--------+ + + + + | 05/26/ | Results | Registration [id number] | | | | 1998 | Only | [address] | | | | | | [place] Mailcode: [id number] | | | | | | [place], [place] | | | | | | [address] | | | | | | [phone] | | | +--------+ + + + [...] | + +--------+ + + + | CHEMISTRY TESTS 4 | Routin | 05/26/1998 | | Results for this | | | e | 12:25 PM | | procedure are in the | | | | PDT | | results section. | + +--------+ + + + | THERAPEUTIC DRUG | Routin | 05/26/1998 | | Results for this | | TESTS 1 | e | 12:25 PM | | procedure are in the | | | | PDT | | results section. | + +--------+ + + + | CHEMISTRY TESTS 4 | Routin | 05/26/1998 | | Results for this | | | e | 12:22 PM | | procedure are in the | | | | PDT | | results section. | + +--------+ + + + documented in this encounter Results THERAPEUTIC DRUG TESTS 1 (05/26/1998 12:25 PM PDT) + + + + + + | Component | Value | Ref Range | Performed | Pathologist | | | | | At | Signature | + + + + + + | PHENYTOIN | 9.9 (L) | mcg/mL | | | | CONCENTRATI | | | | | | ON | | | | | + + + + + + | VALPROIC | 45.9 (L) | ug/mL | | | | ACID | | | | | | CONCENTRATI | | | | | | ON | | | | | + + + + + + + + | Specimen | + + | | + + + + + + + | Performing | Address | City/State/Zipcode | Phone Number | | Organization | | | | + + + + + | [facility] | [address] | [place] [address] | | | PATHOLOGY | [address] | | | + + + + + CHEMISTRY TESTS 4 (05/26/1998 12:25 PM PDT) + + + + + + | Component | Value | Ref Range | Performed | Pathologist | | | | | At | Signature | + + + + + + | AST(SGOT) | 17. (L) | U/L | | | + + + + + + + + | Specimen | + + | | + + + + + + + | Performing | Address | City/State/Zipcode | Phone Number | | Organization | | | | + + + + + | [facility] | [address] | [place] [address] | | | PATHOLOGY | [address] | | | + + + + + CHEMISTRY TESTS 4 (05/26/1998 12:22 PM PDT) + + + + + + | Component | Value | Ref Range | Performed | Pathologist | | | | | At | Signature | + + + + + + | AST(SGOT) | DUPLICATE ORDER | U/L | | | + + + + + + + + | Specimen | + + | | + + + + + + + | Performing | Address | City/State/Zipcode | Phone Number | | Organization | | | | + + + + + | [facility] | [address] | [place] [address] | | | PATHOLOGY | [address] | | | + + + + + documented in this encounter Visit Diagnoses Not on filedocumented in this encounter"
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
--- OUTSIDE RECORDS SUMMARY | ~2020-04-30 | XMS | Encounter Summary ---
Demographics + + + | Address | [address] | | | [place] [address] | + + + | Home Phone | | + + + | Preferred Language | Unknown | + + + | Marital Status | Single | + + + | Restoration Affiliation | NON | + + + | Race | or | + + + | Ethnic Group | Not or | + + + Author + + + | Author | [facility] | + + + | Organization | [facility] | + + [...] Team Providers + +------+ + | Care Cabinet Finisher Name | Role | Phone | [...] [id number] | | | | | | [place], [place] | | | | | | [address] | | | | | | [phone] | | | +--------+ + + + [...] | + + + + + | [facility] | [address] | [place] [address] | | | PATHOLOGY | [address] [...] | + + + + + | [facility] | [address] | [place] [address] | | | PATHOLOGY | [address] [...] | + + + + + | [facility] | [address] | [place] [address] | | | PATHOLOGY | [address] | | | + + + + + documented in this encounter Visit Diagnoses Not on filedocumented in this encounter"
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
--- OUTSIDE RECORDS SUMMARY | ~2020-04-30 | XMS | Encounter Summary ---
Demographics + + + | Address | [address] [place] [address] ROAD | | | [place] [address] | + + + | Home Phone | | + + + | Preferred Language | Unknown | + + + | Marital Status | Single | + + + | Buddhist Affiliation | Unknown | + + + | Race | Unknown | + + + | Ethnic Group | Unknown | + + + Author + + + | Author | [facility] | | | and [place] | + + + | Organization | [facility] | | | and [facility] [...] Team Providers + +------+ + | Care Air Conditioning Sheet Metal Installer Name | Role | Phone | + +------+ + | Nitin Pinzon PA-C | PCP | | + +------+ + Reason for Visit + + + | Reason | Comments | + + + | Follow-up | minor procedure-excision of skin lesion ear | + + + Evaluate & Treat (Routine) +--------+ + + + + + | Status | Reason | Specialty | Diagnoses / | Referred By | Referred To | | | | | Procedures | Contact | Contact | +--------+ + + + + + | Closed | Specialty | Otolaryngolog | Diagnoses | Arellano, | Manuelito Arellano | | | Services | y | Neoplasm of | Manuelito EMD | E, MD [address] | | | Required | | uncertain | [address] | | | | | behavior of | [address] | | | | | skin | [place], | | | | | Procedures | [place], [place] | [place] [address] | | | | | [place] | [address] | Phone: | | | | | ZOLTAN | Phone: | [phone] | | | | | 2.1-3CM | [phone] | Fax: | | | | | FACE,FACIAL | Fax: | [phone] | | | | | 09/19>PEND | [phone] | | | | | | YH | | | +--------+ + + + + + Encounter Details +--------+---------+ + + + | Date | Type | Department | Care Team | Description | +--------+---------+ + + + | 10/10/ | Office | [facility] | Manuelito Arellano MD | Neoplasm of | | 2015 | Visit | OTOLARYNGOLOGY [address] | [address] | uncertain behavior | | | | [address] | [address] [place] | of skin | | | | [place] | [place], [place] [address] | | | | | [address] | [phone] | | | | | [phone] | | | +--------+---------+ + + + [...] + + + + | Pulse | 84 | 10/10/2015 11:16 AM | | | | | PST | | + + + + + | Temperature | - | - | | + + + + + | Respiratory Rate | 16 | 10/10/2015 11:16 AM | | | | | PST | | + + + + + | Oxygen Saturation | 96% | 10/10/2015 11:16 AM | | | | | PST | | + + + + + | Inhaled Oxygen | - | - | | | Concentration | | | | + + + + + | Weight | 142.9 kg (315 lb) | 10/10/2015 11:16 AM | | | | | PST | | + + + + + | Height | 182.9 cm (6') | 10/10/2015 11:16 AM | | | | | PST | | + + + + + | Body Mass Index | 42.72 | 10/10/2015 11:16 AM | | | | | PST | | + + + + + documented in this encounter Progress Notes Manuelito Arellano MD - 10/10/2015 11:56 AM PSTSee dictation # [id number] signed by Manuelito Arellano MD at 10/10/2015 12:01 PM PSTdocumented in th is encounter Procedure Notes Manuelito Arellano MD - 10/10/2015 11:59 AM PST [facility] OTOLARYNGOLOGY [address] [facility] [address] OFFICE PROCEDURE MANUELITO ARELLANO MD Patient: KIMBERLEY YUNG Admitting: MR #: [id number] LOC: PT TYPE: Adm Date: 10/10/2015 : 1985 DATE OF PROCEDURE: 10/10/2015 PREOPERATIVE DIAGNOSIS: Skin lesion of uncertain behavior on the left ear antihelix. POSTOPERATIVE DIAGNOSIS: Skin lesion of uncertain behavior on the left ear antihelix OPERATION PERFORMED: Excision of left ear lesion. FINDINGS: The patient has a nonhealing irritated area on the antihelix of his left ear, r ight on the edge of the fold and a fairly high up on the antihelix. PROCEDURE: After the area initially had been treated with some topical Xylocaine, it was injected with 1-percent Xylocaine with epinephrine. Following this, an elliptical incision was made that took out the sore center of the region and a little bit of skin on each side , and then a small piece of the cartilage below it was also excised in case this is a cost ochondritis. Once completed, the wound was closed with interrupted 6-0 nylon suture. Some antibiotic ointment was applied. He is given an appointment to have the sutures removed i n 1 week's time. In the meantime, he will put a little bit of topical antibiotic on it as it continues to heal. MANUELITO ARELLANO MD Dictated by MANUELITO ARELLANO MD 10/10/2015 11:59:24 Transcribed on 10/11/2015 02:37:24 by johnny job# [id number] Confirmation #: [id number] cc: NITIN PINZON PAC d ocumented in this encounter Plan of Treatment +--------+---------+ + + + | Date | Type | Specialty | Care Team | Description | +--------+---------+ + + + | 05/02/ | Office | Neurology | Rom Marcos, | | | 2019 | Visit | | MD Ingrid WATT | | | | | | [address] | | | | | | [place] [address] | | | | | | [phone] | | | | | | | | +--------+---------+ + + + | 06/06/ | Office | Dermatology | Edwige Adams | | 2019 | Visit | | [address] | | | | | | [address] | | | | | | [place] [address] | | | | | | [phone] | | | | | | | | +--------+---------+ + + + documented as of this encounter Procedures + +--------+ + + + | Procedure Name | Priori | Date/Time | Associated Diagnosis | Comments | | | ty | | | | + +--------+ + + + | SURGICAL PATHOLOGY | Routin | 10/10/2015 | | Results for this | | EXAM | e | 12:00 AM | | procedure are in the | | | | PST | | results section. | + +--------+ + + + documented in this encounter Results Surgical Pathology Exam (10/10/2015 12:00 AM PST) + + | Specimen | + + | | + + + + + | Narrative | Performed At | + + + | SPECIMEN(S): A BEHIND LEFT EAR SPECIMEN SOURCE: A. BEHIND LEFT | [facility] | | EAR CLINICAL HISTORY: No preop or clinical information is given | [facility] | | on requisition. FINAL PATHOLOGIC DIAGNOSIS: Tissue from behind | | | left ear: - Benign skin and cartilage. - Scarring and mild | | | chronic inflammation. - Negative for atypia. ARMINDA:[facility]:C2NR | | | MICROSCOPIC EXAMINATION: Histologic sections of all submitted blocks | | | are examined by light microscopy. These findings, together with the | | | gross examination, support the pathologic diagnosis. GROSS | | | DESCRIPTION: Received in formalin labeled "Kimberley Yung, | | | excision of skin lesion of left ear" is a 0.4 x 0.4 x 0.1 cm | | | irregular-shaped pink-wade tissue fragment which is inked blue. Also | | | in the container is a 0.3 x 0.3 x 0.1 cm irregular-shaped red-brown | | | tissue fragment which is inked in red and submitted, all in (A1). | | | ka:ARMINDA:[facility] PERFORMING LABORATORY: Tissue processing and slide | | | preparation were performed by [facility], [address] [facility], | | | [address], [place] [address] (Edge [place]itter: Oni Hernandez | | | [place]; CLIA#: [id number]). Professional interpretation was performed | | | by [facility], [address], [place], [place] | | | [address] ([employer] [place]: Oni Hernandez M.D.; BEE#: [id number]). | | | Diagnostician: Carlos Macias MD Pathologist Electronically | | | Signed 10/12/2015 | | + + + + +---------+ + + | Performing | Address | City/State/Zipcode | Phone Number | | Organization | | | | + +---------+ + + | [facility] | | | | | [facility] | | | | + +---------+ + + documented in this encounter Visit Diagnoses + + | Diagnosis | + + | Neoplasm of uncertain behavior of skin | + + documented in this encounter
--- OUTSIDE RECORDS SUMMARY | ~2020-04-30 | XMS | Encounter Summary ---
Demographics + + + | Address | [address] [place] [address] ROAD | | | [place] [address] | + + + | Home Phone | | + + + | Preferred Language | Unknown | + + + | Marital Status | Single | + + + | Orthodox Affiliation | Unknown | + + + | Race | Unknown | + + + | Ethnic Group | Unknown | + + + Author + + + | Author | [facility] | | | and [place] | + + + | Organization | [facility] | | | and [place] | [...] Team Providers + +------+ + | Care Biomathematician Name | Role | Phone | + +------+ + | Nitin Field PA-C | PCP | | + +------+ + Reason for Visit + +--------+ + | Reason | Onset | Comments | | | Date | | + +--------+ + | Follow-up | 06/29/ | | | | 2019 | | + +--------+ + Encounter Details +--------+ + + + + | Date | Type | Department | Care Team | Description | +--------+ + + + + | 06/29/ | Telephone | [facility] | Rom Marcos, | Follow-up | | 2019 | | NEUROLOGY [address] | | | | | [address] | [facility] | | | | | [place], [place] | [place] [address] | | | | | [address] | [phone] | | | | | [phone] | | | +--------+ + + + [...] this encounter Miscellaneous Notes Telephone Encounter - Seun Gomez Kateryna - 06/30/2019 2:29 PM Lore Conrad, is ca lling again for Follow-up and would like a call back. Additional Call Details: Fernando is calling to schedule the patient. Call patients aunt Tana Santana back at the mobile number listed on the chart to schedule. elephone Encounter - Chandler Rees, Clutch Operator - 06/30/2019 1:40 PM PDTTried to call unable to reach do to phone problems Electronically signed by Chandler Rees Clutch Operator at 019 1:41 PM PDTTelephone Encounter - Lisa Ragland - 06/30/2019 11:20 AM PDTDomscott velazco, is returning call for Follow-up and would like a call back. Additional Call Details: Returning call, please call back elephone Encounlicha r - Yesi Barekr CMA - 06/30/2019 10:24 AM PDTReturned call to Fernando and [facility]. Requested a return call and provided clinic contact information and my extension number elephone Encounter - Jacobo Lopez - 06/29/2019 2:28 PM PDTMickey - [facility], is calling regarding Follow-up and would like a call back. Additional Call Details: Calling to reschedule follow up appointment for patient. Call Brian patricia back to give info on appointment so she can schedule transportation. Have manager project for appointment. Also, call patient at number listed under home to schedule. If this is a symptom based call, was patient offered triage? Not Applicable If this is a symptom based call and you were unable to immediately transfer the call to a p samantha forest fire fighter was caller made aware that if at [...] | | | | | | [address] | | | | | | [place] [address] | | | | | | [phone] | | | | | | | | +--------+---------+ + + + | 06/06/ | Office | Dermatology | Edwige Adams | | 2019 | Visit | | [address] | | | | | | [address] | | | | | | [facility] [place] [address] | | | | | | [phone] | | | | | | | | +--------+---------+ + + + documented as of this encounter Visit Diagnoses Not on filedocumented in this encounter"
--- OUTSIDE RECORDS SUMMARY | ~2020-04-30 | XMS | Encounter Summary ---
Demographics + + + | Address | [address] | | | [place] [address] | + + + | Home Phone [...] Author | [facility] | + + + | Organization | [facility] | + + + [...] Team Providers + +------+ + | Care Television Parts Tester Name | Role | Phone | + [...] | | Other | Nitin Landaverde | [facility] [address] | | | Required | | psoriasis | [place] | [address] | | | | | inverse & | [place] | Center for | | | | | scalp | HEALTH | Health and | | | | | psoriais - | CENTER | Healing, | | | | | initially 4% | [address] | Building 1, | | | | | BSA, but up | [address] | 16th Floor | | | | | to 8% per | [address] | [place], [place] | | | | | last note | [address] | [address] | | | | | Procedures | [place], | Phone: | | | | | [address] | [place] [address] | [phone] | | | | | | Phone: | Fax: | | | | | | [phone] | [phone] | | | | | | Fax: | | | | | | | [phone] | | +--------+ + + + + + Encounter Details +--------+---------+ + + + | Date | Type | Department | Care Team | Description | +--------+---------+ + + + | 05/26/ | Office | Dermatology | Shukri Anne, | Other psoriasis; | | 2011 | Visit | Medical at [facility] [address] | MD,PhD [place] | Encounter for | | | | [facility] | Allergy Asthma | long-term (current) | | | | for Health and | Dermatology [address] | use of other | | | | Healing, Building 1, | [facility] | medications; Other | | | | 16th Floor | [place] [address] | specified disease of | | | | [place], [place] | [phone] | hair and hair | | | | [address] | | follicles | | | | [phone] | | | +--------+---------+ + + + [...] and skin cance rs including melanoma. The [place] Academy [employer] Dermatology (AAD) recommends you wear [...] information is available at the following websites: http://www.[facility]/xd/health/services/dermatology/for-patients/health_info.cfm - [facility] Derm atology http://www.aad.org/public/sun/smart.html - AAD Website documented in this encounter Progress Loyda Santana - 05/27/2012 4:46 PM PDTPt scheduled 08/25/12 with job placement counselor. Electronical ly signed by Loyda Cary at 05/27/2012 4:46 PM PDTEhShukri dior MD,PhD - 05/27/2012 8 :11 AM PDTAttending Physician Attestation I personally interviewed, examined the patient, and discussed management with the resident. I reviewed and edited the resident's note and agree with the documented findings and plan of care. Shukri Anne MD, PhD Lead Pony Rider, Department of Dermatology [facility] 05/26/2012 Yoseph Núñez MD - 05/26/2012 3:30 [...] recommend BP wash RTC: 3 months; Sign Retail Client Solutions Consultant needed Staff: Omid SHOEMAKER MD Resident, Department of Dermatology [facility] documented in th is encounter Plan of [...]
--- OUTSIDE RECORDS SUMMARY | ~2020-04-30 | XMS | Encounter Summary ---
Demographics + + + | Address | [address] | | | [place] [address] | + + + | Home Phone [...] + + + | Author | [facility] | + + + | Organization | [facility] | + + + [...] Team Providers + +------+ + | Care Cardiac Technologist Name | Role | Phone | [...] | | | | | Aylin | [facility] | | | | | | Allergy | Health and | | | | | | Asthma | Healing, | | | | | | Dermatology | Building 1, | | | | | | [address] | 16th Floor | | | | | | [address] | [place], [place] | | | | | | [address] | [address] | | | | | | [place], [place] | Phone: | | | | | | [address] | [phone] | | | | | | Phone: | Fax: | | | | | | [phone] | [phone] | | | | | | Fax: | | | | | | | [phone] | | +--------+ + + + + + Encounter Details +--------+---------+ + + + | Date | Type | Department | Care Team | Description | +--------+---------+ + + + | 04/13/ | Office | Dermatology | EhShukri dior, | Other psoriasis | | 2015 | Visit | Medical at [facility] [address] | MD,PhD Aylin | (Primary Dx); | | | | [facility] | Allergy Asthma | Verruca vulgaris; | | | | for Health and | Dermatology [address] | Encounter for | | | | Healing, Building 1, | [facility] [address] | long-term (current) | | | | 16th Floor | [place] [address] | use of other | | | | [place], [place] | [phone] | medications; Other | | | | [address] | | acne; Acquired | | | | [phone] | | acanthosis nigricans | +--------+---------+ + [...] skin cance rs including melanoma. ? The [place] Academy of Dermatology (AAD) recommends you wear [...] information is available at the following websites: http://www.[facility]/xd/health/services/dermatology/for-patients/health_info.cfm - [facility] Derm atology http://www.aad.org/public/sun/smart.html - AAD Website documented [...] plan of care. Shukri Anne MD, PhD Pesticide Chemist, Department of Dermatology [facility] 04/13/2015 Jose Johnston [...] -- recommend weight loss and consider seeing middle school principal 3. Acne, truncal -- continue BPO 5% [...] MD JOSE Patel MD DERMATOLOGY MEDICAL AT [facility] 16TH FLOOR [address] Mail Code: [place] [address] documented in this en counter Plan of Treatment Not on filedocumented as of this encounter Procedures + +--------+ + + + | Procedure Name | Priori | Date/Time | Associated Diagnosis | Comments | | | ty | | | | + +--------+ + + + | TN DESTRUC BENIGN | Routin | 04/13/2015 | [...]
--- OUTSIDE RECORDS SUMMARY | ~2020-04-30 | XMS | Encounter Summary ---
Demographics + + + | Address | [address] | | | [place] [address] | + + + | Home Phone [...] + + + | Author | [facility] | + + + | Organization | [facility] | + + [...] Providers + +------+ + | Care Senior Marketing Data Analyst Name | Role | Phone | [...] as of this encounter Progress Notes Interface, Metallurgical Lab Technician In - 05/23/2006 6:24 AM PDTCLINIC DATE: [...] nurse from the school, and a sign oval or circular glass cutter. When his grandmother mentioned that I was [...] hands-on. He says he does like math, Greenlandic, and computers. He likes the reading. He [...] attending. As mentioned above, he likes reading, Greenlandic, spelling, and math. RECOMMENDATIONS: 1. I would [...] ES:[id number] C: 12/18/2001 gera CC: [place] [facility] [employer] [id number] signed by Interface, Metallurgical Lab Technician In at 05/23/2006 6:24 AM PDTdoc umented in this encounter Plan of Treatment Not on filedocumented as of this encounter Visit Diagnoses Not on filedocumented in this encounter"
--- OUTSIDE RECORDS SUMMARY | ~2020-04-30 | XMS | Encounter Summary ---
Demographics + + + | Address | [address] | | | [place] [address] | + + + | Home Phone [...] + + | Author | [facility] | + + + | Organization | [facility] | + + + | [...] Team Providers + +------+ + | Care Emblem Drawer In Name | Role | Phone | + +------+ + | Rita Rodriguez MD | PCP | | + +------+ + Reason for Visit + + + | Reason | Comments | + + + | Refill Request | betamethasone | + + + Encounter Details +--------+--------+ + + + | Date | Type | Department | Care Team | Description | +--------+--------+ + + + | 04/04/ | Refill | Dermatology | Shukri Anne, | Refill Request | | 2011 | | Medical at [facility] [address] | ,PhD Aylin | (betamethasone) | | | | [facility] | Allergy Asthma | | | | | for [facility] and | Dermatology [address] | | | | | [facility], Building 1, | [facility] | | | | | 16th Floor | [place] [address] | | | | | [place], [place] | [phone] | | | | | [address] | | | | | | [phone] | | | +--------+--------+ + + + [...]
--- OUTSIDE RECORDS SUMMARY | ~2020-04-30 | XMS | Encounter Summary ---
Demographics + + + | Address | [address] | | | [place] [address] | + + + | Home Phone | | + + + | Preferred Language | Unknown | + + + | Marital Status | Single | + + + | Anabaptist Affiliation | NON | + + + | Race | or | + + + | Ethnic Group | Not or | + + + Author + + + | Author | [facility] | + + + | Organization | [facility] | + + + | [...] Team Providers + +------+ + | Care Steam Distribution Supervisor Name | Role | Phone | + +------+ + | Diane Little MD | PCP | | + +------+ + Encounter Details +--------+------+ + + + | Date | Type | Department | Care Team | Description | +--------+------+ + + + | 10/13/ | Lab | Laboratory at [facility] | | Encounter for | | 2014 | | [address] | | long-term (current) | | | | [facility] | | use of other | | | | and Healing, | | medications | | | | [address] | | | | | | [place], [place] | | | | | | [address] | | | | | | [phone] | | | +--------+------+ + + + [...] CBC AND AUTO DIFF | Routin | 10/13/2014 | Encounter for | Results for this | | | e | 2:09 PM | long-term (current) | procedure are in the | | | | PST | use of other | results section. | | | | | medications | | + +--------+ + + + | CBC, WITH | Routin | 10/13/2014 | Encounter for | Results for this | | DIFFERENTIAL | e | 2:09 PM | long-term (current) | procedure are in the | | | | PST | use of other | results section. | | | | | medications | | + +--------+ + + + | COMPLETE METABOLIC | Routin | 10/13/2014 | Encounter for | Results for this | | SET | e | 2:09 PM | long-term (current) | procedure are in the | | (NA,K,CL,CO2,BUN,CRE | | PST | use of other | results section. | | AT,GLUC,CA,AST,ALT,B | | | medications | | | VERONA TOTAL,ALK | | | | | | PHOS,ALB,PROT TOTAL) | | | | | + +--------+ + + + documented in this encounter Results CBC AND AUTO DIFF (10/13/2014 2:09 PM PST) + + + + + + | Component | Value | Ref Range | Performed | Pathologist | | | | | At | Signature | + + + + + + | WHITE CELL | 9.60 | 4.40 - 11.00 | [facility] | [...] + + + + | HEMOGLOBIN | 15.7 | 13.5 - 17.5 | [facility] | | | | | g/dL | LABORATORY | | | | | | SERVICES, | | | | | | [facility] | | | | | | [facility] + | | | | | | HEALING | | + + + + + + | HEMATOCRIT | 45.2 | 41.0 - 53.0 % | [facility] | | | | | | LABORATORY | | | | | | SERVICES, | | | | | | [facility] | | | | | | HEALTH + | | | | | | HEALING | | + + + + + + | MCV | 80.6 | 80.0 - 96.0 fL | [facility] | | | | | | LABORATORY | | | | | | SERVICES, | | | | | | [facility] | | | | | | HEALTH + | | | | | | HEALING | | + + + + + + | MCHC | 34.7 | 33.0 - 35.5 | [facility] | | | | | g/dL | LABORATORY | | | | | | SERVICES, | | | | | | [facility] | | | | | | [facility]ALTH + | | | | | | HEALING | | + + + + + + | RDW SD | 41.6 | 35.1 - 46.3 fL | [facility] | | | | | | LABORATORY | | | | | | SERVICES, | | | | | | [facility] | | | | | | [facility] + | | | | | | HEALING | | + + + + + + | PLATELET | 276 | 150 - 400 K/cu | [facility] | | | COUNT | | mm | LABORATORY | | | | | | SERVICES, | | | | | | [facility] | | | | | | [facility]ALTH + | | | | | | HEALING | | + + + + + + | MPV | 10.2 | 9.7 - 12.3 fL | [facility] | | | | | | LABORATORY | | | | | | SERVICES, | | | | | | [facility] | | | | | | HEALTH + | | | | | | HEALING | | + + + + + + | NEUTROPHIL | 48.1 (L) | 50.0 - 70.0 % | [facility] | | | % | | | LABORATORY | | | | | | SERVICES, | | | | | | [facility] | | | | | | HEALTH + | | | | | | HEALING | | + + + + + + | LYMPHOCYTE | 40.2 | 18.0 - 42.0 % | [facility] | | | % | | | LABORATORY | | | | | | SERVICES, | | | | | | [facility] | | | | | | HEALTH + | | | | | | HEALING | | + + + + + + | MONOCYTE % | 7.9 | 3.5 - 9.0 % | [facility] | | | | | | LABORATORY | | | | | | SERVICES, | | | | | | [facility] FOR | | | | | | HEALTH + | | | | | | HEALING | | + + + + + + | EOS % | 3.2 (H) | 1.0 - 3.0 % | [facility] [...] + + + + | NEUTROPHIL | 4.61 | 1.80 - 7.70 | [facility] | | | # | | K/cu mm | LABORATORY | | | | | | SERVICES, | | | | | | [facility] FOR | | | | | | HEALTH + | | | | | | HEALING | | + + + + + + | LYMPHOCYTE | 3.86 | 1.00 - 4.80 | [facility] | [...] + + + | EOS # | 0.31 | 0.00 - 0.50 | [facility] | | | | | K/cu mm | LABORATORY | | | | | | SERVICES, | | | | | | [facility] | | | | | | HEALTH + | | | | | | HEALING | | + + + + + + | BASO # | 0.06 | 0.00 - 0.10 | [facility] | [...] | + + + + + | [email or web address] | [address] | [place] [address] | | | SERVICES, [place] FOR | | | | | HEALTH + [...] | | | LABORATORY | | | MALDIVIAN | | | SERVICES, | | | [...] [facility] | [address] | [place] [address] | | | SERVICES, CORE | [address] | | | + + + + + documented in this encounter Visit Diagnoses + + | Diagnosis | + + | Encounter for long-term (current) use of other medications | + + documented in this encounter"
--- OUTSIDE RECORDS SUMMARY | ~2020-04-30 | XMS | Encounter Summary ---
Demographics + + + | Address | [address] | | | [place] [address] | + + + | Home Phone [...] + | Author | [facility] | + + + | Organization | [facility] | + + + [...] Team Providers + +------+ + | Care Glassware Selector Name | Role | Phone | + +------+ + | Diane Little MD | PCP | | + +------+ + Reason for Visit + + + | Reason | Comments | + + + | Follow-up visit | | + + + | Hemangioma | | + + + Office Visit - E/M Services (Routine) +--------+ + + + + + | Status | Reason | Specialty | Diagnoses / | Referred By | Referred To | | | | | Procedures | Contact | Contact | +--------+ + + + + + | Closed | Specialty | Dermatology | Procedures | Drm Med | Drm Med | | | Services | | eval & tx | [facility] [address] | [facility] [address] | | | Required | | | [address] | [address] | | | | | | Center for | Center for | | | | | | Health and | Health and | | | | | | Healing, | Healing, | | | | | | Building 1, | Building 1, | | | | | | 16th Floor | 16th Floor | | | | | | [place], [place] | [place], [place] | | | | | | [address] | [address] | | | | | | Phone: | Phone: | | | | | | [phone] | [phone] | | | | | | Fax: | Fax: | | | | | | [phone] | [phone] | +--------+ + + + + + Encounter Details +--------+---------+ + + + | Date | Type | Department | Care Team | Description | +--------+---------+ + + + | 08/27/ | Office | Dermatology | Matt Powell MD | Other psoriasis | | 2016 | Visit | Medical at [facility] [address] | [address] | (Primary Dx); | | | | [address] | [place], [place] | Long-term use of | | | | for Health and | [address] | high-risk medication | | | | [place] [address], | [phone] | | | | | 16th Floor | | | | | | [place], [place] | | | | | | [address] | | | | | | [phone] | | | +--------+---------+ + + + [...] documented as of this encounter Progress Notes Matt Powell MD - 08/27/2016 11:00 AM PSTI have reviewed and verified the above scribed n ote of my visit with this patient as recorded by Lauren Vernon MA. Matt Powell MD.[facility] DERMATOLOGY MEDICAL AT [facility] 16TH FLOOR [facility]3 [address] [facility] [address] Mail Code: [address] [place] [address] Lauren Sun MA - 1 10/28/2015 11:00 AM PSTDERMATOLOGY FOLLOW-UP VISIT Last Appointment in [facility] was on 04/16/2016 with Matt Powell MD Dx/Rx: Inverse PsO Humira 40mg qow since 01/2012 inc to qw 08/2012 Betamethasone body Spectazole groin BPO wash Suspected Tinea Lamisil Acanthosis Nigricans Encouraged weight loss SUBJECTIVE: Kimberley Yung is a 31 y.o. 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 He is accompanied by his grandmother and a sign-language inter pretor. At last visit, patient was noted to have improvement in his presentation and thus he was in structed to decrease his Humira dose from 40 mg weekly to every other week. Today, patient reports the plaques on his forehead, axillae and neck are bothersome. He does not know if hi s skin worsened when he went from weekly to every other week dosing. He cannot remember the details of when he has taken shots but does report that he has only missed a few doses since his last appointment. He is using hydrocortisone lotion 1-2 times a week along with head an d shoulders shampoo. He discontinued betamethasone lotion because he feels that hydrocortiso ne controlls his symptoms better. Grandmother states he has the same issue with his feet. He is doing well with weekly dosing. Tolerating self-injections well. No new joint pain. Does state he has had a cold recently and has a residual cough today. He also had an infection on his left king that required antibiotics and is now resolved. OBJECTIVE: There were no vitals filed for the last 3 months. WDWN, NAD; awake, alert and oriented; pleasant with appropriate mood and affect; obese A skin examination was performed including the scalp/hair, head/face, eyelids/conjunctivae, lips, neck, chest, back, abdomen, buttocks, bilateral arms and legs, bilateral hands and na ils. Findings were within normal limits except for the following: - Nuchal scalp with mild scale - Thin erythematous round plaques on forehead at hairline - Well demarcated erythematous moderately thick plaques on bilateral axillae - On the right dorsal hand/forearm: numerous erythematous papules in linear array - Right pretibial area and calf with well demarcated brown hyperpigmented macules consisten t with post inflammatory hyperpigmentation - No obvious swollen or tender finger joints, ankles, knees or elbows ASSESSMENT/PLAN: 1. H/o severe scalp and inverse psoriasis doing very well on weekly Humira Counseled patient on chronicity of disease and that he will likely have mild skin disease i ntermittently. Also counseled that weight loss will help. Insight limited by patient's poor memory. His disease course has recently been complicated by skin infection on left pretibial area requiring antibiotics, thus prefer to proceed with every other week dosing. -- Continue Humira 40 mg every other week -- Refilled Betamethasone lotion and instructed to use two times a week. -- Refilled 2.5% hydrocortisone ointment to face two times per week -- Okay to use Amlactin solution on dry skin. -- Counseled that weight loss would help -- Repeat labs today,; recent labs significant for mild ALT elevation (80); Quantiferon neg ative in 10/2015 2. Acanthosis nigricans w/ retention hyperkeratosis -- continue to encourage weight loss and consider seeing amusement park ride mechanic -- pt down 20 lbs since last visit -- Consider checking HgA1c at next visit 3. 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 Probable Tinea - Not discussed today. -- TATE neg -- Use Lamisil anti-fungal cream (avaliable over the counter at any pharmacy) on hands and feet RETURN VISIT: 3-6 months Department of Dermatology [facility] 04/16/2016 documented in this e ncounter Plan of Treatment Not on filedocumented as [...] | | | LABORATORY | | | [place] | | | SERVICES, | | | [...] + | [facility] | [address] | [place] [address] | | | SERVICES, CORE | [address] | | | + + + + + documented in this encounter Visit Diagnoses + + | Diagnosis | + + | Other psoriasis - Primary | + + | Long-term use of high-risk medication | + + documented in this encounter"
--- OUTSIDE RECORDS SUMMARY | ~2020-04-30 | XMS | Encounter Summary ---
Demographics + + + | Address | [address] | | | [place] [address] | + + + | Home Phone [...] + + | Author | [facility] | + + + | Organization | [facility] | + + [...] Team Providers + +------+ + | Care Electrical Design Engineer Name | Role | Phone | [...] | | 2014 | | Medical at [facility] [address] | ,PhD [place] | Request ([facility] | | | | [facility] | Allergy Asthma | 40MG/0.8 ML Syring) | | | | for Health and | Dermatology [address] | | | | | [facility], Building 1, | [facility] | | | | | 16th Floor | [place] [address] | | | | | [place], [place] | [phone] | | | | | [address] | | | | | | [phone] | | | +--------+ + + + [...]
--- OUTSIDE RECORDS SUMMARY | ~2020-04-30 | XMS | Encounter Summary ---
Demographics + + + | Address | [address] | | | [place] [address] | + + + | Home Phone | | + + + | Preferred Language | Unknown | + + + | Marital Status | Single | + + + | Pentecostalism Affiliation | NON | + + + | Race | or | + + + | Ethnic Group | Not or | + + + Author + + + | Author | [facility] [employer] [facility] | + + + | Organization | [facility] | + + + [...] Team Providers + +------+ + | Care Server Service Assistant Name | Role | Phone | + [...] as of this encounter Progress Notes Interface, Cna In - 08/16/2006 3:06 AM PSTCLINIC DATE: 09/21/1999 CLINIC NAME: CHILD DEVELOPMENT PROGRAM DISCIPLINE: PSYCHIATRY 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 He requires a signing health care technician to be present. He takes Ritalin at [...] the nurse from the school. Later, the health care technician stopped in. He apparently went to his [...] sent regarding recommending her being the main care management associate. Apparently his biological mother picked him up [...]
--- OUTSIDE RECORDS SUMMARY | ~2020-04-30 | XMS | Encounter Summary ---
Demographics + + + | Address | [address] | | | [place] [address] | + + + | Home Phone [...] Author + + + | Author | [facility] | + + + | Organization | [facility] | + + + [...] Team Providers + +------+ + | Care Legal Arbitrator Name | Role | Phone | + [...] as of this encounter Progress Notes Interface, Endless Steamer Tender In - 05/27/2006 3:11 AM PDTCLINIC DATE: [...] nurse from the school and also his baseball coach. His grandmother did not attend. The nurse [...] after I stop seeing him for my shelter. The nurse said that she is not sure of that but that he has seen Dr. Bro[facility] at [facility] in the past before coming here. I [...] months. Brendan Caro M.D. Child Psychiatrist EGAilyn/[id number] signed by Interface, Endless Steamer Tender In at 05/27/2006 3:11 AM Carlosc umented in this encounter Plan of Treatment Not on filedocumented as of this encounter Visit Diagnoses Not on filedocumented in this encounter"
--- OUTSIDE RECORDS SUMMARY | ~2020-04-30 | XMS | Clinical Summary ---
Demographics + + + | Address | [address] [place] [address] | | | [place] [address] | + + + | Home Phone | | + + + | Preferred Language | Unknown | + + + | Marital Status | Single | + + + | Hinduism Affiliation | Unknown | + + + | Race | Unknown | + + + | Ethnic Group | Unknown | + + + Author + + + | Author | [facility] | | | and [place] | + + + | Organization | [facility] | | | and [place] [...] Team Providers + +------+ + | Care Paste Mixer Liquid Name | Role | Phone | + +------+ + | Scarlet Bello PA-C | PCP | | + +------+ + Allergies + + + + + + | Active Allergy | Reactions | Severity | Noted | Comments | | | | | Date | | + + + + + + | Amoxicillin | | | 1820 | | | | | | 15 | | + + + + + + | Sulfa Antibiotics | | | 20 | | | | | | 15 | | + + + + + + Medications + + + +---------+------+------+-------+ | Medication | Sig | Dispensed | Refills | Star | End | Statu | | | | | | t | Date | s | | | | | | Date | | | + + + +---------+------+------+-------+ | hydrocortisone | Apply topically 2 | | 0 | | | Activ | | 2.5% lotion | times daily. | | | | | e | + + + +---------+------+------+-------+ | mupirocin | Apply topically 3 | | 0 | | | Activ | | (BACTROBAN) 2% | times daily. | | | | | e | | ointment | | | | | | | + + + +---------+------+------+-------+ | [place] 3 1000 MG | Take by mouth. | | 0 | | | Activ | | CAPS | | | | | | e | + + + +---------+------+------+-------+ | terbinafine | Apply topically 2 | | 0 | | | Activ | | (LAMISIL) 1% cream | times daily. | | | | | e | + + + +---------+------+------+-------+ | LORazepam (ATIVAN) | Take 1 tablet by | 10 | 1 | 12/1 | | Activ | | 1 mg tablet | mouth as needed for | tablet | | 06/05 | | e | | | Seizures (take 1-2 | | | 19 | | | | | mg as [...] | tired). | | | | | | + + + +---------+------+------+-------+ | adalimumab (HUMIRA | Inject 0.8 mLs under | 2 each | 11 | 11/14 | | Activ | | PEN) 40 mg/0.8 mL | the skin every 14 | | | 20 | | e | | injection | days. | | | 20 | | | | (pen)Indications: | | | | | | | | Psoriasis | | | | | | | + + + +---------+------+------+-------+ | triamcinolone | Apply 1-2 times | 453.6 g | 5 | 03 | 03/1 | Activ | | (KENALOG) 0.1% | daily to affected | | | 05/05 | 8 | e | | creamIndications: | areas of rash on | | | 20 | 21 | | | Psoriasis | body. Best applied | | | | | | | | to damp skin. Avoid | | | | | | | | the face and | | | | | | | | underarms. | | | | | | + + + +---------+------+------+-------+ | hydrocortisone | Apply 1-2 times | 28 g | 11 | 03/ | 03/ | Activ | | 2.5% | daily to affected | | | 20 | 8/20 | e | | creamIndications: | areas of rash of | | | 20 | 21 | | | Psoriasis | face and underarms. | | | | | | | | Best applied to damp | | | | | | | | skin. | | | | | | + + + +---------+------+------+-------+ | OXcarbazepine | Take 2 tablets by | 124 | 3 | 06/0 | | Activ | | (TRILEPTAL) 600 MG | mouth 2 times daily. | tablet | | 06/05 | | e | | tablet | Take 2 tablets by | | | 20 | | | | | mouth 2 (two) times | | | | | | | | daily | | | | | | + + + +---------+------+------+-------+ | zonisamide | Take 3 capsules by | 186 | 3 | 08/1 | | Activ | | (ZONEGRAN) 100 mg | mouth 2 times daily. | capsule | | 2/20 | | e | | capsule | | | | 20 | | | + + + +---------+------+------+-------+ | zonisamide | Take 3 capsules by | 186 | 3 | 05/0 | 08/1 | Disco | | (ZONEGRAN) 100 mg | mouth 2 times daily. | capsule | | 6/20 | 2/20 | ntinu | | capsule | | | | 20 | 20 | ed | | | | | | | | (Reor | | | | | | | | taryn | | | | | | | | (no | | | | | | | | Cance | | | | | | | | l Rx | | | | | | | | msg)) | + + + +---------+------+------+-------+ Active Problems + + + | Problem | Noted Date | + + + | Neoplasm of uncertain behavior of skin | 09/13/2015 | + + + | ADHD (attention deficit hyperactivity disorder) | 09/02/2015 | + + + | Deafness | 09/02/2015 | + + + | Obesity | 09/02/2015 | + + + | Acne vulgaris | 09/02/2015 | + + + | Vitamin D deficiency | 09/02/2015 | + + + | Hypertriglyceridemia | 09/02/2015 | + + + | Eczema | 09/02/2015 | + + + | Seizure | 09/02/2015 | + + + | Seborrheic dermatitis | 09/02/2015 | + + + | Psoriasis of scalp | 09/02/2015 | + + + | Otitis externa | 09/02/2015 | + + + | Tongue laceration | 09/02/2015 | + + + | Dizziness | 09/02/2015 | + + + | Gastroenteritis | 09/02/2015 | + + + | Mood swings | 09/02/2015 | + + + | Follicular acne | 09/02/2015 | + + + | Intertrigo | 09/02/2015 | + + + | Epilepsy | 09/02/2015 | + + + Encounters +--------+ + + + + | Date | Type | Specialty | Care Team | Description | +--------+ + + + + | 04/27/ | Refill | Neurology | Rom Marcos, | Medication Refill | | 2020 | | | MD | | +--------+ + + + + | 03/15/ | Hospital | Radiology | Rom Marcos, | Abnormal brain MRI | | 2019 | Encounter | | MD | | +--------+ + + + + | 03/15/ | Hospital | Radiology | Rom Marcos, | Abnormal brain MRI | | 2019 | Encounter | | MD | | +--------+ + + + + | 02/21/ | Refill | Neurology | Rom Marcos, | Medication Refill | | 2020 | | | MD | (order status) | +--------+ + + + + from Last 3 Months Family History + +------+ + + | Relation | Name | Status | Comments | + +------+ + + | Father | | | | + +------+ + + | Mother | | | | + +------+ + + Social History + +-------+ +--------+------+ [...] on file | | + + + Last Filed Vital Signs + + + + + | Vital Sign | Reading | Time Taken | Comments | + + + + + | Blood Pressure | 133/87 | 01/25/2020 2:02 PM | | | | | PDT | | + + + + + | Pulse | 90 | 01/25/2020 2:02 PM | | | | | PDT | | + + + + + | Temperature | 37.1 C (98.7 F) | 09/03/2019 8:30 AM | | | | | PST | | + + + + + | Respiratory Rate | 20 | 09/03/2019 8:30 AM | | | | | PST | | + + + + + | Oxygen Saturation | 97% | 01/25/2020 2:02 PM | | | | | PDT [...] | | + + + + + Plan of Treatment +--------+---------+ + + + | Date | Type | Specialty | Care Team | Description | +--------+---------+ + + + | 05/02/ | Office | Neurology | Rom Marcos, | | | 2019 | Visit | | MD Ingrid WATT | | | | | | [address] | | | | | | [place] [address] | | | | | | [phone] | | | | | | | | +--------+---------+ + + + | 06/06/ | Office | Dermatology | Edwige Adams | | | 2019 | Visit | | [address] | | | | | | [address] | | | | | | [place] [address] | | | | | | [phone] | | | | | | | | +--------+---------+ + + + + + +-------+ + | Health Maintenance | Due Date | Last | Comments | | | | Done | | + + +-------+ + | Hepatitis C | | | | | Screening | 7 | | | + + +-------+ + | Med Mgmt: HCT | | | | | | 7 | | | + + +-------+ + | Med Mgmt: HGB | | | | | | 7 | | | + + +-------+ + | Med Mgmt: Na | | | | | | 7 | | | + + +-------+ + | Med Mgmt: PLT | | | | | | 7 | | | + + +-------+ + | Med Mgmt: WBC | | | | | | 7 | | | + + +-------+ + | Medication | | | | | Management | 7 | | | + + +-------+ + | Vaccine: | | | | | Dtap/Tdap/Td (1 - | 6 | | | | Tdap) | | | | + + +-------+ + | Adult Annual | | | | | Wellness Visit | 9 | | | + + +-------+ + | Vaccine: Influenza | | | | | (#1) | 0 | | | + + +-------+ + Procedures + +--------+ + + + | [...] section. | + +--------+ + + + from Last 3 Months Results MRI Cervical Spine w wo Contrast [...] | demyelination. Signed by: Maria De Jesus Garay, Jose Ramon Sign | | | Date/Time: 03/15/2020 5:15 [...] Procedure Note | + + | Jovan, [id number] - 03/15/2020 5:19 PM PDT | | [...] | | | + +---------+ + + MRI Brain w wo Contrast (03/15/2020 12:00 [...] Procedure Note | + + | Jovan, [id number] - 03/16/2020 11:28 AM PDT | | [...] | | | + +---------+ + + from Last 3 Months Insurance + +--------+ +--------+ +---------+--------+ | Payer | Benefi | Subscriber | Effect | Phone | Address | Type | | | t Plan | ID | harvinder | | | | | | / | | Dates | | | | | | Group | | | | | | + +--------+ +--------+ +---------+--------+ | MEDICARE | MEDICA | [id number] | 12/16/19 | [phone] | | Medica | | | RE | | 15-Pre | 5 | | re | | | PART A | | sent | | | | | | AND B | | | | | | + +--------+ +--------+ +---------+--------+ | MEDICARE | MEDICA | [id number] | 12/16/19 | [phone] | | Medica | | | RE | | 15-Pre | 5 | | re | | | PART A | | sent | | | | | | AND B | | | | | | + +--------+ +--------+ +---------+--------+ | MEDICARE | MEDICA | [id number] | 12/16/19 | [phone] | | Medica | | | RE | | 15-Pre | 5 | | re | | | PART A | | sent | | | | | | AND B | | | | | | + +--------+ +--------+ +---------+--------+ | [employer] | S | [id number] | 10/17/19 | | | Indemn | | SERVICE | YELLOW | | 19-Pre | | | ity | | | [place] | | sent | | | | + +--------+ +--------+ +---------+--------+ | [place] | MEDICA | [id number] | 06/26/ | [phone] | | Medica | | | ID | | 1996-P | 2 | | id | | | [place] | | resent | | | | + +--------+ +--------+ +---------+--------+ | [facility] | IHS | [id number] | 08/07/ | | | Indemn | | SERVICE | YELLOW | | 2015-P | | | ity | | | [place] | | resent | | | | + +--------+ +--------+ +---------+--------+ | [place] | MEDICA | [id number] | | [phone] | | Medica | | | ID [place] | | 019-Pr | 2 | | id | | | PLUS | | esent | | | | + +--------+ +--------+ +---------+--------+ | [employer] [place] | MEDICA | [id number] | 08/31/ | [phone] | | Medica | | | [place] | | 2019-P | 2 | | id | | | PLUS | | resent | | | | + +--------+ +--------+ +---------+--------+ | [facility] | IHS | [id number] | 04/21/20 | | | Indemn | | SERVICE | YELLOW | | 08-Pre | | | ity | | | [place] | | sent | | | | + +--------+ +--------+ +---------+--------+ + +--------+ +--------+ + + | Guarantor Name | Accoun | Relation to | Date | Phone | Billing Address | | | t Type | Patient | of | | | | | | | | | | + +--------+ +--------+ + + | Kimberley Yung | Person | Self | [birth year] | | [address] | | | al/Dwaine | | 1985 | [phone] | [place] [address] | | | sally | | | 6 (Home) | | + +--------+ +--------+ + + | Kimberley Yung | Person | Self | [birth year] | | [address] | | | al/Fam | | 1984 | [phone] | [place] [address] | | | sally | | | 6 (Home) | | | | | | | [phone] | | | | | | | 3 (Work) | | + +--------+ +--------+ + + | Kimberley Yung | Person | Self | [birth year] | | [address] | | | al/Fam | | 1984 | [phone] | [place] [address] | | | sally | | | 6 (Home) | | | | | | | [phone] | | | | | | | 3 (Work) | | + +--------+ +--------+ + + Advance Directives + + + + + | Type | Date Recorded | Patient | Explanation | | | | Centura Technical Lead Senior Developer | | + + + + + | Power of | | | | | Pleat Patternmaker | | | | + + + + + | Advance | | | | | Directive | | | | + + + + + + + + + + | Code Status | Date | Date | Comments | | | Activated | Inactivated | | + + + + + | Full Code | 08/31/2019 | 09/03/2019 | | | | 8:24 AM | 1:24 PM | | + + + + +"
--- OUTSIDE RECORDS SUMMARY | ~2020-04-30 | XMS | Encounter Summary ---
Demographics + + + | Address | [address] | | | [place] [address] | + + + | Home Phone | | + + + | Preferred Language | Unknown | + + + | Marital Status | Single | + + + | Episcopalian Affiliation | NON | + + + | Race | or | + + + | Ethnic Group | Not or | + + + Author + + + | Author | [facility] | + + + | Organization | [facility] | + + [...] Team Providers + +------+ + | Care Dog Licenser Name | Role | Phone | + +------+ + | Diane Little MD | PCP | | + +------+ + Encounter Details +--------+ + + + + | Date | Type | Department | Care Team | Description | +--------+ + + + + | 12/22/ | Telephone | Dermatology | Matt Powell MD | | | 2016 | | Medical at [facility] [address] | [address] | | | | | [address] | [place], [place] | | | | | for Health and | [address] | | | | | [facility] 1, | [phone] | | | | | 16th Floor | | | | | | [place], [place] | | | | | | [address] | | | | | | [phone] | | | +--------+ + + + [...]
--- OUTSIDE RECORDS SUMMARY | ~2020-04-30 | XMS | Encounter Summary ---
Demographics + + + | Address | [address] | | | [place] [address] | + + + | Home Phone | | + + + | Preferred Language | Unknown | + + + | Marital Status | Single | + + + | Jew Affiliation | NON | + + + | Race | or | + + + | Ethnic Group | Not or | + + + Author + + + | Author | [facility] [employer] [facility] | + + + | Organization | [facility] | + [...] Team Providers + +------+ + | Care Adoption Manager Name | Role | Phone | [...] | | 2013 | | Medical at [facility] [address] | ,PhD Aylin | | | | | Ailyn [facility] | Allergy Asthma | | | | | for Health and | Dermatology [address] | | | | | Healing, [address], | [facility] [address] | | | | | 16th Floor | [place] [address] | | | | | [place], [place] | [phone] | | | | | [address] | | | | | | [phone] | | | +--------+--------+ + + + [...]
--- OUTSIDE RECORDS SUMMARY | ~2020-04-30 | XMS | Encounter Summary ---
Demographics + + + | Address | [address] | | | [place] [address] | + + + | Home Phone [...] Count Includes [facility] [facility] | + + + | Organization | Count Includes [facility] [facility] | + [...] Team Providers + +------+ + | Care Lay Midwife Name | Role | Phone | + [...] | | 2017 | | Medical at [facility] [address] | MD [address] | ([facility] ) | | | | [address] [place] | [address] [place], | | | | | [facility] and | [place] [address] | | | | | [facility], [place] [address], | [phone] | | | | | 16th Floor | | | | | | [place], [place] | | | | | | [address] | | | | | | [phone] | | | +--------+--------+ + + + [...]
--- OUTSIDE RECORDS SUMMARY | ~2020-04-30 | XMS | Encounter Summary ---
Demographics + + + | Address | [address] | | | [place] [address] | + + + | Home Phone [...] Author | [facility] | + + + | Organization | [facility] | + + + | [...] Team Providers + +------+ + | Care Parking Attendant Name | Role | Phone | + +------+ + | Rita Rodriguez MD | PCP | | + +------+ + Reason for Visit + + + | Reason | Comments | + + + | Psoriasis | pt here for f/u on Tx | + + + Office Visit - E/M Services (Routine) +--------+ + + + + + | Status | Reason | Specialty | Diagnoses / | Referred By | Referred To | | | | | Procedures | Contact | Contact | +--------+ + + + + + | Closed | Specialty | Dermatology | Diagnoses | Michael, | Drm Med | | | Services | | inverse & | Rita Monk, | [facility] [address] | | | Required | | scalp) | MD | [address] | | | | | psoriasis, | [place] | Center for | | | | | 696.1, 3% | [facility] | Health and | | | | | [facility] (btl) | [facility] | Healing, | | | | | Procedures | [address] | [address], | | | | | f/u appt | [place], | 16th Floor | | | | | | [place] [address] | [place], [place] | | | | | | Phone: | [address] | | | | | | [phone] | Phone: | | | | | | Fax: | [phone] | | | | | | [phone] | Fax: | | | | | | | [phone] | +--------+ + + + + + Encounter Details +--------+---------+ + + + | Date | Type | Department | Care Team | Description | +--------+---------+ + + + | 03/02/ | Office | Dermatology | Shukri Anne, | Other psoriasis | | 2012 | Visit | Medical at [facility] [address] | MD,PhD Aylin | (Primary Dx); | | | | [facility] | Allergy Asthma | Encounter for | | | | for Health and | Dermatology [address] | long-term (current) | | | | Healing, [address], | [facility] [address] | use of other | | | | 16th Floor | [place] [address] | medications; | | | | [place], [place] | [phone] | Acquired acanthosis | | | | [address] | | nigricans | | | | [phone] | | | +--------+---------+ + + + [...] + + + | Blood Pressure | 119/92 | 03/02/2013 10:49 AM | | | | | PDT | | + + + + + | Pulse | 94 | 03/02/2013 10:49 AM | | | | | PDT | | + + + + + | Temperature | - | - | | + + + + + | Respiratory Rate | 14 | 03/02/2013 10:49 AM | | | | | PDT | | + + + + + | Oxygen Saturation | - | - | | + + + + + | Inhaled Oxygen | - | - | | | Concentration | | | | + + + + + | Weight | 152.9 kg (337 lb) | 03/02/2013 10:49 AM | | | | | PDT | | + + + + + | Height | - | - | | + + + + + | Body Mass Index | - | - | | + + + + + documented in this encounter Patient Instructions Patient Instructions Yen Muse - 03/02/2013 10:49 AM PDTRotate Head and shoulders f or 2 weeks, then switch to selsun blue for 2 weeks, then Nizoral 2 weeks documented in this encounter Progress Notes Shukri Anne MD,PhD - 03/03/2013 3:52 PM PDTAttending Physician Attestation I personally interviewed, examined the patient, and discussed management with the resident. I reviewed and edited the resident's note and agree with the documented findings and plan of care. Shukri Anne MD, PhD Cloth Cutting Machine Operator, Department of Dermatology [facility] 03/02/2013 Richard Skinner MD - 03/02/2013 11:08 AM PDTDERMATOLOGY FOLLOW-UP VISIT Dx: Inverse PsO Rx: Humira 40mg qow Betamethasone S: Kimberley Ynug is a 27 y.o. male here for f/u scalp and inverse psoriasis. Last se en 3 months ago. Currently Humira 40mg sq qweekly, missed 2 doses. Complains of persistent disease in genital, groin areas. Is having 3-5 days of itchiness around the injection site; localized. No infx, no difficulty breathing, no fevers, minimal cough, but improving. Uses topicals sporadically. Most active around ears, and forehead. Recent ear infection, working with [facility] doctors on treating this. Previous notes: With questionable recent scabies infection [...] no other skin complaints PHYSICAL EXAMINATION: Wt 152.862 kg (337 lbs)( < 3 %ile), BP 119/92, Pulse 94, RR 14. The patient is a well appearing obese male who is alert with normal mood and affect. Pleas ant and cooperative mood. A skin examination was performed including the scalp, face, eyelids, ears, lips, neck, ches t, back, abdomen, buttocks, R+L arms and hands, R+L legs and feet, and nails. Findings were within normal limits except for the following: --superior forehead, anterior frontal, postauricular scalp with violaceous plaques with min imal scale, with interval improvement --bilateral inguinal folds and entire scrotum, bilateral axilla, neck - velvety brown plaqu es --groin: over velvety brown plaques there are well-demarcated pink plaques ASSESSMENT AND PLAN: 1. Severe scalp and inverse psoriasis,overall improved and well-controlled on Humira - Possible arthritis although sounds more mechanical in nature, BSA 2% (last visit 3%); - con't Humira 40mg sq qweekly - consider Remicade if qweekly Humira does not help, would prefer not to add MTX as h/o DM and morbid obesity --betamethasone ointment to active lesions BID x2 weeks then BIW for maintenance - try Head and shoulders for 2 weeks, then switch to selsun blue for 2 weeks, then Nizoral 2 weeks 2. Acanthosis nigricans, axilla, neck, groin - recommend weight loss and better blood sugar control RTC: 3 months; Sign Heat Treat Furnace Operator needed Renea Gauthier M.D. Resident, Department of Dermatology [facility] [employer] [place] documented in this encount er Plan of Treatment Not on filedocumented as of this encounter Visit Diagnoses + + | Diagnosis | + + | Other psoriasis - Primary | + + | Encounter for long-term (current) use of other medications | + + | Acquired acanthosis nigricans | + + documented in this encounter"
--- OUTSIDE RECORDS SUMMARY | ~2020-04-30 | XMS | Encounter Summary ---
Demographics + + + | Address | [address] | | | [place] [address] | + + + | Home Phone | | + + + | Preferred Language | Unknown | + + + | Marital Status | Single | + + + | Restorationist Affiliation | NON | + + + | Race | or | + + + | Ethnic Group | Not or | + + + Author + + + | Author | [facility] | + + + | Organization | [facility] | + + + | Address | Unknown | + + + | Phone | Unavailable | + + + Support + + + + + | Name | Relationship | Address | Phone | + + + + + | Delonte Yung | ECON | [place] | | + + + + + Care Team Providers + +------+ + | Care Emergency Management Consultant Name | Role | Phone | + +------+ + | Rita Rodriguez MD | PCP | | + +------+ + Encounter Details +--------+------+ + + + | Date | Type | Department | Care Team | Description | +--------+------+ + + + | 06/10/ | Lab | Laboratory at [facility] | | Encounter for | | 2012 | | [address] | | long-term (current) | | | | [facility] | | use of other | | | | and Healing, | | medications | | | | [address] | | | | | | [place], [place] | | | | | | [address] | | | | | | [phone] | | | +--------+------+ + + + [...] | + + + + + | [facility] | [address] | [place] [address] | | | SERVICES, M[place] | NINA [...] | | | LABORATORY | | | [place] | | | SERVICES, | | | [...] [facility] | [address] | [place] [address] | | | SERVICES, CORE | [address] | | | + + + + + documented in this encounter Visit Diagnoses + + | Diagnosis | + + | Encounter for long-term (current) use of other medications | + + documented in this encounter"
--- OUTSIDE RECORDS SUMMARY | ~2020-04-30 | XMS | Encounter Summary ---
Demographics + + + | Address | [address] | | | [place] [address] | + + + | Home Phone [...] | [facility] | + + + | Organization | [facility] [employer] [facility] | + + [...] Team Providers + +------+ + | Care Airconditioning Plant Operator Name | Role | Phone | [...] | | | Services | | | Epic Dept | [facility] [address] | | | Required | | psoriasis/ra | | [address] | | | | | sh | | [place] for | | | | | Procedures | | Health and | | | | | f/u ov | | Healing, | | | | | | | Building [address], | | | | | | | 16th Floor | | | | | | | [place], [place] | | | | | | | [address] | | | | | | | Phone: | | | | | | | [phone] | | | | | | | Fax: | | | | | | | [phone] | +--------+ + + + + + Encounter Details +--------+---------+ + + + | Date | Type | Department | Care Team | Description | +--------+---------+ + + + | 04/16/ | Office | Dermatology | Matt Powell MD | Psoriasis (Primary | | 2016 | Visit | Medical at [facility] [address] | [address] | Dx); Tinea; Viral | | | | [address] | [place], [place] | warts, unspecified | | | | for Health and | [address] | type | | | | [facility], [address], | [phone] | | | | | 16 Floor | | | | | | [place], [place] | | | | | | [address] | | | | | | [phone] | | | +--------+---------+ + + + [...] + + + | Blood Pressure | 118/62 | 04/16/2016 11:12 AM | | | | | PDT | | + + + + + | Pulse | 72 | 04/16/2016 11:12 AM | | | | | PDT | | + + + + + | Temperature | - | - | | + + + + + | Respiratory Rate | 14 | 04/16/2016 11:12 AM | | | | | PDT | | + + + + + | Oxygen Saturation | - | - | | + + + + + | Inhaled Oxygen | - | - | | | Concentration | | | | + + + + + | Weight | 139.3 kg (307 lb) | 04/16/2016 11:12 AM | | | | | PDT | | + + + + + | Height | - | - | | + + + + + | Body Mass Index | 41.64 | 08/18/2013 7:05 AM | | | | | PST | | + + + + + documented in this encounter Patient Instructions Patient Instructions Yen Romeo MA - 04/16/2016 11:12 AM PDT 1. Switch from Humira every week to Humira every other week. However if skin worsens, okay to return to every week. 2. Continue to use scalp solution 2.5% hydrocortisone ointment with Betamethasone lotion tw o or three times a week. 3. Okay to use Amlactin solution on dry skin. 4. Use Lamisil anti-fungal cream (avilable over the counter at any pharmacy) on hands and f eet. Skin exams: You should examine your skin every other month looking for changes. The changes we are wor ried about that may be a sign of melanoma include the following: A -- asymmetry -- any mole you cannot draw a line down the center and make the halves match B -- borders -- your moles should be circles or ovals, if they grow ears or legs we need to evaluate them C -- color -- your moles should be all one color. Moles with areas of red, white, or black, need to be evaluated D -- diameter -- your moles should be less than 6 mm in size (about the size of a pencil er asure or less) E -- evolving -- any new or changing mole should be brought to our attention Any lesion suspicious for cancer should be evaluated at once, not waiting for the next sche duled skin examination. Sore or "pimples" that do not heal are worrisome for basal cell skin cancer (BCC) and squamous cell skin cancer (SCC). Sun protection: We recommend photoprotection including the use of photoprotective clothing, avoidance of th e mid-day sun and the use of a sunscreen with the active ingredients:zinc oxide or titanium dioxide. Please remember to re-apply every hour to maintain efficacy. Recommended Sunscreens: Blue Lizard Baby, Vanicream 50+, Cotz, Neutrogena Pure & Free Baby and [place] unscented. Fo r the face- Aveeno Natural Protection or SkinCeuticals Physical Fusion documented in this encounter Progress Notes Matt Powell MD - 05/03/2016 7:46 AM PDTI have reviewed and verified the above scribed n ote of my visit with this patient as recorded by yen romeo. en Romeo MA - 04/16/2016 11:56 AM PDT I Yen Romeo, manuel acting as a scribe for Matt Powell MD DERMATOLOGY FOLLOW-UP VISIT Last Appointment in [facility] was on 10/18/2015 with Matt Powell MD Dx: Inverse PsO Rx: Humira 40mg qow since 01/2012 inc to qw 08/2012 Betamethasone body Spectazole groin BPO wash SUBJECTIVE: Kimberley Yung is a 30 y.o. 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 He is accompanied by his grandmother and a sign-language inter pretor. He is currently on Humira 40 qw and is doing well, has a few scaly lesions behind hi s ears and itchy scalp. Using betamethasone lotion 1-2 times a week along with head and shou lders shampoo. He also notes some scaling on his palmar hands the last few months, itchy at times. Grandmother states he has the same issue with his feet. Doing well with weekly dosing . Tolerating self-injections well. No new joint pain or swelling, no dactylitis/enthesitis. Does state he has been having bad pain in his left foot, previous injury from several years back. Patient reports no changing, tender, itchy or bleeding moles or skin lesions. AN around neck and in axillae is improved per pt. Denies infections, SOB, chest pain, swelling, neuro changes, ISRs. Patient Active Problem List Diagnosis Other psoriasis Other specified disease of hair and hair follicles Intertrigo Acquired acanthosis nigricans Unspecified chronic suppurative otitis media Tympanic membrane perforation, marginal OBJECTIVE: Filed Vitals 04/16/2016 11:15 AM Weight: 139.254 kg (307 lb) BP: 118/62 Pulse: 72 Resp: 14 PainSc: 05 - Moderate to Severe BMI: 41.63 kg/(m^2) WDWN, NAD; awake, alert and oriented; pleasant with appropriate mood and affect; obese A skin examination was performed including the scalp/hair, head/face, eyelids/conjunctivae, lips, neck, chest, back, abdomen, buttocks, bilateral arms and legs, bilateral hands, feet and nails. Findings were within normal limits except for the following: - scalp with mild scale - on the right dorsal hand/forearm: numerous erythematous papules in linear array - scale on left palm, none on right - no obvious swollen or tender finger joints, ankles, knees or elbows ASSESSMENT/PLAN: 1. H/o severe scalp and inverse psoriasis doing very well on weekly Humira; in setting of obesity -- Switch from Humira every week to Humira every other week. However if skin worsens, okay to return to every week. -- Continue to use scalp solution Betamethasone lotion two or three times a week. -- 2.5% hydrocortisone ointment to face daily as needed or 2-3 times per week -- Okay to use Amlactin solution on dry skin. -- wt loss would help 2. Acanthosis nigricans w/ retention hyperkeratosis -- continue to encourage weight loss and consider seeing cloth calender -- pt down 20 lbs since last visit 3. 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 dorsal forearm -- advised pt that tx would likely make more psoriasis lesions appear so advised him to isaias ve them alone 4. Probable Tinea -- TATE neg -- Use Lamisil anti-fungal cream (avaliable over the counter at any pharmacy) on hands and feet 5. Verruca Vulgaris, right hand -Procedure: Liquid Nitrogen application--Prior to beginning the procedure, PARQ were discus sed. Liquid nitrogen was applied x 10 seconds x 2 rounds to a total of 10 lesions. The exp ected blistering or scabbing reaction, as well as the possibility of hyperpigmented or hypop igmented scars was explained to the patient. The patient was counseled to return for furthe r evaluation in the case of failure to fully resolve. 6. Previous foot injury -- recommend a follow up with PCP RETURN VISIT: 3-6 months Yen Romeo Blending Tank Helper Department of Dermatology [facility] 04/16/2016 documented in this e ncounter Plan of Treatment Not on filedocumented as of this encounter Procedures + +--------+ + + + | Procedure Name | Priori | Date/Time | Associated Diagnosis | Comments | | | ty | | | | + +--------+ + + + | DE DESTRUC BENIGN | Routin | 05/03/2016 | Viral warts, | | | LESION, UP TO 14 | e | 7:47 AM | unspecified type | | | LESIONS | | PDT | | | + +--------+ + + + documented in this encounter Visit Diagnoses + + | Diagnosis | + + | Psoriasis - Primary Other psoriasis | + + | Tinea Dermatophytosis of unspecified site | + + | Viral warts, unspecified type | + + documented in this encounter
--- OUTSIDE RECORDS SUMMARY | ~2020-04-30 | XMS | Encounter Summary ---
Demographics + + + | Address | [address] | | | [place] [address] | + + + | Home Phone | | + + + | Preferred Language | Unknown | + + + | Marital Status | Single | + + + | Congregational Affiliation | NON | + + + | Race | or | + + + | Ethnic Group | Not or | + + + Author + + + | Author | [facility] [employer] [facility] | + + + | Organization | [facility] [employer] [facility] | + [...] Team Providers + +------+ + | Care It Systems Analyst Consultant Name | Role | Phone | [...] Floor | | | | | | [place], [place] | [place], [place] | | | | | | [address] | [address] | | | | | | Phone: | Phone: | | | | | | [phone] | [phone] | | | | | | Fax: | Fax: | | | | | | [phone] | [phone] | +--------+ + + + + + Encounter Details +--------+---------+ + + + | Date | Type | Department | Care Team | Description | +--------+---------+ + + + | 10/13/ | Office | Dermatology | Shukri Anne, | Other psoriasis | | 2015 | Visit | Medical at [facility] [address] | ,PhD Aylin | (Primary Dx); | | | | [facility] | Allergy Asthma | Encounter for | | | | for Health and | Dermatology [address] | long-term (current) | | | | Healing, [address], | [address] | use of other | | | | 16th Floor | [place] [address] | medications; | | | | [facility] [place] | [phone] | Acquired acanthosis | | | | [address] | | nigricans; | | | | [phone] | | Intertrigo; Tinea | | | [...] -- recommend weight loss and consider seeing granite polisher apprentice (again discussed relationship with i nsulin resistance [...] VISIT: 6 months Shukri Anne MD, PhD Virtual Assistant, Department of Dermatology [facility] 10/13/2014 docume nted in this [...] | | | LABORATORY | | | [place] | | | SERVICES, | | | [...] + + + + + | [facility] | [address] | [place] [address] | | | SERVICES, CORE | NINA [...]
--- OUTSIDE RECORDS SUMMARY | ~2020-04-30 | XMS | Encounter Summary ---
Demographics + + + | Address | [address] | | | [place] [address] | + + + | Home Phone | | + + + | Preferred Language | Unknown | + + + | Marital Status | Single | + + + | Taoist Affiliation | NON | + + + | Race | or | + + + | Ethnic Group | Not or | + + + Author + + + | Author | [facility] [employer] [facility] | + + + | Organization | [facility] [employer] [facility] | + + + | [...] Team Providers + +------+ + | Care Key Sander Name | Role | Phone | + +------+ + PCP | Unavailable | + +------+ + Encounter Details +--------+ + + + + | Date | Type | Department | Care Team | Description | +--------+ + + + + | 02/03/ | Office | [facility] | Report, [...] as of this encounter Progress Notes Interface, Membership Correspondent In - 05/20/2006 1:14 AM PDTCLINIC DATE: 02/03/2002 CLINIC: CHILD DEVELOPMENT CLINIC DISCIPLINE: PSYCHIATRY I have been following Kimberley who has attention deficit hyperactivity disorder and intermittent explosive disorder. In the past he has taken Ritalin 20 mg four times a day, clonidine 0.1 mg one three times a day, and Risperdal 0.5 mg one two times a day. The last time he was having trouble with falling asleep in class. He is apparently bored and was not sleeping well. I saw Kimberley along with his grandmother and the school nurse along with the fly fishing guide. The grandmother said he is doing pretty good at home. He is beginning to ask questions about his own biological mother and father, which is bothersome to the grandmother. He said that the parents drink and he shows a sign of disapproval. The grandmother is concerned that he sees other kids with their parents and asks about where are my mom and dad. He has gained with signing and using more words. The grandmother wonders how much he comprehends. He has gained a lot in reading. He seems to be motivated to do that now. Regarding medication, he has been off of the clonidine since about a week or so after he was here last. He had been sleeping a lot in school so the grandmother said either decrease the dose or to take him off of it. He has had no reports of falling asleep in class and no major behavioral problems or reports of aggression. The grandmother said at the spring break, which I saw him shortly thereafter, he was at basketball in the gym and at the golf course and so he was probably pretty tired after he got back and sort of sleep deprivation. He says that he needs braces and his grandmother said he needs to take really good care of his teeth before the dentist would work on him. It sounds like he has some understanding of that. He has apparently gotten health conscious, wanting to lose weight and eat good food. Apparently they are teaching him that at school. He wants to lift weights and wants some weights that he can lift. He also wants to go home with other people but it would cost the grandmother a fair amount of money to do that. There is some concern about that, in terms of raising enough money. He has needed to work in order to earn some money to get the things he wants. He was told this was our last meeting so he wished me good luck. He is going to apparently be followed by a doctor at the [facility]. Brendan Caro M.D. Child Psychiatrist MALCOLM/[id number] signed by Interface, Membership Correspondent In at 05/20/2006 1:14 AM [facility] umented in this encounter Plan of Treatment Not on filedocumented as of this encounter Visit Diagnoses Not on filedocumented in this encounter"
--- OUTSIDE RECORDS SUMMARY | ~2020-04-30 | XMS | Encounter Summary ---
Demographics + + + | Address | [address] [place] [address] ROAD | | | [place] [address] | + + + | Home Phone | | + + + | Preferred Language | Unknown | + + + | Marital Status | Single | + + + | Hindu Affiliation | Unknown | + + + | Race | Unknown | + + + | Ethnic Group | Unknown | + + + Author + + + | Author | [facility] | | | and [employer] | + + + | Organization | [facility] | | | and [...] Team Providers + +------+ + | Care Caregiver Services Home Name | Role | Phone | + +------+ + | Nitin Field PA-C | PCP | | + +------+ + Encounter Details +--------+ + + + + | Date | Type | Department | Care Team | Description | +--------+ + + + + | 05/01/ | Orders Only | [facility] | Hemant Ajithamaya, | Epilepsy without | | 2019 | | NEUROLOGY [address] | status epilepticus, | | | | [address] | [address] | not intractable | | | | [place], [place] | [place] [address] | ([facility]); Psoriasis; | | | | [address] | [phone] | Other detention | | | | [phone] | | (current) drug | | | | | | therapy; Other | | | | | | malaise | +--------+ + + + + Social [...] [address] | | | | | | [place] [address] | | | | | | [phone] | | | | | | | | +--------+---------+ + + + | 06/06/ | Office | Dermatology | Edwige Adams | | | 2019 | Visit | | [facility] [address] | | | | | | [address] | | | | | | [place] [address] | | | | | | [phone] | | | | | | | | +--------+---------+ + + + documented as of this encounter Visit Diagnoses + + | Diagnosis | + + | Epilepsy without status epilepticus, not intractable (HCC) Unspecified epilepsy | | without mention of intractable epilepsy | + + | Psoriasis Other psoriasis | + + | Other detention (current) drug therapy | + + | Other malaise | + + documented in this encounter"
--- OUTSIDE RECORDS SUMMARY | ~2020-04-30 | XMS | Encounter Summary ---
Demographics + + + | Address | [address] | | | [place] [address] | + + + | Home Phone [...] + + | Author | [facility] [employer] [facility] | + + + | Organization | [facility] [employer] [facility] | + + + | [...] Team Providers + +------+ + | Care Social Media Intern Name | Role | Phone | + [...] Ehst, | | | Services | | worsened | Epic Dept | Shukri D, | | | Required | | rash on | | MD,PhD Viera | | | | | head, face, | | Allergy | | | | | bilat. | | Asthma | | | | | axilla x 4mo | | Dermatology | | | | | coalesced | | [address] | | | | | erythematous | | [address] | | | | | thick | | [address] | | | | | scaling | | [place], [place] | | | | | lesions on | | [address] Phone: | | | | | neck, | | [phone] | | | | | armpits | | Fax: | | | | | elbows and | | [phone] | | | | | probably | | | | | | | other parts | | | | | | | of the body. | | | | | | | also many | | | | | | | discrete | | | | | | | erythematous | | | | | | | macular | | | | | | | papular | | | | | | | lesions w/ | | | | | | | white heads | | | | | | | covering the | | | | | | | abdoment | | | | | | | and thorax | | | | | | | acne | | | | | | | vulgaris w/ | | | | | | | ?underlying | | | | | | | infection | | | | | | | psoriasis | | | | | | | scalp, face | | | | | | | and external | | | | | | | genitalia: | | | | | | | injuinal/glu | | | | | | | teal/perirec | | | | | | | ta (4% bsa | | | | | | | per our | | | | | | | last note) | | | | | | | Procedures | | | | | | | follow-up ov | | | +--------+ + + + + + Encounter Details +--------+---------+ + + + | Date | Type | Department | Care Team | Description | +--------+---------+ + + + | 01/29/ | Office | Dermatology | Shukri Anne, | Other psoriasis | | 2011 | Visit | Medical at [facility] [address] | ,PhD Aylin | (Primary Dx); | | | | [facility] | Allergy Asthma | Folliculitis | | | | for Health and | Dermatology [address] | | | | | Healing, [address], | [address] | | | | | 16th Floor | [place] [address] | | | | | [place], [place] | [phone] | | | | | [address] | | | | | | [phone] | | | +--------+---------+ + + + [...] + + | Pulse | 84 | 01/30/2012 3:07 PM | | | | | PDT | | + + + + + | Temperature | - | - | | + + + + + | Respiratory Rate | 16 | 01/30/2012 3:07 PM | | | | | PDT | | + + + + + | Oxygen Saturation | - | - | | + + + + + | Inhaled Oxygen | - | - | | | Concentration | | | | + + + + + | Weight | 147.6 kg (325 lb 4.8 | 01/30/2012 3:07 PM | | | | oz) | PDT | | + + + + + | Height | - | - | | + + + + + | Body Mass Index | - | - | | + + + + + documented in this encounter Patient Instructions Patient Instructions Lynda Xie MA - 01/30/2012 3:08 PM PDTSUNSCREEN APPLICATION AND UV PROTECTION Exposure to ultraviolet radiation is the leading cause of premature aging, and skin cance rs including melanoma. The [place] [employer] (AAD) recommends you wear [...] information is available at the following websites: http://[email or web address]edu/xd/health/services/dermatology/for-patients/health_info.cfm - [facility] Derm atology http://www.aad.org/public/sun/smart.html - AAD Website documented in this encounter Progress Notes EhShukri dior MD,PhD - 02/06/2012 8:35 AM PDTAttending Physician Attestation I personally interviewed, examined the patient, and discussed management with the resident. I reviewed and edited the resident's note and agree with the documented findings and plan of care. Shukri Anne MD, PhD Inspector Fabric, Department of Dermatology [facility] 01/30/2012 NALiRichard barkley MD - 01/30/2012 3:32 PM PDTDERMATOLOGY F/U PATIENT CONSULTATION, HISTORY AND PHYSICAL S: Kimberley Yung is a 26 y.o. male sent by Dr. Rodriguez and Nitin Field PA-C for f /u inverse psoriasis. Last seen 08/2011. Started on the scalp and now involving bilateral ax illa, inframammary chest, gluteal cleft; increased involvement of the groin; very itchy and painful. Has been using topicals, doesn't think it's helping. Also complains of back pain, w hich prevents him from enjoying basketball, but pain is worse from activity. Also has follic ulitis on his back, chest and arms, on DCN which seems to be helping. Previous notes: With questionable recent scabies infection [...] te), and mild mental retardation. ROS: No f/c/ns/weight loss; no other skin complaints PHYSICAL EXAMINATION: Wt 147.555 kg (325 lbs 4.8 oz)( < 3 %ile), Pulse 84, RR 16. The patient is a well appearing obese male who is alert with normal mood and affect. Pleas ant and cooperative mood. A skin examination was performed including the scalp, face, eyelids, ears, lips, neck, ches t, back, abdomen, buttocks, R+L arms and hands, R+L legs and feet, and nails. Findings were within normal limits except for the following: --slight interval improvement of: superior forehead, anterior frontal scalp, mahamed-auricular scalp, superior post-auricular surfaces, circumferential neck with sharply demarcated viola ceous plaques, some with adherent scale, some with adherent greasy scale --b/l cheeks and nasolabial folds with minimal greasy scaly erythem plaques --bilateral inguinal folds and entire scrotum: with sharply demarcated erythematous to viol aceous plaques with minimal silvery scale; similar smaller plaque in gluteal cleft --follicularly based papules and pustules on back, chest, arms, background of hyperpigmente d papules / macules ASSESSMENT AND PLAN: 1. Scalp and inverse psoriasis, with some improvement of scalp, but persistent disease of g enitals. Possible arthritis at this time although sounds more mechanical in nature, BSA 8%; failing topicals and interfering with quality of life - all the various treatment options were discussed, along with all of their possible side e ffects - the patient is reluctant to try topical therapies again due to the poor response to these agents in the past - we discussed TNF-alpha inhibitors (etanercept, adalimumab, and infliximab) and their poss ible side effects, including risk of infection, lymphoma, multiple sclerosis, congestive hea rt faulure, rare cytopenias, hepatotoxicity, and reactivation of tuberculosis and hepatitis B virus - also discussed modes of administration of TNF-alpha inhibitors (IV versus subcutaneous) a nd insurance coverage issues - phototherapy is not an option given the genital involvement and scalp - MTX was considered but given his obesity, likely not great to add potential hepatotoxic m ed; also needs monitoring frequently, only approx 50% PASI-75 - pt would like to go ahead with TNF-alpha inhibitor - will coordinate with PCP to start Humira 40 mg sq QOW; needs baseline labs: CBC, Chem 20, hepatitis B/C screening panel, PPD placed -- continue with following: --betamethasone solution to scalp daily x2 weeks --betamethasone ointment to body BID x2 weeks then BIW for maintenance --betamethasone ointment to groin/face for 5 days, then change to HCT 2.5% ointment 2. Folliculitis - recommend BP wash; finish DCN course RTC: 3 months after Humira start Renea Gauthier M.D. Resident, Department of Dermatology [facility] documented in is encounter Plan of Treatment Not on filedocumented as of this encounter Visit Diagnoses + + | Diagnosis | + + | Other psoriasis - Primary | + + | Folliculitis Other specified disease of hair and hair follicles | + + documented in this encounter
--- OUTSIDE RECORDS SUMMARY | ~2020-04-30 | XMS | Encounter Summary ---
Demographics + + + | Address | [address] | | | [place] [address] | + + + | Home Phone | | + + + | Preferred Language | Unknown | + + + | Marital Status | Single | + + + | Hoahaoism Affiliation | NON | + + + | Race | or | + + + | Ethnic Group | Not or | + + + Author + + + | Author | [facility] | + + + | Organization | [facility] [employer] [facility] | + + [...] Team Providers + +------+ + | Care Material Movers Name | Role | Phone | + [...] | | 2015 | | Medical at [facility] [address] | [address] [facility] | (betamethasone | | | | [address] | [place], [place] | dipropionate 0.05 % | | | | for Health and | [address] | Topical Lotion) | | | | [facility] 1, | [phone] | | | | | 16 Floor | | | | | | [place], [place] | | | | | | [address] | | | | | | [phone] | | | +--------+ + + + [...]
--- OUTSIDE RECORDS SUMMARY | ~2020-04-30 | XMS | Encounter Summary ---
Demographics + + + | Address | [address] | | | [place] [address] | + + + | Home Phone [...] | Author | [facility] | + + + | Organization | [facility] | + + + | [...] Providers + +------+ + | Care Brake Lining Driller Name | Role | Phone | + [...] | | | | Procedures | | [facility] | | | | | f/u appt | | Health and | | | | | | | Healing, | | | | | | | Building 1, | | | | | | | 16th Floor | | | | | | | [place], [place] | | | | | | | [address] | | | | | | | Phone: | | | | | | | [phone] | | | | | | | Fax: | | | | | | | [phone] | +--------+ + + + + + Encounter Details +--------+---------+ + + + | Date | Type | Department | Care Team | Description | +--------+---------+ + + + | 11/12/ | Office | Dermatology | Shukri Anne, | Acquired acanthosis | | 2013 | Visit | Medical at [facility] | MD,PhD Viera | nigricans (Primary | | | | [facility] | Allergy Asthma | Dx); Other | | | | for Health and | Dermatology [address] | psoriasis; Other | | | | Healing, Building 1, | [facility] | specified disease of | | | | 16th Floor | [place] [address] | hair and hair | | | | [facility] [place] | [phone] | follicles | | | | [address] | | | | | | [phone] | | | +--------+---------+ + + + [...] information is available at the following websites: http://www.[facility].edu/xd/health/services/dermatology/for-patients/health_info.cfm - [facility] Derm atology http://www.aad.org/public/sun/smart.html - AAD Website documented in this encounter Progress Notes Shukri Anne MD,PhD - 11/13/2013 3:22 PM PSTAttending Physician Attestation I personally interviewed, examined the patient, and discussed management with the resident. I reviewed and edited the resident's note and agree with the documented findings and plan of care. Shukri Anne MD, PhD Commercial Relationship Manager, Department of Dermatology [facility] 11/12/2013 elcam Ena ceron MD - [...] -- recommend weight loss and consider seeing packing supervisor 3. Acne, truncal -- refilled BPO 5% wash RETURN VISIT: 3 months Ena Cho MD PGY-2, Department of Dermatology [facility] documented in this encounter Plan of Treatment Not on filedocumented as of this encounter Visit Diagnoses + + | Diagnosis | + + | Acquired acanthosis nigricans - Primary | + + | Other psoriasis | + + | Other specified disease of hair and hair follicles | + + documented in this encounter
--- OUTSIDE RECORDS SUMMARY | ~2020-04-30 | XMS | Encounter Summary ---
Demographics + + + | Address | [address] [place] [address] ROAD | | | [place] [address] | + + + | Home Phone | | + + + | Preferred Language | Unknown | + + + | Marital Status | Single | + + + | Muslim Affiliation | Unknown | + + + | Race | Unknown | + + + | Ethnic Group | Unknown | + + + Author + + + | Author | [facility] | | | and [place] | + + + | Organization | [facility] | | | and [facility] | [...] Team Providers + +------+ + | Care Events Administrative Assistant Name | Role | Phone | + +------+ + | Nitin Field PA-C | PCP | | + +------+ + Encounter Details +--------+---------+ + + + | Date | Type | Department | Care Team | Description | +--------+---------+ + + + | 07/14/ | Office | [facility] | Rom Marcos, | Seizure disorder | | 2019 | Visit | NEUROLOGY [address] | ([facility]) (Primary Dx); | | | | [address] | [address] | Driving safety issue | | | | [place], [place] | [place] [address] | | | | | [address] | [phone] | | | | | [phone] | | | +--------+---------+ + + + [...] + + + | Blood Pressure | 141/84 | 07/14/2019 12:04 PM | | | | | PDT | | + + + + + | Pulse | 91 | 07/14/2019 12:04 PM | | | | | PDT [...] + + + + | Weight | 148.8 kg (328 lb) | 07/14/2019 12:04 PM | | | | | PDT | | + + + + + | Height | 182.9 cm (6') | 07/14/2019 12:04 PM | | | | | PDT | | + + + + + | Body Mass Index | 44.48 | 07/14/2019 12:04 PM | | | | | PDT | | + + + + + documented in this encounter Patient Instructions Patient Instructions Rosibel Lerner, Kitchenwhere Maker - 07/14/2019 12:00 PM PDTImaging I nformation Your provider has ordered an MRI of your Brain. *Please let us know if you are claustrophobic BEFORE your imaging appointment so the approp riate medication can be ordered* Depending on your insurance it may take several days for them to approve this order. Please allow 3 business days before contacting [facility] Outpatient Imaging department, they will be able to let you know if your testing has been approved or denied. To schedule your appointment or if you have question about your insurance authorization or please call documented in this encounter Progress Notes Rom Marcos MD - 07/14/2019 12:00 PM PDTFormatting of this note might be different fro m the original. Subjective: Patient ID: Kimberley Yung is a 34 y.o. male. HPI I have seen this patient on 03/25/19 for follow up on events. Patient is deaf and grandmother is a poor historian with hearing impairment. Events type/s: - Onset; context and course: 10 months old; after meningitis, stable. - Ictal: Vocalization then shaking arms with fumbling, altered awareness w/o loc per grandm other. Occasional tongue biting with nocturnal episodes. No recollection of the events. - Duration: Few minutes. - Postictal and duration: Confused, tired and sleepy X few hours. - Frequency; current frequency and last spell: Few a week, most are nocturnal. - Provocative factors: Unknown. Previous record: - Etiology of epilepsy or epilepsy syndrome (including unknown and cryptogenic): Focal seiz ure >> generalized at time per previous record. - EEG: From 2000 was normal per report. - Brain MRI: Not available to me. - Previous treatment: Phenobarbital, Depakote, Did not tolerate Lamotirigine, was on keppra in 2016. Not sure why was stopped. Risk factors for epilepsy include:No head trauma with loss of consciousness more than 30 minutes, but h/o meningitis, and developmental delay / hearing loss in the setting of mening itis. - Mood change or depression: Is ok. No depression or suicidal ideas. Patient was on Trileptal 900mg bid and zonisamide 400 mg daily. We decided to continue t rileptal same but we increased zonisamide to 500 mg daily. Last visit: Continue to have 2 seizures a week per GM report. Taking medications on time wi th good toelration. Trileptal level was 18 (3-35). Zonisamide was done previously: 19 (10-40 ). Diarrhea but chronic. ALT 64 from 67. AST and Na are normal. Mood was ok, No S/H ideas. EEG: Borderline, right temporal nonspecific cerebral dysfunction. Decided to increate trileptal to 1200 mg bid and to continue zonisamide 500 mg daily. Since last visit: LAVINIA . Not sure how many seizures. However, family reported thre e seizures in one day (one months ago) and one seizures yesterday. Last night, was sitting i n the car with his aunt, out of sudden, started hitting himself with no clear loc or fall. T his lasted less than 5 minutes then back to baseline. No recollection. Called his uncle, he reported three seizures a month ago, stretching arms or flexing them, circling hands around each other, hitting self on the chest and the head then almost back to normal w/o loc or fall. He is taking his medications most of the time. Missing doses here and there. Labs and MRI are not available (most likely are not done). He did not bring medications wit h him. Past Medical History: Diagnosis Date Hearing loss Rash Seizures (HCC) History reviewed. No pertinent family history. Social History Socioeconomic History Marital status: Single Spouse name: Not on file Number of children: Not on file Years of education: Not on file Highest education level: Not on file Social Needs Financial resource strain: Not on file Food insecurity - worry: Not on file Food insecurity - inability: Not on file Transportation needs - medical: Not on file Transportation needs - non-medical: Not on file Occupational History Not on file Tobacco Use Smoking status: Never Smoker Smokeless tobacco: Never Used Substance and Sexual Activity Alcohol use: Never Alcohol/week: 0.0 oz Frequency: Never Drug use: Never Comment: Drug use: No Sexual activity: Not on file Other Topics Concern Not on file Social History Narrative Not on file Past medical history, family history and social history were reviewed and updated as farhan haney. Review of Systems No report of new general, or neurologic symptoms except to what mentioned in my HPI. Objective: BP 141/84 | Pulse 91 | Ht 1.829 m (6') | Wt (!) 148.8 kg (328 lb) | BMI 44.48 kg/m Physical Exam Vitals: Vitals: 07/14/19 1204 BP: 141/84 Pulse: 91 PainSc: 0 - No pain General: Well developed, in no acute distress Speech: Is deaf. Cranial Nerves: At this time, the pupils are round. Extraocular movements are intact. Trige glen sensation is intact. The face is symmetric. Coordination: Normal finger to nose. Strength: Strength is 5/5 in the upper and lower limbs. Light Touch: Normal light touch sensation in upper and lower extremities. Assessment: 1- Seizure disorder, focal >> generalized vs non epileptic events? 2- Obesity. Plan: 1- The differential diagnosis and the necessary work up were discussed with the patient in detail. 2- I will request his medications list from his pharmacy. I reviewed the available medical record and summarized it in my HPI. 3- We discussed the safety issues in detail including safe environment. He michelle snot drive. The patient was instructed not to drive a vehicle or vessel of any kind, swim, bathe alone, boat, scuba, work on heights, operate heavy machinesor cook on open fire for six (6) month s from any event of loss of consciousness, altered awareness or loss of body control. 4- Continue Trileptal 1200 mg bid and continue zonisamide 500 mg daily. Check Trileptal lev el and zonismaide before am dose to r/o toxicity and to ensure therapeutic level and good ad herence. 5- Brain MRI to r/o structural etiology. 6- Patient understands and agrees to proceed with the regimen / plan. 7- Risk factors modification per PCP. RTC in 2-3 months or prn. However, patient was instru cted to call with any concern, if symptoms are worsening, not improving or if any side effec ts related to regimen. Educated him and family about better adherence (pill box and using alarm), good sleep and h ydration. Interpretor was utilized due to hearing impairment. Will refer to V-EEG for clarification of his events. Patient and Aunt agree. Plan: Educated him about good adherence and risk of uncontrolled seizures including severe injury . documented in this en counter Plan of Treatment +--------+---------+ + + + | Date | Type | Specialty | Care Team | Description | +--------+---------+ + + + | 05/02/ | Office | Neurology | Rom Marcos, | | | 2019 | Visit | | [address] | | | | | | [address] | | | | | | [place] [address] | | | | | | [phone] | | | | | | | | +--------+---------+ + + + | 06/06/ | Office | Dermatology | Edwige Adams | | | 2019 | Visit | | [address] | | | | | | [address] | | | | | | [place] [address] | | | | | | [phone] | | | | | | | | +--------+---------+ + + + + + +--------+ + + | Name | Type | Priori | Associated Diagnoses | Order Schedule | | | | ty | | | + + +--------+ + + | EEG video monitoring | Neurology | Routin | Seizure disorder | Expected: 08/13/2019 | | | | e | (HCC) | (Approximate), | | | | | | Expires: 07/13/2020 | + + +--------+ + + documented as of this encounter Visit Diagnoses + + | Diagnosis | + + | Seizure disorder (HCC) - Primary Unspecified epilepsy without mention of intractable | | epilepsy | + + | Driving safety issue Other specified personal history presenting hazards to health | + + documented in this encounter"
--- OUTSIDE RECORDS SUMMARY | ~2020-04-30 | XMS | Encounter Summary ---
Demographics + + + | Address | [address] | | | [place] [address] | + + + | Home Phone [...] + | Author | [facility] | + + + | Organization | [facility] [employer] [facility] | + + [...] Team Providers + +------+ + | Care Beauty Sales Consultant Name | Role | Phone | + +------+ + | Diane Little MD | PCP | | + +------+ + Reason for Visit + + + | Reason | Comments | + + + | Refill Request | adalimumab 40 mg/0.8 mL subcutaneous pen injector kit | + + + Encounter Details +--------+--------+ + + + | Date | Type | Department | Care Team | Description | +--------+--------+ + + + | 04/02/ | Refill | Dermatology | Matt Powell MD | Refill Request | | 2015 | | Medical at [facility] [address] | [address] | (adalimumab 40 | | | | [address] | [place], [place] | mg/0.8 mL | | | | for Health and | [id number] | subcutaneous pen | | | | Healing, Building 1, | [phone] | injector kit) | | | | [address]th Floor | | | | | | [place], [place] | | | | | | [address] | | | | | | [phone] | | | +--------+--------+ + + + [...]
--- OUTSIDE RECORDS SUMMARY | ~2020-04-30 | XMS | Encounter Summary ---
Demographics + + + | Address | [address] | | | [place] [address] | + + + | Home Phone [...] | Author | [facility] | + + + | Organization | [facility] [employer] [facility] | + + + [...] Team Providers + +------+ + | Care Extractor Puller Name | Role | Phone | + [...] | | | Services | | | Nitin Akhil | [facility] [address] | | | Required | | psoriasis/ra | [address] | [address] | | | | | sh | [facility] | [facility] for | | | | | Procedures | HEALTH | Health and | | | | | f/u | CENTER | Healing, | | | | | | [address] | [address], | | | | | | [address] | [address]th Floor | | | | | | [address] | [place], [place] | | | | | | [address] | [address] | | | | | | [place], | Phone: | | | | | | [place] [address] | [phone] | | | | | | Phone: | Fax: | | | | | | [phone] | [phone] | | | | | | Fax: | | | | | | | [phone] | | +--------+ + + + + + Encounter Details +--------+---------+ + + + | Date | Type | Department | Care Team | Description | +--------+---------+ + + + | 04/14/ | Office | Dermatology | Shukri Anne, | Other psoriasis | | 2013 | Visit | Medical at [facility] | ,PhD Aylin | (Primary Dx); AN | | | | [facility] | Allergy Asthma | (acanthosis | | | | for Health and | Dermatology [address] | nigricans); Other | | | | Healing, [address], | [address] | acne; Encounter for | | | | [address]th Floor | [place] [address] | long-term (current) | | | | [place], [place] | [phone] | use of other | | | | [address] | | medications | | | | [phone] | | | +--------+---------+ + + + [...] + + + | Blood Pressure | 134/88 | 04/14/2014 3:59 PM | | | | | PDT | | + + + + + | Pulse | 86 | 04/14/2014 3:59 PM | | | | | PDT | | + + + + + | Temperature | - | - | | + + + + + | Respiratory Rate | 16 | 04/14/2014 3:59 PM | | | | | PDT | | + + + + + | Oxygen Saturation | - | - | | + + + + + | Inhaled Oxygen | - | - | | | Concentration | | | | + + + + + | Weight | 147.4 kg (325 lb) | 04/14/2014 3:59 PM | | | | | PDT | | + + + + + | Height | - | - | | + + + + + | Body Mass Index | 44.08 | 08/18/2013 7:05 AM | | | | | PST | | + + + + + documented in this encounter Patient Instructions Patient Instructions Yen Muse - 04/14/2014 3:59 PM PDTTHE "ABCDE" RULE AND MELANO MA DETECTION Asymmetry - compare one half of [...] information is available at the following websites: http://www.[facility]/xd/health/services/dermatology/for-patients/health_info.cfm - [facility] Derm atology http://www.aad.org/public/sun/smart.html - [employer] [employer] website documented in this encounter Progress Notes Shukri Anne MD,PhD - 04/16/2014 3:59 PM PDTAttending Physician Attestation I personally interviewed, examined the patient, and discussed management with the resident. I reviewed and edited the resident's note and agree with the documented findings and plan of care. Shukri Anne MD, PhD Insurance Job Titles, Department of Dermatology [facility] 04/14/2014 aYoseph nagy MD - 04/14/2014 4:43 PM PDTFormatting of this note might be different from the origin al. DERMATOLOGY FOLLOW-UP VISIT Dx: Inverse PsO Rx: Humira 40mg qow since 01/2012 inc to qw 02/2013 Betamethasone SUBJECTIVE: Kimberley Yung is a 28 y.o. 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 He is currently on Humira 40 qw and is essentially clear; still doing well with do sing; happy overall except notable plaques on the post neck and post auricular scalp; report s not using TCS to these areas. Denies any infections or ISR. Tolerating self-injections we ll. He does still complain of bumps on the chest and back still present, but improved; still us ing BPO cream, but washing off. AN around neck and in axillae is stable and he dosen't pay attention to it. Denies infections, SOB, chest pain, swelling, neuro changes. Patient Active Problem List Diagnosis Other psoriasis Other specified disease of hair and hair follicles Intertrigo Acquired acanthosis nigricans Unspecified chronic suppurative otitis media Tympanic membrane perforation, marginal OBJECTIVE: Filed Vitals 04/14/2014 4:01 PM Weight: 147.419 kg (325 lb) BP: 134/88 Pulse: 86 Resp: 16 PainSc: 0 - Zero BMI: 44.07 kg/(m^2) WDWN, NAD; awake, alert and oriented; pleasant with appropriate mood and affect; obese A skin examination was performed including the scalp/hair, head/face, eyelids/conjunctivae, lips, neck, chest, back, abdomen, buttocks, genitals, bilateral arms and legs, bilateral mars nds and feet, and nails. Findings were within normal limits except for the following: --scalp and face clear except mild erythema of post neck and b/l postauricular crease (coin cides with areas of AN) --bilateral axillae and neck with brown plaques --follicular papules and PIH, comedones on chest and upper back No results found for this basename: WBC, [...] in the last 4320 hours ASSESSMENT/PLAN: 1. Severe scalp and inverse psoriasis doing very well on weekly Humira; in setting of obes ity -- continue Humira 40 mg q week; RBA discussed; refilled -- start betamethasone to neck and post ears BID for 2 weeks -- wt loss would help -- labs next visit; flu shot in Fall 2. Acanthosis nigricans w/ retention hypkeratosis -- recommend weight loss and consider seeing slot manager (again discussed relationship with i nsulin resistance and AN) -- trial of amlactin/venu acid 3. Acne, truncal -- refilled BPO 5% wash; use daily PRN RETURN VISIT: 6 months YOSEPH SHOEMAKER MD Resident, Department of Dermatology [facility] [employer] documented in th is encounter Plan of Treatment Not on filedocumented as of this encounter Visit Diagnoses + + | Diagnosis | + + | Other psoriasis - Primary | + + | AN (acanthosis nigricans) Acquired acanthosis nigricans | + + | Other acne | + + | Encounter for long-term (current) use of other medications | + + documented in this encounter
--- OUTSIDE RECORDS SUMMARY | ~2020-04-30 | XMS | Encounter Summary ---
Demographics + + + | Address | [address] | | | [place] [address] | + + + | Home Phone | | + + + | Preferred Language | Unknown | + + + | Marital Status | Single | + + + | Spiritism Affiliation | NON | + + + | Race | or | + + + | Ethnic Group | Not or | + + + Author + + + | Author | [facility] [employer] [facility] | + + + | Organization | [facility] [email or web address] [facility] | + + + [...] Team Providers + +------+ + | Care Sap Bods Developer Name | Role | Phone | [...] as of this encounter Progress Notes Interface, Hydrotel Operator In - 05/20/2006 1:14 AM PDTCLINIC DATE: [...] and the school nurse along with the motor vehicle parts interpreter. The grandmother said he is doing pretty [...] be followed by a doctor at [facility]. Brendan Caro M.D. Child Psychiatrist MALCOLM/[id number] signed by Interface, Hydrotel Operator In at 05/20/2006 1:[address] [facility] umented in this encounter Plan of Treatment Not on filedocumented as of this encounter Visit Diagnoses Not on filedocumented in this encounter"
--- OUTSIDE RECORDS SUMMARY | ~2020-04-30 | XMS | Encounter Summary ---
Demographics + + + | Address | [address] | | | [place] [address] | + + + | Home Phone [...] Author + + + | Author | [facility] | + + + | Organization | [facility] | + + [...] Team Providers + +------+ + | Care Evaporator Repairer Name | Role | Phone | [...] | | | | | sh | [facility] [place] | [place] [facility] | | | | | Procedures | HEALTH | Health and | | | | | f/u | CENTER | Healing, | | | | | | [address] | [address], | | | | | | [address] | [address]th Floor | | | | | | [address] | [place], [place] | | | | | | [address] | [address] | | | | | | [place], | Phone: | | | | | | [place] [address] | [phone] | | | | | | Phone: | Fax: | | | | | | [phone] | [phone] | | | | | | Fax: | | | | | | | [phone] | | +--------+ + + + + + Encounter Details +--------+---------+ + + + | Date | Type | Department | Care Team | Description | +--------+---------+ + + + | 04/14/ | Office | Dermatology | Suhkri Anne, | Other psoriasis | | 2013 | Visit | Medical at [facility] 3303 | ,PhD Aylin | (Primary Dx); AN | | | | [facility] | Allergy Asthma | (acanthosis | | | | for Health and | Dermatology [address] | nigricans); Other | | | | Healing, [address], | [address] | acne; Encounter for | | | | 16th Floor | [place] [address] | long-term (current) | | | | [place], [place] | [phone] | use of other | | | | [address] | | medications | | | | [phone] | | | +--------+---------+ + + + [...] at the following websites: http://www.[facility]/xd/health/services/dermatology/for-patients/health_info.cfm - [facility] Derm atology http://www.aad.org/public/sun/smart.html - [place] [employer] website documented in this encounter Progress Notes Shukri Anne MD,PhD - 04/16/2014 3:59 PM PDTAttending Physician Attestation I personally interviewed, examined the patient, and discussed management with the resident. I reviewed and edited the resident's note and agree with the documented findings and plan of care. Shukri Anne MD, PhD Chief Of Party, Department of Dermatology [facility] 04/14/2014 aYoseph nagy MD - 04/14/2014 4:43 [...] -- recommend weight loss and consider seeing diversity specialist (again discussed relationship with i nsulin resistance and AN) -- trial of amlactin/venu acid 3. Acne, truncal -- refilled BPO 5% wash; use daily PRN RETURN VISIT: 6 months YOSEPH SHOEMAKER MD Resident, Department of Dermatology [facility] [employer] Nancy documented in th is encounter Plan of [...]
--- OUTSIDE RECORDS SUMMARY | ~2020-04-30 | XMS | Encounter Summary ---
Demographics + + + | Address | [address] | | | [place] [address] | + + + | Home Phone [...] + + | Author | [facility] | + + + | Organization | [facility] [employer] [facility] | + + + [...] Providers + +------+ + | Care Electrical Automation Engineer Name | Role | Phone | [...] [address] | | | | | | [facility] | | | | | | [place] [address] | | | | | | [phone] | | | | | | | [...]
--- OUTSIDE RECORDS SUMMARY | ~2020-04-30 | XMS | Clinical Summary ---
Demographics + + + | Address | [address] | | | [place] [address] | + + + | Home Phone [...] Author + + + | Author | [facility] | + + + | Organization | [facility] | + + + | Address | Unknown | + + + | Phone | Unavailable | + + + Support + + + + + | Name | Relationship | Address | Phone | + + + + + | Denishalie Dilshad | ECON | [place] | | + + + + + Care Team Providers + +------+ + | Care Boat Captain Name | Role | Phone | + +------+ + | Nitin Field | PCP | | + +------+ + Source Comments TAIWO is fully live on both EpicCare Ambulatory and EpicCare InPatient.Pending Sale To [facility] Allergies + + + + + + | Active Allergy | Reactions | Severity | Noted | Comments | | | | | Date | | + + + + + + | Amoxicillin | | | 08/08/20 | Pts mother states | | | | | 11 | "It's not proven but | | | | | | it made him feel | | | | | | funny and he | | | | | | complained of | | | | | | dizziness." | + + + + + + Medications + + + +---------+------+------+-------+ | Medication | Sig | Dispensed | Refills | Star | End | Statu | | | | | | t | Date | s | | | | | | Date | | | + + + +---------+------+------+-------+ | DIVALPROEX SODIUM | Take 250 mg by | | 0 | | | Activ | | (DEPAKOTE ORAL) | mouth. | | | | | e | + + + +---------+------+------+-------+ | econazole 1 % | Apply to affected | 30 g | 2 | 03/1 | | Activ | | Topical Cream | area once daily. | | | 3/20 | | e | | | Groin | | | 13 | | | + + + +---------+------+------+-------+ | Talc (ZEASORB) | Apply to groin daily | 70.9 g | 3 | 03/1 | | Activ | | Topical Powder | | | | 3/20 | | e | | | | | | 13 | | | + + + +---------+------+------+-------+ | miconazole 2 % | Apply to affected | 45 g | 1 | 03/1 | | Activ | | Topical Cream | area two times | | | 5/20 | | e | | | daily. For rash in | | | 13 | | | | | skin folds, | | | | | | | | including groin. | | | | | | + + + +---------+------+------+-------+ | miconazole | Apply to affected | 85 g | 6 | 09/2 | | Activ | | (ZEASORB AF) 2 % | area two times | | | 5/20 | | e | | Topical Powder | daily. | | | 13 | | | + + + +---------+------+------+-------+ | Lignite-3 Fatty | Take 3 capsules by | | 0 | | | Activ | | Acids (FISH OIL) | mouth once daily. | | | | | e | | oral capsule | | | | | | | + + + +---------+------+------+-------+ | levothyroxine 100 | Take 100 mcg by | | 0 | | | Activ | | mcg oral tablet | mouth before | | | | | e | | | breakfast. | | | | | | + + + +---------+------+------+-------+ | | Take 1 to 2 tablets | 30 | 0 | 12/0 | | Activ | | HYDROcodone-acetamin | by mouth every six | tablet | | 3/20 | | e | | ophen 5-325 mg oral | hours as needed (for | | | 13 | | | | tablet | post-operative [...] hour period.) | | | | | | + + + +---------+------+------+-------+ | promethazine 12.5 | Take 1 tablet by | 15 | 0 | 12/0 | | Activ | | mg oral tablet | mouth four times | tablet | | 3/20 | | e | | | daily as needed for | | | 13 | | | | | nausea/vomiting. | | | | | | + + + +---------+------+------+-------+ | | Instill 3 drops into | 10 mL | 0 | 12/0 | | Activ | | nqhcjmeg-hixjwokty-o | the right ear three | | | 3/20 | | e | | ydrocortisone | times daily. | | | 13 | | | | (CORTISPORIN) | | | | | | | | 3.5-10,000-1 | | | | | | | | mg-unit/mL-% otic | | | | | | | | drops,suspension | | | | | | | + + + +---------+------+------+-------+ | benzoyl peroxide 5 | Apply to affected | 148 g | 2 | 07/3 | | Activ | | % topical cleanser | area once daily. | | | 0/20 | | e | | | Apply a thin film; | | | 14 | | | | | gently massage into | | | | | | | | skin. | | | | | | + + + +---------+------+------+-------+ | terbinafine HCl | Apply to groin and | 42 g | 3 | 01/2 | | Activ | | (LAMISIL) 1 % | buttocks BID for 2-4 | | | 8/20 | | e | | topical cream | weeks then PRN itch | | | 15 | | | | | and rash | | | | | | + + + +---------+------+------+-------+ | betamethasone | Apply to affected | 45 g | 1 | 06/0 | | Activ | | dipropionate 0.05 % | area two times | | | 1/20 | | e | | topical ointment | daily. BID for 2 | | | 16 | | | | | weeks then 1-2 times | | | | | | | | a week (For body- | | | | | | | | avoid face, groin, | | | | | | | | and axilla) | | | | | | + + + +---------+------+------+-------+ | betamethasone | Apply a few drops to | 60 mL | 1 | 12/1 | | Activ | | dipropionate 0.05 % | scalp on Saturday, | | | 2/20 | | e | | topical lotion | Saturday and | | | 16 | | | | | Saturday. | | | | | | + + + +---------+------+------+-------+ | hydrocortisone 2.5 | Apply a thin film to | 28 g | 2 | 12/1 | | Activ | | % topical ointment | clean, dry skin and | | | 2/20 | | e | | | rub in gently once | | | 16 | | | | | every three days. | | | | | | + + + +---------+------+------+-------+ | ADALIMUMAB (HUMIRA | Inject 40 mg under | 4 Pen | 1 | 08/0 | | Activ | | PSORIASIS) 40 | the skin (SUBC) | | | 3/20 | | e | | mg/0.8 mL | every fourteen days. | | | 17 | | | | subcutaneous pen | Indications: | | | | | | | injector | Moderate to Severe | | | | | | | kitIndications: | Plaque Psoriasis | | | | | | | moderate to severe | | | | | | | | plaque psoriasis | | | | | | | + + + +---------+------+------+-------+ Active Problems + + + | Problem | Noted Date | + + + | Chronic suppurative otitis media | 04/23/2013 | + + + + + | Overview: ICD10 | + + + + + | Tympanic membrane perforation, marginal | 04/23/2013 | + + + | Acquired acanthosis nigricans | 03/03/2013 | + + + | Intertrigo | 11/27/2012 | + + + | Other specified disease of hair and hair follicles | 05/27/2012 | + + + | Other psoriasis | 02/06/2012 | + + + Social History + +-------+ [...] recent travel history available. | + + Last Filed Vital Signs + [...] + + + + Plan of Treatment + + + + + | Health Maintenance | Due Date | Last Done | Comments | + + + + + | Pneumococcal | | | | | vaccination (1 of 3 | 3 | | | | - PCV13) | | | | + + + + + | Influenza (Flu) | | | | | vaccination (#1) | 9 | | | + + + + + Results Not on filefrom Last 3 Months Insurance + +--------+ +--------+ + +--------+ | Payer | Benefi | Subscriber | Effect | Phone | Address | Type | | | t Plan | ID | harvinder | | | | | | / | | Dates | | | | | | Group | | | | | | + +--------+ +--------+ + +--------+ | MEDICARE | MEDICA | xxxxxxxxxxx | 12/16/19 | [phone] | [address] | Medica | | | RE A & | | 15-Pre | 1 | [phone] | re | | | B | | sent | | [place] | | | | | | | | [phone] | | + +--------+ +--------+ + +--------+ | [place]ICAID [place] | OHP | xxxxxxxx | 07/08/ | [phone] | [address] | Medica | | | PLUS | | 2009-P | 6 | [phone] | id | | | OPEN | | resent | | [place], [place] | | | | CARD | | | | [id number] | | + +--------+ +--------+ + +--------+ | [facility] | [place]STR[place]IAN | [id number] | 09/16/19 | | | Agency | | SERVICE | | | 13-Pre | | | | | | HEALTH | | sent | | | | | | | | | | | | | | SERVIC | | | | | | | | E | | | | | | + +--------+ +--------+ + +--------+ + +--------+ +--------+ + + | Guarantor Name | Accoun | Relation to | Date | Phone | Billing Address | | | t Type | Patient | of | | | | | | | | | | + +--------+ +--------+ + + | Kimberley Yung | Person | Self | [birth year] | [address] | | | al/Fam | | 1985 | [phone] | [place] [address] | | | sally | | | 0 (Home) | | + +--------+ +--------+ + + | Kimberley Yung | Agency | Self | [birth year] | | [address] [facility] | | | | | [facility] | [phone] | [place] [address] | | | | | | 0 (Home) | | + +--------+ +--------+ + +
--- OUTSIDE RECORDS SUMMARY | ~2020-04-30 | XMS | Encounter Summary ---
Demographics + + + | Address | [address] | | | [place] [address] | + + + | Home Phone [...] Author + + + | Author | [facility] | + + + | Organization | [facility] | + + + [...] Team Providers + +------+ + | Care Paper Bag Making Machinist Name | Role | Phone | + +------+ + | Rita Rodriguez MD | PCP | | + +------+ + Encounter Details +--------+ + + + + | Date | Type | Department | Care Team | Description | +--------+ + + + + | 09/11/ | Documentati | Dermatology | Shukri Anne, | | | 2010 | on | Medical at [facility] [address] | PhD Aylin RICE | | | | | [place] | Allergy Asthma | | | | | for Health and | Dermatology [address] | | | | | [facility], [address] 1, | [facility] | | | | | 16th Floor | [place] [address] | | | | | [place], [place] | [phone] | | | | | [address] | | | | | | [phone] | | | +--------+ + + + [...]
--- OUTSIDE RECORDS SUMMARY | ~2020-04-30 | XMS | Encounter Summary ---
Demographics + + + | Address | [address] | | | [place] [address] | + + + | Home Phone [...] | Author | [facility] | + + + | Organization | [facility] | + + + [...] Team Providers + +------+ + | Care Fairmont Gold Attendant Name | Role | Phone | [...] | | 2014 | | Medical at [facility] 3[address] | ,PhD Aylin | | | | | [facility]n [facility] | Allergy Asthma | | | | | for Health and | Dermatology [address] | | | | | Healing, Building 1, | [facility] [address] | | | | | 16th Floor | [place] [address] | | | | | [place], [place] | [phone] | | | | | [address] | | | | | | [phone] | | | +--------+--------+ + + + [...]
--- OUTSIDE RECORDS SUMMARY | ~2020-04-30 | XMS | Encounter Summary ---
Demographics + + + | Address | [address] | | | [place] [address] | + + + | Home Phone [...] + | Author | [facility] [employer] [facility] | + + + | Organization | [facility] | + + + [...] Team Providers + +------+ + | Care Digital Print Operator Name | Role | Phone | [...] | | | | (current) | | [address] | | | | | use of other | | [address] | | | | | medications | | [address] | | | | | Other | | [place], [place] | | | | | specified | | [address] Phone: | | | | | disease of | | [phone] | | | | | hair and | | Fax: | | | | | hair | | [phone] | | | | | follicles | [...] | 2011 | Visit | Medical at [facility] 3303 | ,PhD Aylin | (Primary Dx); | | | | [facility] | Allergy Asthma | Encounter for | | | | for Health and | Dermatology [address] | long-term (current) | | | | Healing, [address], | [address] | use of other | | | | 16th Floor | [place] [address] | medications | | | | [place], [place] | [phone] | | | | | [address] | | | | | | [phone] | | | +--------+---------+ + + + [...] information is available at the following websites: http://www.[facility]/xd/health/services/dermatology/for-patients/health_info.cfm - [facility] Derm atology http://www.aad.org/public/sun/smart.html - AAD Website documented in this encounter Progress Notes Shukri Anne MD,PhD - 08/25/2012 11:23 AM PSTAttending Physician Attestation I personally interviewed, examined the patient, and discussed management with the resident. I reviewed and edited the resident's note and agree with the documented findings and plan of care. Shukri Anne MD, PhD Digital Advertising Analyst, Department of Dermatology [facility] 08/25/2012 avi Carbajal MD - 08/25/2012 11:10 AM PSTDERMATOLOGY CEPPA F/U VISIT (Last Office Visit in [facility] was on 05/26/12 at 3:00 pm with [...] continue BP wash RTC: 3 months; Sign Ampoule Filler needed Staff: Omid Pascal M.D. [facility] Dermatology Resident documented in this en counter Plan of Treatment Not on filedocumented as of this encounter Visit Diagnoses + + | Diagnosis | + + | Other psoriasis - Primary | + + | Encounter for long-term (current) use of other medications | + + documented in this encounter
--- OUTSIDE RECORDS SUMMARY | ~2020-04-30 | XMS | Encounter Summary ---
Demographics + + + | Address | [address] | | | [place] [address] | + + + | Home Phone [...] Author | [facility] [employer] [facility] | + + + | Organization | [facility] [facility] | + + + | [...] Team Providers + +------+ + | Care Biomedical Equipment Tech Name | Role | Phone | + +------+ + | Diane Little MD | PCP | | + +------+ + Encounter Details +--------+------+ + + + | Date | Type | Department | Care Team | Description | +--------+------+ + + + | 10/18/ | Lab | Laboratory at [facility] | | Psoriasis; Encounter | | 2015 | | [address] | | for long-term | | | | Center for Health | | (current) use of | | | | and Healing, | | other high-risk | | | | Building [address] | | medications | | | | [place], [place] | | | | | | [address] | | | | | | [phone] | | | +--------+------+ + + + [...] | + + + + + | [facility] | [address] | [place] [address] | | | [facility] | | | | | HEALTH + [...] | + + + + + | [facility] - | [address] | [place] [address] | | | [facility] | | | | + + + [...] | | | LABORATORY | | | [place] | | | SERVICES, | | | [...] | + + + + + | [facility] | [address] | [place] [address] | | | SERVICES, MORALES | NINA [...]
--- OUTSIDE RECORDS SUMMARY | ~2020-04-30 | XMS | Encounter Summary ---
Demographics + + + | Address | [address] | | | [place] [address] | + + + | Home Phone [...] + | Author | [facility] | + + + | Organization | [facility] | + + [...] Providers + +------+ + | Care Medical Advisor Name | Role | Phone | + [...] | | | | sh | | [place] for | | | | | Procedures | | Health and | | | | | f/u ov | | Healing, | | | | | | | Building 1, | | | | | | | 16th Floor | | | | | | | [place], [place] | | | | | | | [address] | | | | | | | Phone: | | | | | | | [phone] | | | | | | | Fax: | | | | | | | [phone] | +--------+ + + + + + Encounter Details +--------+---------+ + + + | Date | Type | Department | Care Team | Description | +--------+---------+ + + + | 04/16/ | Office | Dermatology | Matt Powell MD | Psoriasis (Primary | | 2016 | Visit | [facility] at [facility] | [address] | Dx); Tinea; Viral | | | | [address] | [place], [place] | warts, unspecified | | | | for Health and | [address] | type | | | | [facility], Building 1, | [phone] | | | | | 16 Floor | | | | | | [place], [place] | | | | | | [address] | | | | | | [phone] | | | +--------+---------+ + + + [...] Cotz, Neutrogena Pure & Free Baby and Horse Shoe unscented. Fo r the face- Aveeno Natural [...] MD DERMATOLOGY FOLLOW-UP VISIT Last Appointment in [facility] was on 10/18/2015 with Matt Powell MD [...] to encourage weight loss and consider seeing compressed gas equipment mechanic -- pt down 20 lbs since [...] PCP RETURN VISIT: 3-6 months Yen Romeo Manager Shipping Department of Dermatology [facility] 04/16/2016 documented in this e ncounter Plan of Treatment Not on filedocumented as of this encounter Procedures + +--------+ + + + | Procedure Name | Priori | Date/Time | Associated Diagnosis | Comments | | | ty | | | | + +--------+ + + + | CA DESTRUC BENIGN | Routin | 05/03/2016 | [...]
--- OUTSIDE RECORDS SUMMARY | ~2020-04-30 | XMS | Encounter Summary ---
Demographics + + + | Address | [address] | | | [place] [address] | + + + | Home Phone [...] Author | [facility] | + + + | Organization | [facility] [employer] [facility] | + + [...] Team Providers + +------+ + | Care Pension Fund Manager Name | Role | Phone | [...] | | Otology Services at | [place] [address] | | | | | [address] | | | | | [address] | [place], [place] | | | | | Physician's | [address] | | | | | [place], 2nd floor | [phone] | | | | | [facility] [place] | | | | | | [address] | | | | | | [phone] | | | +--------+ + + + [...]
--- OUTSIDE RECORDS SUMMARY | ~2020-04-30 | XMS | Encounter Summary ---
Demographics + + + | Address | [address] | | | [place] [address] | + + + | Home Phone [...] Author + + + | Author | [facility] | + + + | Organization | [facility] | + + + [...] Team Providers + +------+ + | Care Promotion Specialist Name | Role | Phone | [...] | | 2012 | | Medical at [facility] 3303 | ,PhD Aylin | (Betamethasone) | | | | [facility] | Allergy Asthma | | | | | for Health and | Dermatology [address] | | | | | [facility], Building 1, | [facility] A | | | | | 16th Floor | [place] [address] | | | | | [place], [place] | [phone] | | | | | [address] | | | | | | [phone] | | | +--------+--------+ + + + [...]
--- OUTSIDE RECORDS SUMMARY | ~2020-04-30 | XMS | Encounter Summary ---
Demographics + + + | Address | [address] | | | [place] [address] | + + + | Home Phone [...] Count Includes [facility] | + + + | Organization | Count Includes [facility] [employer] [facility] | + + + | [...] Team Providers + +------+ + | Care Guillotine Trimmer Name | Role | Phone | + +------+ + | Nitin Field | PCP | | + +------+ + Encounter Details +--------+ + + + + | Date | Type | Department | Care Team | Description | +--------+ + + + + | 09/18/ | Documentati | Otolaryngology | Elba Muñoz | | | 2013 | on | Otology Services at | T, MD [address] | | | | | [address] | | | | | [address] | [facility] [place] | | | | | Physician's | [address] | | | | | Pavilion, 2nd floor | [phone] | | | | | [place], [place] | | | | | | [address] | | | | | | [phone] | | | +--------+ + + + [...]
--- OUTSIDE RECORDS SUMMARY | ~2020-04-30 | XMS | Encounter Summary ---
Demographics + + + | Address | [address] | | | [place] [address] | + + + | Home Phone [...] + + + | Author | [facility] | + + + | Organization | [facility] | + + + [...] Team Providers + +------+ + | Care Enrichment Director Name | Role | Phone | [...] Pharmacy | | | | | | [address] | | | | | | [address] [place], [place] | | | | | | [address] | | | | | | [phone] | | | +--------+ + + + [...]
--- OUTSIDE RECORDS SUMMARY | ~2020-04-30 | XMS | Encounter Summary ---
Demographics + + + | Address | [address] | | | [place] [address] | + + + | Home Phone [...] Team Providers + +------+ + | Care Dynamics Ax Technical Architect Name | Role | Phone | + +------+ + PCP | Unavailable | + +------+ + Encounter Details +--------+ + + + + | Date | Type | Department | Care Team | Description | +--------+ + + + + | 01/26/ | Transcribed | | Dictation, Other | Transcribed | | 2000 | | | | | +--------+ + [...] as of this encounter Progress Notes Interface, Field Crop I Farmworker In - 07/08/2006 2:29 AM [facility] [place] [address] [place], [place] [address] or Division of Pediatric Neurology [address] [place] [address], [address] [address] , January 26, 2001 To Whom It May Concern [facility] [address] [place] [address] RE: JESSICA YUNG MR #: [id number] To Whom It May Concern: Jessica Yung was seen for a neurologic followup in the Pediatric Neurologic Clinic at [facility] on January 15, 2001. 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 In addition, he also has problems with behavior and learning. He has also had some difficulties with a seizure disorder, although this has not been an active issue. For his behavior, he is currently followed by Dr. Brendan Caro and was recently seen in October 2000. Dr. Caro is currently treating the behaviourial issues with Ritalin, clonidine, and Risperdal. The last time he was seen by me in Neurology Clinic was in May 1998. At that time, there was a history of some staring spells. However, the nature and the frequency of the events were impossible to characterize. So, an EEG was obtained which was normal. It was felt that seizures were not a major clinical issue, and the valproic acid that he was on at that time has since been discontinued. While there has not been any report of overt clinical seizure activity, the grandmother and Dr. Caro were concerned about neurologic followup for seizures and suggested that he be seen today. There is no history or clinical events by grandmother who sees Jessica on weekends, and there is no report from the [facility] where he is during the week of clinical seizures. Despite this, he will be undergoing a repeat EEG later today. On physical examination, Jessica is a well-developed and well-nourished young man in no acute distress. His growth parameters disclose a height of 174.4 cm with a weight of 103 kg and a head circumference of 61 cm. His blood pressure is 115/59. His constitutional examination is unremarkable other than his large size and difficulties with deafness and communication secondary to his deafness. On neurologic testing, there are the obvious communication difficulties; otherwise, there are no perceivable problems. He is well behaved during the examination. Cranial nerves are intact other than hearing. Motor examination reveals normal bulk, tone, and strength. His reflexes are symmetric, and his gait is within normal limits. IMPRESSION: Jessica Yung is a 13-1/2-year-old [place] boy with a significant disability which includes deafness secondary to meningitis as an . He also has some behavioral problems with learning, attention, and aggression. He currently is being managed for those by Dr. Caro in the [facility]. He additionally has a history in the past of seizures; however, there do not appear to be any current clinical events to report, and he is on no antiepileptic medications. His last EEG was 2 years ago. At this time, I do not feel that there is an active neurologic problem with seizures. He will undergo an EEG today. If this is again normal, then I do not feel he needs to return to the Neurologic Clinic unless there is documentation of seizures. He should continue to maintain his contact with Dr. Caro. Thank you for allowing me to participate in the care of this young man. If I may be of any further assistance, please do not hesitate to contact me. Sincerely, Silviano Henson M.D. Professor of Pediatric Neurology Director, Pediatric Neurology TK / [id number] / [id number] / [id number] / [id number] cc: Brendan Caro M.D. Child Psychiatry [facility] Child Development Clinic [id number] signed by Interface, Field Crop I Farmworker In at 07/08/2006 2:29 AM PDTdocume nted in this encounter Plan of Treatment Not on filedocumented as of this encounter Visit Diagnoses Not on filedocumented in this encounter"
--- OUTSIDE RECORDS SUMMARY | ~2020-04-30 | XMS | Encounter Summary ---
Demographics + + + | Address | [address] [place] [address] ROAD | | | [place] [address] | + + + | Home Phone [...] | Author | [facility] | | | and [place] | + + + | Organization | [facility] | | [...] Team Providers + +------+ + | Care Start Up Specialist Name | Role | Phone | [...] | MRI Cervical | DRIVE [address] | [place], [place] | | | | | Spine w wo | D | [address] | | | | | Contrast | [place], | Phone: | | | | | | [place] [address] | [phone] | | | | | | Phone: | Fax: | | | | | | [phone] | [phone] | | | | | | Fax: | | | | | | | [phone] | | +--------+--------+ + + + + Diagnostic/Screening (Routine) +--------+--------+ + + + + [...] MRI Brain w | DRIVE SUITE | [place], [place] | | | | | wo Contrast | D | [address] | | | | | | [place], | Phone: | | | | | | [place] [address] | [phone] | | | | | | Phone: | Fax: | | | | | | [phone] | [phone] | | | | | | Fax: | | | | | | | [phone] | | +--------+--------+ + + + + Reason for Visit Evaluate & Treat (Routine) +--------+--------+ + + + + | Status | Reason | Specialty | Diagnoses / | Referred By | Referred To | | | | | Procedures | Contact | Contact | +--------+--------+ + + + + | Closed | | | Diagnoses | Ace, | Tammaa, | | | | | Epilepsy | Scarlet Prakash, | MD Rom | | | | | ([facility]) | PA-C [address] | [address] | | | | | Epilepsy, | [address] | [address]IVE [address] | | | | | unspecified, | [place], | D | | | | | not | [place] [address] | [place] | | | | | intractable, | Phone: | [phone] | | | | | without | [phone] | Phone: | | | | | status | Fax: | [phone] | | | | | epilepticus | [phone] | Fax: | | | | | ([facility]) | | [phone] | +--------+--------+ + + + + Encounter Details +--------+---------+ + + + | Date | Type | Department | Care Team | Description | +--------+---------+ + + + | 01/24/ | Office | [facility] | Rom Marcos, | Abnormal brain MRI | | 2020 | Visit | NEUROLOGY [address] | [address] | (Primary Dx); | | | | [address] | [address] | Seizure disorder | | | | [place], [place] | [place] [address] | (HCC) | | | | [address] | [phone] | | | | | [phone] | | | +--------+---------+ + + + [...] +---------+ + + | Blood Pressure | 133/87 | 01/25/2020 2:02 PM | | | | | PDT | | + +---------+ + + | Pulse | 90 | 01/25/2020 2:02 PM | | | | | PDT | | + +---------+ + + | Temperature | - | - | | + +---------+ + + | Respiratory Rate | - | - | | + +---------+ + + | Oxygen Saturation | 97% [...] + documented in this encounter Progress Notes Rom Marcos MD - 01/25/2020 1:30 PM PDTFormatting of this note might be different fro m the original. Subjective: Patient ID: Kimberley Yung is a 34 y.o. male. HPI I have seen this patient on09/22/2019 forfollow up onseizure disorder. Patient is deaf and grandmother is a [...] 2000 was normal per report. 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 Patchy regions of nonspecific white matter gliosis are present compared to the previous MRI from 2010. Chronic partial opacification of the right mastoid and middle ear cavity. - Previous treatment: Phenobarbital, Depakote, Did not [...] 900mg bid and zonisamide 400 mg daily. Last visit: Was seen in [facility]. V-EEG: "At least seven seizures, all with similar onsets focal seizure of uncertain onset location though semiologies look classically temporal, at l east in the beginning, the right arm is often the first to move up to chest wall, the left s oon follows, and then the left has a preference to move behind the left ear and make a kind of circular motion; head may turn to the right as with eyes at this time, the jaw is clenche d, then confusion may follow, the confusion is particularly worse and more aggressive with w nando pulling and inability to be calmed by nursing staff if the event is long or secondarily generalized." Zonisamide 300 mg bid and Trileptal 1200 mg bid. Presurgical evaluation and OS A. Last available Trileptal level was 18 (3-35) and zonisamide level was 19 (10-40). No seizures since he was discharged from [facility]. He is supposed to be on Triletpal 1200 mg bid and zonismaide 300 mg bid. Since last visit: He reports 3-5 seizures in the setting of missing his medications. Good t oleration. Mood is ok. No report of visual change, dysphagia, dizziness, weakness or numbness. Brain MRI from 09/30/2019: 1. Scattered foci of FLAIR and T2 hyperintensity are seen in the bihemispheric periventricu lar and deep white matter, some of which are flame shaped and are oriented perpendicular to the ventricles typical of multiple sclerosis plaques. The number and position of the lesion s meets the 2010 revised Garrison criteria for diagnosis of multiple sclerosis, disseminatio n in space. 2. Multiple sclerosis plaques seen in the periventricular white matter adjacent to the temp oral horn of the right lateral ventricle versus mesial temporal sclerosis. Correlation with EEG findings is suggested for localization of seizure focus. 3. Mastoid fluid noted on the right. See above comments. Past Medical History: Diagnosis Date Hearing loss Rash Seizures (HCC) No family history on file. Social History Socioeconomic History Marital status: Single Spouse name: Not on file Number of children: Not on file Years of education: Not on file Highest education level: Not on file Occupational History Not on file Social Needs Financial resource strain: Not on file Food insecurity: Worry: Not on file Inability: Not on file Transportation needs: Medical: Not on file Non-medical: Not on file Tobacco Use Smoking status: Never Smoker Smokeless tobacco: Never Used Substance and Sexual Activity Alcohol use: Never Alcohol/week: 0.0 standard drinks Frequency: Never Drug use: Never Comment: Drug use: No Sexual activity: Not on file Lifestyle Physical activity: Days per week: Not on file Minutes per session: Not on file Stress: Not on file Relationships Social connections: Talks on phone: Not on file Gets together: Not on file Attends scientology service: Not on file Active member of club or organization: Not on file Attends meetings of clubs or organizations: Not on file Relationship status: Not on file Intimate partner violence: Fear of current or ex partner: Not on file Emotionally abused: Not on file Physically abused: Not on file Forced sexual activity: Not on file Other Topics Concern Not on file Social History Narrative Not on file Past medical history, family history and social history were reviewed and updated as farhan haney. Review of Systems No report of new general, or neurologic symptoms except to what mentioned in my HPI. Objective: Vitals: Vitals: 01/25/20 1402 BP: 133/87 Pulse: 90 General: Well developed, in no acute distress Cranial Nerves: At this time, extraocular movements are intact. The face is symmetric. Coordination: Normal finger to nose. Gait: Unremarakable. Strength: Strength is 5/5 in the upper and lower limbs. Light Touch: Normal light touch sensation in upper and lower extremities. Assessment: 1- Seizure disorder, focal >>generalizedvs non epileptic events? 2- Abnormal brain MRI suggestive of MS (radiographic?). I reviewed the available images and agree with the radiologist interpretation. Plan: 1- The differential diagnosis and the necessary work up were discussed with the patient in detail. 2- I reviewed the available medical record and [...] altered awareness or loss of body control. 4-ContinueTrileptal 1200 mg bid and continue zonisamide 300 mg bid. Check Trileptal lev el and zonismaide before am dose to r/o toxicity and to ensure therapeutic level and good ad herence. 5- For #2, Brain / cervical MRI with and w/o. Depending on the results, we may consider spi nal tap with MS panel. 6- Patient understands and agrees to proceed with the regimen / plan. 7- Risk factors modification, probable RIKKI and elevated BP, per PCP. 8- RTC in2-3 months or prn. However, patient was instructed to call with any concern, if symptoms are worsening, not improving or if any side effects related to regimen. Interpretor was utilized due tohearing impairment. documented in this en counter Plan of Treatment +--------+---------+ + + + | Date | Type | Specialty | Care Team | Description | +--------+---------+ + + + | 05/02/ | Office | Neurology | Rom Marcos, | | 2019 | Visit | | MD Ingrid WATT | | | | | | [address] | | | | | | [place] [address] | | | | | | [phone] | | | | | | | | +--------+---------+ + + + | 06/06/ | Office | Dermatology | Edwige Adams | | 2019 | Visit | | [address] | | | | | | [address] | | | | | | [place] [address] | | | | | | [phone] | | | | | | | | +--------+---------+ + + + + +------+--------+ + + | Name | Type | Priori | Associated Diagnoses | Order Schedule | | | | ty | | | + +------+--------+ + + | Comprehensive | Lab | Routin | Abnormal brain MRI | 1 Occurrences | | Metabolic Panel | | e | Seizure disorder | starting 01/25/2020 | | | | | (HCC) | until 01/24/2021 | + +------+--------+ + + | CBC with | Lab | Routin | Abnormal brain MRI | 1 Occurrences | | Differential | | e | Seizure disorder | starting 01/25/2020 | | | | | (HCC) | until 01/24/2021 | + +------+--------+ + + | Oxcarbazepine | Lab | Routin | Abnormal brain MRI | 1 Occurrences | | Metabolite Level | | e | Seizure disorder | starting 01/25/2020 | | | | | (HCC) | until 01/24/2021 | + +------+--------+ + + | TSH | Lab | Routin | Abnormal brain MRI | 1 Occurrences | | | | e | | starting 01/25/2020 | | | | | | until 01/24/2021 | + +------+--------+ + + | Vitamin B-12 and | Lab | Routin | Abnormal brain MRI | 1 Occurrences | | Folate | | e | | starting 01/25/2020 | | | | | | until 01/24/2021 | + +------+--------+ + + | Borrelia Burgdorferi | Lab | Routin | Abnormal brain MRI | 1 Occurrences | | Ab, w/Bernadette to | | e | | starting 01/25/2020 | | Western Blot | | | | until 01/24/2021 | + +------+--------+ + + | JANET Profile, Reflex | Lab | Routin | Abnormal brain MRI | 1 Occurrences | | | | e | | starting 01/25/2020 | | | | | | until 01/24/2021 | + +------+--------+ + + | Zonisamide Level | Lab | Routin | Seizure disorder | 1 Occurrences | | | | e | (HCC) | starting 01/25/2020 | | | | | | until 01/24/2021 | + +------+--------+ + + documented as of this encounter Results MRI Cervical Spine w [...] Procedure Note | + + | Jovan, [id number] - 03/15/2020 5:19 PM PDT | | [...] Procedure Note | + + | Jovan, [id number] - 03/16/2020 11:28 AM PDT | | [...] | + + | Abnormal brain MRI - Primary Nonspecific (abnormal) findings on radiological and | | other examination of skull and head | + + | Seizure disorder (HCC) Unspecified epilepsy without mention of intractable epilepsy | + + documented in this encounter
--- OUTSIDE RECORDS SUMMARY | ~2020-04-30 | XMS | Encounter Summary ---
Demographics + + + | Address | [address] [place] [address] ROAD | | | [place] [address] | + + + | Home Phone | | + + + | Preferred Language | Unknown | + + + | Marital Status | Single | + + + | Quaker Affiliation | Unknown | + + + | Race | Unknown | + + + | Ethnic Group | Unknown | + + + Author + + + | Author | [facility]erg[facility] | | | and [place] | + + + | Organization | [facility]erged [facility] | | | and [place] [...] Team Providers + +------+ + | Care Ror Engineer Name | Role | Phone | + +------+ + | Scarlet Bello PA-C | PCP | | + +------+ + Reason for Visit +--------+--------+ + | Reason | Onset | Comments | | | Date | | +--------+--------+ + | Other | 01/10/ | Client Reporting Associate request | | | 2019 | | +--------+--------+ + Encounter Details +--------+ + + + + | Date | Type | Department | Care Team | Description | +--------+ + + + + | 01/10/ | Telephone | [facility] | Rom Marcos, | Other (Client Reporting Associate | | 2019 | | NEUROLOGY [address] | MD Ingrid WATT | request ) | | | | [address] | [employer] [facility] [address] | | | | | [place], [place] | [place] [address] | | | | | [address] | [phone] | | | | | [phone] | | | +--------+ + + + [...] this encounter Miscellaneous Notes Telephone Encounter - Jacobo Vaughn CMA - 01/12/2020 9:37 AM PDTInterpreter sign languag e is set up for patient for his appointment. elephone Encounter - Lisa Ragland - 01/11/2020 4:53 PM [facility], is calling regarding Other (Client Reporting Associate request ) and would like a call back. Additional Call Details: Calling to request garbage depot worker for 01/24 appointment If this is a symptom based call, was patient offered triage? Not Applicable If this is a symptom based call and you were unable to immediately transfer the call to a lisandra singh informatica was caller made aware that if at any time he feels it is an emergency they nga uld call 911 or go to the nearest emergency room? not applicable documented in this encounter Plan of Treatment +--------+---------+ + + + | Date | Type | Specialty | Care Team | Description | +--------+---------+ + + + | 05/02/ | Office | Neurology | TammaRom horowitz, | | | 2019 | Visit | | MD Ingrid WATT | | | | | | [address] | | | | | | [place] [address] | | | | | | [phone] | | | | | | | | +--------+---------+ + + + | 06/06/ | Office | Dermatology | Edwige Adams | | | 2019 | Visit | | [address] | | | | | | [address] | | | | | | [place] [address] | | | | | | [phone] | | | | | | | | +--------+---------+ + + + documented as of this encounter Visit Diagnoses Not on filedocumented in this encounter"
--- OUTSIDE RECORDS SUMMARY | ~2020-04-30 | XMS | Encounter Summary ---
Demographics + + + | Address | [address] [place] [address] ROAD | | | [place] [address] | + + + | Home Phone | | + + + | Preferred Language | Unknown | + + + | Marital Status | Single | + + + | Samaritan Affiliation | Unknown | + + + | Race | Unknown | + + + | Ethnic Group | Unknown | + + + Author + + + | Author | [facility] | | | and [place] | + + + | Organization | [facility] | | | and [place] | + + + | Address | Unknown | + + + | Phone | Unavailable | + + + Support + + +---------+ + | Name | Relationship | Address | Phone | + + +---------+ + | Benjamin Yung | ECON | Unknown | | + + +---------+ + | Marcymoses Sanatna | ECON | Unknown | | + + +---------+ + | Vinay Yung | ECON | Unknown | | + + +---------+ + Care Team Providers + +------+ + | Care Char Filter Operator Helper Name | Role | Phone | + +------+ + | Scarlet Bello PA-C | PCP | | + +------+ + Reason for Visit + +--------+ + | Reason | Onset | Comments | | | Date | | + +--------+ + | Follow-up | 08/04/ | | | | 2019 | | + +--------+ + Encounter Details +--------+ + + + + | Date | Type | Department | Care Team | Description | +--------+ + + + + | 08/04/ | Telephone | [facility] | Rom Marcos, | Follow-up | | 2019 | | NEUROLOGY [address] | MD [address] | | | | | [address] | [facility] | | | | | [place], [place] | [place] [address] | | | | | [address] | [phone] | | | | | [phone] | | | +--------+ + + + [...] this encounter Miscellaneous Notes Telephone Encounter - EzraSelam - 08/04/2019 3:32 PM PSTVivian, is calling regarding Follow-up and would like a call back. Additional Call Details: Requesting call back regarding 09/01 follow up. Caller stated the patient is needing to check into the office in [place] on 08/31 for the testing that provid er ordered. She is wanting to get 09/01 appointment rescheduled after receives the results from test in [place]. If this is a symptom based call, was patient offered triage? Not Applicable If this is a symptom based call and you were unable to immediately transfer the call to a p samantha screen machine operator was caller made aware that if at [...] | | | | | | [address] | | | | | | [place] [address] | | | | | | [phone] | | | | | | | | +--------+---------+ + + + | 06/06/ | Office | Dermatology | Edwige Adams | | | 2020 | Visit | | [address] | | | | | | [address] | | | | | | [place] [address] | | | | | | [phone] | | | | | | | | +--------+---------+ + + + documented as of this encounter Visit Diagnoses Not on filedocumented in this encounter"
--- OUTSIDE RECORDS SUMMARY | ~2020-04-30 | XMS | Clinical Summary ---
Demographics + + + | Address | [address] | | | [place] [address] | + + + | Home Phone | | + + + | Preferred Language | Unknown | + + + | Marital Status | Single | + + + | Buddhist Affiliation | NON | + + + [...] Team Providers + +------+ + | Care Hearing Screen Coordinator Name | Role | Phone | + +------+ + | Nitin Field | PCP | | + +------+ + Source Comments TAIWO is fully live on both EpicCare Ambulatory and EpicCare InPatient.[facility] Allergies + + + + + + [...] | | + + + +---------+------+------+-------+ | [place]-3 Fatty | Take 3 capsules by | [...] | 12/0 | | Activ | | [id number] | the right ear three | | [...] | | | | | | | [id number] | | + +--------+ +--------+ + +--------+ | MEDICAID [place] | OHP | xxxxxxxx | 07/08/ | [phone] | [address] | [address] | | | PLUS | | 2009-P | 6 | [address] | id | | | OPEN | | resent | | [place], [place] | | | | CARD | | | | [id number] | | + +--------+ +--------+ + +--------+ | [facility] | PERUVIAN | [phone] | 09/16/19 | | | [...] | Self | [birth year] | [address] | | | al/Fam | | 1985 | [phone] | [place] [address] | | | sally | | | 0 (Home) | | + +--------+ +--------+ + + | Kimberley Yung | Agency | Self | [birth year] | [address] [facility] | | | | | [facility] | [phone] | [place] [address] | | | | | | 0 (Home) | | + +--------+ +--------+ + +
--- OUTSIDE RECORDS SUMMARY | ~2020-04-30 | XMS | Encounter Summary ---
Demographics + + + | Address | [address] [place] [address] ROAD | | | [place] [address] | + + + | Home Phone | | + + + | Preferred Language | Unknown | + + + | Marital Status | Single | + + + | Worship Affiliation | Unknown | + + + | Race | Unknown | + + + | Ethnic Group | Unknown | + + + Author + + + | Author | [facility] | | | and Mendezana | + + + | Organization | [facility] | | | and Mendezana [...] Team Providers + +------+ + | Care Student Admissions Clerk Name | Role | Phone | + +------+ + PCP | Unavailable | + +------+ + Encounter Details +--------+ + + + + | Date | Type | Department | Care Team | Description | +--------+ + + + + | 09/02/ | Abstract | [facility] [place] | Manuelito Arellano MD | | | 2014 | | OTOLARYNGOLOGY [address] | [address] | | | | | [address] | [address] [place] | | | | | [place], [place] | [place] [address] | | | | | [address] | [phone] | | | | | [phone] | | | +--------+ + + + [...] D | | | | | | [place] [address] | | | | | | [phone] | | | | | | | | +--------+---------+ + + + | 06/06/ | Office | Dermatology | Angie Edwige | | 2019 | Visit | | [address] | | | | | | [address] | | | | | | [place] [address] | | | | | | [phone] | | | | | | | | +--------+---------+ + + + documented as of this encounter Visit Diagnoses Not on filedocumented in this encounter"
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
--- OUTSIDE RECORDS SUMMARY | ~2020-04-30 | XMS | Encounter Summary ---
Demographics + + + | Address | [address] | | | [place] [address] | + + + | Home Phone [...] Team Providers + +------+ + | Care Anode Crew Supervisor Name | Role | Phone | + +------+ + PCP | Unavailable | + +------+ + Encounter Details +--------+ + + + + | Date | Type | Department | Care Team | Description | +--------+ + + + + | 09/20/ | Results | | Other, Faculty | | | 2000 | Only | | [phone] | | +--------+ + + + + [...] | + +--------+ + + + | DERMATOPATHOLOGY([facility] Routin | 09/20/2000 | | Results for this | | [facility]) | e | | | procedure are [...] | | | | | MNT) | [id number] [address] | | | | | | [...] IV | | | | | | [id number] | | | | + + + [...] TAIWO | [address] | [place] [address] | | | DERMATOPATHOLOGY | [address] | | | + + + + + documented in this encounter Visit Diagnoses Not on filedocumented in this encounter"
--- OUTSIDE RECORDS SUMMARY | ~2020-04-30 | XMS | Encounter Summary ---
Demographics + + + | Address | [address] [place] [address] ROAD | | | [place] [address] | + + + | Home Phone | | + + + | Preferred Language | Unknown | + + + | Marital Status | Single | + + + | Restorationist Affiliation | Unknown | + + + | Race | Unknown | + + + | Ethnic Group | Unknown | + + + Author + + + | Author | [facility] | | | and Mendezana | + + + | Organization | [facility] | [...] Team Providers + +------+ + | Care Outside Cutter Hand Name | Role | Phone | + [...] | Radiology | Diagnoses | Tammaa, | Km [facility]ri | | | | | Seizure | MD Rom | [address] | | | | | disorder | [address] | | | | | (HCC) | [address] | [place], [place] | | | | | Procedures | DRIVE [address] | [address] | | | | | MRI Brain wo | D | Phone: | | | | | Contrast | [place], | [phone] | | | | | | [place] [address] | Fax: | | | | | | Phone: | [phone] | | | | | | [phone] | | | | | | | Fax: | | | | | | | [phone] | | +--------+--------+ + + + + Reason for Visit Evaluate & Treat (Routine) +--------+--------+ + + + + | Status | Reason | Specialty | Diagnoses / | Referred By | Referred To | | | | | Procedures | Contact | Contact | +--------+--------+ + + + + | Closed | | | Diagnoses | Ace, | Hemant, | | | | | Epilepsy | Scarlet Prakash, | MD Rom | | | | | ([facility]) | PA-C [id number] | [address] | | | | | Epilepsy, | [address] | [address] | | | | | unspecified, | [place], | D | | | | | not | [place] [address] | [place], [place] | | | | | intractable, | Phone: | [phone] | | | | | without | [phone] | Phone: | | | | | status | Fax: | [phone] | | | | | epilepticus | [phone] | Fax: | | | | | ([facility]) | | [phone] | +--------+--------+ + + + + Encounter Details +--------+---------+ + + + | Date | Type | Department | Care Team | Description | +--------+---------+ + + + | 09/22/ | Office | [facility] | Rom Marcos, | Seizure disorder | | 2020 | Visit | NEUROLOGY [address] | ([facility]) (Primary Dx); | | | | [address] | [address] | Driving safety issue | | | | [place], [place] | [place] [address] | | | | | [address] | [phone] | | | | | [phone] | | | +--------+---------+ + + + [...] + + + | Blood Pressure | 148/93 | 09/22/2019 3:15 PM | | | | | PST | | + + + + + | Pulse | 90 | 09/22/2019 3:15 PM | | | | | PST | | + + + + + | Temperature | - | - | | + + + + + | Respiratory Rate | - | - | | + + + + + | Oxygen Saturation | 98% | 09/22/2019 3:15 PM | | | | | PST | | + + + + + | Inhaled Oxygen | - | - | | | Concentration | | | | + + + + + | Weight | 149 kg (328 lb 6.4 | 09/22/2019 3:15 PM | | | | oz) | PST | | + + + + + | Height | 182.9 cm (6') | 09/22/2019 3:15 PM | | | | | PST | | + + + + + | Body Mass Index | 44.54 | 09/22/2019 3:15 PM | | | | | PST | | + + + + + documented in this encounter Patient Instructions Patient Instructions Rom Marcos MD - 09/22/2019 3:00 PM PST1- Good sleep and hydrati on. 2- Triletpal 1200 mg twice daily and zonismaide 300 mg twice daily. 3- Brain MRI. 4- Labs, one week before next visit (fasting and before am dose). 5- RTC in 3 months. Imaging Information Your provider has ordered an US, MRI, CT/CTA, PET of your brain. *Please let us know if you are claustrophobic BEFORE your imaging appointment so the approp riate medication can be ordered* Depending on your insurance it may take several days for them to approve this order. Please allow 3 business days before contacting [facility] department, they will be able to let you know if your testing has been approved or denied. To schedule your appointment or if you have question about your insurance authorization or please call documented in this encounter Progress Notes Rom Marcos MD - 09/22/2019 3:00 PM PSTFormatting of this note might be different fro m the original. Subjective: Patient ID: Kimberley Yung is a 34 y.o. male. HPI I have seen this patient on 07/14/19 for follow up on events. Patient is [...] and zonisamide 400 mg daily. Last visit: GM . Not sure how many seizures. However, family reported three seiz ures in one day (one months ago) and one seizure yesterday. Last night, was sitting in the c ar with his aunt, out of sudden, started hitting himself with no clear loc or fall. This las wei less than 5 minutes then back to baseline. No recollection. Called his uncle, he reported three seizures one month ago, stretching arms or flexing them , circling hands around each other, hitting self on the chest and the head then almost back to normal w/o loc or fall. He is taking his medications most of the time. Missing doses here and there. Since last visit: Was seen in [facility]. V-EEG: "at least seven seizures, all with similar on setsfocal seizure of uncertain onset location though semiologies look classically temporal , at least in the beginning, the right arm is often the first to move up to chest wall, the left soon follows, and then the left has a preference to move behind the left ear and make a kind of circular motion; head may turn to the right as with eyes at this time, the jaw is c lenched, then confusion may follow, the confusion is particularly worse and more aggressive with wire pulling and inability to be calmed by nursing staff if the event is long or second arily generalized." Zonisamide 300 mg bid and Trileptal 1200 mg bid. Presurgical evaluation and RIKKI. Last available Trileptal level was 18 (3-35) and zonisamide level was 19 (10-40). No seizures since he was discharged from [facility]. He is supposed to be on Triletpal 1200 mg bid and zonismaide 300 mg bid. Past Medical History: Diagnosis Date Hearing loss Rash Seizures (HCC) Social History Socioeconomic History Marital status: Single [...] file Gets together: Not on file Attends taoism service: Not on file Active member of [...] to what mentioned in my HPI. Objective: There were no vitals taken for this visit. Physical Exam Vitals: Vitals: 09/22/19 1515 BP: (!) 148/93 Pulse: 90 PainSc: 5 PainLoc: Head General: Well developed, in no acute distress Cognition: The patient is oriented to person, place, and time. Cranial Nerves: At this time, the pupils are equal, round, and reactive to light. Visual fi eld are ok. Extraocular movements are intact. Trigeminal sensation is intact. The face is sy mmetric. Coordination: Normal finger to nose. Gait: Unremarakable. Strength: Strength is 5/5 in the upper and lower limbs. Light Touch: Normal light touch sensation in upper and lower extremities. Assessment: 1- Seizure disorder, focal >>generalized vs non epileptic events? 2- Obesity and possible RIKKI. 3- Elevated BP. Plan: 1- The differential diagnosis and the [...] and to ensure therapeutic level and good adhe rence. 5- Brain MRI to r/o structural etiology. 6- Patient understands and agrees to proceed with the regimen / plan. 7- Risk factors modification, probable RIKKI and elevated BP, per PCP. RTC in 2-3 months or p rn. However, patient was instructed to call with any concern, if symptoms are worsening, not improving or if any side effects related to regimen. Educated him and family about better adherence (pill box and using alarm), good sleep and h ydration. Interpretor was utilized due to hearing impairment. I spent more than 40 minutes face to face in managing this case with more than 50% of the t antonino was spent in plan coordination and counseling about the diagnosis, the pathology, the th erapeutic options and the side effects. documented in this en counter Plan of Treatment +--------+---------+ + + + | Date | Type | Specialty | Care Team | Description | +--------+---------+ + + + | 05/02/ | Office | Neurology | Rom Marcos, | | 2019 | Visit | | MD Ingrid WATT | | | | | | [address] | | | | | | [place] [address] | | | | | | [phone] | | | | | | | | +--------+---------+ + + + | 06/06/ | Office | Dermatology | Edwige Adams | | 2019 | Visit | | [address] | | | | | | [address] | | | | | | [place] [address] | | | | | | [phone] | | | | | | | | +--------+---------+ + + + documented as of this encounter Results MRI Brain wo Contrast (09/30/2019 1:37 PM PST) + + | Specimen | + + | | + + + + + | Impressions | Performed At | + + + | 1. Scattered foci of FLAIR and T2 hyperintensity are seen in the | [facility] | | bihemispheric periventricular and deep white matter, some of which are | | | flame shaped and are oriented perpendicular to the ventricles | | | typical of multiple sclerosis plaques. The number and position of | | | the lesions meets the 2010 revised Garrison criteria for diagnosis of | | | multiple sclerosis, dissemination in space. 2. Multiple sclerosis | | | plaques seen in the periventricular white matter adjacent to the | | | temporal horn of the right lateral ventricle versus mesial temporal | | | sclerosis. Correlation with EEG findings is suggested for | | | localization of seizure focus. 3. Mastoid fluid noted on the right. | | | See above comments. Signed by: Maria De Jesus Garay Edward Sign | | | Date/Time: 09/30/2019 5:16 PM | | + + + + + + | Narrative | Performed At | + + + | MRI BRAIN WITHOUT CONTRAST CLINICAL INFORMATION: Seizure, | [facility] | | nontraumatic. COMPARISON: None PROCEDURE: Axial DWI and ADC | | | map, axial T2*GRE, axial T2 FLAIR, axial T2, axial T1, sagittal T2 | | | FLAIR, coronal T2 FLAIR, coronal TruIR. FINDINGS: Brain: Multiple | | | foci of FLAIR and T2 hyperintensity are seen throughout the | | | bihemispheric periventricular, deep and juxtacortical white matter of | | | both cerebral hemispheres. Some of these are flame shaped and are | | | oriented perpendicular to the ventricles typical of multiple sclerosis | | | plaques. The number and position of lesions meets the 2010 revised | | | Garrison criteria for diagnosis of multiple sclerosis, dissemination | | | in space. No prior studies available for comparison. The DWI | | | sequence shows no evidence of acute ischemia or infarct. The | | | susceptibility weighted sequence does not show low signal material to | | | suggest calcification or microhemorrhage within the brain | | | parenchyma. The midline structures including the corpus callosum, | | | louie, cerebellar vermis, pituitary and pineal gland are normal. | | | Coronal imaging through the temporal lobes shows increased signal | | | intensity in the periventricular white matter near the temporal horn | | | of the right lateral ventricle both medially and laterally, see image | | | 14 series 10. This could indicate mesial temporal sclerosis or may | | | simply be foci of multiple sclerosis plaques. CSF spaces: The | | | ventricles, cisterns and sulci are normal in size and configuration. | | | No extra-axial fluid collections are noted. Orbits: Normal. | | | CP Angles and IACs: No masses are seen in the region of the | | | cerebellopontine angles or internal auditory canals. The visualized | | | structures of the temporal bones are normal. Vessels: The | | | intracranial arteries and dural venous sinuses demonstrate normal | | | flow voids on the T2 sequences. No large aneurysm or dural venous | | | sinus thrombosis is noted. Calvarium and extracranial soft | | | tissues: Normal. Paranasal sinuses and mastoid air cells: The | | | paranasal sinuses are normal. Fluid is seen in the right mastoid | | | air cells. This is a nonspecific finding and can indicate a serous | | | mastoid effusion due to eustachian tube dysfunction from a recent | | | upper respiratory infection or seasonal allergies. There is no | | | evidence of an obstructing mass in the fossa of Rosenmuller. | | | Mastoiditis is considered very unlikely. | | + + + + + | Procedure Note | + + | Jovan, Rad Results In - 09/30/2019 5:19 PM PST | | MRI BRAIN WITHOUT CONTRAST | | | | CLINICAL INFORMATION: | | Seizure, nontraumatic. | | | | COMPARISON: | | None | | | | PROCEDURE: | | Axial DWI and ADC map, axial T2*GRE, axial T2 FLAIR, axial T2, axial | | T1, sagittal T2 FLAIR, coronal T2 FLAIR, coronal TruIR. | | | | FINDINGS: | | Brain: Multiple foci of FLAIR and T2 hyperintensity are seen throughout | | the bihemispheric periventricular, deep and juxtacortical white matter | | of both cerebral hemispheres. Some of these are flame shaped and are | | oriented perpendicular to the ventricles typical of multiple sclerosis | | plaques. The number and position of lesions meets the 2010 revised | | Garrison criteria for diagnosis of multiple sclerosis, dissemination in | | space. No prior studies available for comparison. The DWI sequence | | shows no evidence of acute ischemia or infarct. The susceptibility | | weighted sequence does not show low signal material to suggest | | calcification or microhemorrhage within the brain parenchyma. The | | midline structures including the corpus callosum, louie, cerebellar | | vermis, pituitary and pineal gland are normal. Coronal imaging through | | the temporal lobes shows increased signal intensity in the | | periventricular white matter near the temporal horn of the right | | lateral ventricle both medially and laterally, see image 14 series 10. | | This could indicate mesial temporal sclerosis or may simply be foci of | | multiple sclerosis plaques. | | | | CSF spaces: The ventricles, cisterns and sulci are normal in size and | | configuration. No extra-axial fluid collections are noted. | | | | Orbits: Normal. | | | | CP Angles and [...] and mastoid air cells: The paranasal sinuses are | | normal. Fluid is seen in the right mastoid air cells. This is a | | nonspecific finding and can indicate a serous mastoid effusion due to | | eustachian tube dysfunction from a recent upper respiratory infection | | or seasonal allergies. There is no evidence of an obstructing mass in | | the fossa of Rosenmuller. Mastoiditis is considered very unlikely. | | | | | | IMPRESSION: | | 1. Scattered foci of FLAIR and T2 hyperintensity are seen in the | | bihemispheric periventricular and deep white matter, some of which are | | flame shaped and are oriented perpendicular to the ventricles typical | | of multiple sclerosis plaques. The number and position of the lesions | | meets the 2010 revised Garrison criteria for diagnosis of multiple | | sclerosis, dissemination in space. | | 2. Multiple sclerosis plaques seen in the periventricular white matter | | adjacent to the temporal horn of the right lateral ventricle versus | | mesial temporal sclerosis. Correlation with EEG findings is suggested | | for localization of seizure focus. | | 3. Mastoid fluid noted on the right. See above comments. | | | | | | | | Signed by: Maria De Jeuss Garay Edward | | Sign Date/Time: 09/30/2019 5:16 PM | + + + +---------+ + [...] health | + + documented in this encounter
--- OUTSIDE RECORDS SUMMARY | ~2020-04-30 | XMS | Encounter Summary ---
Demographics + + + | Address | [address] [place] [address] ROAD | | | [place] [address] | + + + | Home Phone [...] | Author | [facility] | | | and [place] | + + + | Organization | [facility] | | | and [place] | + + + | Address | Unknown | + + + | Phone | Unavailable | + + + Support + + +---------+ + | Name | Relationship | Address | Phone | + + +---------+ + | Benjamin Yung | ECON | Unknown | | + + +---------+ + | Marcy Tao | ECON | Unknown | | + + +---------+ + | Vinay Yung | ECON | Unknown | | + + +---------+ + Care Team Providers + +------+ + | Care Human Resources Records Clerk Name | Role | Phone | + +------+ + | Nitin Field PA-C | PCP | | + +------+ + Reason for Visit Auth/Cert +--------+--------+ + + + + | Status | Reason | Specialty | Diagnoses / | Referred By | Referred To | | | | | Procedures | Contact | Contact | +--------+--------+ + + + + | | | | Diagnoses | | | | | | | VEEG | | | +--------+--------+ + + + + Encounter Details +--------+ + + + + | Date | Type | Department | Care Team | Description | +--------+ + + + + | 08/31/ | Hospital | [facility] | [address] | Partial symptomatic | | 2019 - | Encounter | [facility] | MD Samantha [address] | epilepsy with | | | | [address] | [place] [address] [place], | complex partial | | 09/03/ | | [place], [place] | [place] [address] | seizures, | | 2019 | | [address] | [phone] | intractable, without | | | | [phone] | | status epilepticus | | | | | | (HCC) | +--------+ + + + + Social [...] + + + | Blood Pressure | 111/54 | 09/03/2019 8:30 AM | | | | | PST | | + + + + + | Pulse | 79 | 09/03/2019 8:30 AM | | | [...] + | Oxygen Saturation | 98% | 09/03/2019 8:30 AM | | | | | PST | | + + + + + | Inhaled Oxygen | - | - | | | Concentration | | | | + + + + + | Weight | 147.9 kg (326 lb) | 08/31/2019 8:06 AM | | | | | PST | | + + + + + | Height | 182.9 cm (6') | 08/31/2019 8:06 AM | | | | | PST | | + + + + + | Body Mass Index | 44.21 | 08/31/2019 8:06 AM | | | | | PST | | + + + + + documented in this encounter Discharge Summaries [address] MD - 09/03/2019 8:14 AM PST Epilepsy Discharge Summary Note Patient: Kimberley Yung Admission Date: 08/31/2019 Discharge Date: 09/03/2019 PCP: Nitin Field PA-C Principal Diagnosis: Partial epilepsy, intractable Secondary Diagnoses: Patient Active Problem List Diagnosis Date Noted POA Neoplasm of uncertain behavior of skin 09/13/2015 Unknown ADHD (attention deficit hyperactivity disorder) 09/02/2015 Unknown Deafness 09/02/2015 Unknown Obesity 09/02/2015 Unknown Acne vulgaris 09/02/2015 Unknown Vitamin D deficiency 09/02/2015 Unknown Hypertriglyceridemia 09/02/2015 Unknown Eczema 09/02/2015 Unknown Seizure 09/02/2015 Unknown Seborrheic dermatitis 09/02/2015 Unknown Psoriasis of scalp 09/02/2015 Unknown Otitis externa 09/02/2015 Unknown Tongue laceration 09/02/2015 Unknown Dizziness 09/02/2015 Unknown Gastroenteritis 09/02/2015 Unknown Mood swings 09/02/2015 Unknown Follicular acne 09/02/2015 Unknown Intertrigo 09/02/2015 Unknown Epilepsy 09/02/2015 Unknown Discharge Medications: Discharge Medications New Medications Details LORazepam 1 mg tablet Take 1 tablet by mouth as needed for Seizures (take 1-2 mg as needed for repeated seizures with max dose 4 mg in 24 hours, use sparingly, will make tired). aka: ATIVAN Changed Medications Details zonisamide 100 mg capsule Take 3 capsules by mouth 2 times daily. What changed: how much to take when to take this aka: ASH zonisamide 100 mg capsule Take 3 capsules by mouth 2 times daily. What changed: You were already taking a medication with the same name, and this prescripti on was added. Make sure you understand how and when to take each. aka: ZONEGRAN Unchanged Medications Details adalimumab 40 mg/0.8 mL injection (pen) Inject 40 mg under the skin every 14 days. aka: HUMIRA PEN betamethasone dipropionate 0.05% lotion Apply topically. hydrocortisone 2.5% lotion Apply topically 2 times daily. hydrocortisone 2.5% cream Apply 1-2 times daily to affected areas of rash of face and underarms. Best applied to dam p skin. mupirocin 2% ointment Apply topically 3 times daily. aka: BACTROBAN [place] 3 1000 MG Caps Take by mouth. OXcarbazepine 600 MG tablet Take 600 mg by mouth 2 times daily. Take 2 tablets by mouth 2 (two) times daily aka: TRILEPTAL terbinafine 1% cream Apply topically 2 times daily. aka: lamISIL triamcinolone 0.1% cream Apply 1-2 times daily to affected areas of rash on body. Best applied to damp skin. Avoid the face and underarms. aka: KENALOG Allergies: Amoxicillin and Sulfa antibiotics Procedures/Significant Test Results: Physician Directed: Please see below, at least seven seizures, all with similar onsets focal seizure of uncerta in onset location though semiologies look classically temporal, at least in the beginning, t he right arm is often the first to move up to chest wall, the left soon follows, and then th e left has a preference to move behind the left ear and make a kind of circular motion; head may turn to the right as with eyes at this time, the jaw is clenched, then confusion may fo llow, the confusion is particularly worse and more aggressive with wire pulling and inabilit y to be calmed by nursing staff if the event is long or secondarily generalized. Would likely need repeated VEEG with spect study, neuropsych testing with ASL as best as po tiffanie, new 3 kika MRI and extensive preparation by outpatient Neurologist as to the merits of surgical treatment for epilepsy (we covered in this stay though patient is VERY cautious and nervous) In meantime med dose boosts to ZON therapy, consider add in Clobazam, and finally would sug gest aggressive pursuit of sleep apnea and mood treatments- see below Patient Directed: Your video EEG telemetry study at [facility] from 08/31/2019 - 09/03/2019 showed multiple events that probably start in the right parietal or temporal lob e. These events spread quickly into the other hemisphere and make you fumble and stare or lo ok off to the right at first. If they keep going or get bigger you may have a convulsive sei zure or grand mal seizure. If you haave one of those larger seizures you get really confused afterwards and try and pull the wires off and are hard to reorient or calm down. The best way to treat these, at least initially, remains with medications and we changed th em slightly on discharge to Oxcarbazepine 1200 mg twice a day Zonisamide 300 mg twice a day If events still continue an added on medication called clobazam would be useful dosed as fo llows: Week one and two 5 mg twice a day Week three and on 10 mg twice a day with potential increases up to 30 mg twice a day by Dr Marcos I did not write a prescription for this medication. I am also going to suggest an emergency medication called lorazepam could be given if you a re having clusters of seizures, this may save you a trip to the emergency room Lorazepam can be used with 1-2 mg given for seizures that cluster or go back to back. A max imum dose of 4 mg in 24 hours should not be eclipsed unless you go to the emergency room. Pl ease be aware this medication when used very regularly can become addictive, I have not give n you enough to get addicted to. The medication can also make people tired. Again, this medi cine is for emergencies only and is more for your family to help give when you are not respo nding or confused and out of it due to seizure. In addition you had a sleep oximetry study that shows you drop your oxygent level below 90% for long durations during the night. This suggests you may have a problem called sleep apne a. Sleep apnea can make mood, memory and seizure control worse. It is treatable, though the first step in treatment is confirming a diagnosis, there are probably sleep programs in [facility], for sure in [place], and there may be some in [place] or [place]. We would danish mmend your primary care refer you to a sleep clinic for sleep apnea assessment and treatment . If medications are not helping with seizure control, surgical options remain for you and in clude: Vagus nerve stimulation Resective or ablative surgery Brain stimulator surgery To figure out which of those options makes the most sense a new brain MRI and a second roun d of inpatient monitoring may be needed to help determine exactly where in your brain your s eizures start. From this study we have a reasonable idea, but the absolute onset is hard to see. In addition we would need your cooperation on cognitive testing which will likely requi re an bilingual interpreter to help and may need to be customized to your abilities. We did a very brief depression screen, which suggests you are mildly depressed. If you don' t have a counselor or therapist closer to home you may want to work with one. If you don't w ant to work with one the next best thing- other than antidepressant medications which you we re not interested in, would be exercise. Daily exercise can boost mood, help with weight los s and decreases the risk of sleep apnea. So whatever you do in the near future, I want exerc ise to be part of that! Please call to schedule follow up with Dr Marcos. If you otherwise need us, we are at the n umber below. It has been my pleasure taking care of you, Consults: Neuropsychology Follow-up (including pending studies and recommendations): Dr Sumner Condition on Discharge: Stable Code Status this admission: Bootmaker Spent on Discharge Coordination: [address] MD 9:06 AM 09/03/[address] MD, FAAN [facility] [address] [place] [address] @[email or web address]@ Patient Active Problem List Diagnosis ADHD (attention deficit hyperactivity disorder) Deafness Obesity Acne vulgaris Vitamin D deficiency Hypertriglyceridemia Eczema Seizure Seborrheic dermatitis Psoriasis of scalp Otitis externa Tongue laceration Dizziness Gastroenteritis Mood swings Follicular acne Intertrigo Epilepsy Neoplasm of uncertain behavior of skin CC: Nitin Field PA-C, Flavia Marcos documented in this encounter Discharge Instructions Instructions Spenser [address] MD - 09/03/2019 Kimberley Yung, Your video EEG telemetry study at [facility] from 08/31/2019 - 09/03/2019 showed multiple events that probably start in the right parietal or temporal lob e. These events spread quickly into the other hemisphere and make you fumble and stare or lo ok off to the right at first. If they keep going or get bigger you may have a convulsive sei zure or grand mal seizure. If you haave one of those larger seizures you get really confused afterwards and try and pull the wires off and are hard to reorient or calm down. The best way to treat these, at least initially, remains with medications and we changed th em slightly on discharge to Oxcarbazepine 1200 mg twice a day Zonisamide 300 mg twice a day If you don't have it, I want you to buy and use a pillbox, you are in a lot of danger if yo u miss or forget your anti seizure medications and a pillbox labelled Saturday-Saturday with AM and PM can help you verify if you took it and gives your family a chance to also see if ther e were missed doses. If events still continue an added on medication called clobazam would be useful dosed as fo llows: Week one and two 5 mg twice a day Week three and on 10 mg twice a day with potential increases up to 30 mg twice a day by Dr Marcos I did not write a prescription for this medication. I am also going to suggest an emergency medication called lorazepam could be given if you a re having clusters of seizures, this may save you a trip to the emergency room Lorazepam can be used with 1-2 mg given for seizures that cluster or go back to back. A max imum dose of 4 mg in 24 hours should not be eclipsed unless you go to the emergency room. Pl ease be aware this medication when used very regularly can become addictive, I have not give n you enough to get addicted to. The medication can also make people tired. Again, this medi cine is for emergencies only and is more for your family to help give when you are not respo nding or confused and out of it due to seizure. In addition you had a sleep oximetry study that shows you drop your oxygent level below 90% for long durations during the night. This suggests you may have a problem called sleep apne a. Sleep apnea can make mood, memory and seizure control worse. It is treatable, though the first step in treatment is confirming a diagnosis, there are probably sleep programs in [facility], for sure in [place], and there may be some in [place] or [place]. We would danish mmend your primary care refer you to a sleep clinic for sleep apnea assessment and treatment . If medications are not helping with seizure control, surgical options remain for you and in clude: Vagus nerve stimulation Resective or ablative surgery Brain stimulator surgery To figure out which of those options makes the most sense a new brain MRI and a second roun d of inpatient monitoring may be needed to help determine exactly where in your brain your s eizures start. From this study we have a reasonable idea, but the absolute onset is hard to see. In addition we would need your cooperation on cognitive testing which will likely requi re an bilingual interpreter to help and may need to be customized to your abilities. If you and your family want to read more about surgical options for the treatment of epilep sy these websites have some good information: www.epilepsy.com and/or www.epilepsyfoundatio n.org We did a very brief depression screen, which suggests you are mildly depressed. If you don' t have a counselor or therapist closer to home you may want to work with one. If you don't w ant to work with one the next best thing- other than antidepressant medications which you we re not interested in, would be exercise. Daily exercise can boost mood, help with weight los s and decreases the risk of sleep apnea. So whatever you do in the near future, I want exerc ise to be part of that! Please call to schedule follow up with Dr Marcos. If you otherwise need us, we are at the n umber below. It has been my pleasure taking care of you, Spenser Lane MD, FAAN [facility] [address] [place] [address] documented in this encounter Medications at Time [...] tablet by | 10 | 1 | 12/19/20 | | | 1 mg tablet | [...] + + + +---------+ + + | [place] 3 1000 MG | Take by mouth. [...] +---------+ + + | OXcarbazepine | Take 600 mg by mouth | | 0 | | | | (TRILEPTAL) 600 MG | 2 times daily. Take | | | | 0 | | tablet | 2 tablets by mouth | | | | | | | 2 (two) times daily | | | | | + [...] zonisamide | Take 3 capsules by | 180 | 12 | 09/03/20 | | | (ZONEGRAN) 100 mg | mouth 2 times daily. | capsule | | 19 | 0 | | capsule | | | | | | + + + +---------+ + + | zonisamide | Take 3 capsules by | 180 | 12 | 09/03/20 | | | (ZONEGRAN) 100 mg | mouth 2 times daily. | capsule | | 19 | 0 | | capsule | | | | | | + + + +---------+ + + documented as of this encounter Progress Notes Vannesa Wade RN - 09/03/2019 10:51 AM PSTNSG Discharge Note Patient: Kimberley Yung Date: 09/03/2019 Discharge instruction: instruction given to pt and family Discharge med: prescription mediations given to pt and family Belongings verified with the patient: Verified with pt and family Time of discharge: 1125 Discharge to: home with family Mode of Transport: wheelchair Accompanied by: Family Vannesa Wade RN 09/03/2019 10:51 Stoney Germain RN - 09/03/2019 6:15 AM PSTNSG Shift Summary Patient: Kimberley Yung No seizure events overnight AOX4, VSS, GOMEZ 5/5 strength with sensation intact. Pt deaf at baseline. Music Producer used fo r communication VRI. LPIV WNL. Uncle at bedside. Will continue to monitor. Stoney Farrar RN 09/03/2019 06:16Electronically signed by Stoney Farrar RN at 019 6:17 AM Vannesa Interiano RN - 09/02/2019 6:26 PM PSTNSG Shift Summary Patient: Kimberley Yung Pt had 3 events all day , provider aware and lorazepam 1 mg iv given with AED meds. Pt ambu lating to the bathroom with SBOlinda family at bedside , telesitter on. Will continue to monitor . Vannesa Wade RN 09/02/2019 18:26Electronically signed by Vannesa Wade RN at 6:28 PM Carlos Araujo, PhD - 09/02/2019 5:06 PM [facility] REPORT OF PSYCHOLOGICAL TESTING AND EVALUATION NAME: Kimberley Yung : 1985 DATE OF EXAM: 09/02/2019 EVALUATED BY: Carlos Humphrey PhD REFERRED BY: Spenser Lane M.D. IDENTIFYING INFORMATION: Kimberley jaeger is a 34-year-old (Samish) male with deafness sin ce infancy and converses only via ASL or with bilingual interpreter, who was referred to [facility] or evaluation of seizures for spell characterization and other ideas about epilepsy treatmen t. Notes indicate that he suffered from meningitis at age 10 months later went on to develo p seizures. Dr. Lane noted that the events are probable focal onset with impaired awaren ess, and the meningitis as the probable etiology. Comorbidities include obesity and sleep a pnea. His episodes may include vocalization than fumbling and loss of consciousness followe d by confusion and fatigue. Most are nocturnal. There are also episodes where he seems to suddenly freeze and become unresponsive and/or unable to communicate. He is been having buster nts with a frequency of about 2 per week. Prior workup has included an EEG that was felt to be mostly negative though with borderline right temporal dysfunction. Developmental history is difficult to ascertain due to challenging communication even with bilingual interpreter, and uncertainty regarding the patient's level of insight. He is accompanie d by his uncle, who states that he is fairly knowledgeable about the patient's history. He indicates that Kimberley did have challenges and learning though unclear how much may have b een due to the deafness per se versus possibly other learning difficulties secondary to the early meningitis and seizures. His uncle indicates that after his high school years he was placed in a rehabilitation Center in [place], [place], where he resided for 2 years ago appare ntly due to behavioral problems was discharged and he went back home to live in the [facility] area with family. He had been living with his grandparents, though unfortunately his gran dmother who raised him this last year, which was been hard on riky Chu to his uncle, who states that Kimberley has really struggled to cope and adjust to her pa ssing. His grandfather is in his late 80s, and Kimberley is now assisting his grandfather annette ith day-to-day activities, and both of them are residing with Kimberley's uncle as Kimberley has not really ever become fully independent due to his neurological and developmental and behavioral issues. Of note, medical problem list indicates a past history of mood swings an d agitation, with some notes indicating episodes of aggression and violence possibly due to under socialized and poorly developed coping skills. Dr. Lane has questioned whether the re may be any ongoing depression that might warrant further evaluation and treatment. He re commended that the patient have psychological testing concurrent with his video-EEG monitori ng, to include if possible, the MMPI to assess for any psychopathology or psychological dist ress, as well as potential relative risk for nonepileptic events versus epilepsy. TESTS ADMINISTERED MMPI-2 (only one item administered, with patient failing to respond and indicating insuffic ient ability to read and comprehend the written materials). Administration of the test via american sign language interpreter was considered but a decision was made against that option due to the considerab le length of time it was necessary to answer just a few interview questions, with the patien t often interpreting the questions very literally or concretely, and american sign language interpreter noting that much seemed to be likely lost in translation from her perspective and experience. PHQ 9 (patient health questionnaire)- administered orally with ASL translation. TEST RESULTS MMPI discontinued due to unreliable reading and understanding. The PHQ 9 was administered orally with the assistance of an bilingual interpreter. The patient w as able to answer 8 out of the 9 items, and though an attempt was made to try to get him to answer #6 ("feeling bad about self or feeling that one has let self or family down"), he res ponded somewhat tangential historical incidents and did not seem to be able to make a decisi on about whether he felt that way not at all, a couple days or more often over the past few weeks. Nevertheless, for the remaining 8 items, he did respond. He said that he has been h aving trouble with radar scientist wakening nearly every day, and that he has been feeling tir ed and having little energy nearly every day. The only other items that were positively end orsed include having little interest or pleasure in doing things (several days in the past 2 weeks), feeling down, depressed or hopeless (several days), and having poor appetite or ove reating (several days). His resultant score was = 9, which is in the borderline mild range of depressive symptomatology, and considering that the bulk of those scored points were due to issues regarding sleep and physical energy decrements, the possibility that this may be r eflecting impacts of his physical health condition including epilepsy should be considered. Nevertheless, it could also be consistent with prolonged bereavement or adjustment disorder with depressed mood, possibly more than any indication of clinical depression. Of note, he responded "not at all, to the item pertaining to thoughts of being better off or hurti ng self in any way IMPRESSION: Possible adjustment disorder with mildly depressed mood possibly reflecting challenging sit uational circumstances including bereavement of his beloved grandmother who passing last yea r in an individual who may be somewhat under socialized due to limited social learning oppor tunities and limited access to educational and habilitative services. His uncle did indicat e that the family has been exploring possible options for counseling for Kimberley, and I en couraged them to continue to explore and pursue any options that might be available when the y return home. It is suspected that his depression and frustration does likely stem from th e challenges of his deafness and impact it has on his ability to efficiently communicate wit h many of those around him, as well as limitations in psychosocial and vocational prospects because of his epilepsy and deafness and environmental/geographic factors with services bein g not easily accessed or available where he lives. I do think he probably remains a judith te for further rehabilitative efforts aimed at improving prospects for further development o f independent living skills, though would probably be reasonable to see if any further optim ization of seizure therapies might allow better seizure control and thereby improve his pote ntial and prospects for vocational habilitation services initially aiming at improving commu nity access and semi-independent functioning. These findings were briefly communicated to Sasha allen though mostly with his uncle who seemed to more easily following grasp the conversa tion. Findings were also communicated to the ordering physician who also reviewed synopsis of the findings including recommendations to consider some form of treatment or intervention , with counseling emphasized given patient's disinterest in trying medications for mood cont rol. Given the past history of agitation and aggressive outbursts when provoked by stress, that may also give reason to consider avoiding certain anticonvulsive medications that might be more prone to provoke such emotional reactivity, and to possibly consider anticonvulsive medication, if indicated, that might be more likely to have mood stabilizing potential. Carlos Humphrey PhD Cc Spenser Lane M.D. Total time spent by licensed psychologist on the administration and scoring of psychologica l and/or neuropsychological tests = 20 min. (CPT 45353 1 unit. Total professional time spent by licensed psychologist on psychological testing evaluation services, including revie w and integration of patient interview data, interpretation of test scores and dictation of report = 30 minutes Vannesa Interiano RN - 09/02/2019 3:04 PM [id number] pt did have another event same as above . Dorian collado MD . Vannesa Interiano RN - 09/02/2019 2:29 PM PSTNSG Seizure Activity Witness to Event: Pt uncle, RN, american sign language interpreter Preceding Activity: Pt sleeping Aura / Warning Sign: none Behavior During Event: Pt awaken from sleep and his hands on his chest with blank stare pe r uncle but non responsive with the translator/interpreter Duration of Event: About 2 minutes Post Event Behavior: Pt back to baseline , cant remember the event and said he is ok Intervention: V/S check , continue to monitor Vannesa Wade RN 09/02/2019 14:30Electronically signed by Vannesa Wade RN at 2:36 PM Wilman Pedro RN - 09/02/2019 1:09 PM PSTNSG Seizure Activity @ 12 03 Witness to Event: LUCHO Stovall, american sign language interpreter Preceding Activity: Resting in bed, sleeping Aura / Warning Sign: N/A Behavior During Event: suddenly made noise like as yelling, eyes wide opened starring strai ght. Lt hand at chest, persistently grabbing and twisting gown Duration of Event: Less than 2 min Post Event Behavior: Back to baseline, sleepy Intervention: Remained seizure precaution. Seizure marking button was not functioning at t his time, was fixed by tap and die maker technician and button was pushed to miguel. Wilman Evans RN 09/02/2019 13:10Electronically signed by Wilman Evans RN at 019 4:37 PM Spenser Bronson MD - 09/02/2019 10:10 AM PSTFormatting of this note migh t be different from the original. Epilepsy Progress Note Kimberley Yung Date of : 1985, Location: [address] [place] [address] Admission date: 08/31/2019 Today's Date: 09/02/2019 ID: Kimberley Yung is a 34 y.o. y.o. male here for spell characterization Other problems include: Patient Active Problem List Diagnosis ADHD (attention deficit hyperactivity disorder) Deafness Obesity Acne vulgaris Vitamin D deficiency Hypertriglyceridemia Eczema Seizure Seborrheic dermatitis Psoriasis of scalp Otitis externa Tongue laceration Dizziness Gastroenteritis Mood swings Follicular acne Intertrigo Epilepsy Neoplasm of uncertain behavior of skin Interim History: Overnight 5 events, all with stereotyped behaviors, onsets may be from the right posterior region. Asked Dr Humphrey to give brief depression inventory- we think ther e is some aspects of misinterpretation scored 9 on PHQ-9 with concern for depression that is mild with adjustment issues. O2 sat drops over night suggesting of sleep apnea No results found for this or any previous visit (from the past 24 hour(s)). Current Facility-Administered Medications Medication Dose Route Frequency Provider Last Rate Last Dose acetaminophen (TYLENOL) tablet 650 mg 650 mg Oral Q4H PRN Spenser Lane MD betamethasone dipropionate 0.05% lotion Topical BID Spenser Lane MD hydrocortisone 2.5 % ointment 1 Application 1 Application Topical BID Spenser samano MD 1 Application at 09/02/19 0848 ibuprofen (ADVIL,MOTRIN) tablet 600 mg 600 mg Oral Q6H PRN Spenser Lane MD LORazepam (ATIVAN) injection 1 mg 1 mg Intravenous Q2H PRN Spenser Lane MD 2 m g at 09/02/19 0336 miconazole (MICATIN) 2% cream Topical BID Spenser Lane MD omega-3 acid ethyl esters (LOVAZA) capsule 1 g 1 g Oral Daily Spenser Lane MD 1 g at 09/02/19 0847 OXcarbazepine (TRILEPTAL) tablet 600 mg 600 mg Oral BID Spenser Lane MD 600 mg at 09/02/19 0401 sodium chloride 0.9% flush 10 mL 10 mL Intracatheter 3 times per day Spenser [address] MD 10 mL at 09/01/19 2248 triamcinolone (KENALOG) 0.1% cream 1 g 1 Application Topical BID Spenser Lane MD 1 g at 09/02/19 0849 triamcinolone (KENALOG) 0.1% cream Topical BID Spenser Lane MD zonisamide (ZONEGRAN) capsule 400 mg 400 mg Oral [address] Spenser [address] MD Blood pressure 99/65, pulse 108, temperature 36.7 C (98 F), temperature source Oral, re sp. rate 19, height 1.829 m (6'), weight (!) 147.9 kg (326 lb), SpO2 96 %. NEUROLOGIC EXAMINATION: Mental status: Alert and oriented, without dysarthria or aphasia, with remote and recent me dania that is intact. Fund of knowledge is normal, naming is intact. Cranial nerves: II: visual acuity,intact; III, IV and : pupils symmetric and reactive wit h normal extraocular movements; V: normal facial sensation; VII: normal facial grimace; VIII : deaf; IX and XII: tongue and palate midline; XI: Shoulder shrug intact. Motor: Motor exam revealed distal and proximal upper and lower extremity strengths of 5 out of 5. Sensation: Intact Coordination: Intact Gait: Normal Reflexes: Symmetric Impression: Kimberley Yung is here for seizure capture and continues on VEEG for this. So far 5 ev ents, see above Plan: 1- Continue VEEG 2- Med doses are restarted 3- Depression is mild, covered with nonfamilial bilingual interpreter today 4- Anticipate d/c tomorrow Continued inpatient assessment is warranted based on failure to capture index events and /o r high risk of convulsive seizure while on lowered doses of antiseizure medications Spenser Lane MD, FAAN [facility] [address] [place] [address] Ketty Delatorre R N - 09/02/2019 7:37 AM PSTNSG Seizure Activity at 0245 Witness to Event: Telesitter, agriculture research director, Vern YEPEZ Preceding Activity: Resting in bed Aura / Warning Sign: None Behavior During Event: telesitter called reporting change in behavior pt was starring, eye s deviated to rt, UE movements with arms. Soon pt began to GTC seizure, O2 sat down in 80;s, becoming agitated Duration of Event: ~10min Post Event Behavior: Trying to get OOB, pulling at leads. Confused, Intervention: New IV placed. O2, paged Dr. Lane, verbal order for 2mg IM ativan. Securi ty at bedside. Vital taken and seizure precautions maintained. New orders placed for trilept al and zonegran. Ketty Silverman RN 09/02/2019 07:37Electronically signed by Ketty Silverman RN at 9 7:43 AM Yadira Krueger RRT - 09/02/2019 5:50 AM PSTOvernight pulse ox study done. Res ults in chart. Sasha Germain RN - 09/02/2019 4:25 AM PSTNSG Shift Summary Patient: Kimberley Yung Assumed care [id number] 1 push event overnight ( See Charges Note LUCHO Hdez) AOX4, VSS, GOMEZ 5/5 strength with sensation intact. Pt deaf at baseline. Music Producer used fo r communication VRI. LPIV WNL. Pt had a seizure event overnight while I was at lunch break. MD Lane verbal order for 2 mg IM of ativan and started patient again on AED meds. After s eizure event patient rested comfortable.Overnight Oximerty sleep study done overnight. Uncle at bedside. Will continue to monitor. Stoney Farrar RN 09/02/2019 04:25Electronically signed by Stoney Farrar RN at 019 4:31 AM Concepcion Ortiz RN - 09/01/2019 11:15 PM PSTNSG Shift Summary Patient: Kimberley Rowanmil Assumed care [id number]. At 1230 pt started pulling off leads possibly d/t having an event per tech. Three pushed button. A&Ox4. Deaf, interior design coordinator used. GOMEZ 5/5, denied numbness/ tingling. SBA. L PIV patent, saline locked. Plan for oximetry tonight. Uncle at bedside. Flory cerda in place. Will continue with plan of care. Concepcion Lindsay RN 09/01/2019 23:15 Concepcion Ortiz RN - 9 11:00 PM PSTNSG Seizure Activity Witness to Event: RNs, uncle Preceding Activity: Using cell phone Aura / Warning Sign: None noted Behavior During Event: Head turned right, eyes deviated to right, both arms flexed towards chest making a fist. O2 94% on RA Duration of Event: About a couple mins Post Event Behavior: Confused. Unable to answer some questions with VRI, looking around. S lowly coming back to baseline. Intervention: Flory precaution in place. Unable at bedside. Concepcion Lindsay RN 09/01/2019 23:00 Concepcion Ortiz RN - 9 7:30 PM PSTNSG Seizure Activity Witness to Event: This RN, Uncle Preceding Activity: Resting in bed Aura / Warning Sign: None noted Behavior During Event: Made "mmm" sound, both arms up, head turned right, both eyes deviat ing to right. Duration of Event: About a min Post Event Behavior: Used VRI to sign, patient was not fully paying attention to translato r, and had difficulty with answering question about and where he is currently at. Slowly coming back to baseline. Intervention: Flory cerda maintained, telesitter in place, and Uncle at bedside. Concepcion Lindsay RN 09/01/2019 19:52 Concepcion Ortiz RN - 9 5:24 PM PSTNSG Seizure Activity Witness to Event: Uncle, RNs Preceding Activity: Uncle was in the bathroom and heard patient making "mmm" sound and "pi ll rolling" L hand Aura / Warning Sign: None noted Behavior During Event: Eyes deviated to right, right arm flexed making a fist, L arm up wi th "pill rolling" motion, both knees bent, trying to pull on leads. Sating at 96% on RA. Duration of Event: About a few mins Post Event Behavior: Slowing coming back to baseline. Used VRI sign language to assess, cierra saucedo A&Ox3, disoriented to time. [facility] [place] Intervention: Sz precaution maintained. Uncle at bedside. Concepcion Lindsay RN 09/01/2019 17:24 Spenser Bronson MD - 1 11/02/2018 9:45 AM PST Epilepsy Progress Note Kimberley Yung Date of : 1985, Location: [address] [place] [address] Admission date: 08/31/2019 Today's Date: 09/01/2019 ID: Kimberley Yung is a 34 y.o. y.o. male here for spell characterization Other problems include: Patient Active Problem List Diagnosis ADHD (attention deficit hyperactivity disorder) Deafness Obesity Acne vulgaris Vitamin D deficiency Hypertriglyceridemia Eczema Seizure Seborrheic dermatitis Psoriasis of scalp Otitis externa Tongue laceration Dizziness Gastroenteritis Mood swings Follicular acne Intertrigo Epilepsy Neoplasm of uncertain behavior of skin Interim History: Overnight the patient had no events, he was nervous about IV flush and I r eassured him with Sign american sign language interpreter that this was routine IV care, he felt like his breathing was not as good, we discussed briefly Sleep apnea and its implications and how to do an ini tial assessment for sleep disturbed breathing with overnight oximetry. Asked Dr Humphrey to give MMPI No results found for this or any previous visit (from the past 24 hour(s)). Current Facility-Administered Medications Medication Dose Route Frequency Provider Last Rate Last Dose acetaminophen (TYLENOL) tablet 650 mg 650 mg Oral Q4H PRN Spenser Lane MD betamethasone dipropionate 0.05% lotion Topical BID Spenser Lane MD hydrocortisone 2.5 % ointment 1 Application 1 Application Topical BID Spenser samano MD 1 Application at 08/31/19 2303 ibuprofen (ADVIL,MOTRIN) tablet 600 mg 600 mg Oral Q6H PRN Spenser Lane MD LORazepam (ATIVAN) injection 1 mg 1 mg Intravenous Q2H PRN Spenser Lane MD miconazole (MICATIN) 2% cream Topical BID Spenser Lane MD omega-3 acid ethyl esters (LOVAZA) capsule 1 g 1 g Oral Daily Spenser Lane MD 1 g at 08/31/19 1158 sodium chloride 0.9% flush 10 mL 10 mL Intracatheter 3 times per day Sp[address]er [address] MD 10 mL at 09/01/19 0600 triamcinolone (KENALOG) 0.1% cream 1 g 1 Application Topical BID Spenser Lane MD 1 g at 08/31/19 2301 triamcinolone (KENALOG) 0.1% cream Topical BID Spenser Lane MD zonisamide (ZONEGRAN) capsule 100 mg 100 mg Oral [address]enser [address] MD Blood pressure 133/77, pulse 91, temperature 36.6 C (97.9 F), temperature source Oral, resp. rate 16, height 1.829 m (6'), weight (!) 147.9 kg (326 lb), SpO2 96 %. NEUROLOGIC EXAMINATION: Mental status: Alert and oriented, without dysarthria or aphasia, with remote and recent me dania that is intact. Fund of knowledge is normal, naming is intact. Cranial nerves: II: visual acuity,intact; III, IV and : pupils symmetric and reactive wit h normal extraocular movements; V: normal facial sensation; VII: normal facial grimace; VIII : deaf; IX and XII: tongue and palate midline; XI: Shoulder shrug intact. Motor: Motor exam revealed distal and proximal upper and lower extremity strengths of 5 out of 5. Sensation: Intact Coordination: Intact Gait: Normal Reflexes: Symmetric Impression: Kimberley Yung is here for seizure capture and continues on VEEG for this. So far no c aptured events = Plan: 1- Continue VEEG 2- Med doses are again lowered 3- MMPI 4- Overnight oximetry Continued inpatient assessment is warranted based on failure to capture index events and /o r high risk of convulsive seizure while on lowered doses of antiseizure medications Spenser Lane MD, FAAN [facility] [address] [place] [address] eKetty lepe R N - 09/01/2019 5:35 AM PSTNSG Shift Summary Patient: Kimberley Yung No push button events. VSS. Pt is deaf. VRI used to interpret. GOMEZ. Denies pain. Ambulates SBA. L PIV patent. Supportive family member at bedside. Seizure precautions maintained. Will continue with POC. Ketty Silverman RN 09/01/2019 05:35Electronically signed by Ketty Silverman RN at 9 5:37 AM PSTTodd, Selam Prakash RN - 08/31/2019 8:50 AM PSTNSG Admission Note Patient: Kimberley Yung Admission Time and Date: 08/31/2019 on 0738 Patient admitted from: Home to room 535. Patient orientation: To room, call light, plan for the day, VEEG protocols Belongings verified with the patient: yes per pt, please see flowsheet Current nursing problems: sz Precautions in place, pt is deaf Pt describes sz as: Aura: none Event: two types. Can zone out and stare or can vocLIZTION AND FUMBLING AND loc Selam Ly RN 08/31/2019 08:50 documented in this enc ounter H&P Notes Spenser Lane MD - 08/31/2019 8:07 AM PST Epilepsy H and P Uncle Vinay REFERRED BY: Flavia Marcos HISTORY OF PRESENT ILLNESS: Kimberley Yung is a 34 y.o. Samish Deaf male with his tories of seizure referred by Dr Marcos for spell characterization and other ideas about epi lepsy treatment Back in infancy he had problems with delivery per Dom, though it wasn't until 10 months parvin t he had meningitis, he later went on to develop seizure Services in [facility] [place] [facility] [place] Questionnaire, screening for RIKKI Risks 08/31/2019: 1. Snore loudly? YES 2. Tired during the day? NO 3. Observed apnea? NO 4. High blood pressure? NO 5. BMI > 35? (BMI: Body mass index is 44.21 kg/m.) YES 6. Age > 50? NO 7. Neck circumference > 40 cm? YES 8. Gender male? YES Score: 4/8 Interpretation: Intermediate Risk: Yes to 3 - 4 questions Epilepsy Diagnosis: Focal onset impaired awareness Epilepsy Etiology: meningitis Handedness: right Comorbidities: deaf, obese, sleep apnea Events began at age: 20's, early 20's They are described as: 1- vocalization, then fumbling and LOC f/b confusion and fatigue, most are nocturnal, 2- may have freezing events where he checks out and can't communicate Event frequencies as of 08/31/2019: last week; prior notes drom Dr Sumner 2/week in 07/04 The following make the events more likely: missed doses, coffee Meds trialed for events include: PB, VPA, LTG, LEV, oXC, ZON Prior workup has included: EEg negative, though borderline right temporal dysfunction MRI brain Is there a head injury history? NA Are there family members with epilepsy? Were there issues during school? Driving check and counseling? Does not drive Conception or reproductive age issues covered? NA PAST MEDICAL HISTORY: Patient Active Problem List Diagnosis ADHD (attention deficit hyperactivity disorder) Deafness Obesity Acne vulgaris Vitamin D deficiency Hypertriglyceridemia Eczema Seizure Seborrheic dermatitis Psoriasis of scalp Otitis externa Tongue laceration Dizziness Gastroenteritis Mood swings Follicular acne Intertrigo Epilepsy Neoplasm of uncertain behavior of skin PAST SURGICAL HISTORY: No past surgical history on file. CURRENT MEDICATIONS: No current facility-administered medications for this encounter. DRUG ALLERGIES: Amoxicillin and Sulfa antibiotics SOCIAL HISTORY: Social History Occupational History Not on file Tobacco Use Smoking status: Never Smoker Smokeless tobacco: Never Used Substance and Sexual Activity Alcohol use: Never Alcohol/week: 0.0 standard drinks Frequency: Never Drug use: Never Comment: Drug use: No Sexual activity: Not on file Family History: No family history on file. REVIEW OF SYSTEMS: right side feels more thick than left side that feels more thin PHYSICAL EXAMINATION: Vital Signs: Blood pressure 155/85, pulse 92, temperature 36.8 C (98.2 F), temperature source Oral, resp. rate 16, SpO2 98 %. General Appearance including head and face: The patient is well dressed and well appearing, normocephalic and atraumatic, and in no acute distress. Eyes: Please see below under cranial nerve II; Ears, Nose, and throat: without adenopathy or injection. Neck: Normal in appearance. Heart: Regular rhythm, without murmur, rub, or gallop. Chest/Pulmonary: Clear to auscultation over both lung cochran. Abdominal: Not checked Peripheral/Vascular: Displays no clubbing, cyanosis, or edema. Skin: Normal in appearance. NEUROLOGIC EXAMINATION: Mental status: Alert and oriented, without dysarthria or aphasia, with remote and recent me dania that is intact. Fund of knowledge is normal, naming is intact. Cranial nerves: II: visual acuity, fundi intact; III, IV and : pupils symmetric and react harvinder with normal extraocular movements; V: normal facial sensation; VII: normal facial grimac e; VIII: absent hearing; IX and XII: tongue and palate midline; XI: Shoulder shrug intact. Motor: Motor exam revealed distal and proximal upper and lower extremity strengths of 5 out of 5. Tested groups include deltoids, biceps, brachioradialis, legal financial specialist strength, finger intr insics, iliopsoas, gastrocnemius, soleus, extensor hallucis longus. Tone is normal without atrophy or fasciculations. Sensation: Intact to left, right, double-simultaneous stimulation, temperature and vibrati on. Coordination: Intact on sedewa-ko-yrgi, bpvi-[id number]-[id number], and rapid alternating movements. Gait: Normal on heel, toe, and tandem. Romberg test is negative. Station is normal. Reflexes: Symmetric throughout at biceps, brachioradialis, triceps, quadriceps, and ankle j erks. Toe response is downgoing. 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 I certify an order Admit to Inpatient has been entered. Patient will be treated for the diagnosis of partial seizure not intractable without status epilepticus Patient will need EEG video telemetry monitoring for duration of 72-96 hours I anticipate the patient to be discharged to Home Services provided in accordance of section 42 [place] 412.3. CC: Nitin Field PA-C @[facility]@ No referring provider defined for this encounter. @[facility]@ documented in this encounter Procedure Notes Spenser Lane MD - 09/03/2019 8:20 AM PST CONTINUOUS VIDEO EEG TELEMETRY REPORT Kimberley Dowdjocelinejazmyne, [phone] Date: 08/31- EEG # : [id number] System: Twist Brief Clinical Hx: Patient Active Problem List Diagnosis ADHD (attention deficit hyperactivity disorder) Deafness Obesity Acne vulgaris Vitamin D deficiency Hypertriglyceridemia Eczema Seizure Seborrheic dermatitis Psoriasis of scalp Otitis externa Tongue laceration Dizziness Gastroenteritis Mood swings Follicular acne Intertrigo Epilepsy Neoplasm of uncertain behavior of skin Current Facility-Administered Medications Medication Dose Route Frequency acetaminophen (TYLENOL) tablet 650 mg 650 mg Oral Q4H PRN betamethasone dipropionate 0.05% lotion Topical BID hydrocortisone 2.5 % ointment 1 Application 1 Application Topical BID ibuprofen (ADVIL,MOTRIN) tablet 600 mg 600 mg Oral Q6H PRN LORazepam (ATIVAN) injection 1 mg 1 mg Intravenous Q2H PRN miconazole (MICATIN) 2% cream Topical BID omega-3 acid ethyl esters (LOVAZA) capsule 1 g 1 g Oral Daily OXcarbazepine (TRILEPTAL) tablet 1,200 mg 1,200 mg Oral BID sodium chloride 0.9% flush 10 mL 10 mL Intracatheter 3 times per day triamcinolone (KENALOG) 0.1% cream 1 g 1 Application Topical BID triamcinolone (KENALOG) 0.1% cream Topical BID zonisamide (ZONEGRAN) capsule 300 mg 300 mg Oral BID REQUESTING PHYSICIAN: Flavia Marcos DESCRIPTION OF TECHNIQUE: Digital Video EEG telemetry was performed utilizing scalp electro daylin placed according to the International 10-20 System of electrode placement.Computer autom ated ictal and interictal event detection was performed and subsequently reviewed. FINDINGS: 08/31/2019 Dominant posterior background rhythms are 11 Hz. These are symmetric and attenua te with eye opening. As the trace progresses, mixed frequency and mixed amplitude rhythms ch aracterizing drowsiness are seen, and stage II of sleep is evident. Activation procedures, including photic stimulation, elicit a bilateral driving response, a nd hyperventilation shows no unusual waveforms. No clinical seizures occurred and no underlying epileptiform abnormalities or focal changes were noted. 09/01/2019 Dominant posterior background rhythms are 11 Hz. These are symmetric and attenuate with eye opening. As the trace progresses, mixed frequency and mixed amplitude rhythms characterizin g drowsiness are seen, and stage II of sleep is evident. Event 1: at time 12:12:44 the EEG shows motor artifacts that make the absolute onset site h dane to see, lateralization is initially impossible, though theta potentials are evident in l eft parietal, vertex and right frontal, and possibly low amp right temporal with evolution t o more focal theta most evident over right frontotemporal, right hand moves up to midline, l eft also, 12:12:50, plucks at shirt, looks around to right, nonversive, looks confused, lots of repetitive left arm circling behaviors around head, then later starts plucking wires off Event 2 at time 16:58:33 a more pronounced probably right occipitoparietal theta is noted, rhythmic, with evolution to a a slower more diffuse delta 3 hz that is more prominent over r ight hemisphere, though not clearly temporal, consideration is more parietal or parasaggital , patient, as in first event places his hands over his chest and holds them together, his le ft arm soon has a somewhat circularotry motion of opening and closing hand by his left ear, he looks over to the right and his right arm remains closed and non mobile. The head turning is nonversive. Afterwards he is confused. Event 3: 19:29 starts similar to event two, focal right parieto-occipital theta looks to be the most clearly rhythmic, though it is also seen to a lesser degree and lower amplitude ov er left parietal vertex, motor artifacts soon obscure the trace and when rhythms are again s een they are more delta over the right hemisphere. Similar fumbling hand movements to events 1-2, with head turning to the left, the right arm is relatively nonmobile while the left op ens and closes, he rubs his right side of his face late in the event as it is dying down, an d at least in this event he does not seem to be as confused post-ictally. Event 4: 22:40 similar onsets with most likely a right parietal onset though spread is bila teral early , similar hand fumbling early with head turning to the right, eyes to the right, though non versive, scratching over his chest wall 09/02/2019 Dominant posterior background rhythms are 8-11 Hz. These are symmetric and attenuate with e ye opening. As the trace progresses, mixed frequency and mixed amplitude rhythms characteriz ing drowsiness are seen, and stage II of sleep is evident. Event 5- the clearest in onset of events shows an attenuative change in sleep at time 2:43: 02, low amp fast may be evident in the right parietal leads though it is by no means very cl ear, soon, right parasaggital parietal theta is bnoted, rhythmic, and maximal probably somew here between p4 and T8, with later focal spiking at C3, ie the event soon spreads bilaterall y and later secondarily generalizes with a marked post ictal confusion necessitating restrai nt and IM lorazepam, the event is over at 2:48:00 though behaviors continue for longer . Cli nical begins at 2:43:22 with right arm up to chest and looking to the right with eye deviati on but not version to the right, probably with jaw chomping too, alter, after the event calm s it begins it's second act with left head deviation and eye turning and fencer like posture (right arm cocked, left straight, with secondarily generalized event Event 6 at 13:02 a similar to prior small event with left arm to left neck is seen with inc reased amplitude and frequency of right parieto/temporo-occipital theta soon swallowed by mo tor artifacts, head is to the right, nonversive, as the event progresses Event 7: similar to prior events with perhaps right posterior quadrant theta onsets, though frankly similar rhythms are seen diffusely and hemispheric lateralization is not entirely c lear, in the clip below P8 electrode is likely a little loose and has pulse artifact spikes: Event 8- near identical to events 6,7, onset likely right posterior quadrant though off of a dubiously attached electrode and with spread bilaterally, and quickly. 09/03/2019 Dominant posterior background rhythms are 9-11 Hz. These are symmetric and attenuate with e ye opening. As the trace progresses, mixed frequency and mixed amplitude rhythms characteriz ing drowsiness are seen, and stage II of sleep is evident. IMPRESSION: This video EEG telemetry study shows over days 1-4 the following: A- Eight focal seizure of uncertain onset location though semiologies look classically temp oral, at least in the beginning, the right arm is often the first to move up to chest wall, the left soon follows, and then the left has a preference to move behind the left ear and ma ke a kind of circular motion; head may turn to the right, though not versively as with eyes at this time, the jaw is clenched, then confusion may follow, the confusion is particularly worse and more aggressive with wire pulling and inability to be calmed by nursing staff if t he event is long or secondarily generalized. The electrical onsets to the events are not altogether clear though early most abnormal celia earing rhythms are likely over right parietal. Perhaps at the midline border of parieto-occi pital though could also include posterior temporal margins, closer to midline than laterally , spread to the contralateral hemisphere looks quick though is not hypermotoric at first whi ch may suggest a more posterior generator. Spenser Lane MD, FAAN [facility] [address] [place] [address] oherwyatt, Spenser Singh MD - 09/02/2019 7:54 AM PST CONTINUOUS VIDEO EEG TELEMETRY REPORT Kimberley Singh Dilshad, [id number] Date: EEG # : [id number] System: Twist Brief Clinical Hx: Patient Active Problem List Diagnosis ADHD (attention deficit hyperactivity disorder) Deafness Obesity Acne vulgaris Vitamin D deficiency Hypertriglyceridemia Eczema Seizure Seborrheic dermatitis Psoriasis of scalp Otitis externa Tongue laceration Dizziness Gastroenteritis Mood swings Follicular acne Intertrigo Epilepsy Neoplasm of uncertain behavior of skin Current Facility-Administered Medications Medication Dose Route Frequency acetaminophen (TYLENOL) tablet 650 mg 650 mg Oral Q4H PRN betamethasone dipropionate 0.05% lotion Topical BID hydrocortisone 2.5 % ointment 1 Application 1 Application Topical BID ibuprofen (ADVIL,MOTRIN) tablet 600 mg 600 mg Oral Q6H PRN LORazepam (ATIVAN) injection 1 mg 1 mg Intravenous Q2H PRN miconazole (MICATIN) 2% cream Topical BID omega-3 acid ethyl esters (LOVAZA) capsule 1 g 1 g Oral Daily OXcarbazepine (TRILEPTAL) tablet 600 mg 600 mg Oral BID sodium chloride 0.9% flush 10 mL 10 mL Intracatheter 3 times per day triamcinolone (KENALOG) 0.1% cream 1 g 1 Application Topical BID triamcinolone (KENALOG) 0.1% cream Topical BID REQUESTING PHYSICIAN: Flavia Marcos DESCRIPTION OF TECHNIQUE: Digital Video EEG telemetry was performed utilizing scalp electro daylin placed according to the International 10-20 System of electrode placement.Computer autom ated ictal and interictal event detection was performed and subsequently reviewed. FINDINGS: 08/31/2019 Dominant posterior background rhythms are 11 Hz. These are symmetric and attenua te with eye opening. As the trace progresses, mixed frequency and mixed amplitude rhythms ch aracterizing drowsiness are seen, and stage II of sleep is evident. Activation procedures, including photic stimulation, elicit a bilateral driving response, a nd hyperventilation shows no unusual waveforms. No clinical seizures occurred and no underlying epileptiform abnormalities or focal changes were noted. 09/01/2019 Dominant posterior background rhythms are 11 Hz. These are symmetric and attenuate with eye opening. As the trace progresses, mixed frequency and mixed amplitude rhythms characterizin g drowsiness are seen, and stage II of sleep is evident. Event 1: at time 12:12:44 the EEG shows motor artifacts that make the absolute onset site h dane to see, lateralization is initially impossible, though theta potentials are evident in l eft parietal, vertex and right frontal, and possibly low amp right temporal with evolution t o more focal theta most evident over right frontotemporal, right hand moves up to midline, l eft also, 12:12:50, plucks at shirt, looks around to right, nonversive, looks confused, lots of repetitive left arm circling behaviors around head, then later starts plucking wires off Event 2 at time 16:58:33 a more pronounced probably right occipitoparietal theta is noted, rhythmic, with evolution to a a slower more diffuse delta 3 hz that is more prominent over r ight hemisphere, though not clearly temporal, consideration is more parietal or parasaggital , patient, as in first event places his hands over his chest and holds them together, his le ft arm soon has a somewhat circularotry motion of opening and closing hand by his left ear, he looks over to the right and his right arm remains closed and non mobile. The head turning is nonversive. Afterwards he is confused. Event 3: 19:29 starts similar to event two, focal right parieto-occipital theta looks to be the most clearly rhythmic, though it is also seen to a lesser degree and lower amplitude ov er left parietal vertex, motor artifacts soon obscure the trace and when rhythms are again s een they are more delta over the right hemisphere. Similar fumbling hand movements to events 1-2, with head turning to the left, the right arm is relatively nonmobile while the left op ens and closes, he rubs his right side of his face late in the event as it is dying down, an d at least in this event he does not seem to be as confused post-ictally. Event 4: 22:40 similar onsets with most likely a right parietal onset though spread is bila teral early , similar hand fumbling early with head turning to the right, eyes to the right, though non versive, scratching over his chest wall 09/02/2019 Dominant posterior background rhythms are 8- 11 Hz. These are symmetric and attenuate with eye opening. As the trace progresses, mixed frequency and mixed amplitude rhythms characteri zing drowsiness are seen, and stage II of sleep is evident. Event 5- the clearest in onset of events shows an attenuative change in sleep at time 2:43: 02, low amp fast may be evident in the right parietal leads though it is by no means very cl ear, soon, right parasaggital parietal theta is bnoted, rhythmic, and maximal probably somew here between p4 and T8, with later focal spiking at C3, ie the event soon spreads bilaterall y and later secondarily generalizes with a marked post ictal confusion necessitating restrai nt and IM lorazepam, the event is over at 2:48:00 though behaviors continue for longer . Cli nical begins at 2:43:22 with right arm up to chest and looking to the right with eye deviati on but not version to the right, probably with jaw chomping too, alter, after the event calm s it begins it's second act with left head deviation and eye turning and fencer like posture (right arm cocked, left straight, with secondarily generalized event IMPRESSION: This video EEG telemetry study shows over days 1-3 the following: A- five focal seizure of uncertain onset location though semiologies look classically tempo ral, at least in the beginning, the right arm is often the first to move up to chest wall, t he left soon follows, and then the left has a preference to move behind the left ear and helene e a kind of circular motion; head may turn to the right as with eyes at this time, the jaw i s clenched, then confusion may follow, the confusion is particularly worse and more aggressi ve with wire pulling and inability to be calmed by nursing staff if the event is long or sec ondarily generalized. The electrical onsets to the events are not altogether clear though early most abnormal celia earing rhythms are likely over right parietal, closer to midline than laterally, spread to t he contralateral hemisphere looks quick though is not hypermotoric at first which may sugges t a more posterior generator. Spenser Lane MD, FAAN [facility] [address] [place] [address] oherwyatt, Spenser Singh MD - 09/01/2019 8:10 AM PST CONTINUOUS VIDEO EEG TELEMETRY REPORT Kimberley Dowdjocelinejazmyne, [id number] Date: 08/31- EEG # : [id number] System: Twist Brief Clinical Hx: Patient Active Problem List Diagnosis ADHD (attention deficit hyperactivity disorder) Deafness Obesity Acne vulgaris Vitamin D deficiency Hypertriglyceridemia Eczema Seizure Seborrheic dermatitis Psoriasis of scalp Otitis externa Tongue laceration Dizziness Gastroenteritis Mood swings Follicular acne Intertrigo Epilepsy Neoplasm of uncertain behavior of skin Current Facility-Administered Medications Medication Dose Route Frequency acetaminophen (TYLENOL) tablet 650 mg 650 mg Oral Q4H PRN betamethasone dipropionate 0.05% lotion Topical BID hydrocortisone 2.5 % ointment 1 Application 1 Application Topical BID ibuprofen (ADVIL,MOTRIN) tablet 600 mg 600 mg Oral Q6H PRN LORazepam (ATIVAN) injection 1 mg 1 mg Intravenous Q2H PRN miconazole (MICATIN) 2% cream Topical BID omega-3 acid ethyl esters (LOVAZA) capsule 1 g 1 g Oral Daily sodium chloride 0.9% flush 10 mL 10 mL Intracatheter 3 times per day triamcinolone (KENALOG) 0.1% cream 1 g 1 Application Topical BID triamcinolone (KENALOG) 0.1% cream Topical BID zonisamide (ZONEGRAN) capsule 100 mg 100 mg Oral Nightly REQUESTING PHYSICIAN: Flavia Marcos DESCRIPTION OF TECHNIQUE: Digital Video EEG telemetry was performed utilizing scalp electro daylin placed according to the International 10-20 System of electrode placement.Computer autom ated ictal and interictal event detection was performed and subsequently reviewed. FINDINGS: 08/31/2019 Dominant posterior background rhythms are 11 Hz. These are symmetric and attenua te with eye opening. As the trace progresses, mixed frequency and mixed amplitude rhythms ch aracterizing drowsiness are seen, and stage II of sleep is evident. Activation procedures, including photic stimulation, elicit a bilateral driving response, a nd hyperventilation shows no unusual waveforms. No clinical seizures occurred and no underlying epileptiform abnormalities or focal changes were noted. 09/01/2019 Dominant posterior background rhythms are 11 Hz. These are symmetric and attenuate with eye opening. As the trace progresses, mixed frequency and mixed amplitude rhythms characterizin g drowsiness are seen, and stage II of sleep is evident. Event 1: at time 12:12:44 the EEG shows motor artifacts that make the absolute onset site h dane to see, lateralization is initially impossible, though theta potentials are evident in l eft parietal, vertex and right frontal, and possibly low amp right temporal with evolution t o more focal theta most evident over right frontotemporal, right hand moves up to midline, l eft also, 12:12:50, plucks at shirt, looks around to right, nonversive, looks confused, lots of repetitive left arm circling behaviors around head, then later starts plucking wires off IMPRESSION: This video EEG telemetry study shows over days 1-2 the following: A- one focal seizure of uncertain onset location though semiologies look classically tempor al Spenser Lane, MD, FAAN [facility] [address] [place] [address] documented in this encounter Miscellaneous Notes Plan of Care - Jody Edmond I, STREET[employer]ORMAN - 09/02/2019 11:56 AM PST Case Management Discharge Planning Assessment 11:56 AM; 09/02/2019 Patient Kimberley Yung is a 34 y.o. male who was admitted for VEEG. Discussion: Case Management chart review completed. No immediate discharge planning needs are identifie d. Case Management will continue to follow for care coordination and discharge planning need s as identified. Please consult Case Management should you identify a need. Discharge Plan per chart review: Home with aunt/uncle when monitoring complete. Discharge Planning Options Patient's Stated Goal: Not assessed at this time. Readmission Risk: Low (As defined by LACE+ score) Initial Plan: Anticipated Discharge Disposition: home Services Anticipated at Discharge: none Resources/Education provided: None at this time Was a referral sent for this pt? None at this time Diagnosis: VEEG Co-Morbidity/Complications: Past Medical History: Diagnosis Date Hearing loss Rash Seizures (HCC) Surgery/Procedures: No past surgical history on file. Advance Directive Information Code Status: Full Code POLST: No Advance Directive: Information Refused (per textile conservator), Not Received (per demographi cs) Is this a readmission?: Readmission Information Readmission Within the Last 30 Days: no previous admission in last 30 days Pre-Admit Baseline : Lives With: Lives With: other relative(s) (specify)(aunt and uncle) Living Arrangements: Living Arrangements: house Caregiver For: Provides Primary Care For: no one Patient s Caregiver: N/A DME Prior to admission: Equipment Currently Used at Home: none Home Accessibility: Home Accessibility: no concerns Transportation Available: Transportation Available: car, family or friend will provide PCP: Per Chart Review Nitin Field PA-C Principle Payors:Per Chart Review Payor: MEDICARE / Plan: MEDICARE PART A AND B / Product Type: Medicare / Primary Contact Information: Extended Emergency Contact Information Primary Emergency Contact: Benjamin Yung [facility] Relation: Relative Secondary Emergency Contact: MARCY TAO Mobile Relation: Relative Electronically signed: DOROTHY Alicea 09/02/2019 11:56 AM lan of Care - Selam Ly RN - 08/31/2019 6:20 PM PSTNSG Shift Summary Patient: Kimberley Yung Admission Date: 08/31/2019 7:31 AM Reason for Admission: VEEG Shift events: No push button events Neuro: Alert and oriented x4, GOMEZ 5/5, sensation intact Mobility: SBA Resp: clear on RA Cardiac: regular GI: LBM 08/30, good appetite bowel tones active : voids in bathroom without difficulty Skin: intact, some psoriasis Lines: L wrist PIV saline locked Pain: denies Plan: will continue to monitor Selam Ly RN 08/31/2019 18:20 documented in this encounter Plan of Treatment +--------+---------+ + + + | Date | Type | Specialty | Care Team | Description | +--------+---------+ + + + | 05/02/ | Office | Neurology | Rom Marcos, | | | 2019 | Visit | | [address] | | | | | | [place] [address] | | | | | | [phone] | | | | | | | | +--------+---------+ + + + | 06/06/ | Office | Dermatology | Edwige Adams | | | 2020 | Visit | | [address] | | | | | | [address] | | | | | | [place] [address] | | | | | | [phone] | | | | | | | | +--------+---------+ + + + documented as of this encounter Procedures + +--------+ + + + | Procedure Name | Priori | Date/Time | Associated Diagnosis | Comments | | | ty | | | | + +--------+ + + + | EEG VIDEO MONITORING | Routin | 08/31/2019 | | | | | e | 8:29 AM | | | | | | PST | | | + +--------+ + + + documented in this encounter Visit Diagnoses + + | Diagnosis | + + | Partial symptomatic epilepsy with complex partial seizures, intractable, without | | status epilepticus (HCC) | + + documented in this encounter Administered Medications + +--------+ +------+------+------+ | Medication Order | MAR | Action | Dose | Rate | Site | | | Action | Date | | | | + +--------+ +------+------+------+ | betamethasone dipropionate | Given | 09/03/20 | | | | | 0.05% lotion Topical, 2 TIMES | | 19 8:59 | | | | | DAILY, First dose on 08/31/19 | | AM PST | | | | | at 1100, Betamethasone lotion is | | | | | | | non formulary med. Please check | | | | | | | with patient or family for their | | | | | | | own supply, and alert floor | | | | | | | pharmacist when med available for | | | | | | | ID. Thanks., Apply to: Other | | | | | | | (Comment), Other location: EEG | | | | | | | leads to be applied to scalp for | | | | | | | VEEG monitoring has psoriasis in | | | | | | | scalp | | | | | | + +--------+ +------+------+------+ +-------+ +---+---+---+ | Given | 09/02/20 | | | | | | 19 10:14 | | | | | | PM PST | | | | +-------+ +---+---+---+ +---+---+ | | | +---+---+ + +-------+ + +---+---+ | hydrocortisone 2.5 % ointment 1 | Given | 09/03/20 | 1 | | | | Application 1 Application, | | 19 8:58 | Applicat | | | | Topical, 2 TIMES DAILY, First | | AM PST | ion | | | | dose on 08/31/19 at 0900, | | | | | | | Apply to scalp and face psoriasis | | | | | | | with need to put EEG electrodes | | | | | | | on scalp, , [facility] | | | | | | | [facility] [phone], RX | | | | | | | [id number], 06/05/20, DR JADE, LOT | | | | | | | [id number] , Id'd by pharmacy | | | | | | | 08/31/2019, Generic Name: | | | | | | | hydrocortisone, Length of | | | | | | | Therapy: Indefinite, Reason for | | | | | | | Non-Formulary: scalp and face | | | | | | | psoriasis with need to put EEG | | | | | | | electrodes on scalp | | | | | | + +-------+ + +---+---+ +-------+ + +---+---+ | Given | 09/02/20 | 1 | | | | | 19 10:14 | Applicat | | | | | PM PST | ion | | | +-------+ + +---+---+ | Given | 09/02/20 | 1 | | | | | 19 8:48 | Applicat | | | | | AM PST | ion | | | +-------+ + +---+---+ +---+---+ | | | +---+---+ + +-------+ +------+---+---+ | LORazepam (ATIVAN) 2 mg/mL | Given | 09/02/20 | 1 mg | | | | injection 1 mg 1 mg, | | 19 3:17 | | | | | Intravenous, ONCE, 09/02/19 | | PM PST | | | | | at 1530, For 1 dose | | | | | | + +-------+ +------+---+---+ +---+---+ | | | +---+---+ + +-------+ +------+---+---+ | LORazepam (ATIVAN) injection 1 | Given | 09/02/20 | 2 mg | | | | mg 1 mg, Intravenous, EVERY 2 | | 19 3:36 | | | | | HOURS PRN, Generalized | | AM PST | | | | | tonic-clonic seizure lasting | | | | | | | longer than 3 minutes, or 2 | | | | | | | complex partial seizures in less | | | | | | | than a one hour period. , | | | | | | | Starting 08/31/19 at 0822, | | | | | | | May repeat x 1. Notify physician | | | | | | | if more than 1 GTC or 2 complex | | | | | | | partial seizures in a 1 hour | | | | | | | period. May also give IM if no IV | | | | | | | access, | | | | | | + +-------+ +------+---+---+ +---+---+ | | | +---+---+ + +-------+ +------+---+ + | LORazepam (ATIVAN) injection 2 | Given | 09/02/20 | 2 mg | | Leg-Righ | | mg 2 mg, Intramuscular, ONCE, | | 19 7:49 | | | t Upper | | 09/02/19 at 0300, For 1 dose | | AM PST | | | | + +-------+ +------+---+ + +---+---+ | | | +---+---+ + +-------+ +---+---+---+ | miconazole (MICATIN) 2% cream | Given | 09/03/20 | | | | | Topical, 2 TIMES DAILY, First | | 19 8:59 | | | | | dose on 08/31/19 at 1115, | | AM PST | | | | | Apply to: Other (Comment), Other | | | | | | | location: For scalp psoriasis | | | | | | | given we need to put EEG leads on | | | | | | + +-------+ +---+---+---+ +-------+ +---+---+---+ | Given | 09/02/20 | | | | | | 19 10:15 | | | | | | PM PST | | | | +-------+ +---+---+---+ | Given | 09/02/20 | | | | | | 19 8:48 | | | | | | AM PST | | | | +-------+ +---+---+---+ +---+---+ | | | +---+---+ + +-------+ +-----+---+---+ | omega-3 acid ethyl esters | Given | 09/03/20 | 1 g | | | | (LOVAZA) capsule 1 g 1 g, Oral, | | 19 8:50 | | | | | DAILY, First dose on 08/31/19 | | AM PST | | | | | at 1100 | | | | | | + +-------+ +-----+---+---+ +-------+ +-----+---+---+ | Given | 09/02/20 | 1 g | | | | | 19 8:47 | | | | | | AM PST | | | | +-------+ +-----+---+---+ | Given | 09/01/20 | 1 g | | | | | 19 9:54 | | | | | | AM PST | | | | +-------+ +-----+---+---+ +---+---+ | | | +---+---+ + +-------+ + +---+---+ | OXcarbazepine (TRILEPTAL) | Given | 09/03/20 | 1,200 mg | | | | tablet 1,200 mg 1,200 mg, Oral, | | 19 8:50 | | | | | 2 TIMES DAILY, First dose (after | | AM PST | | | | | last modification) on Sat | | | | | | | 09/03/19 at 0900, Hazardous: Use | | | | | | | appropriate handling | | | | | | | precautions., | | | | | | + +-------+ + +---+---+ +---+---+ | | | +---+---+ + +-------+ +--------+---+---+ | OXcarbazepine (TRILEPTAL) | Given | 08/31/20 | 300 mg | | | | tablet 300 mg 300 mg, Oral, | | 19 9:02 | | | | | NIGHTLY, First dose on Mon | | PM PST | | | | | 08/31/19 at 2100, Hazardous: Use | | | | | | | appropriate handling | | | | | | | precautions., | | | | | | + +-------+ +--------+---+---+ +---+---+ | | | +---+---+ + +-------+ +--------+---+---+ | OXcarbazepine (TRILEPTAL) | Given | 09/02/20 | 300 mg | | | | tablet 300 mg 300 mg, Oral, | | 19 3:16 | | | | | ONCE, 09/02/19 at 1530, For 1 | | PM PST | | | | | dose, Hazardous: Use appropriate | | | | | | | handling precautions., | | | | | | + +-------+ +--------+---+---+ +---+---+ | | | +---+---+ + +-------+ +--------+---+---+ | OXcarbazepine (TRILEPTAL) | Given | 09/02/20 | 600 mg | | | | tablet 600 mg 600 mg, Oral, 2 | | 19 8:48 | | | | | TIMES DAILY, First dose on Sat | | PM PST | | | | | 09/02/19 at 0400, Hazardous: Use | | | | | | | appropriate handling | | | | | | | precautions., | | | | | | + +-------+ +--------+---+---+ +-------+ +--------+---+---+ | Given | 09/02/20 | 600 mg | | | | | 19 4:01 | | | | | | AM PST | | | | +-------+ +--------+---+---+ +---+---+ | | | +---+---+ + +-------+ +--------+---+---+ | sodium chloride 0.9% flush 10 | Given | 09/03/20 | 10 mLs | | | | mL 10 mL, Intracatheter, EVERY 8 | | 19 5:30 | | | | | HOURS (3 times per day), First | | AM PST | | | | | dose on 08/31/19 at 0845 | | | | | | + +-------+ +--------+---+---+ +-------+ +--------+---+---+ | Given | 09/02/20 | 10 mLs | | | | | 19 11:22 | | | | | | PM PST | | | | +-------+ +--------+---+---+ | Given | 09/02/20 | 10 mLs | | | | | 19 3:18 | | | | | | PM PST | | | | +-------+ +--------+---+---+ +---+---+ | | | +---+---+ + +-------+ +-----+---+---+ | triamcinolone (KENALOG) 0.1% | Given | 09/03/20 | 1 g | | | | cream 1 g 1 g (1 Application), | | 19 9:00 | | | | | Topical, 2 TIMES DAILY, First | | AM PST | | | | | dose on Sat08/31/19 at 0900, | | | | | | | Applied to scalp for VEEG | | | | | | | monitoring patient has psoriasis | | | | | | | in scalp, , [facility] | | | | | | | [facility], , RX | | | | | | | [phone], Dr. Jade, Exp | | | | | | | 03/13/2020, Id'd by Pharmacy | | | | | | | 08/31/2019, Generic Name: | | | | | | | Betamethasone, Length of Therapy: | | | | | | | Indefinite, Reason for | | | | | | | Non-Formulary: EEG leads to be | | | | | | | applied to scalp for VEEG | | | | | | | monitoring has psoriasis in scalp | | | | | | + +-------+ +-----+---+---+ +-------+ +-----+---+---+ | Given | 09/02/20 | 1 g | | | | | 19 8:45 | | | | | | PM PST | | | | +-------+ +-----+---+---+ | Given | 09/02/20 | 1 g | | | | | 19 8:49 | | | | | | AM PST | | | | +-------+ +-----+---+---+ +---+---+ | | | +---+---+ + +-------+ +---+---+---+ | triamcinolone (KENALOG) 0.1% | Given | 09/03/20 | | | | | cream Topical, 2 TIMES DAILY, | | 19 8:59 | | | | | First dose on 08/31/19 at | | AM PST | | | | | 0900, Apply to: Other (Comment), | | | | | | | Other location: most afflicted | | | | | | | areas | | | | | | + +-------+ +---+---+---+ +-------+ +---+---+---+ | Given | 09/02/20 | | | | | | 19 8:45 | | | | | | PM PST | | | | +-------+ +---+---+---+ | Given | 09/02/20 | | | | | | 19 8:48 | | | | | | AM PST | | | | +-------+ +---+---+---+ +---+---+ | | | +---+---+ + +-------+ +--------+---+---+ | zonisamide (ZONEGRAN) capsule | Given | 09/01/20 | 100 mg | | | | 100 mg 100 mg, Oral, NIGHTLY, | | 19 9:01 | | | | | First dose (after last | | PM PST | | | | | modification) on Sat09/01/19 at | | | | | | | 2100, Reproductive Risk: Use | | | | | | | appropriate handling | | | | | | | precautions., | | | | | | + +-------+ +--------+---+---+ +---+---+ | | | +---+---+ + +-------+ +--------+---+---+ | zonisamide (ZONEGRAN) capsule | Given | 09/02/20 | 100 mg | | | | 100 mg 100 mg, Oral, ONCE, Wed | | 19 3:16 | | | | | 09/02/19 at 1530, For 1 dose, | | PM PST | | | | | Reproductive Risk: Use | | | | | | | appropriate handling | | | | | | | precautions., | | | | | | + +-------+ +--------+---+---+ +---+---+ | | | +---+---+ + +-------+ +--------+---+---+ | zonisamide (ZONEGRAN) capsule | Given | 08/31/20 | 200 mg | | | | 200 mg 200 mg, Oral, NIGHTLY, | | 19 9:02 | | | | | First dose on 08/31/19 at | | PM PST | | | | | 2100, Reproductive Risk: Use | | | | | | | appropriate handling | | | | | | | precautions., | | | | | | + +-------+ +--------+---+---+ +---+---+ | | | +---+---+ + +-------+ +--------+---+---+ | zonisamide (ZONEGRAN) capsule | Given | 09/02/20 | 300 mg | | | | 300 mg 300 mg, Oral, ONCE, Sat | | 19 4:01 | | | | | 09/02/19 at 0400, For 1 dose, | | AM PST | | | | | Reproductive Risk: Use | | | | | | | appropriate handling | | | | | | | precautions., | | | | | | + +-------+ +--------+---+---+ +---+---+ | | | +---+---+ + +-------+ +--------+---+---+ | zonisamide (ZONEGRAN) capsule | Given | 09/03/20 | 300 mg | | | | 300 mg 300 mg, Oral, 2 TIMES | | 19 8:50 | | | | | DAILY, First dose (after last | | AM PST | | | | | modification) on [facility] 09/03/19 at | | | | | | | 0900, Reproductive Risk: Use | | | | | | | appropriate handling | | | | | | | precautions., | | | | | | + +-------+ +--------+---+---+ +---+---+ | | | +---+---+ + +-------+ +--------+---+---+ | zonisamide (ZONEGRAN) capsule | Given | 09/02/20 | 400 mg | | | | 400 mg 400 mg, Oral, NIGHTLY, | | 19 8:48 | | | | | First dose (after last reorder) | | PM PST | | | | | on Sat09/02/19 at 2100, | | | | | | | Reproductive Risk: Use | | | | | | | appropriate handling | | | | | | | precautions., | | | | | | + +-------+ +--------+---+---+ +---+---+ | | | +---+---+ documented in this encounter
--- OUTSIDE RECORDS SUMMARY | ~2020-04-30 | XMS | Encounter Summary ---
Demographics + + + | Address | [address] | | | [place] [address] | + + + | Home Phone [...] | Author | [facility] | + + + | Organization | [facility] [employer] [facility] | + + + [...] Team Providers + +------+ + | Care Soil Analyst Name | Role | Phone | [...] | | | | [address] | [facility] [place] | | | | | Physician's | [id number] | | | | | Pavilion, 2nd floor | [phone] | | | | | [place], [place] | | | | | | [address] | | | | | | [phone] | | | +--------+ + + + [...]
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
--- OUTSIDE RECORDS SUMMARY | ~2020-04-30 | XMS | Encounter Summary ---
Demographics + + + | Address | [address] | | | [place] [address] | + + + | Home Phone | | + + + | Preferred Language | Unknown | + + + | Marital Status | Single | + + + | Jain Affiliation | NON | + + + | Race | or | + + + | Ethnic Group | Not or | + + + Author + + + | Author | [facility] [employer] | + + + | Organization | [facility] | + [...] Team Providers + +------+ + | Care Boarding Specialist Name | Role | Phone | + +------+ + | Rita Rodriguez MD | PCP | | + +------+ + Reason for Visit + + + | Reason | Comments | + + + | Hearing loss | new pt here for hearing loss eval | + + + Consultation (Routine) +--------+--------+ + + + + | Status | Reason | Specialty | Diagnoses / | Referred By | Referred To | | | | | Procedures | Contact | Contact | +--------+--------+ + + + + | Closed | | Otolaryngolog | Diagnoses | Micha, | Ent Otology | | | | [...] | | | | Procedures | [address], | floor | | | | | CONSULT TO | [place] [address] | [place], [place] | | | | | ENT OTOLOGY | Phone: | [address] | | | | | | [phone] | Phone: | | | | | | Fax: | [phone] | | | | | | [phone] | Fax: | | | | | | | [phone] | +--------+--------+ + + + + Encounter Details +--------+---------+ + + + | Date | Type | Department | Care Team | Description | +--------+---------+ + + + | 04/23/ | Office | Otolaryngology | Elba Muñoz | Unspecified chronic | | 2012 | Visit | Otology Services at | MD Coby [address] | suppurative otitis | | | | [facility] [address] | media (Primary Dx); | | | | [address] | [place], [place] | Tympanic membrane | | | | Physician's | [phone] | perforation, | | | | Pavilion, 2nd floor | [phone] | marginal; [facility] | | | | [place], [place] | | (sensorineural | | | | [address] | | hearing loss) | | | | [phone] | | | +--------+---------+ + + + [...] + + + | Blood Pressure | 162/81 | 04/23/2013 4:05 PM | | | | | PDT | | + + + + + | Pulse | 89 | 04/23/2013 4:05 PM | | | [...] Weight | 152.9 kg (337 lb) | 04/23/2013 4:05 PM | | | | | PDT | | + + + + + | Height | 188 cm (6' 2") | 04/23/2013 4:05 PM | | | | | PDT | | + + + + + | Body Mass Index | 43.27 | 04/23/2013 4:05 PM | | | | | PDT | | + + + + + documented in this encounter Patient Instructions Patient Instructions Jigar Zavaleta MA - 04/23/2013 4:07 PM PDTThank you for choosing [facility] Department of Otolaryngology for your health care needs. If you need to speak to an EN T physician after normal business hours, please call [phone] and ask to have the ENT ph ysician operations expert paged. Leslie is a great way to contact me if you have questions in between visits. If you are n ot already signed up for [employer] there is information at the end of this After Visit Summary to help you get started. documented in this encounter Progress Notes Elba Muñoz MD - 04/25/2013 10:48 PM PDT Referred by: Kelley Méndez [facility] PCP: Rita Rodriguez MD HPI: Kimberley Yung is a 28 y.o. male who complains of right tympanic membrane perfora tion. He is accompanied by his grandmother and a sign-coal tower operator. 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 He can read lips as well as used sign language. He reports that he has had a perforation in the right ear for a number o f years. Previous surgery has failed to close it. For many months he has had a persistent in fection in right ear that flares up from time to time, most recently in January and February with pu rulent drainage and ear pain. He used to have a hearing aid in the right ear as well as in l eft ear, which was helpful for detection of sounds. With the perforation and otorrhea he is unable to use hearing aid in the right ear and has lost the hearing aid. No past medical history on file. No past surgical history on file. Social history: History Substance Use Topics Smoking status: Never Smoker Smokeless tobacco: Never Used Alcohol Use: Not on file Allergies Allergen Reactions Amoxicillin Pts mother states "It's not proven but it made him feel funny and he complained of dizzin ess." Current Outpatient Prescriptions Medication Sig adalimumab (HUMIRA) 40 mg/0.8 mL Subcutaneous Kit Inject 0.8 mL under the skin (SUBC) e very seven days. betamethasone dipropionate 0.05 % Topical Lotion Apply to affected area two times mikayla y. Apply a few drops. betamethasone dipropionate 0.05 % Topical Ointment Apply to affected area two times da sally. Ears, legs, and stomach with shots DIVALPROEX SODIUM (DEPAKOTE ORAL) Take by mouth. econazole 1 % Topical Cream Apply to affected area once daily. Groin ERGOCALCIFEROL, VITAMIN D2, (VITAMIN D ORAL) Take by mouth. hydrocortisone 2.5 % Topical Ointment Apply to affected area two times daily. Apply a thin film to clean, dry skin and rub in gently. miconazole 2 % Topical Cream Apply to affected area two times daily. For rash in skin folds, including groin. kjmojdlg-rmuydopaf-qmpqhwqlzmealu (CORTISPORIN) 3.5-10,000-1 mg-unit/mL-% Otic Drops, S uspension Instill 4 Drops into the right ear four times daily. Talc (ZEASORB) Topical Powder Apply to groin daily No current facility-administered medications for this visit. ROS: A comprehensive review of systems is performed, and the salient points are summarized in the above HPI. General: Well developed, well nourished, no apparent distress. Normal ability to communicat e. Head/face: Atraumatic, nonsyndromic. No lesion, mass or tenderness. No facial weakness. Eyes: Equal, round, reactive to light. Extraocular motions intact. No nystagmus. Ears: An otomicroscope is used for exam and cleaning of both ears. AD: Ear canal is patent and not inflamed. Tympanic membrane is intact with normal landmarks and no effusion. : Ear canal is patent and not inflamed. Tympanic membrane is intact with normal landmarks and no effusion. Melendez: Midline. Rinne: Air conduction is greater than bone conduction in both ears. Nose: Normal external appearance, mucosa, septum and turbinates. Throat: No mucosal or mass lesion. Neck: Trachea midline. No tenderness, adenopathy or thyromegaly. Neurological: Alert and oriented times 3. Normal mood and affect. Cranial nerves III-XII no rmal. No nystagmus. Normal gait. Audiogram 03/13/13 ASSESSMENT & PLAN: Kimberley Yung has right ear anterior marginal tympanic membrane perforation causing r ecurrent otitis media, otalgia, otorrhea. I discuss the nature of his condition and options for management. I recommend right ear tympanoplasty with ear cartilage graft to make it a sa giuseppe ear, especially since the patient enjoys swimming. He has profound hearing loss in both ears and tympanoplasty is not likely to make a big difference in hearing, but if it enables him to use a hearing aid to detect sounds in the right ear, then it would enhance his genera l sound awareness and safety in daily activities. documented in this encounter Plan of Treatment Not on filedocumented as of this encounter Visit Diagnoses + + | Diagnosis | + + | Unspecified chronic suppurative otitis media - Primary | + + | Tympanic membrane perforation, marginal Other marginal perforation of tympanic | | membrane | + + | SNHL (sensorineural hearing loss) Sensorineural hearing loss, unspecified | + + documented in this encounter
--- OUTSIDE RECORDS SUMMARY | ~2020-04-30 | XMS | Encounter Summary ---
Demographics + + + | Address | [address] | | | [place] [address] | + + + | Home Phone | | + + + | Preferred Language | Unknown | + + + | Marital Status | Single | + + + | Sabianist Affiliation | NON | + + + | Race | or | + + + | Ethnic Group | Not or | + + + Author + + + | Author | [facility] | + + + | Organization | [facility] | + + [...] Team Providers + +------+ + | Care Wind Turbine Sheet Metal Worker Name | Role | Phone | + +------+ + | Diane Little MD | PCP | | + +------+ + Encounter Details +--------+ + + + + | Date | Type | Department | Care Team | Description | +--------+ + + + + | 10/11/ | Telephone | Dermatology | Shukri Anne, | | | 2014 | | Medical at [facility] [address] | MDPhD Aylin | | | | | [facility] | Allergy Asthma | | | | | for Health and | Dermatology [address] | | | | | [facility], [address], | [facility] | | | | | 16th Floor | [place] [address] | | | | | [place], [place] | [phone] | | | | | [address] | | | | | | [phone] | | | +--------+ + + + [...]
--- OUTSIDE RECORDS SUMMARY | ~2020-04-30 | XMS | Encounter Summary ---
Demographics + + + | Address | [address] [place] [address] ROAD | | | [place] [address] | + + + | Home Phone | | + + + | Preferred Language | Unknown | + + + | Marital Status | Single | + + + | Jain Affiliation | Unknown | + + + | Race | Unknown | + + + | Ethnic Group | Unknown | + + + Author + + + | Author | [facility] | | | and [facility] | + + + | Organization | [facility] | | | and [facility] [...] Team Providers + +------+ + | Care Radiologist Name | Role | Phone | + +------+ + | Nitin Pinzon PA-C | PCP | | + +------+ + Reason for Visit + + + | Reason | Comments | + + + | New Patient | painful skin lesion left ear | + + + Evaluate & Treat (Routine) +--------+--------+ + + + + | Status | Reason | Specialty | Diagnoses / | Referred By | Referred To | | | | | Procedures | Contact | Contact | +--------+--------+ + + + + | Closed | | Otolaryngolog | Diagnoses | Emir, | Manuelito Christian | | | | y | Painful | Nitin L, | MD Aleshia [address] | | | | | skin lesion | [place] [address] | [address] | | | | | on the crura | [address] | [address] | | | | | of the | WAY | [place], | | | | | antihelix | [place], | [place] [address] | | | | | Procedures | [place] [address] | Phone: | | | | | Office | Phone: | [phone] | | | | | Consult | [phone] | Fax: | | | | | | Fax: | [phone] | | | | | | [phone] | | +--------+--------+ + + + + Encounter Details +--------+---------+ + + + | Date | Type | Department | Care Team | Description | +--------+---------+ + + + | 09/07/ | Office | [facility] | Manuelito Christian MD | Neoplasm of | | 2015 | Visit | OTOLARYNGOLOGY [address] | [address] | uncertain behavior | | | | [address] | [address] | of skin (Primary Dx) | | | | [place] | [place] [address] | | | | | [address] | [phone] | | | | | [phone] | | | +--------+---------+ + + + [...] + + + + | Pulse | 82 | 09/07/2015 1:20 PM | | | | | PST | | + + + + + | Temperature | - | - | | + + + + + | Respiratory Rate | 16 | 09/07/2015 1:20 PM | | | | | PST | | + + + + + | Oxygen Saturation | 96% | 09/07/2015 1:20 PM | | | | | PST | | + + + + + | Inhaled Oxygen | - | - | | | Concentration | | | | + + + + + | Weight | 142.9 kg (315 lb 1.3 | 09/07/2015 1:20 PM | | | | oz) | PST | | + + + + + | Height | 182.9 cm (6') | 09/07/2015 1:20 PM | | | | | PST | | + + + + + | Body Mass Index | 42.73 | 09/07/2015 1:20 PM | | | | | PST | | + + + + + documented in this encounter Progress Notes Manuelito Christian MD - 09/07/2015 4:58 PM PST [facility] OT[facility] [address] [facility] [address] OFFICE NOTE MANUELITO CHRISTIAN MD Patient: KIMBERLEY YUNG Admitting: MR #: [id number] LOC: PT TYPE: Adm Date: 09/07/2015 : 1985 DATE OF VISIT: 09/07/2015 The patient comes in along with his grandmother. 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 He either sign languages or writes on a pad . He has developed a sore area in his left ear. He wears a hearing aid in this ear, becau se he has a little bit of hearing in this side, none on the right hand side. The area whe re the sore, the top of it was trimmed off by the senior analytical chemist here recently, and it continu es to be sore, and they come in to have it evaluated. Not having any other ENT complaints. PHYSICAL EXAMINATION: GENERAL: Shows an alert 31-year-old male that takes a fair amount of time to be able to c ommunicate with. HEENT: Skin of the face, nose and ears shows he has some eczema. There is also some ecze ma in the left ear canal. In the antihelix superiorly, there is a small warty growth that is present that is the issue of concern. It does not appear to be cancerous, but certainly has the quantification tip on it and a bit of this was trimmed off by the senior analytical chemist. I t is tender. No other mass or lesions noted in the ear area. Canals are open. They are c lean. Drums were clear. Floor of the mouth, buccal mucosa, hard palate, teeth, lips, gums are healthy. No mass seen in the oropharynx, and posterior pharyngeal wall was smooth. T ongue and soft palate are smooth and move symmetrically. Neck, there are no masses or lymp hadenopathy. Thyroid gland area was smooth and trachea midline. Nasal passages: No obstr uction, no mass or lesions noted. He has a very large neck. IMPRESSION: Skin lesion of the left ear of uncertain diagnosis. PLAN: The patient will be scheduled to have this removed in minor surgery. The procedure was described to both the grandmother and the patient. He desires to have it removed, and this will be scheduled accordingly. MANUELITO CHRISTIAN MD Dictated by MANUELITO CHRISTIAN MD 09/07/2015 16:58:19 Transcribed on 09/08/2015 05:07:51 by michael job# [id number] Confirmation #: [id number] cc: NITIN PINZON [facility] - 09/07/2015 4:54 PM PSTSee dictation # [id number] signed by Manuelito Christian MD at 09/07/2015 4:59 PM PSTdocumented in th is encounter Plan of Treatment +--------+---------+ + + + | Date | Type | Specialty | Care Team | Description | +--------+---------+ + + + | 05/02/ | Office | Neurology | Rom Marcos, | | | 2019 | Visit | | MD Ingrid WATT | | | | | | [address] | | | | | | [place] [address] | | | | | | [phone] | | | | | | | | +--------+---------+ + + + | 06/06/ | Office | Dermatology | Edwige Adams | | | 2020 | Visit | | [address] | | | | | | [facility] | | | | | | [place] [address] | | | | | | [phone] | | | | | | | | +--------+---------+ + + + documented as of this encounter Visit Diagnoses + + | Diagnosis | + + | 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
--- OUTSIDE RECORDS SUMMARY | ~2020-04-30 | XMS | Encounter Summary ---
Demographics + + + | Address | [address] | | | [place] [address] | + + + | Home Phone | | + + + | Preferred Language | Unknown | + + + | Marital Status | Single | + + + | Denominational Affiliation | NON | + + + | Race | or | + + + | Ethnic Group | Not or | + + + Author + + + | Author | [facility] [employer] [facility] | + + + | Organization | [facility] [facility] | + + + | [...] Team Providers + +------+ + | Care Call Center Manager Name | Role | Phone | + +------+ + | Diane Little MD | PCP | | + +------+ + Encounter Details +--------+ + + + + | Date | Type | Department | Care Team | Description | +--------+ + + + + | 12/22/ | Telephone | Dermatology | Matt Powell MD | | | 2016 | | Medical at [facility] [address] | [address] | | | | | [address] | [place], [place] | | | | | for Health and | [address] | | | | | [facility] 1, | [phone] | | | | | 16th Floor | | | | | | [place], [place] | | | | | | [address] | | | | | | [phone] | | | +--------+ + + + [...]
--- OUTSIDE RECORDS SUMMARY | ~2020-04-30 | XMS | Encounter Summary ---
Demographics + + + | Address | [address] | | | [place] [address] | + + + | Home Phone [...] Author + + + | Author | [facility] | + + + | Organization | [facility] | + + + [...] Providers + +------+ + | Care Residential Property Tax Appraiser Name | Role | Phone | + [...] | | 2015 | | Medical at [facility] [address] | [address] | (adalimumab 40 | | | | [address] | [place], [place] | mg/0.8 mL | | | | for Health and | [address] | subcutaneous pen | | | | Healing, Building 1, | [phone] | injector kit) | | | | 16th Floor | | | | | | [place], [place] | | | | | | [address] | | | | | | [phone] | | | +--------+--------+ + + + [...]
--- OUTSIDE RECORDS SUMMARY | ~2020-04-30 | XMS | Encounter Summary ---
Demographics + + + | Address | [address] | | | [place] [address] | + + + | Home Phone [...] Team Providers + +------+ + | Care Cheese Packer Name | Role | Phone | [...] as of this encounter Progress Notes Interface, Treater In - 07/08/2006 2:29 AM [facility] [place] [address] [place] [address] or Division of Pediatric Neurology [address] [place] [address], [address] [address] , January 26, 2001 To Whom It May Concern [facility] [address] [place] [address] RE: JESSICA YUNG MR #: [id number] To Whom It May Concern: Jessica Yung was seen for a neurologic followup in the Pediatric Neurologic Clinic at [facility] on January 15, 2001. Jessica is a 13-1/2-year-old [place] boy who has a history of a [...] and there is no report from the [employer] where he is [...] limits. 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 He also has some behavioral problems with learning, attention, and aggression. He currently is being managed for those by Dr. Caro in the [facility]. He additionally has a history in the [...] Neurology Director, Pediatric Neurology TK / HS [id number] / [id number] / [id number] / [id number] cc: Brendan Caro M.D. Child Psychiatry [facility] [id number] signed by Interface, Treater In at 07/08/2006 2:29 AM PDTdocume nted in this encounter Plan of Treatment Not on filedocumented as of this encounter Visit Diagnoses Not on filedocumented in this encounter"
--- OUTSIDE RECORDS SUMMARY | ~2020-04-30 | XMS | Encounter Summary ---
Demographics + + + | Address | [address] | | | [place] [address] | + + + | Home Phone [...] Author + + + | Author | [facility] | + + + | Organization | [facility] | + + + [...] Providers + +------+ + | Care Director Electrical Engineering Name | Role | Phone | + [...] as of this encounter Progress Notes Interface, Gas Meter Repairer In - 07/28/2006 5:25 AM PSTCLINIC DATE: [...] along with his grandmother and also the salon manager. He indicated by sign that his arm was sore from throwing a softball at some picnic or alliance party. His grandmother says that he has [...] golf. The mother apparently has moved from [place] to [place]. The grandmother does not know whether they are living in a house or if the house that they have has broken windows and they are actually living in a small trailer. She wonders if there is space for Kimberley there. He apparently did enjoy his visit with his mother. The mother apparently joined the [employer] that apparently made the news and apparently [...] spend time with his grandmother. However, the juvenile court judge told her that she was supposed to [...] months. Cuba Caro M.D. Child Psychiatrist [id number] signed by Interface, Gas Meter Repairer In at 07/28/2006 5:25 AM PSTdocume nted in this encounter Plan of Treatment Not on filedocumented as of this encounter Visit Diagnoses Not on filedocumented in this encounter"
--- OUTSIDE RECORDS SUMMARY | ~2020-04-30 | XMS | Encounter Summary ---
Demographics + + + | Address | [address] [place] [address] ROAD | | | [place] [address] | + + + | Home Phone | | + + + | Preferred Language | Unknown | + + + | Marital Status | Single | + + + | Latter Day Affiliation | Unknown | + + + | Race | Unknown | + + + | Ethnic Group | Unknown | + + + Author + + + | Author | [facility] | | | and [place] | + + + | Organization | [facility] | | | and [...] Team Providers + +------+ + | Care Copy Center Specialist Name | Role | Phone | + +------+ + | Scarlet Bello PA-C | PCP | | + +------+ + Reason for Visit + +--------+ + | Reason | Onset | Comments | | | Date | | + +--------+ + | Medication Refill | 04/27/ | | | | 2020 | | + +--------+ + Encounter Details +--------+--------+ + + + | Date | Type | Department | Care Team | Description | +--------+--------+ + + + | 04/27/ | Refill | [facility] | Ajith Marcosamaya, | Medication Refill | | 2019 | | NEUROLOGY [address] | | | | [address] | [facility] [address] | | | | | [place], [place] | [place] [address] | | | | | [address] | [phone] | | | | | [phone] | | | +--------+--------+ + + + [...] Telephone Encounter - Yesi Barker CMA - 04/27/2020 11:24 AM PDTLast filled on: 01/20/20 20 Last office visit: 01/25/2020 Next office visit: 05/02/2020 documented in this en counter Plan of Treatment +--------+---------+ + + + | Date | Type | Specialty | Care Team | Description | +--------+---------+ + + + | 05/02/ | Office | Neurology | Rom Marcos, | | | 2019 | Visit | | MD Ingrid WATT | | | | | | [address]ACE [address]aez | | | | | | [place] [address] | | | | | | [phone] | | | | | | | | +--------+---------+ + + + | 06/06/ | Office | Dermatology | Edwige Adams | | 2019 | Visit | | [address] | | | | | | [address] | | | | | | [place] [address] | | | | | | [phone] | | | | | | | | +--------+---------+ + + + documented as of this encounter Visit Diagnoses Not on filedocumented in this encounter"
--- OUTSIDE RECORDS SUMMARY | ~2020-04-30 | XMS | Encounter Summary ---
Demographics + + + | Address | [address] | | | [place] [address] | + + + | Home Phone [...] | Author | [facility] | + + + | Organization | [facility] | + + + [...] Team Providers + +------+ + | Care Elementary School Counselor Name | Role | Phone | + [...] | | 2015 | | Medical at [facility] [address] | [address] | ([facility]) | | | | [address] [place] | [place], [place] | | | | | for Health and | [address] | | | | | [facility], [facility] 1, | [phone] | | | | | 16th Floor | | | | | | [place], [place] | | | | | | [address] | | | | | | [phone] | | | +--------+ + + + [...]
--- OUTSIDE RECORDS SUMMARY | ~2020-04-30 | XMS | Encounter Summary ---
Demographics + + + | Address | [address] | | | [place] [address] | + + + | Home Phone [...] | [facility] [employer] [facility] | + + + | Organization | [facility] | + + + [...] Team Providers + +------+ + | Care Negative Developer Name | Role | Phone | [...] 2012 | | Otology Services at | [facility] | | | | | [facility] [address] [place], [place] | | | | | [address] | [address] | | | | | Physician's | | | | | | [address], 2nd floor | | | | | | [place], [place] | | | | | | [address] | | | | | | [phone] | | | +--------+ + + + [...]
--- OUTSIDE RECORDS SUMMARY | ~2020-04-30 | XMS | Encounter Summary ---
Demographics + + + | Address | [address] | | | [place] [address] | + + + | Home Phone [...] + + + | Author | [facility] [facility] | + + + | Organization | [facility] [employer] [facility] | + + + [...] Team Providers + +------+ + | Care Metal Cabinet Finisher Name | Role | Phone [...] | | | | Procedures | | [address] | | | | | ID | | [address] | | | | | OFFICE/OUTPT | | [address] | | | | | | | [place], [place] | | | | | VISIT,EST,LE | | [address] Phone: | | | | | MAKENNA III | | [phone] | | | | | | | Fax: | | | | | | | [phone] | +--------+ + + + + + Encounter Details +--------+---------+ + + + | Date | Type | Department | Care Team | Description | +--------+---------+ + + + | 11/26/ | Office | Dermatology | Shukri Anne, | Other psoriasis | | 2012 | Visit | Medical at [facility] [address] | ,PhD Aylin | (Primary Dx); Other | | | | [facility] | Allergy Asthma | specified disease of | | | | for Health and | Dermatology [address] | hair and hair | | | | Healing, [address], | [address] | follicles; | | | | 16th Floor | [place] [address] | [address]tr[address]; | | | | [place], [place] | [phone] | Encounter for | | | | [address] | | long-term (current) | | | | [phone] | | use of other | | [...] information is available at the following websites: http://[email or web address] [email or web address]/health/services/dermatology/[email or web address]-patients/health_[email or web address].cfm - [facility] Derm atology http://www.aad.org/public/sun/smart.html - [facility] Website documented in this encounter Progress Notes Ehst, Shukri Baez MD,PhD - 11/27/2012 2:09 PM PDTAttending Physician Attestation I personally interviewed, examined the patient, and discussed management with the resident. I reviewed and edited the resident's note and agree with the documented findings and plan of care. Shukri Anne MD, PhD Coal Washer Tender, Department of Dermatology [facility] 11/26/2012 Yoseph Núñez MD - 11/26/2012 1:45 PM PDTDERMATOLOGY FOLLOW-UP VISIT (Last Office Visit in [facility] was on 08/25/12 at 11:00 am [...] recently; [facility] to him, to the groin [...] -start econazole bid RTC: 3 months; Sign Dx Board Operator needed Staff: Omid HALL MD Resident, Department of Dermatology [facility] documented in this encount er Plan of [...]
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
--- OUTSIDE RECORDS SUMMARY | ~2020-04-30 | XMS | Encounter Summary ---
Demographics + + + | Address | [address] | | | [place] [address] | + + + | Home Phone [...] + | Author | [facility] | + + + | Organization | [facility] | + + [...] Team Providers + +------+ + | Care Laminating Machine Offbearer Name | Role | Phone | + +------+ + | Diane Little MD | PCP | | + +------+ + Reason for Visit + + + | Reason | Comments | + + + | Prescription | multiple | + + + Encounter Details +--------+ + + + + | Date | Type | Department | Care Team | Description | +--------+ + + + + | 02/09/ | Telephone | Dermatology | Matt Powell MD | Prescription | | 2016 | | Medical at [facility] [address] | [address] [facility] | (multiple ) | | | | [address] [facility] | [place], [place] | | | | | for Health and | [address] | | | | | Healing, [address], | [phone] | | | | | 16th Floor | | | | | | [place], [place] | | | | | | [address] | | | | | | [phone] | | | +--------+ + + + [...]
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
--- OUTSIDE RECORDS SUMMARY | ~2020-04-30 | XMS | Encounter Summary ---
Demographics + + + | Address | [address] | | | [place] [address] | + + + | Home Phone [...] + | Author | [facility] | + + + | Organization | [facility] | + [...] Team Providers + +------+ + | Care Mortgage Banker Name | Role | Phone | + [...] as of this encounter Progress Notes Interface, Utility Bagger In - 09/08/2006 5:05 AM [facility] DATE: 01/05/1999 CLINIC NAME: CHILD DEVELOPMENT PROGRAM DISCIPLINE: PSYCHIATRY Sebastien attended the meeting with the nurse with [employer] and also a sign varnish maker. He has profound bilateral hearing loss, a [...] of course, is being signed to the varnish maker. He was playing with and then he [...]
--- OUTSIDE RECORDS SUMMARY | ~2020-04-30 | XMS | Encounter Summary ---
Demographics + + + | Address | [address] | | | [place] [address] | + + + | Home Phone | | + + + | Preferred Language | Unknown | + + + | Marital Status | Single | + + + | Shinto Affiliation | NON | + + + | Race | or | + + + | Ethnic Group | Not or | + + + Author + + + | Author | [facility] | + + + | Organization | [facility] [facility] | + + [...] Providers + +------+ + | Care Senior Property Manager Name | Role | Phone | [...] | | 2012 | | Medical at [facility] [address] | ,PhD Aylin | | | | | [address] | Allergy Asthma | | | | | for Health and | Dermatology [address] | | | | | Healing, [address], | [facility] | | | | | 16th Floor | [place] [address] | | | | | [place], [place] | [phone] | | | | | [address] | | | | | | [phone] | | | +--------+ + + + [...]
--- OUTSIDE RECORDS SUMMARY | ~2020-04-30 | XMS | Encounter Summary ---
Demographics + + + | Address | [address] | | | [place] [address] | + + + | Home Phone [...] | Author | [facility] [employer] [facility] | + + + | Organization | [facility] | + + [...] Team Providers + +------+ + | Care Casing In Line Feeder Name | Role | Phone | [...] as of this encounter Progress Notes Interface, Internal Carver In - 06/25/2006 1:11 AM PDTCLINIC DATE: [...] Kimberley not to look at him, and Kimberley sort of stares at him, but they [...] be 175 pounds. He also talked about [employer] competition and expecting a letter this summer. His level of reading is about second or third grade, and math is about fourth to sixth grade, but he does not understand fractures. I would like to see him back in two months. Cuba Caro M.D. ES:[id number] signed by Interface, Internal Carver In at 06/25/2006 1:11 AM PDTdocume nted in this encounter Plan of Treatment Not on filedocumented as of this encounter Visit Diagnoses Not on filedocumented in this encounter"
--- OUTSIDE RECORDS SUMMARY | ~2020-04-30 | XMS | Encounter Summary ---
Demographics + + + | Address | [address] | | | [place] [address] | + + + | Home Phone [...] [facility] [employer] [facility] | + + + | Organization | [facility] | + + + [...] Team Providers + +------+ + | Care Top Bottom Attaching Machine Operator Name | Role | Phone | + +------+ + | Diane Little MD | PCP | | + +------+ + Encounter Details +--------+ + + + + | Date | Type | Department | Care Team | Description | +--------+ + + + + | 10/11/ | Telephone | Dermatology | Shukri Anne, | | | 2014 | | Pediatrics at [facility] | PhD Aylin RICE | | | | | [address] | Allergy Asthma | | | | | [facility] | Dermatology [address] | | | | | and Healing, | [address] | | | | | Building | [place] [address] | | | | | Floor [place], [place] | [phone] | | | | | [address] | | | | | | [phone] | | | +--------+ + + + [...]
--- OUTSIDE RECORDS SUMMARY | ~2020-04-30 | XMS | Encounter Summary ---
Demographics + + + | Address | [address] | | | [place] [address] | + + + | Home Phone [...] + + | Author | [facility] [employer] [facility] | + + + | Organization | [facility] [employer] [facility] | + + + | [...] Team Providers + +------+ + | Care Assistant Finance Manager Name | Role | Phone | [...] | 2017 | on | Medical at [facility] [address] | [address] | Request | | | | [address] [place] | [place], [place] | | | | | [facility] and | [address] | | | | | [place] [address], | [phone] | | | | | 16 Floor | | | | | | [place], [place] | | | | | | [address] | | | | | | [phone] | | | +--------+ + + + [...]
--- OUTSIDE RECORDS SUMMARY | ~2020-04-30 | XMS | Encounter Summary ---
Demographics + + + | Address | [address] | | | [place] [address] | + + + | Home Phone [...] + + | Author | [facility] [employer] [facility] | + + + | Organization | [facility] | + + + [...] Team Providers + +------+ + | Care Block Making Machine Operator Name | Role | Phone | + +------+ + PCP | Unavailable | + +------+ + Encounter Details +--------+ + + + + | Date | Type | Department | Care Team | Description | +--------+ + + + + | 03/28/ | Office | [facility] | Report, [...] of this encounter Progress Notes Interface, Dental Laboratory Assistant In - 08/01/2006 5:18 AM PSTCLINIC DATE: 03/28/2000 CLINIC NAME:CHILD DEVELOPMENT CLINIC DISCIPLINE: PSYCHIATRY He has a diagnosis of Attention-Deficit/Hyperactivity Disorder and Intermittent Explosive Disorder. He takes Ritalin 20 mg q.i.d., Clonidine .1 mg 1 t.i.d., and Risperdal .5 mg 1 b.i.d. I saw Kimberley along with his grandmother and the sign creamery worker. The grandmother says he is doing fine. He is playing golf. His mother is in transition moving from [place] to taking care of a house in [place]. She hopes to move to [place]. Since he has been out of school, he has not been visiting his mother. He is involved in home recreation. He watches Van play softball. He may have some problems at home because no one signs except for grandmother and aunt. He says he gets in trouble at school because he teases other kids. He says it is boring to sit in the dorm. He would rather be playing outside. His grandmother said that a cousin spends more time with him because he is more in control of himself. His cousin is closer to his age. His name is Artis. He still likes to play with much younger kids and he is huge. 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 He indicated he would like to be able to talk and read. I would like to see Kimberley in about two months. Cuba Caro M.D. Psychiatrist [id number] signed by Interface, Dental Laboratory Assistant In at 08/01/2006 5:18 AM PSTdocume nted in this encounter Plan of Treatment Not on filedocumented as of this encounter Visit Diagnoses Not on filedocumented in this encounter"
--- OUTSIDE RECORDS SUMMARY | ~2020-04-30 | XMS | Encounter Summary ---
Demographics + + + | Address | [address] | | | [place] [address] | + + + | Home Phone [...] Author + + + | Author | [facility] [employer] [facility] | + + + | Organization | [facility] [employer] [facility] | + + + [...] Providers + +------+ + | Care Cement Side Laster Name | Role | Phone | + [...] | | 2016 | | Medical at [facility] [address] | [address] [facility] | (multiple ) | | | | [address] [facility] | [place], [place] | | | | | for Health and | [address] | | | | | Healing, Building 1, | [phone] | | | | | 16th Floor | | | | | | [place], [place] | | | | | | [address] | | | | | | [phone] | | | +--------+ + + + [...]
--- OUTSIDE RECORDS SUMMARY | ~2020-04-30 | XMS | Encounter Summary ---
Demographics + + + | Address | [address] | | | [place] [address] | + + + | Home Phone [...] [facility] [employer] [facility] | + + + | Organization | [facility] | + + + | Address [...] Team Providers + +------+ + | Care Insurance Account Assistant Name | Role | Phone | [...] | | | | 696.1, 3% | [facility] | Health and | | | | | [facility] (btl) | [facility] | Healing, | | | | | Procedures | [address] | [address] 1, | | | | | f/u appt | [place], | 16th Floor | | | | | | [place] [address] | [place], [place] | | | | | | Phone: | [phone] | | | | | | [phone] | Phone: | | | | | | Fax: | [phone] | | | | | | [phone] | Fax: | | | | | | | [phone] | +--------+ + + + + + Encounter Details +--------+---------+ + + + | Date | Type | Department | Care Team | Description | +--------+---------+ + + + | 03/02/ | Office | Dermatology | Shukri Anne, | Other psoriasis | | 2012 | Visit | Medical at [facility] [address] | MD,PhD Aylin | (Primary Dx); | | | | [facility] | Allergy Asthma | Encounter for | | | | for Health and | Dermatology [address] | long-term (current) | | | | Healing, Building 1, | [facility] [address] | use of other | | | | 16th Floor | [place] [address] | medications; | | | | [place], [place] | [phone] | Acquired acanthosis | | | | [address] | | nigricans | | | | [phone] | | | +--------+---------+ + + + [...] plan of care. Shukri Anne MD, PhD Diazo Technician, Department of Dermatology [facility] 03/02/2013 Richard Skinner MD - 03/02/2013 [...] and forehead. Recent ear infection, [facility] on treating this. Previous notes: [...] blood sugar control RTC: 3 months; Sign Rn Anesthesiology needed Renea Gauthier M.D. Resident, Department of Dermatology [facility] documented in this encount er Plan of Treatment Not on filedocumented as of this encounter Visit Diagnoses + + | Diagnosis | + + | Other psoriasis - Primary | + + | Encounter for long-term (current) use of other medications | + + | Acquired acanthosis nigricans | + + documented in this encounter"
--- OUTSIDE RECORDS SUMMARY | ~2020-04-30 | XMS | Encounter Summary ---
Demographics + + + | Address | [address] | | | [place] [address] | + + + | Home Phone | | + + + | Preferred Language | Unknown | + + + | Marital Status | Single | + + + | Sabianism Affiliation | NON | + + + | Race | or | + + + | Ethnic Group | Not or | + + + Author + + + | Author | [facility] [employer] [facility] | + + + | Organization | [facility] | + + + [...] Team Providers + +------+ + | Care Entry Level Finance Name | Role | Phone | + [...] as of this encounter Progress Notes Interface, Television Host In - 08/01/2006 5:18 AM PSTCLINIC DATE: 03/28/2000 CLINIC NAME:CHILD DEVELOPMENT CLINIC DISCIPLINE: PSYCHIATRY He has a diagnosis of Attention-Deficit/Hyperactivity Disorder and Intermittent Explosive Disorder. He takes Ritalin 20 mg q.i.d., Clonidine .1 mg 1 t.i.d., and Risperdal .5 mg 1 b.i.d. I saw Kimberley along with his grandmother and the sign lobby attendant. The grandmother says he is doing fine. He is playing golf. His mother is in transition moving from [place] to taking care of a house in [place]. She hopes to move to [place]. Since he has been out of school, [...] two months. Cuba Caro M.D. Psychiatrist [id number] signed by Interface, Television Host In at 08/01/2006 5:18 AM PSTdocume nted in this encounter Plan of Treatment Not on filedocumented as of this encounter Visit Diagnoses Not on filedocumented in this encounter"
--- OUTSIDE RECORDS SUMMARY | ~2020-04-30 | XMS | Encounter Summary ---
Demographics + + + | Address | [address] | | | [place] [address] | + + + | Home Phone [...] + | Author | [facility] [employer] [facility] | + + + | Organization | [facility] [employer] [facility] | + + [...] Providers + +------+ + | Care Parking Meter Servicer Name | Role | Phone | + [...] 2014 | | Medical at [facility] [address] | ,PhD Aylin | (Tiara) | | | | [address] [facility] | Allergy Asthma | | | | | for Health and | Dermatology [address] | | | | | [facility], Building 1, | [facility] | | | | | 16th Floor | [place] [address] | | | | | [place], [place] | [phone] | | | | | [address] | | | | | | [phone] | | | +--------+--------+ + + + [...]
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
--- OUTSIDE RECORDS SUMMARY | ~2020-04-30 | XMS | Encounter Summary ---
Demographics + + + | Address | [address] [place] [address] ROAD | | | [place] [address] | + + + | Home Phone | | + + + | Preferred Language | Unknown | + + + | Marital Status | Single | + + + | Yarsani Affiliation | Unknown | + + + | Race | Unknown | + + + | Ethnic Group | Unknown | + + + Author + + + | Author | [facility] | | | and [employer] | + + + | Organization | [facility] | | | and [...] Team Providers + +------+ + | Care Data Sciences Director Name | Role | Phone | [...] | Radiology | Diagnoses | Tammaa, | [facility] | | | | | Seizure | MD Rom | [address] | | | | | disorder | [address] | | | | | (HCC) | [facility] | [place], [place] | | | | | Procedures | DRIVE SUITE | [address] | | | | | MRI Brain wo | D | Phone: | | | | | Contrast | MARKJCARLOS, | [phone] | | | | | | [place] [address] | Fax: | | | | | | Phone: | [phone] | | | | | | [phone] | | | | | | | Fax: | | | | | | | [phone] | | +--------+--------+ + + + + Reason for Visit Diagnostic/Screening (Routine) +--------+--------+ + + + + | Status | Reason | Specialty | Diagnoses / | Referred By | Referred To | | | | | Procedures | Contact | Contact | +--------+--------+ + + + + | Closed | | Radiology | Diagnoses | Tammaa, | [facility] | | | | | Seizure | MD Rom | [address] | | | | | disorder | [address] | | | | | (HCC) | [facility] | [place], [place] | | | | | Procedures | DRIVE [address] | [address] | | | | | MRI Brain wo | D | Phone: | | | | | Contrast | [place], | [phone] | | | | | | [place] [address] | Fax: | | | | | | Phone: | [phone] | | | | | | [phone] | | | | | | | Fax: | | | | | | | [phone] | | +--------+--------+ + + + + Encounter Details +--------+ + + + + | Date | Type | Department | Care Team | Description | +--------+ + + + + | 09/30/ | Hospital | [facility] | Rom Marcos, | Seizure disorder | | 2020 | Encounter | [facility] MRI 9[address] | MD Ingrid WATT | ([facility]) | | | | SHUKRI [address] | [address] | | | | | [place], [place] | [place] [address] | | | | | [address] | [phone] | | | | | [phone] | | | +--------+ + + + [...] tablet by | 10 | 1 | // | | | 1 mg tablet | [...] + + + +---------+ + + | Roberta 3 1000 MG | Take by mouth. [...] tablets by | 124 | 3 | 09/22/19 | | | (TRILEPTAL) 600 MG | mouth 2 times daily. | tablet | | 20 | 0 | | tablet | Take 2 tablets [...] capsules by | 186 | 3 | 09/22/19 | | | (ZONEGRAN) 100 mg | [...] | | | | | [place] [address] | | | | | | [phone] | | | | | | | | +--------+---------+ + + + | 06/06/ Office | Dermatology | Edwige Adams | | | 2019 | Fannie | | [address] | | | | | | [address] | | | | | | [place] [address] | | | | | | [phone] | | | | | | | | +--------+---------+ + + + documented as of this encounter Procedures + +--------+ + + + | Procedure Name | Priori | Date/Time | Associated Diagnosis | Comments | | | ty | | | | + +--------+ + + + | MRI BRAIN WO | Routin | 09/30/2019 | Seizure disorder | Results for this | | CONTRAST | e | 1:37 PM | (HCC) | procedure are in the | | | | PST | | results section. | + +--------+ + + + documented in this encounter Results MRI Brain wo Contrast [...] Jesus Garay Edward | | Sign Date/Time: 09/30/2019 [...]
--- OUTSIDE RECORDS SUMMARY | ~2020-04-30 | XMS | Encounter Summary ---
Demographics + + + | Address | [address] | | | [place] [address] | + + + | Home Phone | | + + + | Preferred Language | Unknown | + + + | Marital Status | Single | + + + | Yazdanism Affiliation | NON | + + + | Race | or | + + + | Ethnic Group | Not or | + + + Author + + + | Author | [facility] | + + + | Organization | [facility] | + + + | [...] Providers + +------+ + | Care Sewing Machine Repairer Name | Role | Phone | [...] | | | | erythematous | | [address] | | | | | thick | | [address] | | | | | scaling | | [place], [place] | | | | | lesions on | | [address] Phone: | | | | | neck, | | [phone] | | | | | armpits | | Fax: | | | | | elbows and | | [phone] | | | | | probably | [...] | 2011 | Visit | Medical at [facility] [address] | ,PhD Aylin | (Primary Dx); | | | | [facility] | Allergy Asthma | Folliculitis | | | | for Health and | Dermatology [address] | | | | | Healing, [address] 1, | [address] [place] [address] | | | | | 16th Floor | [place] [address] | | | | | [place], [place] | [phone] | | | | | [address] | | | | | | [phone] | | | +--------+---------+ + + + [...] and skin cance rs including melanoma. The [place] Academy [employer] Dermatology (AAD) recommends you wear [...] at the following websites: http://www.university of [place] care.edu/xd/health/services/dermatology/for-patients/health_info.cfm - [facility] Derm atology http://www.aad.org/public/sun/smart.html - AAD Website documented in this encounter Progress Notes EhShukri dior MD,PhD - 02/06/2012 8:35 AM PDTAttending Physician Attestation I personally interviewed, examined the patient, and discussed management with the resident. I reviewed and edited the resident's note and agree with the documented findings and plan of care. Shukri Anne MD, PhD Station Superintendent, Department of Dermatology [facility] 01/30/2012 NALiRichard barkley MD - 01/30/2012 3:32 [...] M.D. Resident, Department of Dermatology [facility] documented in is encounter Plan of Treatment Not on filedocumented as of this encounter Visit Diagnoses + + | Diagnosis | + + | Other psoriasis - Primary | + + | Folliculitis Other specified disease of hair and hair follicles | + + documented in this encounter
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
--- OUTSIDE RECORDS SUMMARY | ~2020-04-30 | XMS | Encounter Summary ---
Demographics + + + | Address | [address] [place] [address] ROAD | | | [place] [address] | + + + | Home Phone | | + + + | Preferred Language | Unknown | + + + | Marital Status | Single | + + + | Islam Affiliation | Unknown | + + + | Race | Unknown | + + + | Ethnic Group | Unknown | + + + Author + + + | Author | [facility] | | | and [employer] | + + + | Organization | [facility] | | | and [...] Team Providers + +------+ + | Care Drapery Examiner Name | Role | Phone | + +------+ + | Nitin Field PA-C | PCP | | + +------+ + Reason for Visit + +--------+ + | Reason | Onset | Comments | | | Date | | + +--------+ + | Medication Refill | 09/03/ | | | | 2018 | | + +--------+ + Encounter Details +--------+--------+ + + + | Date | Type | Department | Care Team | Description | +--------+--------+ + + + | 09/03/ | Refill | [facility] | [address] | Medication Refill | | 2019 | | NEUROSCIENCE | MD Samantha [address] | | | | | [facility] | [address] [facility] | | | | | [facility] | [place] [address] | | | | | [address] | [phone] | | | | | [place], [place] | | | | | | [address] | | | | | | [phone] | | | +--------+--------+ + + + [...] this encounter Miscellaneous Notes Telephone Encounter - Spenser [address] MD - 09/03/2019 7:28 PM PSTStaff did not give an ti seizure meds back to patient according to family, sending emergency script to [facility] in [place] for discharge amounts 1200 mg bid [facility] and ZON 300 bid; Floor staff checking other locations for meds, Uncle Vinay confirmed they still have yellow inventory note with [facility] an d ZON registered to non [facility] location-Perhaps Registration ? They never picked up these me ds and don't recall being told to.[address] Staff confirmed registration had them, are storing overnight and will have on courtney 09/04 for epilepsy staff pickup and STAT developer advocate to listed [facility] [address] address If not will need to emergency fill longer script for family Uncle Vinay call back [phone], appraised of plan and updates Thanks- Spenser Lane MD documented in this encounter Plan of Treatment [...] | | | | | [place] [address] | | | | | | [phone] | | | | | | | | +--------+---------+ + + + | 06/06/ | Office | Dermatology | Edwige Adams | | | 2020 | Visit | | [address] | | | | | | [address] | | | | | | [place] [address] | | | | | | [phone] | | | | | | | | +--------+---------+ + + + documented as of this encounter Visit Diagnoses Not on filedocumented in this encounter"
--- OUTSIDE RECORDS SUMMARY | ~2020-04-30 | XMS | Encounter Summary ---
Demographics + + + | Address | [address] | | | [place] [address] | + + + | Home Phone [...] + + + | Author | [facility] | + + + | Organization | [facility] [employer] [facility] | + + + | [...] Providers + +------+ + | Care Assistant Corporate Secretary Name | Role | Phone | + [...] as of this encounter Progress Notes Interface, Route Salesman And Driver In - 08/05/2006 5:18 AM PSTCLINIC DATE: 01/25/2000 CLINIC NAME:CHILD DEVELOPMENT PROGRAM DISCIPLINE: PSYCHIATRY I have been following Sebastien for Attention-Deficit/Hyperactivity Disorder, intermittent explosive disorder, and he takes Ritalin 20 mg q.i.d., Clonidine .1 mg 1 t.i.d. and Risperdal .5 mg twice a day. Sebastien signed to the park interpreter that he was mad at his sister [...] with his 5-year-old cousin, golf club and Tavern. The 5-year-old cousin sometimes does not want [...] and Auguste. They played basketball together at [employer]. In school he seems to be doing [...] months. Cuba Caro M.D. Child Psychiatry EGS:[id number] signed by Interface, Route Salesman And Driver In at 08/05/2006 5:18 AM PSTdocume nted in this encounter Plan of Treatment Not on filedocumented as of this encounter Visit Diagnoses Not on filedocumented in this encounter"
--- OUTSIDE RECORDS SUMMARY | ~2020-04-30 | XMS | Encounter Summary ---
Demographics + + + | Address | [address] | | | [place] [address] | + + + | Home Phone [...] + | Author | [facility] [employer] [facility] | + + + | Organization | [facility] [employer] [facility] | [...] Team Providers + +------+ + | Care Consumer Insight Manager Name | Role | Phone | [...] | | 2011 | | Medical at [facility] [address] | ,PhD Aylin | (betamethasone) | | | | [address] [employer] | Allergy Asthma | | | | | for [facility] and | Dermatology [address] | | | | | [facility], [address], | [facility] | | | | | 16th Floor | [place] [address] | | | | | [place], [place] | [phone] | | | | | [address] | | | | | | [phone] | | | +--------+--------+ + + + [...]
--- OUTSIDE RECORDS SUMMARY | ~2020-04-30 | XMS | Encounter Summary ---
Demographics + + + | Address | [address] | | | [place] [address] | + + + | Home Phone | | + + + | Preferred Language | Unknown | + + + | Marital Status | Single | + + + | Druze Affiliation | NON | + + + | Race | or | + + + | Ethnic Group | Not or | + + + Author + + + | Author | [facility] | + + + | Organization | [facility] | + [...] Team Providers + +------+ + | Care Production Assembly Supervisor Name | Role | Phone | + +------+ + | Diane Little MD | PCP | | + +------+ + Encounter Details +--------+------+ + + + | Date | Type | Department | Care Team | Description | +--------+------+ + + + | 10/13/ | Lab | Laboratory at [facility] | | Encounter for | | 2014 | | [address] | | long-term (current) | | | [facility] | | use of other | | | | and Healing, | | medications | | | | [address] | | | | | | [place], [place] | | | | | | [address] | | | | | | [phone] | | | +--------+------+ + + + [...] | + + + + + | [facility] | [address] | [place] [address] | | | SERVICES, [facility] FOR | | | | | HEALTH [...] | | | LABORATORY | | | BULGARIAN | | | SERVICES, | | | [...] TAIWO LORA | [address] | [place] [address] | | | SERVICES, CORE | [address] | | | + + + + + documented in this encounter Visit Diagnoses + + | Diagnosis | + + | Encounter for long-term (current) use of other medications | + + documented in this encounter"
--- OUTSIDE RECORDS SUMMARY | ~2020-04-30 | XMS | Encounter Summary ---
Demographics + + + | Address | [address] [place] [address] ROAD | | | [place] [address] | + + + | Home Phone [...] + + + | Author | [facility] | | | and Mendez[facility] | + + + | Organization | [facility] | | | and [facility] | [...] Team Providers + +------+ + | Care Machine Group Leader Name | Role | Phone | + +------+ + | Nitin Pinzon PA-C | PCP | | + +------+ + Reason for Visit + + + | Reason | Comments | + + + | Follow-up | suture removal-left ear | + + + Evaluate & Treat (Routine) +--------+--------+ + + + + | Status | Reason | Specialty | Diagnoses / | Referred By | Referred To | | | | | Procedures | Contact | Contact | +--------+--------+ + + + + | Closed | | Otolaryngolog | Diagnoses | Emir, | Manuelito Christian | | | | y | Neoplasm of | Nitin Houston, | MD Aleshia [address] | | | | | uncertain | [place]-C [address] [address] | | | | | behavior of | CONF[place]ATED | [address] | | | | | skin Suture | WAY | [place], | | | | | Removal / | [place], | [place] [address] | | | | | self / | [place] [address] | Phone: | | | | | Medicaid / | Phone: | [phone] | | | | | Needs | [phone] | Fax: | | | | | Talent Acquisition Partner | Fax: | [phone] | | | | | Requested | [phone] | | | | | | Request | | | | | | | auth from | | | | | | | Mena at | | | | | | | 10-13-15 | | | | | | | Procedures | | | | | | | 10/18>PEND | | | | | | | YH AUTH | | | | | | | OFFICE VISIT | | | | | | | REGULAR | | | +--------+--------+ + + + + Encounter Details +--------+---------+ + + + | Date | Type | Department | Care Team | Description | +--------+---------+ + + + | 10/17/ | Office | [facility] | Manuelito Christian MD | Neoplasm of | | 2016 | Visit | OTOLARYNGOLOGY [address] | [address] | uncertain behavior | | | | [address] | [address] [place] | of skin (Primary Dx) | | | | [place] | [place] [address] | | | | | [address] | [phone] | | | | | [phone] | | | +--------+---------+ + + + [...] + + | Pulse | 90 | 10/17/2015 10:06 AM | | | | | PST | | + + + + + | Temperature | - | - | | + + + + + | Respiratory Rate | 16 | 10/17/2015 10:06 AM | | | | | PST | | + + + + + | Oxygen Saturation | 98% | 10/17/2015 10:06 AM | | | | | PST | | + + + + + | Inhaled Oxygen | - | - | | | Concentration | | | | + + + + + | Weight | 142.9 kg (315 lb) | 10/17/2015 10:06 AM | | | | | PST | | + + + + + | Height | 182.9 cm (6') | 10/17/2015 10:06 AM | | | | | PST | | + + + + + | Body Mass Index | 42.72 | 10/17/2015 10:06 AM | | | | | PST | | + + + + + documented in this encounter Progress Notes Manuelito Christian MD - 10/17/2015 10:19 AM PST [facility] [place] [facility] [address] [facility] [address] OFFICE NOTE MANUELITO CHRISTIAN MD Patient: KIMBERLEY YUNG Admitting: MR #: [id number] LOC: PT TYPE: Adm Date: 10/17/2015 : 1985 POSTOP VISIT DATE OF VISIT: 10/17/2015 The patient is post-removal of a nonhealing area on his antihelix of his left ear. He com es in for the suture removal. Sutures were removed without difficulty. Wound is healing n icely. No evidence of any infection. Final pathology report indicates that there is no ev idence of any cancer. It has chronic inflammation. Discussion with the patient is that t his may be related to his hearing aid pressing in that area. With some of the excess tissu e removed, plus he has had a little bit of the hearing aid trimmed back, hopefully this are a will now get back to normal and not cause him further problems. He will apply little bi t topical ointment on the area for the next 4-5 days. He will recheck with ENT if there ar e further problems. MANUELITO CHRISTIAN MD Dictated by MANUELITO CHRISTIAN MD 10/17/2015 10:19:08 Transcribed on 10/18/2015 04:51:25 by [facility] job# [id number] Confirmation #: [id number] cc: NITIN PINZON PAC [facility] - 10/17/2015 10:16 AM PSTSee dictation # [id number] signed by Manuelito Christian MD at 10/17/2015 10:20 AM PSTdocumented in th is encounter Plan of Treatment +--------+---------+ + + + | Date | Type | Specialty | Care Team | Description | +--------+---------+ + + + | 05/02/ | Office | Neurology | Rom Marcos, | | | 2019 | Visit | | MD Ingrid WATT | | | | | | [address] | | | | | | [place] [address] | | | | | | [phone] | | | | | | | | +--------+---------+ + + + | 06/06/ | Office | Dermatology | Edwige Adams | | | 2019 | Visit | | [address] | | | | | | [address] | | | | | | [place] [address] | | | | | | [phone] | | | | | | | | +--------+---------+ + + + documented as of this encounter Visit Diagnoses + + | Diagnosis | + + | 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
--- OUTSIDE RECORDS SUMMARY | ~2020-04-30 | XMS | Encounter Summary ---
Demographics + + + | Address | [address] | | | [place] [address] | + + + | Home Phone [...] + + | Author | [facility] [employer] [facility] | + + + | Organization | [facility] [employer] [facility] | + + + [...] Team Providers + +------+ + | Care Sluice Tender Name | Role | Phone | + [...] | | | | | | [place] [address] | | | | | | [phone] | | | +--------+ + + + [...] as of this encounter Progress Notes Interface, Nutrition Therapist In - 10/05/2006 7:58 AM PST CLINIC DATE: 02/22/98 CLINIC NAME: CHILD DEVELOPMENT PROGRAM DISCIPLINE: PSYCHOLOGY IDENTIFYING DATA AND REASON FOR REFERRAL: Kimberley Yung, a 12-year, 85-mteya-bbf [place]an-Stateless male, was seen today through the Child Development Program for a psychological evaluation. Kimberley's history is significant for profound bilateral hearing loss, seizure disorder, Attention Deficit Hyperactivity Disorder, and long-standing behavioral problems. He has been followed through the [facility] in [place], though his grandmother, Mrs. Yung, reported his medications, both anticonvulsants and psychotropic, have not been evaluated for several years. She stated she wanted to determine Kimberley's needs at this time, including the need for a psychiatric and/or medical evaluation. Kimberley was accompanied to the clinic by his grandparents, and Mrs. Yung, and his teacher. An geologist petroleum was present to facilitate the evaluation. RELEVANT HISTORY: Kimberley currently resides with his grandparents and their 16-year-old son in [place], [place]. Kimberley currently attends [employer] and is in the fourth grade. He [...] last blood levels were taken at the [facility] approximately one year ago. Kimberley attended the [facility] [facility] [employer] [facility] [employer] from fall to spring. The plan is for him to attend this program next year. Kimberley underwent a psychological evaluation in November of 1993 when attending the [facility]. At that time he [...] experienced a very structured environment at the [facility], and in his current [...] exam room with his grandmother, teacher, the novelty twister operator and this examiner. At one point he stopped to observe a ampoule sealer and did not respond to attempts to direct him down the hallway. Kimberley was not redirected until his teacher approached him and answered questions he had about the ampoule sealer. During the parent interview, Kimberley immediately began exploring the toys in the room and entertained himself most of the time. During the latter part of the interview he became somewhat fidgety and chose to leave the room to watch t.v. in the waiting room. During the time he spent in the exam room he primarily interacted with his teacher and novelty twister operator with whom he could communicate through sign. [...] Yung served as the informant for the Ponce De [employer] Adaptive Behavior Scales (VABS), from which the [...] SUMMARY AND RECOMMENDATIONS: Kimberley Yung, a 12-year, 73-hepvc-ftj male, was seen today through the Child Development Program for a psychological evaluation. Kimberley's history is significant for profound bilateral hearing loss, seizure disorder, Attention Deficit Hyperactivity Disorder, and long-standing behavioral problems. He has been followed through the [facility] in [place], though Mrs. Yung reported his medications have [...] a consistent basis, such as at the [employer] [facility] [employer]. As Kimberley increases his [...] it is recommended that Kimberley return to [facility] for this evaluation. It is also recommended [...] receive support. Next year Kimberley will attend [employer] sorter pricer, visiting every other weekend. This will provide [...]
--- OUTSIDE RECORDS SUMMARY | ~2020-04-30 | XMS | Encounter Summary ---
Demographics + + + | Address | [address] | | | [place] [address] | + + + | Home Phone [...] + + + | Author | [facility] | + + + | Organization | [facility] | + + + | [...] Team Providers + +------+ + | Care Die Holder Name | Role | Phone | + [...] | | 2012 | | Medical at [facility] [address] | ,PhD [place] | (Humira 40mg/0.8 ml) | | | | [facility] | Allergy Asthma | | | | | for [facility] and | Dermatology [address] | | | | | [facility], Building 1, | [facility] | | | | | 16th Floor | [place] [address] | | | | | [place], [place] | [phone] | | | | | [address] | | | | | | [phone] | | | +--------+ + + + [...]
--- OUTSIDE RECORDS SUMMARY | ~2020-04-30 | XMS | Encounter Summary ---
Demographics + + + | Address | [address] | | | [place] [address] | + + + | Home Phone [...] Author | [facility] | + + + | Organization | [facility] | + + + | Address | Unknown | + + + | Phone | Unavailable | + + + Support + + + + + | Name | Relationship | Address | Phone | + + + + + | Delonte Yung | ECON | [place] | | + + + + + Care Team Providers + +------+ + | Care Luggage Maker Name | Role | Phone | + +------+ + PCP | Unavailable | + +------+ + Encounter Details +--------+ + + + + | Date | Type | Department | Care Team | Description | +--------+ + + + + | 01/15/ | Procedure - | UNKNOWN DEPARTMENT | Other, Faculty | EEG | | 2000 | | [address] [facility] | [phone] | | | | Transcribed | [address] | | | | | | [place], [place] | | | | | | [address] | | | +--------+ + + + [...] by: Dr. Henson Test Type: Routine EEG [facility] EEG Number: [id number] Pertinent Medications: Respirdol, Clonidine INTERPRETATION: Detail:. The [...] asleep. Dante Hodgson M.D. documented in this [facility] Plan of Treatment Not on filedocumented [...] | | | | | Care Unit: [facility] Req by: Dr. Henson | | Test Type: Routine EEG [facility] EEG Number: [id number] | | Pertinent Medications: [...]
--- OUTSIDE RECORDS SUMMARY | ~2020-04-30 | XMS | Encounter Summary ---
Demographics + + + | Address | [address] | | | [place] [address] | + + + | Home Phone [...] Count Includes [facility] [employer] [facility] | + + + | Organization | Count Includes [facility] [employer] [facility] | + + + [...] Team Providers + +------+ + | Care Blacksmith Assistant Name | Role | Phone | + +------+ + | Diane Little MD | PCP | | + +------+ + Encounter Details +--------+ + + + + | Date | Type | Department | Care Team | Description | +--------+ + + + + | 10/11/ | Telephone | Dermatology | Shukri Anne, | | | 2014 | | Medical at [facility] [address] | MDPhD Aylin | | | | | [address] [facility] | Allergy Asthma | | | | | for Health and | Dermatology [address] | | | | | [facility], [address], | [facility] | | | | | 16th Floor | [place] [address] | | | | | [place], [place] | [phone] | | | | | [address] | | | | | | [phone] | | | +--------+ + + + [...]
--- OUTSIDE RECORDS SUMMARY | ~2020-04-30 | XMS | Encounter Summary ---
Demographics + + + | Address | [address] | | | [place] [address] | + + + | Home Phone [...] + | Author | [facility] | + + + | Organization | [facility] | + + + [...] Team Providers + +------+ + | Care Funnel Coater Name | Role | Phone | + [...] Floor | | | | | | [place], [place] | [place], [place] | | | | | | [address] | [address] | | | | | | Phone: | Phone: | | | | | | [phone] | [phone] | | | | | | Fax: | Fax: | | | | | | [phone] | [phone] | +--------+ + + + + + Encounter Details +--------+---------+ + + + | Date | Type | Department | Care Team | Description | +--------+---------+ + + + | 08/27/ | Office | Dermatology | Matt Powell MD | Other psoriasis | | 2016 | Visit | Medical at [facility] [address] | [address] | (Primary Dx); | | | | [address] | [place], [place] | Long-term use of | | | | for Health and | [address] | high-risk medication | | | | [place] [address], | [phone] | | | | | 16th Floor | | | | | | [place], [place] | | | | | | [address] | | | | | | [phone] | | | +--------+---------+ + + + [...] Lauren Vernon MA. Matt Powell MD.[facility] DERMATOLOGY MEDICAL AT [facility] 16TH FLOOR [address] [facility] [address] Mail Code: [address] [place] [address] Lauren Sun MA - 1 10/28/2015 11:00 AM PSTDERMATOLOGY FOLLOW-UP VISIT Last Appointment in [facility] was on 04/16/2016 with Matt Powell [...] to encourage weight loss and consider seeing dial equipment engineer -- pt down 20 lbs since last [...] 3-6 months Department of Dermatology [facility] 04/16/2016 documented in this e [...] | | | LABORATORY | | | SAMOAN | | | SERVICES, | | | [...] LORA | [address] | [place] [address] | | | SERVICES, CORE | [address] | | | + + + + + documented in this encounter Visit Diagnoses + + | Diagnosis | + + | Other psoriasis - Primary | + + | Long-term use of high-risk medication | + + documented in this encounter"
--- OUTSIDE RECORDS SUMMARY | ~2020-04-30 | XMS | Encounter Summary ---
Demographics + + + | Address | [address] | | | [place] [address] | + + + | Home Phone [...] + | Author | [facility] [employer] [facility] | + + + | Organization | [facility] [facility] | + + [...] Team Providers + +------+ + | Care Kitchen Steward Name | Role | Phone | + [...] | | | | CONSULT TO | [place] [address] | [place], [place] | | | | | ENT OTOLOGY | Phone: | [address] | | | | | | [phone] | Phone: | | | | | | Fax: | [phone] | | | | | | [phone] | Fax: | | | | | | | [phone] | +--------+--------+ + + + + Encounter [...] | | | [facility] [address] | media (Primary Dx); | | | | [address] | [place], [place] | Tympanic membrane | | | | Physician's | [address] | perforation, | | | | Pavilion, 2nd floor | [phone] | marginal; [facility] | | | | [place], [place] | | (sensorineural | | | | [address] | | hearing loss) | | | | [phone] | | | +--------+---------+ + + + [...] 04/23/2013 4:07 PM PDTThank you for choosing [facility] Department of Otolaryngology for your health care needs. If you need to speak to an EN T physician after normal business hours, please call [phone] and ask to have the ENT ph ysician aircraft load controller paged. Leslie is a great way to contact me if you have questions in between visits. If you are n ot already signed up for Pictorioushart there is information at the end of this After Visit Summary to help you get started. documented in this encounter Progress Notes Elba Muñoz MD - 04/25/2013 10:48 PM PDT Referred by: Kelley Méndez [facility] PCP: Rita Rodriguez MD HPI: Kimberley Yung is a 28 y.o. male who complains of right tympanic membrane perfora tion. He is accompanied by his grandmother and a sign-interpreter for the deaf. He has bilateral profound hearing loss since starter mechanic due to meningitis. He can read lips [...] For rash in skin folds, including groin. sewlsovf-bgqdgffcm-mzjhttedbwmuqh (CORTISPORIN) 3.5-10,000-1 mg-unit/mL-% Otic Drops, S uspension [...]
--- OUTSIDE RECORDS SUMMARY | ~2020-04-30 | XMS | Encounter Summary ---
Demographics + + + | Address | [address] | | | [place] [address] | + + + | Home Phone [...] Author | [facility] [employer] [facility] | + + + | Organization | [facility]OMAR [facility] | + + [...] Team Providers + +------+ + | Care Continuous Mining Machine Company Miner Name | Role | Phone | + +------+ + | Rita Rodriguez MD | PCP | | + +------+ + Encounter Details +--------+ + + + + | Date | Type | Department | Care Team | Description | +--------+ + + + + | 11/28/ | Documentati | Dermatology | Shukri Anne, | | | 2012 | on | Medical at [facility] [address] | PhD Aylin RICE | | | | | [address] [place] | Allergy Asthma | | | | | for Health and | Dermatology [address] | | | | | [facility], Building 1, | [facility] | | | | | 16th Floor | [place] [address] | | | | | [place], [place] | [phone] | | | | | [address] | | | | | | [phone] | | | +--------+ + + + [...]
--- OUTSIDE RECORDS SUMMARY | ~2020-04-30 | XMS | Encounter Summary ---
Demographics + + + | Address | [address] | | | [place] [address] | + + + | Home Phone [...] + | Author | [facility] | + + + | Organization | [facility] [employer] [facility] | + + [...] Team Providers + +------+ + | Care Vehicle Insurance Agent Name | Role | Phone | [...] WITHOUT MASTOID; EAR | | | | Lun[place]ish Galindo | [address] | [employer]FT | | | | Ambulatory Surgery | [place], [place] | | | | | Admitting Desk | [address] | | | | | Located on the [facility] | [phone] | | | | | floor, Room [facility] | | | | | | [place], [place] | | | | | | [address] | | | +--------+---------+ + + + [...] | 0 | 08/18/20 | | | iypsssyd-wxqklbhws-u | the right ear three | | | 13 | | | ydrocortisone | times daily. | | | | | | (CORTISPORIN) | | | | | | | 3.5-10,000-1 | | | | | | | mg-unit/mL-% otic | | | | | | | drops,suspension | | | | | | + + + +---------+ + + | [place]-3 Fatty | Take 3 capsules by | [...] The patient was positioned appropriately. The following food service team member s were present during the team pause: [...] | + + + + + | [facility] | [address] | [place] [address] | | | PATHOLOGY | [address] [...]
[~2020-04-30 09:54] MED LIST: DAYPRO600 MG PO; DEPAKOTE500 MG PO; DOXYCYCLINE HY100 M3 PO; HUMIRA40 MG/0.8 SUB-Q; KEPPRA XR750 MG PO; NORCO 5-325 TA1 EACH PO; OMEGA-31000 MG PO
--- NOTE | 2020-05-02 20:36 | PATH ---
[facility] [address], [place] [address] Signed ORDERING PHYSICIAN: Scott Stallings MD PATIENT NAME: JESSICA CHANG GENDER: Sabas : 1985 SPECIMEN(S): CLINICAL HISTORY: Routine Pap Smear MOLECULAR PATHOLOGY RESULTS: SARS-CoV-2 Not Detected ADDITIONAL NOTES.: The Calumet Fusion SARS-CoV-2 Assay is a multiplex real-time PCR (RT-PCR) in vitro diagnostic test intended for the qualitative detection of RNA from SARS-CoV-2 from individuals who meet COVID-19 clinical and/or epidemiological criteria. In general, SARS-CoV-2 RNA can be detected during the acute phase of infection. Positive results indicate the presence of SARS-CoV-2 RNA. Clinical correlation with patient history and other diagnostic information is necessary to determine patient infection status. Positive results do not rule out bacterial infection or co-infection with other viruses. Negative results do not preclude SARS-CoV-2 infection and should not be used as the sole basis for patient management decisions. Negative results must be combined with other clinical observations, patient history, and epidemiological information. The Calumet Fusion SARS-CoV-2 Assay is not yet approved or cleared by the [place] FDA. When there are no FDA-approved or cleared tests available, and other criteria are met, FDA can make tests available under an emergency access mechanism called an Emergency Use Authorization (EUA). The EUA for this test is supported by the Emergency Medical Technician/Driver of Health and Human Service's (HHS's) declaration that circumstances exist to justify the emergency use of in vitro diagnostics for the detection and/or diagnosis of the virus that causes COVID-19. This EUA will remain in effect for the duration of the COVID-19 declaration justifying emergency of IVDs, unless it is terminated or revoked by FDA, after which the test may no longer be used. The Calumet Fusion SARS-CoV-2 Assay is for use only under EUA in laboratories certified under the Clinical Laboratory Improvement PATIENT NAME: JOANA CHANGFADY CLEMENT PATHOLOGY DATE OF : [birth year] REPORT #: [id number] PHYSICIAN: BERHANE DARBY PCP: RAQUEL CHAND REPORT IS CONFIDENTIAL AND NOT TO BE RELEASED WITHOUT AUTHORIZATION [address] [place], [place] [address] Signed Amendments of 1988 (CLIA) to perform high complexity tests. [facility] is certified under CLIA to perform high complexity clinical laboratory testing. PERFORMING LABORATORY.: Molecular testing was performed by [facility] [address] [place], [place] [address] [address] (Sr Risk Management Consultant: Memo Ashraf D.O.; CLIA#: [id number]) Diagnostician: System Interface Pathologist Electronically Signed 05/02/2020 Copies: ~ PATIENT NAME: SOHAPPJESSICA Cha PATHOLOGY DATE OF : [birth year] REPORT #: [id number] PHYSICIAN: BERHANE DARBY [facility] REPORT IS CONFIDENTIAL AND NOT TO BE RELEASED WITHOUT AUTHORIZATION
== END 2020-04-30 15:48 | disposition home or self-care (01) ==
LOC: ED 09:54
DX: G40.909 Epilepsy, unspecified, not intractable, without status epilepticus (principal); Z20.828 Contact with and (suspected) exposure to other viral communicable diseases; Z88.1 Allergy status to other antibiotic agents; Z79.899 Other long term (current) drug therapy
CPT/HCPCS: 71045; 80053; 83605; 85025; 85379; 96360; 99285-25; C9803; J7030

== ENCOUNTER 2020-10-10 11:21 | Emergency (ER) | payer MEDICARE, OTHER ==
[~2020-10-10] VITALS: Ht 182.9 cm; Wt 142.9 kg
== END 2020-10-10 13:25 | disposition home or self-care (01) ==
LOC: ED 11:21
DX: S93.401A Sprain of unspecified ligament of right ankle, initial encounter (principal); X50.9XXA Other and unspecified overexertion or strenuous movements or postures, initial encounter; Z88.0 Allergy status to penicillin; Z79.899 Other long term (current) drug therapy
CPT/HCPCS: 73610; 99283-25

== ENCOUNTER 2022-01-31 16:15 | Emergency (ER) | payer MEDICARE, OTHER ==
[~2022-01-31] VITALS: Ht 182.9 cm; Wt 147.4 kg
[2022-01-31] MEDS ORDERED: ZONISAMIDE100 MG PO (20:21)
[2022-01-31] MEDS ORDERED: VIMPAT200 MG PO (20:21)
[2022-01-31] MEDS ORDERED: OXCARBAZEPINE600 MG PO (20:22)
[2022-01-31] MEDS ORDERED: TYLENOL EXTRA500 MG PO (23:33)
--- NOTE | 2022-02-04 08:53 | EKG ---
[facility] [address] [facility] [place], [place] [address] Signed Normal sinus rhythm Normal ECG No previous ECGs available Confirmed by MELODY DIETZ MD ([id number]) on 02/04/2022 8:53:39 AM Electronically Signed By: MELODY DIETZ MD 02/04/22 0853 PATIENT NAME: BERNARDOLENIN Electrocardiogram DATE OF : [birth year] PHYSICIAN: MELODY DIETZ MD REPORT #: [id number] REPORT IS CONFIDENTIAL AND NOT TO BE RELEASED WITHOUT AUTHORIZATION
== END 2022-01-31 23:52 | disposition left against medical advice (07) ==
LOC: ED 16:15
DX: S00.31XA Abrasion of nose, initial encounter (principal); R07.89 Other chest pain; W01.198A Fall on same level from slipping, tripping and stumbling with subsequent striking against other object, initial encounter; Z88.0 Allergy status to penicillin; Z79.899 Other long term (current) drug therapy
CPT/HCPCS: 80053; 83690; 85025; 93005; 93010; 99284-25; A9270

== ENCOUNTER 2024-03-16 16:13 | Emergency (ER) | payer MEDICARE, OTHER ==
[~2024-03-16] VITALS: Ht 182.9 cm; Wt 138.7 kg
[~2024-03-16 16:13] MED LIST changes: +OXCARBAZEPINE600 MG PO; +TYLENOL EXTRA500 MG PO; +VIMPAT200 MG PO; +ZONISAMIDE100 MG PO
[2024-03-16 16:38] LABS: BASOPHILS 0.8 % (0-2); EOSINOPHILS 2.2 % (0-6); HEMATOCRIT 44.9 % (35.0-50.0); LYMPHOCYTES 18.1 % (24-44); MCHC 33.3 g/dl (30-36); MCV 84.2 fl (81-99); MONOCYTES 6.5 % (0-12); NEUTROPHILS 72.4 % (39-80); PLATELET COUNT 284 K/uL (140-440); RBC 5.34 M/ul (4.3-5.7); RDW 15.1 (10.5-15.0)
[2024-03-16] MEDS ORDERED: TETANUS-DIPHTHERIA TOXOIDS/PF 0.5 ML VIAL IM ONE (16:45)
[2024-03-16 16:48] LABS: ALBUMIN 3.6 g/dL (3.4-5.0); ALBUMIN/GLOBULIN RATIO 0.95 (1.1-2.4); ANION GAP 14.3 (7-21); BILIRUBIN, TOTAL 0.4 ng/dL (0.2-1.0); BUN/CREATININE RATIO 7.2 (6.0-28.6); CALCIUM 8.4 mg/dL (8.5-10.1); CREATININE, SERUM 1.11 mg/dL (0.70-1.30); POTASSIUM 3.3 mmol/L (3.5-5.1); PROTEIN, TOTAL 7.4 g/dL (6.4-8.2)
[2024-03-16 18:17] VITALS: BP 124/71
== END 2024-03-16 18:24 | disposition home or self-care (01) ==
LOC: ED 16:13
PROVIDERS: Emergency Medicine
DX: G40.909 Epilepsy, unspecified, not intractable, without status epilepticus (principal); S01.01XA Laceration without foreign body of scalp, initial encounter; X58.XXXA Exposure to other specified factors, initial encounter; H91.90 Unspecified hearing loss, unspecified ear; Z88.0 Allergy status to penicillin; Z79.899 Other long term (current) drug therapy
CPT/HCPCS: 36415; 70450; 72125; 80053; 85025; 90714

== ENCOUNTER 2024-03-23 03:44 | Emergency (ER) | payer MEDICARE, OTHER ==
[~2024-03-23] VITALS: Ht 182.9 cm; Wt 138.6 kg
--- OUTSIDE RECORDS SUMMARY | 2024-03-23 03:50 | XMS ---
PreManage Notification: LENIN CHANG Security Licensing And Registration Director Events No recent Security Events currently on file CRITERIA MET - [facility] - 2 Visits in 30 Days CARE PROVIDERS [facility] 12/06/2022-[facility] PHONE: [phone] -[facility] Dentist: Automotive Electrical Fitter [facility] PHONE: [phone] -Alyson- Dentist: Automotive Electrical Fitter [facility] PHONE: [phone] Loco has no Care Guidelines for this patient. E.D. VISIT COUNT (12 MO.) 3 [facility] TOTAL 3 NOTE: Visits indicate total known visits. ED/UCC VISIT TRACKING (12 MO.) 03/23/2024 03:44 [facility] [place] TYPE: Emergency COMPLAINT: - HEAD PAIN 03/16/2024 16:13 [facility] [place] TYPE: Emergency COMPLAINT: - FALL DIAGNOSES: - Allergy status to penicillin - Epilepsy, unspecified, not intractable, without status epilepticus - Exposure to other specified factors, initial encounter - Laceration without foreign body of scalp, initial encounter - Other clerk of superior court (current) drug therapy - Unspecified hearing loss, unspecified ear 12/24/2023 12:05 [facility] [place] TYPE: Emergency COMPLAINT: - MEDICATION ISSUE DIAGNOSES: - Allergy status to penicillin - Encounter for issue of repeat prescription - Encounter for therapeutic drug level monitoring - Other clerk of superior court (current) drug therapy INPATIENT VISIT TRACKING (12 MO.) No inpatient visits to display in this time frame [email or web address]
[2024-03-23] MEDS ORDERED: ACETAMINOPHEN 500 MG TAB PO ONE (05:15)
[2024-03-23 06:38] VITALS: BP 140/101
== END 2024-03-23 06:41 | disposition home or self-care (01) ==
LOC: ED 03:44
DX: G44.209 Tension-type headache, unspecified, not intractable (principal); Z88.0 Allergy status to penicillin; Z79.899 Other long term (current) drug therapy
CPT/HCPCS: 99283; A9270

== ENCOUNTER 2024-03-23 18:26 | Emergency (ER) | payer MEDICARE, OTHER ==
[~2024-03-23] VITALS: Ht 182.9 cm; Wt 100.0 kg
--- OUTSIDE RECORDS SUMMARY | 2024-03-23 18:33 | XMS ---
PreManage Notification: LENIN CHANG Security Washing Machine Striper Events No recent Security Events currently on file CRITERIA MET - [facility] - 2 Visits in 30 Days CARE PROVIDERS [facility] 12/06/2022-[facility] PHONE: [phone] -[facility] Dentist: Smoking Tobacco Packing Machine Hand [facility] PHONE: [phone] -Alyson- Dentist: Smoking Tobacco Packing Machine Hand [facility] PHONE: [phone] Loco has no Care Guidelines for this patient. E.D. VISIT COUNT (12 MO.) [address] [facility] TOTAL 4 NOTE: Visits indicate total known visits. ED/UCC VISIT TRACKING (12 MO.) 03/23/2024 18:26 [facility] [place] TYPE: Emergency COMPLAINT: - HEAD INJURY 03/23/2024 03:44 [facility] [place] TYPE: Emergency COMPLAINT: - HEADACHE 03/16/2024 16:13 [facility] [place] TYPE: Emergency COMPLAINT: - FALL DIAGNOSES: - Allergy status to penicillin - Epilepsy, unspecified, not intractable, without status epilepticus - Exposure to other specified factors, initial encounter - Laceration without foreign body of scalp, initial encounter - Other termite treater (current) drug therapy - Unspecified hearing loss, unspecified ear 12/24/2023 12:05 [facility] [place] TYPE: Emergency COMPLAINT: - MEDICATION ISSUE DIAGNOSES: - Allergy status to penicillin - Encounter for issue of repeat prescription - Encounter for therapeutic drug level monitoring - Other penitentiary (current) drug therapy INPATIENT VISIT TRACKING (12 MO.) No inpatient visits to display in this time frame [email or web address]
[2024-03-23 18:46] LABS: EOSINOPHILS 4.1 % (0-6); HEMATOCRIT 41.7 % (35.0-50.0); HEMOGLOBIN 14.4 g/dL (12.0-18.0); LYMPHOCYTES 18.2 % (24-44); MCH 28.5 (27-36); MCHC 34.5 g/dl (30-36); MCV 82.5 fl (81-99); MONOCYTES 8.2 % (0-12); NEUTROPHILS 68.5 % (39-80); PLATELET COUNT 257 K/uL (140-440); RBC 5.05 M/ul (4.3-5.7)
[2024-03-23 19:00] LABS: ALBUMIN 3.4 g/dL (3.4-5.0); ALBUMIN/GLOBULIN RATIO 0.97 (1.1-2.4); ANION GAP 13.1 (7-21); BILIRUBIN, TOTAL 0.4 ng/dL (0.2-1.0); BUN/CREATININE RATIO 7.07 (6.0-28.6); CALCIUM 7.9 mg/dL (8.5-10.1); CREATININE, SERUM 0.99 mg/dL (0.70-1.30); POTASSIUM 3.1 mmol/L (3.5-5.1); PROTEIN, TOTAL 6.9 g/dL (6.4-8.2)
[2024-03-23] MEDS ORDERED: ACETAMINOPHEN 500 MG TAB PO ONE (19:00)
[2024-03-23 19:32] LABS: BILIRUBIN, URINE NEGATIVE (negative); BLOOD/HGB, URINE NEGATIVE (Negative); KETONE, URINE NEGATIVE (Negative); LEUK ESTERASE, URINE NEGATIVE (negative); NITRITE, URINE NEGATIVE (negative); PH, URINE 6.5 (5-7)
[2024-03-23 19:40] LABS: BACTERIA, URINE RARE /hpf (negative); EPITHELIAL CELLS, URINE NONE SEEN /lpf (0-1+); RED BLOOD CELLS, URINE 0-1 /hpf (0-5); WHITE BLOOD CELLS, URINE 0-1 /HPF (0-5)
[2024-03-23 19:41] LABS: CASTS, URINE NONE SEEN \\lpf; REFLEX CULTURE, URINE No (No)
[2024-03-23 19:42] LABS: COLLECTION TYPE, URINE CLEAN CATCH
[2024-03-23 19:45] LABS: CRYSTALS, URINE NONE SEEN (0-1+)
[2024-03-23 19:47] LABS: AMPHETAMINES, URINE NEGATIVE (NEGATIVE); BARBITURATES, URINE NEGATIVE (NEGATIVE); BENZODIAZEPINE, URINE NEGATIVE (NEGATIVE); BUPRENORPHINE, URINE NEGATIVE (NEGATIVE); CANNABINOID, URINE NEGATIVE (NEGATIVE); COCAINE, URINE NEGATIVE (NEGATIVE); ECSTASY, URINE NEGATIVE (NEGATIVE); FENTANYL, URINE NEGATIVE (NEGATIVE); METHADONE, URINE NEGATIVE (NEGATIVE); OPIATES, URINE NEGATIVE (NEGATIVE); OXYCODONE, URINE NEGATIVE (NEGATIVE); PHENCYCLIDINE, URINE NEGATIVE (NEGATIVE)
[2024-03-23 21:20] VITALS: BP 127/82
== END 2024-03-23 21:22 | disposition home or self-care (01) ==
LOC: ED 18:26
PROVIDERS: Emergency Medicine
DX: G40.909 Epilepsy, unspecified, not intractable, without status epilepticus (principal); S01.01XA Laceration without foreign body of scalp, initial encounter; W18.39XA Other fall on same level, initial encounter; Z88.0 Allergy status to penicillin; Z79.899 Other long term (current) drug therapy
CPT/HCPCS: 36415; 70450; 80053; 80177; 80183; 80307; 81001; 85025; A9270

== ENCOUNTER 2024-05-31 00:01 | Emergency (ER) | payer MEDICARE, OTHER ==
[~2024-05-31] VITALS: Ht 185.4 cm; Wt 140.0 kg
[2024-05-31] MEDS ORDERED: LORazepam 2 MG/ML VIAL IV ONE (00:30)
[2024-05-31] MEDS ORDERED: levETIRAcetam 500 MG/5 ML VIAL IV ONE (00:30)
[2024-05-31 00:44] LABS: EOSINOPHILS 4.2 % (0-6); HEMATOCRIT 44.4 % (35.0-50.0); HEMOGLOBIN 15.1 g/dL (12.0-18.0); LYMPHOCYTES 17.4 % (24-44); MCV 82.2 fl (81-99); MONOCYTES 8.2 % (0-12); NEUTROPHILS 69.2 % (39-80); PLATELET COUNT 212 K/uL (140-440); RDW 16.2 (10.5-15.0)
[2024-05-31 01:04] LABS: ALBUMIN 3.7 g/dL (3.4-5.0); ALBUMIN/GLOBULIN RATIO 1.03 (1.1-2.4); ANION GAP 13.9 (7-21); BILIRUBIN, TOTAL 0.5 ng/dL (0.2-1.0); BUN/CREATININE RATIO 10.47 (6.0-28.6); CALCIUM 8.6 mg/dL (8.5-10.1); CREATININE, SERUM 1.05 mg/dL (0.70-1.30); MAGNESIUM 1.9 mg/dL (1.8-2.4); POTASSIUM 2.9 mmol/L (3.5-5.1); PROTEIN, TOTAL 7.3 g/dL (6.4-8.2)
[2024-05-31] MEDS ORDERED: GLUCAGON,HUMAN RECOMBINANT 1 MG/ML VIAL IV ONE (01:15)
[2024-05-31] MEDS ORDERED: DEXTROSE 50% 50 ML SYR IV ONE (01:15)
[2024-05-31] MEDS ORDERED: POTASSIUM CHLORIDE 10 MEQ TABCR PO ONE (01:45)
[2024-05-31 05:07] VITALS: BP 123/83
[2024-06-01 15:20] LABS: KEPPRA (LEVETIRACETAM) <2 ug/mL (10-40)
== END 2024-05-31 05:10 | disposition home or self-care (01) ==
LOC: ED 00:01
PROVIDERS: Family Medicine
DX: G40.909 Epilepsy, unspecified, not intractable, without status epilepticus (principal); E16.2 Hypoglycemia, unspecified; Z88.0 Allergy status to penicillin; Z79.899 Other long term (current) drug therapy
CPT/HCPCS: 36415; 70450; 80053; 80177; 83735; 85025; 96374; 96375; 99284-25; A9270; J1610; J1953; J2060

== ENCOUNTER 2024-11-06 19:25 | Emergency (ER) | payer MEDICARE, OTHER ==
[~2024-11-06] VITALS: Ht 185.4 cm; Wt 139.7 kg
[2024-11-06 19:47] LABS: BASOPHILS 0.8 % (0-2); HEMATOCRIT 45.8 % (35.0-50.0); HEMOGLOBIN 15.7 g/dL (12.0-18.0); LYMPHOCYTES 7.2 % (24-44); MCH 28.7 (27-36); MCHC 34.3 g/dl (30-36); MCV 83.7 fl (81-99); PLATELET COUNT 212 K/uL (140-440); RBC 5.47 M/ul (4.3-5.7); RDW 15.2 (10.5-15.0)
[2024-11-06 20:01] LABS: ALBUMIN 3.6 g/dL (3.4-5.0); ALBUMIN/GLOBULIN RATIO 0.95 (1.1-2.4); ANION GAP 13.4 (7-21); BILIRUBIN, TOTAL 0.5 mg/dL (0.2-1.0); CALCIUM 8.2 mg/dL (8.5-10.1); MAGNESIUM 1.7 mg/dL (1.8-2.4); POTASSIUM 3.4 mmol/L (3.5-5.1); PROTEIN, TOTAL 7.4 g/dL (6.4-8.2)
[2024-11-06] MEDS ORDERED: MAGNESIUM OXIDE 400 MG TABLET PO ONE (20:45)
[2024-11-06] MEDS ORDERED: HYDROCODON-ACE1 EA10 PO (21:25)
[2024-11-06] MEDS ORDERED: HYDROCODONE BIT/ACETAMINOPHEN 5/325 MG 1 TAB HOME.PACK PO ONE (21:30)
[2024-11-06 21:50] VITALS: BP 135/73
== END 2024-11-06 21:53 | disposition home or self-care (01) ==
LOC: ED 19:25
PROVIDERS: Family Medicine
DX: S00.03XA Contusion of scalp, initial encounter (principal); X58.XXXA Exposure to other specified factors, initial encounter; Z88.0 Allergy status to penicillin; Z79.899 Other long term (current) drug therapy
CPT/HCPCS: 36415; 70450; 70486; 80053; 83735; 85025; 99284-25; A9270

== ENCOUNTER 2024-11-07 12:28 | Emergency (ER) | payer MEDICARE, OTHER ==
[~2024-11-07] VITALS: Ht 185.4 cm; Wt 149.7 kg
[~2024-11-07 12:28] MED LIST changes: +HYDROCODON-ACE1 EA10 PO
--- OUTSIDE RECORDS SUMMARY | 2024-11-07 12:35 | XMS ---
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 E.D. VISIT COUNT (12 MO.) [address] [facility] TOTAL 8 NOTE: Visits indicate total known visits. ED/UCC VISIT TRACKING (12 MO.) 11/07/2024 12:29 [facility] [place] TYPE: Emergency COMPLAINT: - SEIZURE 11/06/2024 19:25 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 - Unspecified convulsions 03/23/2024 18:26 [facility] [place] TYPE: Emergency COMPLAINT: - HEAD INJURY DIAGNOSES: - Allergy status to penicillin - Epilepsy, unspecified, not intractable, without status epilepticus - Laceration without foreign body of scalp, initial encounter - Other fall on same level, initial encounter - 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 03/23/2024 03:44 [facility] [place] TYPE: Emergency COMPLAINT: - HEADACHE DIAGNOSES: - Allergy status to penicillin - Anxiety disorder, unspecified - Other longterm (current) drug therapy - Tension-type headache, unspecified, not intractable 03/16/2024 16:13 [facility] [place] TYPE: Emergency COMPLAINT: - FALL DIAGNOSES: - Allergy status to penicillin - Epilepsy, unspecified, not intractable, without status epilepticus - Exposure to other specified factors, initial encounter - Laceration without foreign body of scalp, initial encounter - 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
[2024-11-07] MEDS ORDERED: KETOROLAC TROMETHAMINE 30 MG/ML VIAL IV ONE (13:15)
[2024-11-07 15:01] VITALS: BP 119/78
== END 2024-11-07 15:03 | disposition home or self-care (01) ==
LOC: ED 12:28
DX: S22.32XA Fracture of one rib, left side, initial encounter for closed fracture (principal); W19.XXXA Unspecified fall, initial encounter; Z88.0 Allergy status to penicillin; Z79.899 Other long term (current) drug therapy
CPT/HCPCS: 71045; 96374; 99283-25; J1885

== ENCOUNTER 2025-03-03 16:50 | Emergency (ER) | payer MEDICARE, OTHER ==
[~2025-03-03] VITALS: Ht 185.4 cm; Wt 149.7 kg
[2025-03-03 20:09] LABS: BASOPHILS 0.4 % (0.2-1.2); EOSINOPHILS 0.7 % (0.8-7.0); HEMOGLOBIN 13.2 g/dL (13.7-17.5); LYMPHOCYTES 12.7 % (21.8-53.1); MCHC 33.8 g/dL (32.3-36.5); MCV 82.8 fL (79.0-92.2); MONOCYTES 5.2 % (5.3-12.2); NEUTROPHILS 80.1 % (34.0-67.9); PLATELET COUNT 372 K/uL (163-337); RBC 4.71 M/uL (4.63-6.08)
[2025-03-03 20:15] LABS: BILIRUBIN, URINE NEGATIVE (negative); BLOOD/HGB, URINE NEGATIVE (Negative); KETONE, URINE NEGATIVE (Negative); LEUK ESTERASE, URINE NEGATIVE (negative); NITRITE, URINE NEGATIVE (negative)
[2025-03-03 20:20] LABS: BACTERIA, URINE RARE /hpf (negative); CASTS, URINE NONE SEEN \\lpf; COLLECTION TYPE, URINE CLEAN CATCH; CRYSTALS, URINE AMORPHOUS PHOSPH 4+ (0-1+); EPITHELIAL CELLS, URINE SQUAMOUS 1+ /lpf (0-1+); RED BLOOD CELLS, URINE 0-1 /hpf (0-5); WHITE BLOOD CELLS, URINE 0-1 /HPF (0-5)
[2025-03-03 20:21] LABS: REFLEX CULTURE, URINE No (No)
[2025-03-03 20:24] LABS: ALBUMIN 2.4 g/dL (3.4-5.0); ALBUMIN/GLOBULIN RATIO 0.5 (1.1-2.4); ANION GAP 13.6 (7-21); BILIRUBIN, TOTAL 0.6 mg/dL (0.2-1.0); BUN/CREATININE RATIO 7.52 (6.0-28.6); CALCIUM 7.9 mg/dL (8.5-10.1); CREATININE, SERUM 0.93 mg/dL (0.70-1.30); POTASSIUM 3.6 mmol/L (3.5-5.1); PROTEIN, TOTAL 7.2 g/dL (6.4-8.2)
[2025-03-03] MEDS ORDERED: CEFTRIAXONE SODIUM 2 GM in SODIUM CHLORIDE 0.9% 100 ML IV ONE (22:00)
[2025-03-03] MEDS ORDERED: VANCOMYCIN HCL 3,000 MG in DEXTROSE 5% 500 ML IV ONE (22:15)
[2025-03-03] MEDS ORDERED: SODIUM CHLORIDE 0.9% 1,000 ML IV PRN (22:15)
[2025-03-03] MEDS ORDERED: metroNIDAZOLE/SODIUM CHLORIDE 500 MG/100 ML PIGGYBACK IV ONE (22:15)
[2025-03-03 22:33] LABS: PARTIAL THROMBOPLASTIN TIME 29.7 Sec (22.9-41.3)
[2025-03-03 22:34] LABS: INR 1.28 (0.80-1.30); PROTIME 15.4 Sec (11.2-14.2)
[2025-03-03] MEDS ORDERED: LACOSAMIDE200 MG PO (23:13)
[2025-03-04] MEDS ORDERED: LACTATED RINGER'S 1,000 ML IV ONE (02:30)
[2025-03-04 03:25] VITALS: BP 123/84
== END 2025-03-04 03:25 | disposition short-term general hospital (02) ==
LOC: ED 16:50
PROVIDERS: Emergency Medicine; Internal Medicine
DX: N49.2 Inflammatory disorders of scrotum (principal); N43.3 Hydrocele, unspecified; H91.3 Deaf nonspeaking, not elsewhere classified; Z88.1 Allergy status to other antibiotic agents
CPT/HCPCS: 36415; 74177; 76870; 80053; 81001; 83605; 85025; 85610; 85730; 96367; 96375; 99285-25; J0696; J3370; J7030; J7060; J7121; Q9967